=== PATIENT | male | born 1935 | race Caucasian/White ===

== ENCOUNTER 2017-09-15 12:51 | Day surgery (SDC) | payer MEDICARE ==
[2017-09-09 15:32] VITALS: BMI 34.9
[~2017-09-15 12:51] MED LIST: SODIUM CHLORIDE 0.9% 1,000 ML IV SCH; ceFAZolin 1,000 MG in SODIUM CHLORIDE 0.9% IRRIGATIO 250 ML IRRIGATION ONE; ceFAZolin IN SWFI 2 GM/20 ML SYRINGE IVP ONE
[2017-09-15] MEDS: SODIUM CHLORIDE 0.9% 1,000 ML IV SCH ×2 (13:22→19:45)
[2017-09-15 13:30] LABS: Glucose,Whole Blood 183 mg/dL (75-99)
[2017-09-15 13:32] LABS: Basophils % (A) 1 %; Eosinophils # (A) 0.2 k/uL (0-0.7); Eosinophils % (A) 3 %; HCT 49.5 % (39.0-53.0); HGB 15.2 gm/dL (13.0-17.5); Lymphocytes # (A) 1.6 k/uL (1.0-4.8); Lymphocytes % (A) 23 %; MCH 30.5 pg (25.0-35.0); MCHC 30.8 g/dL (31.0-37.0); MCV 99.2 fL (80.0-100.0); Mean Platelet Volume 8.9; Monocytes # (A) 0.5 k/uL (0-1.0); Monocytes % (A) 6 %; Neutrophils # (A) 4.6 k/uL (1.3-7.7); Neutrophils % (A) 65 %; Platelet Count 143 k/uL (150-450); RBC 4.99 m/uL (4.30-5.90); RDW 13.6 % (11.5-15.5)
[2017-09-15 13:39] LABS: Anion Gap 11 mmol/L; Blood Urea Nitrogen 24 mg/dL (9-20); Calcium 9.6 mg/dL (8.4-10.2); Carbon Dioxide 29 mmol/L (22-30); Chloride 100 mmol/L (98-107); Glucose 200 mg/dL (74-99); Potassium 4.6 mmol/L (3.5-5.1); Sodium 140 mmol/L (137-145)
[2017-09-15] MEDS ORDERED: ceFAZolin 1,000 MG in DEXTROSE/WATER 1 50ML.BAG IVPB STA (14:00)
[2017-09-15] MEDS ORDERED: PHENYLEPHRINE-0.9% NACL SYG 1 MG/10 ML SYRINGE ONE (14:02)
[2017-09-15] MEDS ORDERED: PROPOFOL 10 MG/ML 20 ML VIAL IV ONE (14:02)
[2017-09-15] MEDS ORDERED: MIDAZOLAM 2 MG/2 ML VIAL ONE (14:02)
[2017-09-15] MEDS ORDERED: fentaNYL (PF) 50 MCG/ML 2 ML AMP ONE (14:02)
[2017-09-15] MEDS ORDERED: LIDOCAINE 2% INJ 20 MG/ML SQ ONE (14:38)
[2017-09-15 15:14] LABS: O2 Sat Blood Gas 98.6 %
[2017-09-15 15:18] LABS: O2 Sat Blood Gas 75.7 %
[2017-09-15 15:21] LABS: O2 Sat Blood Gas 99.2 %
[2017-09-15 15:23] LABS: O2 Sat Blood Gas 78.3 %
[2017-09-15 15:25] LABS: O2 Sat Blood Gas 85.9 %
[2017-09-15 15:27] LABS: O2 Sat Blood Gas 74.2 %
--- NOTE | 2017-09-15 15:32 | P.PCN ---
Preoperative Diagnosis: Transvenous temporary pacing procedure Indication for the procedure: Severe underlying bradycardia, complete heart block Patient was brought to the EP lab in a fasting state. Written informed consent was obtained prior to the procedure. The right groin was prepped and draped as a protocol. A 6-Vietnamese sheath was placed in the right femoral vein. Via this, a temporary pacing catheter was placed in the right ventricle. Thresholds were interrogated. Temporary pacing was performed through the rest of the procedure. At the end of the entire procedure, the TVP was removed. The sheath was removed and hemostasis was assured. Patient tolerated the procedure well without any acute complications. Procedure performed Transvenous temporary pacing Disposition: observation
[2017-09-15] MEDS ORDERED: LIDOCAINE 1% INJ 10MG/ML (20 ML MDV) SQ ONE (15:52)
[2017-09-15] MEDS ORDERED: LACTATED RINGERS 1,000 ML IV ONE (15:54)
[2017-09-15] MEDS ORDERED: INSULIN ASPART 10 UNIT SQ PRN (16:26)
[2017-09-15] MEDS ORDERED: ACETAMINOPHEN TAB 325 MG TAB PO PRN ×2 (16:27→16:28)
--- NOTE | 2017-09-15 16:32 | P.PCN ---
Preoperative Diagnosis: Right heart catheterization performed Indication for the procedure elevated PA pressures with normal LV function on 2-D echo and Doppler Result Moderate pulmonary hypertension out of proportion to the elevation in pulmonary capillary wedge pressure Mildly increased pulmonary recovery wedge pressure No significant oxygen step up SVC saturation may be an aberrancy/accurate Details 8-Congolese venous sheath in the right femoral vein Crete-Keron catheter placed in the right heart Pulmonary capillary wedge pressure, mean equals 20, Which position, oxygen saturation equals 99.2% PA pressure 58/25/35 mmHg Pulmonary artery oxygen saturation equals 75.7% RV pressure 47/7/15 mmHg Right ventricle oxygen saturation equals 77% RA pressure 11/10/9 mmHg Right atrium oxygen saturation equals 78.3% SVC 14/12/11 mmHg SVCoxygen saturation equals 75.9% IVC 10/9/9 mmHg IVC oxygen saturation equals 74.2% Oxygen saturation of FA 98.6% Disposition: observation
--- NOTE | 2017-09-15 17:08 | CE ---
CARDIAC ELECTROPHYSIOLOGY REPORT Mr. Forman is a 81-year-old male patient who underwent dual chamber pacemaker generator change for device at [facility]. He has complete heart block. PROCEDURE: The patient brought to the EP lab in a fasting state. Written informed consent was obtained prior to the procedure. The left shoulder was prepped and draped as per protocol. 1% lidocaine was used for local anesthesia. A 4 cm incision was made parallel to the deltopectoral groove and carried down to the level of the generator. The generator was explanted. The leads were freed from the surrounding tissue. The leads were interrogated and the chronic generator was explanted. The new generator was implanted. Partial capsulectomy was performed. Hemostasis was assured. Wound was closed in 3 layers and dressed per protocol. The right atrial lead was a [employer], model #1688TC, 46 cm in length [place] serial [place] [id number]. P waves 2.4 mV, pacing impedance 460 ohms, pacing threshold 1.5 V at 0.5 milliseconds. The right ventricular lead was a [employer] model #1688TC, 58 cm in length and serial number [id number]. The patient is pacemaker dependent, pacing impedance 700 ohms, pacing threshold 0.75 V at 0.5 milliseconds. The explanted generator was a [employer] model #5826, serial #[id number]. The new generator implanted was a [employer] model number [id number], serial #[id number]. Patient tolerated the procedure well without any acute complications. PLAN: IV antibiotics and resume all home medications. Follow up in the device clinic in 5 days. MMODL / IJN: [id number] /
[2017-09-15 17:27] LABS: Glucose,Whole Blood 140 mg/dL (75-99)
[2017-09-15] MEDS: INSULIN NPH/REG INSULIN 70/30 300 UNIT/3 ML VIAL SQ SCH (17:54)
[2017-09-15] MEDS: LACTATED RINGERS 1,000 ML IV SCH (19:45)
[2017-09-15 20:37] LABS: Glucose,Whole Blood 229 mg/dL (75-99)
[2017-09-15] MEDS: ASPIRIN 81 MG PO SCH (20:56)
[2017-09-15] MEDS: ceFAZolin IN SWFI 2 GM/20 ML SYRINGE IVP SCH (20:56)
[2017-09-15] MEDS: LOSARTAN-HCTZ 50-12.5 MG 1 EACH TAB PO SCH (20:56)
[2017-09-15] MEDS: METOPROLOL SUCCINATE (ER) 50 MG TAB.ER.24H PO SCH (20:56)
[2017-09-15] MEDS ORDERED: ATORVASTATIN 80 MG TAB PO SCH (21:00)
[2017-09-15] MEDS: INSULIN ASPART 100 UNIT/ML 1 ML 10 ML VIAL SQ ONE (23:59)
[2017-09-16] MEDS ORDERED: INSULIN ASPART 100 UNIT/ML 1 ML 10 ML VIAL SQ ONE (00:08)
[2017-09-16] MEDS: INSULIN ASPART 100 UNIT/ML 1 ML 10 ML VIAL SQ ONE (00:18)
[2017-09-16 00:37] VITALS: RESP 16
[2017-09-16] MEDS: ceFAZolin IN SWFI 2 GM/20 ML SYRINGE IVP SCH ×3 (03:10→14:48)
[2017-09-16] MEDS: SODIUM CHLORIDE 0.9% 1,000 ML IV SCH (06:42)
[2017-09-16] MEDS: LACTATED RINGERS 1,000 ML IV SCH (06:43)
[2017-09-16 06:46] LABS: Glucose,Whole Blood 113 mg/dL (75-99)
--- NOTE | 2017-09-16 07:43 | P.DS ---
Providers Attending physician: Daryn Castro Primary care physician: Jacobo Orr [facility] Course: Patient is doing well. He is sitting up at the edge of the bed. No hematoma over the pacemaker site and groins of healed well and no hematoma or swelling no pain. No lower extremity edema. Heart sounds are normal normal S1 normal S2 no murmurs or gallops. Breath sounds are clear no rhonchi no crackles. Blood pressure 144/60 mmHg this morning pulse rate in the 60s afebrile 90F normal respirations Impression Complete heart block, pacemaker generator dual-chamber at [place] status post pacemaker generator change yesterday Moderate pulmonary hypertension PA pressures in the mid 50s, Out of Proportion to the elevation in wedge pressures PA systolic pressures in the low 50s millimeters of mercury, wedge pressure 18- 20 mmHg Morbid obesity Central obesity obstructive sleep apnea Adult-onset diabetes Coronary artery disease status post cardiac stenting in the past Preserved LV systolic function left ventricular hypertrophy ejection fraction 55 % Plan IV antibiotics and discharged home Today after completion of antibiotics Add Lasix 20 mg by mouth daily to current regimen Sleep apnea assessment Discuss with Dr. Orr this month Watch blood pressure control Procedures performed Right heart catheterization Transvenous temporary pacing Dual-chamber pacemaker generator change Patient Condition at Discharge: Stable Plan - Discharge Summary Discharge Rx Participant: Yes New Discharge Prescriptions: No Action Metoprolol Succinate [Toprol Xl] 50 mg PO BID Losartan/Hydrochlorothiazide [Losartan-Hctz 100-25 mg Tab] 0.5 tab PO BID sitaGLIPtin [Januvia] 50 mg PO DAILY Escitalopram [Lexapro] 10 mg PO DAILY Atorvastatin [Lipitor] 80 mg PO HS Tamsulosin HCl [Flomax] 0.4 mg PO DAILY Insulin Aspart [Novolog] 10 unit SQ AC-TID PRN PRN Reason: Blood Sugar - High Insulin NPH Hum/Reg Insulin Hm [Novolin 70-30 100 Unit/ml Vial] 75 unit SQ BID Aspirin [Adult Low Dose Aspirin EC] 81 mg PO BID Discharge Medication List Aspirin [Adult Low Dose Aspirin EC] 81 mg PO BID 09/09/17 [History] Atorvastatin [Lipitor] 80 mg PO HS 09/09/17 [History] Escitalopram [Lexapro] 10 mg PO DAILY 09/09/17 [History] Insulin Aspart [Novolog] 10 unit SQ AC-TID PRN 09/09/17 [History] Insulin NPH Hum/Reg Insulin Hm [Novolin 70-30 100 Unit/ml Vial] 75 unit SQ BID 09/09/17 [History] Losartan/Hydrochlorothiazide [Losartan-Hctz 100-25 mg Tab] 0.5 tab PO BID [History] Metoprolol Succinate [Toprol Xl] 50 mg PO BID 09/09/17 [History] Tamsulosin HCl [Flomax] 0.4 mg PO DAILY 09/09/17 [History] sitaGLIPtin [Januvia] 50 mg PO DAILY 09/09/17 [History]
[2017-09-16 07:47] VITALS: PULSE 59
[2017-09-16] MEDS: INSULIN ASPART 100 UNIT/ML 1 ML 10 ML VIAL SQ SCH ×2 (07:50→12:23)
[2017-09-16] MEDS: INSULIN NPH/REG INSULIN 70/30 300 UNIT/3 ML VIAL SQ SCH (07:50)
[2017-09-16] MEDS: LOSARTAN-HCTZ 50-12.5 MG 1 EACH TAB PO SCH (08:43)
[2017-09-16] MEDS: METOPROLOL SUCCINATE (ER) 50 MG TAB.ER.24H PO SCH (08:43)
[2017-09-16] MEDS: ASPIRIN 81 MG PO SCH (08:43)
[2017-09-16] MEDS ORDERED: ESCITALOPRAM 10 MG TAB PO SCH (09:00)
[2017-09-16] MEDS ORDERED: TAMSULOSIN 0.4 MG CAP.ER.24H PO SCH (09:00)
[2017-09-16] MEDS ORDERED: LINAGLIPTIN 5 MG TABLET PO SCH (09:00)
[2017-09-16 11:43] VITALS: BP 141/64; TEMP 97.5
[2017-09-16 12:16] LABS: Glucose,Whole Blood 200 mg/dL (75-99)
== END 2017-09-16 15:33 | disposition home or self-care (01) ==
LOC: CATHEP 12:51 → 3OBS 16:22 → CATHEP 09-16 15:33
PROVIDERS: ATTEND Internal Medicine Clinical Cardiac Electrophysiology
DX: Z45.010 Encounter for checking and testing of cardiac pacemaker pulse generator [battery] (principal); R00.1 Bradycardia, unspecified; I44.2 Atrioventricular block, complete; I25.10 Atherosclerotic heart disease of native coronary artery without angina pectoris; Z95.5 Presence of coronary angioplasty implant and graft; I27.20 Pulmonary hypertension, unspecified; E66.01 Morbid (severe) obesity due to excess calories; Z68.35 Body mass index [BMI] 35.0-35.9, adult; G47.33 Obstructive sleep apnea (adult) (pediatric); E11.9 Type 2 diabetes mellitus without complications; E78.5 Hyperlipidemia, unspecified; I25.2 Old myocardial infarction; I11.9 Hypertensive heart disease without heart failure; I65.29 Occlusion and stenosis of unspecified carotid artery; I73.9 Peripheral vascular disease, unspecified; Z79.84 Long term (current) use of oral hypoglycemic drugs; Z79.82 Long term (current) use of aspirin; Z79.4 Long term (current) use of insulin; Z79.899 Other long term (current) drug therapy; Z88.8 Allergy status to other drugs, medicaments and biological substances; Z87.891 Personal history of nicotine dependence
CPT/HCPCS: 93451; 33228; 80048; 85018; 82810; 85025; C1894; C1769 ×2; C1785; C1730; J2001 ×2; J2250; J0690 ×4; J3010; J2370; J2704

== ENCOUNTER → 2017-12-22 | Outpatient (CLI) | payer MEDICARE ==
--- NOTE | 2017-12-22 12:53 | CONS ---
CONSULTATION DATE OF SERVICE: 12/22/2017 This 82-year-old gentleman has been evaluated in the sleep center for possible obstructive sleep apnea-hypopnea syndrome. HISTORY OF PRESENT ILLNESS/SLEEP WAKE EVALUATION: Patient usual sleep schedule from 11:30 p.m. until 8 a.m. 7 days a week. No problem with falling asleep. No TV in bedroom. According to the patient's , he is snores and he wakes up from sleep 2 times with nocturia. No history of hypnagogic hallucinations, sleep paralysis or cataplexy. During the day, patient usually does not take naps because he is usually busy. [place] Sleepiness Scale is 6. PAST MEDICAL HISTORY: Positive for cardiac arrhythmia, hypertension, hyperlipidemia, diabetes. PAST SURGICAL HISTORY: Status post permanent pacemaker insertion, appendectomy. MEDICATIONS: Atorvastatin, aspirin, metoprolol, Benicar, Januvia, NovoLog, Lexapro. SOCIAL HISTORY: Positive for smoking in the past for more than 20 pack years, quit in 1982. Alcohol consumption none since 1983. REVIEW OF SYSTEMS: Multiple awakenings from sleep. Increasing weight about 15 pounds for the last 5 years. No fevers. No double vision. No recent chest pain. No shortness of breath. No abdominal pain. No bleeding episodes. No blood in urine. No seizure episodes. FAMILY HISTORY: Heart problems, snoring, cancer, diabetes. His sister had breast cancer. PHYSICAL EXAM: During physical exam, gentleman without distress. VITAL SIGNS: BP 137/58, HR 64, RR 18, height 5 feet 8-1/2 inches, weight 241.2, BMI 36.1, temperature 98.3, oxygen saturation on room air 92%. HEENT: PERRLA, EOMI. Oropharynx very short distance between soft palate and posterior pharyngeal wall. NECK: Wide neck 20-1/2 inches in circumference. LUNGS: Clear to percussion and to auscultation. Good air exchange. No wheezing or rhonchi. HEART: S1, S2 regular. No murmurs, gallops, or rubs. ABDOMEN: Obese, EXTREMITIES: No clubbing or cyanosis. HULL MOLDER: Awake, alert, and oriented X3. Cranial nerves 2 to 7 intact. There is no fasciculation or atrophy. noted. No focal deficits observed. IMPRESSION: 1. Snoring, awakenings from sleep with nocturia, short distance between soft palate and posterior pharyngeal wall, wide neck 20-1/2 inches in circumference, obstructive sleep apnea-hypopnea syndrome. 2. Obesity, body mass index 36.1. 3. History of cardiac arrhythmia, status post permanent pacemaker insertion. 4. Hypertension. 5. Diabetes mellitus. 6. Hyperlipidemia. 7. Status post appendectomy. 8. History of some kind of thoughts about several years ago. any recent problems on treatment with SSRIs. PLAN: 1. Polysomnography for evaluation of patient's breathing during sleep. 2. CPAP/BiPAP titration if sleep study confirms obstructive sleep apnea-hypopnea syndrome. 3. Preferable position during sleep on the side. 4. No driving if patient feels any sleepiness. 5. I will see patient for follow up visit to explain results of testing and following plan. Thank you very much for referring this patient for consultation. Sincerely, Phoenix Aparicio MD, PhD, FAASM Diplomat of [employer] [facility] [place] MMODL / IJN: [id number] /
== END | disposition home or self-care (01) ==
LOC: SLEEP 10:56
PROVIDERS: ATTEND Internal Medicine
DX: G47.33 Obstructive sleep apnea (adult) (pediatric) (principal); E66.9 Obesity, unspecified; I10 Essential (primary) hypertension; E11.9 Type 2 diabetes mellitus without complications; E78.5 Hyperlipidemia, unspecified; Z90.49 Acquired absence of other specified parts of digestive tract; Z68.36 Body mass index [BMI] 36.0-36.9, adult; Z86.79 Personal history of other diseases of the circulatory system; Z95.0 Presence of cardiac pacemaker; Z99.89 Dependence on other enabling machines and devices; Z79.899 Other long term (current) drug therapy; Z79.82 Long term (current) use of aspirin
CPT/HCPCS: 99211

== ENCOUNTER → 2018-03-30 | Outpatient (CLI) | payer MEDICARE ==
--- NOTE | 2018-03-30 14:27 | PN ---
PROGRESS NOTE DATE OF SERVICE: 03/30/2018 Followup visit in Sleep Center. An 82-year-old gentleman has been followed in the Sleep Center for treatment of obstructive sleep apnea-hypopnea syndrome. Recently patient had diagnostic sleep study and CPAP titration and I discussed results of the sleep studies with patient in detail. Diagnostic sleep study showed obstructive sleep apnea-hypopnea syndrome. The apnea-hypopnea index 14.1, which was fixed with CPAP with a pressure 10 cm of water. Subsequently, patient received his CPAP unit and today is his first visit after he was started on treatment with CPAP. He is able to sleep with CPAP without significant problems with a full-face mask. He sleeps well with that, feel better during the day. I checked his CPAP unit, CPAP pressure 10 cm of water. Usage is every night and / nights more than 4 hours. Average usage 4.7 hours. Leak 23 L/minute which is acceptable. Apnea-hypopnea index is only 1.8 for the last month, which is normal. [place] Sleepiness Scale today is only 3. MEDICATIONS: Atorvastatin, aspirin, metoprolol, Benicar, Januvia, NovoLog, Lexapro. PHYSICAL EXAM: Patient in no distress. BP 108/30 on the left hand, on right hand 114/45, HR 69, RR 16, weight 240.8, temperature 98.8. OROPHARYNX: Extremely low position of soft palate. ABDOMEN: Obese. Neck Supple, no JVD. Thyroid is not palpable. LUNGS Clear to percussion and to auscultation. Good air exchange. No wheezing or rhonchi. HEART S1, S2 regular. No murmurs, gallops, or rubs. EXTREMITIES No clubbing or cyanosis. SOCIAL SCIENCE MANAGER Awake, alert, and oriented X3. Cranial nerves 2 to 7 intact. There is no fasciculation or atrophy. noted. No focal deficits observed. IMPRESSION: 1. Obstructive sleep apnea-hypopnea syndrome. Patient demonstrated great compliance with treatment, benefitting from treatment. 2. Obesity. 3. History of cardiac arrhythmias, status post permanent pacemaker insertion. 4. Hypertension. 5. Diabetes mellitus. 6. Hyperlipidemia. 7. Status post appendectomy. 8. History of depression. PLAN: 1. Patient will continue to use CPAP equipment every night. 2. Losing weight. 3. Sleep hygiene with regular time in bed for at least 8 hours. 4. No driving if feeling any sleepiness. 5. We will maintain prescription for all necessary CPAP supplies. 6. Followup visit in 10 months or earlier if patient has any problems. Thank you very much for allowing me to participate in the management of your patient. Sincerely, Phoenix Aparicio MD, PhD, FAASM Diplomat of [place] [employer] [employer] [facility] [place] MMODL / IJN: [id number] /
== END | disposition home or self-care (01) ==
LOC: SLEEP 13:11
PROVIDERS: ATTEND Internal Medicine
DX: G47.33 Obstructive sleep apnea (adult) (pediatric) (principal); E66.9 Obesity, unspecified; I10 Essential (primary) hypertension; E11.9 Type 2 diabetes mellitus without complications; E78.5 Hyperlipidemia, unspecified; F32.9 Major depressive disorder, single episode, unspecified; Z95.0 Presence of cardiac pacemaker; Z90.89 Acquired absence of other organs; Z86.79 Personal history of other diseases of the circulatory system; Z79.82 Long term (current) use of aspirin; Z79.899 Other long term (current) drug therapy; Z79.4 Long term (current) use of insulin

== ENCOUNTER → 2021-01-07 | Outpatient (CLI) | payer MEDICARE ==
[2021-01-08 00:30] LABS: African American GFR (CKD) 53.5 (60.0-200.0); Albumin 4.3 g/dL (3.80-4.90); Albumin/Globulin Ratio 1.48 (1.60-3.17); Anion Gap 11.4 mmol/L (4.00-12.00); BUN/Creat Ratio 16.43 Ratio (12.00-20.00); Calcium 9.3 mg/dL (8.7-10.3); Carbon Dioxide 24.6 mmol/L (21.6-31.8); Chol/HDL Ratio 3.53; Globulin 2.9 g/dL (1.6-3.3); LDL Cholesterol,Calculated 62.8 mg/dL (0.0-131.0); Non-African American GFR(CKD) 46.1 (60.0-200.0); Potassium 4.9 mmol/L (3.5-5.5); Total Bilirubin 0.8 mg/dL (0.2-1.2); Total Protein 7.2 g/dL (6.2-8.2); VLDL Calculation 46.2 mg/dL (5.00-40.00)
== END | disposition home or self-care (01) ==
LOC: LABWHC1 13:05
PROVIDERS: ATTEND Internal Medicine Clinical Cardiac Electrophysiology
DX: E78.5 Hyperlipidemia, unspecified (principal); I10 Essential (primary) hypertension
CPT/HCPCS: 36415; 80053; 80061

== ENCOUNTER → 2021-01-20 | Outpatient (CLI) | payer MEDICARE ==
--- NOTE | 2021-01-20 09:36 | CT ---
EXAMINATION TYPE: CT angio abdomen pelvis DATE OF EXAM: 01/20/2021 COMPARISON: 03/13/2012 HISTORY: bilateral lower ext weakness, gluteal tendonitis CT DLP: 2010.4 mGycm CONTRAST: CTA thoracic and abdominal aorta with 3-D reconstruction is performed without Oral Contrast and witho ut and with IV Contrast, patient injected with 80 mL of Isovue 370. Contrast CTA of the abdominal aorta was performed from the lung apex through the base of the pelvis. 3-D reconstruction imaging obtained at a separate workstation. CONTRAST CT ABDOMEN AND PELVIS ABDOMINAL AORTA: No evidence for abdominal aortic aneurysm. No dissection. Moderately severe atherom atous change noted throughout the abdominal aorta with patent lumen of 4.7 mm distally. There is athe romatous change of the common iliac arteries bilaterally estimated diameter reduction of at least 50% bilaterally. There is occlusion of the left internal iliac artery. Severe atheromatous change noted at the origin of the right internal iliac artery with stenosis of greater than 70%. The external priscilla c arteries are free of significant atheromatous change or stenosis. Superficial femoral arteries demo nstrate moderate plaque formation proximally with estimated luminal narrowing of greater than 70% on the right and 50% left. Profunda femoris arteries are patent bilaterally with atheromatous change not ed at the origin without significant stenosis. LIVER/GB- No significant abnormality is seen. PANCREAS- No significant abnormality is seen. SPLEEN- No significant abnormality is seen. ADRENALS- No significant abnormality is seen. KIDNEYS/BLADDER- No significant abnormality is seen. BOWEL- No Significant abnormality GENITAL ORGANS: No gross abnormality seen. LYMPH NODES- No greater than 1cm abdominal or pelvic lymph nodes are appreciated. OSSEOUS STRUCTURES- No significant abnormality is seen. OTHER- No significant abnormality is seen. IMPRESSION- 1. Extensive atheromatous plaque as noted without evidence for dissection.
== END | disposition home or self-care (01) ==
LOC: RADCTMAIN 06:50
PROVIDERS: ATTEND Internal Medicine Clinical Cardiac Electrophysiology
DX: I70.0 Atherosclerosis of aorta (principal); I70.203 Unspecified atherosclerosis of native arteries of extremities, bilateral legs
CPT/HCPCS: 74174; Q9967

== ENCOUNTER → 2022-10-08 | Outpatient (CLI) | payer MEDICARE ==
--- NOTE | 2022-10-11 06:21 | PE ---
EXAMINATION TYPE: PET CT fusion skull to thigh DATE OF EXAM: 10/08/2022 COMPARISON: Recent CT October 05, 2022. HISTORY: Solitary pulmonary nodule, abnormal CT. TECHNIQUE: Following the intravenous administration of 10.28 mCi of F-18 FDG, whole body images are performed from the skull base to the midthigh. Images are reviewed on the computer in the coronal, a xial, and sagittal planes. Reconstructed rotating images are created on independent workstation and reviewed on the computer. A localization and attenuation correction CT is performed in conjunction with the PET scan. Blood glucose level was 171. SCAN: Initial Scan FINDINGS: SKULL BASE AND NECK: No areas of abnormal hypermetabolic uptake. CHEST, MEDIASTINUM, AND HILAR REGION: There is a 9-10 mm posterior left basilar pulmonary nodule axia l image 125 that shows no abnormal hypermetabolic uptake. No areas of abnormal hypermetabolic uptake in the thorax. ABDOMEN AND PELVIS: No areas of abnormal hypermetabolic uptake. Normal excretion. No adrenal masses. OSSEOUS STRUCTURES: No areas of abnormal hypermetabolic uptake. OTHER CT: Persisting cardiomegaly with dual lead pacemaker. Coronary artery calcification is redemons trated. Small to be bilateral gynecomastia is redemonstrated. Mild/moderate calcified plaque bilatera l carotid bulb level. Prominent pulmonary arteries raise concern for underlying pulmonary artery hype rtension. Gallbladder has distended margins. There is enlarged prostate gland redemonstrated. Severe calcified plaque of the aorta extends into the iliac branch vessels. Appendix is surgically absent. IMPRESSION: No areas of abnormal hypermetabolic uptake to suggest malignancy. Consider CT and/or PET/ CT imaging monitoring.
== END | disposition home or self-care (01) ==
LOC: RADPETMAIN 07:36
PROVIDERS: ATTEND Internal Medicine
DX: R91.1 Solitary pulmonary nodule (principal)
CPT/HCPCS: 78815; A9552

== ENCOUNTER → 2023-02-22 | Outpatient (CLI) | payer MEDICARE ==
[2023-02-22 08:22] LABS: African American GFR (CKD) 83 (>60 ml/min/1.73 sqM); Blood Urea Nitrogen 16 mg/dL (9-20); Non-African American GFR(CKD) 72 (>60 ml/min/1.73 sqM)
--- NOTE | 2023-02-22 09:10 | CT ---
EXAMINATION TYPE: CT chest w con CT DLP: 621.60 mGycm, Automated exposure control for dose reduction was used. DATE OF EXAM: 02/22/2023 8:48 AM COMPARISON: CT chest 10/05/2022, PET/CT 10/08/2022 CLINICAL INDICATION:Male, 87 years old with history of R91.1 PULMONARY NODULE; PHH, Pulmonary nodule TECHNIQUE: Multiple axial images were obtained through the chest following the administration of 100 cc of Isovue 300. . Coronal and sagittal reformats reviewed. FINDINGS: LUNGS/ PLEURA: Left upper lobe anterior medial cyst. Linear atelectasis within the lingula. No eviden ce of focal consolidation, pneumothorax or pleural effusion. Left lower lobe pleural-based 1.1 cm pul monary nodule is redemonstrated and stable from prior examination (series 4, image 53). No new or enl arging pulmonary nodules. AIRWAY: Patent and unremarkable. HEART: The heart is mildly enlarged for size. There is moderate coronary artery atherosclerosis. MEDIASTINUM: No evidence of adenopathy. VASCULATURE: No aortic aneurysm. Cardiac conduction leads with tips terminating in the right ventric le and right atrium. Atherosclerosis of the arterial vasculature is present. MUSCULOSKELETAL: No acute osseous abnormalities SOFT TISSUES/LYMPH NODES: Unremarkable. LOWER NECK: No significant findings. UPPER ABDOMEN: Subtle nodular contour to the liver. IMPRESSION: 1. Stable left lower lobe 1.1 cm pulmonary nodule. No new or enlarging pulmonary nodules. 2. Subtle nodular contour to the. Correlate with liver function tests for possible cirrhosis.
== END | disposition home or self-care (01) ==
LOC: RADCTMAIN 07:40
PROVIDERS: ATTEND Internal Medicine
DX: R91.8 Other nonspecific abnormal finding of lung field (principal)
CPT/HCPCS: 82565; 84520; 71260; 36415; Q9967

== ENCOUNTER → 2023-10-17 | Outpatient (CLI) | payer MEDICARE ==
[2023-10-17 08:19] LABS: African American GFR (CKD) 73 (>60 ml/min/1.73 sqM); Blood Urea Nitrogen 22 mg/dL (9-20); Non-African American GFR(CKD) 63 (>60 ml/min/1.73 sqM)
--- NOTE | 2023-10-22 22:08 | CT ---
EXAMINATION TYPE: CT chest w con CT DLP: 891 mGycm, Automated exposure control for dose reduction was used. DATE OF EXAM: 10/17/2023 9:55 AM COMPARISON: CT chest 02/22/2023 and older studies including PET CT 10/08/[address] chest 10/05/2022. CLINICAL INDICATION:Male, 88 years old with history of R91.1 Lung nodule; PHH, Lung Nodule TECHNIQUE: Multiple axial images were obtained through the chest. Sagittal and coronal reformats were created for review. Contrast used:100 ml mL of Isovue 300 with IV Contrast (None if empty) Oral contrast used: (None if empty) FINDINGS: LUNGS/ PLEURA: Solid nodule with slightly spiculated margin in the juxtapleural left lower lobe poste riorly is stable at 11 mm. No new or enlarging nodules. No consolidation, pleural effusion, or pneumo thorax. Background mild emphysematous changes. Mild scarring or atelectasis in the lingula. AIRWAY: Central airways are patent. LOWER NECK: No significant findings. MEDIASTINUM: No mediastinal or hilar lymphadenopathy, by CT size criteria.. HEART: Mild to moderate cardiomegaly. Mild calcifications of the mitral and aortic valves. Moderate t o severe coronary artery calcification and/or stents. Trace pericardial effusion. Left anterior chest wall pacemaker generator with the lead tips terminating in the right atrium and r ight ventricle. VASCULATURE: Moderate atherosclerotic calcifications of the aorta and branches. Mild narrowing of th e branch vessels from the arch. Ascending aorta is 3.2 CM, descending is 2.6 CM. Pulmonary trunk measures 2.6 CM. Pulmonary trunk is normal in size. Grossly preserved enhancement of the pulmonary arteries, in the limits of non-CTA exam. SOFT TISSUES/LYMPH NODES: Mild bilateral gynecomastia type changes. No axillary adenopathy or chest w all mass. UPPER ABDOMEN: Minimally scalloped appearance of the visualized hepatic margins again seen, could be seen with early cirrhosis. Mild fatty infiltration of the pancreas, without acute findings. Mild thic kening of the adrenals with some small low-attenuation nodularity, more on the left than the right, l ikely adenomatoid changes. Moderate calcification of the upper abdominal aorta and branches with mild narrowing of the proximal celiac, superior mesenteric, and bilateral renal arteries. MUSCULOSKELETAL: No acute osseous abnormalities . Mild degenerative changes of the thoracic spine. IMPRESSION: 1. Continued stable 11 mm left lower lobe pulmonary nodule. 2. No new/enlarging nodules or thoracic adenopathy. 3. Other stable chronic and likely incidental findings as above.
== END | disposition home or self-care (01) ==
LOC: RADCTMAIN 07:38
PROVIDERS: ATTEND Internal Medicine
DX: R91.1 Solitary pulmonary nodule (principal)
CPT/HCPCS: 82565; 84520; 71260; 36415; Q9967

== ENCOUNTER 2024-06-07 12:04 | Inpatient (IN) | payer MEDICARE ==
--- NOTE | 2024-06-07 12:24 | ED ---
General Adult HPI - General Chief complaint: Abdominal Pain Stated complaint: SLOANE,Abd pain Time Seen by Provider: 06/07/24 12:14 Source: patient, family, RN notes reviewed Mode of arrival: wheelchair Limitations: no limitations - History of Present Illness Initial comments: Patient is an 88-year-old male present to the emergency department with concerns for abdominal distention and dyspnea. Onset of symptoms was around 2 days ago. No history of similar symptoms previously. Patient does have some leg swelling however feels this is chronic and unchanged. No calf pain. No fever. Patient has had some rhinorrhea. Patient denies cough however family states he has been coughing. No chest pain. Abdomen feels distended more than painful. No con stipation. No nausea or vomiting. - Related Data Home Medications Medication Instructions Recorded Confirmed Atorvastatin [Lipitor] 80 mg PO HS 09/09/17 06/07/24 Escitalopram [Lexapro] 10 mg PO DAILY 09/09/17 06/07/24 Insulin Aspart [NovoLOG] See Protocol SQ AC-TID PRN 09/09/17 06/07/24 Metoprolol Succinate [Toprol Xl] 50 mg PO BID 09/09/17 06/07/24 Tamsulosin HCl [Flomax] 0.4 mg PO DAILY 09/09/17 06/07/24 Clopidogrel [Plavix] 75 mg PO DAILY 06/07/24 06/07/24 Insuln Asp Prt/Insulin Aspart 60 unit SQ HS 06/07/24 06/07/24 [NovoLOG MIX 70-30 VIAL] Insuln Asp Prt/Insulin Aspart 100 unit SQ QAM 06/07/24 06/07/24 [NovoLOG MIX 70-30 VIAL] Losartan Potassium [Cozaar] 100 mg PO DAILY 06/07/24 06/07/24 Previous Rx's Medication Instructions Recorded Furosemide [Lasix] 20 mg PO DAILY #90 tab 09/16/17 Allergies Allergy/AdvReac Type Severity Reaction Status Date / Time No Known Allergies Allergy Verified 06/07/24 15:15 Review of Systems ROS Statement: Those systems with pertinent positive or pertinent negative responses have been documented in the HPI. ROS Other: All systems not noted in ROS Statement are negative. Constitutional: Denies: fever Eyes: Denies: eye pain ENT: Denies: ear pain Respiratory: Reports: as per HPI, dyspnea Cardiovascular: Denies: chest pain Endocrine: Denies: fatigue Gastrointestinal: Reports: as per HPI Genitourinary: Denies: dysuria Musculoskeletal: Denies: back pain Past Medical History Past Medical History: Diabetes Mellitus, Prostate Disorder Additional Past Medical History / Comment(s): see Dr Castro H&P, hx gout, History of Any Multi-Drug Resistant Organisms: None Reported Past Surgical History: Appendectomy, Heart Catheterization, Heart Catheterization With Stent, Pacemaker Additional Past Surgical History / Comment(s): cyst removed from lower spine, henry cataracts, 2 stents Past Anesthesia/Blood Transfusion Reactions: No Reported Reaction Date of Last Stent Placement:: 2004 Type of Cardiac Device: Permanent Pacemaker Device Placement Date:: Past Psychological History: No Psychological Hx Reported Smoking Status: Former smoker Past Alcohol Use History: None Reported Past Drug Use History: None Reported - Past Family History Sister(s) Family Medical History: Cancer General Exam Limitations: no limitations General appearance: alert, in no apparent distress Head exam: Present: normocephalic Eye exam: Present: normal appearance Neck exam: Present: normal inspection Respiratory exam: Present: decreased breath sounds Cardiovascular Exam: Present: tachycardia GI/Abdominal exam: Present: distended. Absent: tenderness, guarding, rebound, rigid, pulsatile mass Extremities exam: Present: pedal edema. Absent: calf tenderness Neurological exam: Present: alert Psychiatric exam: Present: normal affect, normal mood Skin exam: Present: normal color Course Vital Signs 06/07/24 06/07/24 06/07/24 12:07 13:04 15:21 Temperature 98.7 F Pulse Rate 114 H 110 H 110 H Respiratory 20 18 18 Rate Blood Pressure 156/75 157/79 167/79 O2 Sat by Pulse 90 L 93 L 93 L Oximetry EKG Findings - EKG Results: EKG: interpreted by ERMD (Ventricular paced rhythm with a rate of 108. Right axis. Wide QRS complex. Nonspecific ST-T) Medical Decision Making - Medical Decision Making MDM was pt. sent in by a medical professional or institution (, PA, MENTAL HYGIENIST, urgent care, hospital, or care home...) When possible be specific @ -No Did you speak to anyone other than the patient for history (EMS, parent, family, police, friend...)? What history was obtained from this source @ -No Did you review nursing and triage notes (agree or disagree)? Why? @ -I reviewed and agree with nursing and triage notes Were old charts reviewed (outside hosp., previous admission, EMS record, old EKG, old radiological studies, urgent care reports/EKG's, care home records)? Report findings @ -No old charts were reviewed Differential Diagnosis (chest pain, altered mental status, abdominal pain women, abdominal pain men, vaginal bleeding, weakness, fever, dyspnea, syncope, headache, dizziness, GI bleed, back pain, seizure, CVA, palpatations, mental health, musculoskeletal)? @ -Differential Abdominal Pain Men: Appendicitis, cholecystitis, diverticulosis, ischemic bowel, pancreatitis, hepatitis, UTI, gastroenteritis, AAA, incarcerated hernia, bowel obstruction, constipation, inflammatory bowel, hepatitis, peptic ulcer disease, splenic infarction, perforated viscus, testicular torsion, this is not meant to be an all-inclusive list EKG interpreted by me (3pts min.). @ -As above X-rays interpreted by me (1pt min.). @ -None done CT interpreted by me (1pt min.). @ -CT chest negative for pulmonary embolism or pneumonia. CT abdomen pelvis does have gallstones and some cirrhosis and mild ascites. Lymph nodes U/S interpreted by me (1pt. min.). @ -None done What testing was considered but not performed or refused? (CT, X-rays, U/S, labs)? Why? @ -None What meds were considered but not given or refused? Why? @ -None Did you discuss the management of the patient with other professionals (professionals i.e. , PA, MENTAL HYGIENIST, lab, RT, psych nurse, high school social studies teacher, steffen house supervisor, teacher, nuclear medicine officer, bilingual case manager)? Give summary @ -Case discussed with Dr. Orr who will admit his patient with surgical consult with Dr. Galarza Was smoking cessation discussed for >3mins.? @ -No Was critical care preformed (if so, how long)? @ -32 minutes critical care time Were there social determinants of health that impacted care today? How? (Homelessness, low income, unemployed, alcoholism, drug addiction, transportation, low edu. Level, literacy, decrease access to med. care, usp, rehab)? @ -No Was there de-escalation of care discussed even if they declined (Discuss DNR or withdrawal of care, Hospice)? DNR status @ -No What co-morbidities impacted this encounter? (DM, HTN, Smoking, COPD, CAD, Cancer, CVA, ARF, Chemo, Hep., AIDS, mental health diagnosis, sleep apnea, morbid obesity)? @ -None Was patient admitted / discharged? Hospital course, mention meds given and route, prescriptions, significant lab abnormalities, going to OR and other pertinent info. @ -Patient presents with abdominal discomfort and distention with associated dyspnea. Patient does have leukocytosis and gallstones. Unclear if there could be further etiology related to disease process. Patient will be admitted with IV antibiotics and surgical consult. [place] orders written. There is some concern for sepsis diagnosed at 1535. Blood culture and lactic acid and IV antibiotics have all been ordered. Undiagnosed new problem with uncertain prognosis? @ -Uncertain complete etiology of disease process with uncertain prognosis Drug Therapy requiring intensive monitoring for toxicity (Heparin, Nitro, Insulin, Cardizem)? @ -No Were any procedures done? @ -No Diagnosis/symptom? @ -Abdominal pain, sepsis, cholelithiasis Acute, or Chronic, or Acute on Chronic? @ -Acute, acute, acute Uncomplicated (without systemic symptoms) or Complicated (systemic symptoms)? @ -Located with thrombocytopenia of unclear etiology Side effects of treatment? @ -No Exacerbation, Progression, or Severe Exacerbation? @ -No Poses a threat to life or bodily function? How? (Chest pain, [place], PA, pneumonia, PE, COPD, DKA, ARF, appy, cholecystitis, CVA, Diverticulitis, Homicidal, Suicidal, threat to staff... and all critical care pts) @ -Threat to hematological as well as gastrointestinal - Lab Data Result diagrams: 06/07/24 13:30 06/07/24 13:30 Lab Results 06/07/24 06/07/24 06/07/24 Range/Units 12:36 12:36 13:30 WBC 33.1 H (3.8-10.6) k/uL RBC 4.76 (4.30-5.90) m/uL Hgb 12.2 L (13.0-17.5) gm/dL Hct 39.5 (39.0-53.0) % MCV 82.9 (80.0-100.0) fL MCH 25.6 (25.0-35.0) pg MCHC 30.9 L (31.0-37.0) g/dL RDW 20.1 H (11.5-15.5) % Plt Count 39 L (150-450) k/uL MPV 8.5 Neutrophils % (Manual) 64 % Band Neuts % (Manual) 8 % Lymphocytes % (Manual) 7 % Monocytes % (Manual) 5 % Eosinophils % (Manual) 3 % Metamyelocytes % 10 % Myelocytes % 4 % Neutrophils # (Manual) 23.80 H (1.3-7.7) k/uL Lymphocytes # (Manual) 2.32 (1.0-4.8) k/uL Monocytes # (Manual) 1.66 H (0-1.0) k/uL Eosinophils # (Manual) 0.99 H (0-0.7) k/uL Metamyelocytes # (Man) 3.31 H (0) k/uL Myelocytes # (Manual) 1.32 H (0) k/uL Nucleated RBCs 1 H (0-0) /100 WBC Manual Slide Review Performed Large Platelets Present Hypochromasia Marked Poikilocytosis Slight Anisocytosis Moderate Microcytosis Slight Crenated Cell Present PT 14.5 H (10.0-12.5) sec INR 1.4 H (<1.2) APTT 24.0 (22.0-30.0) sec D-Dimer 3.97 H (<0.60) mg/L FEU Sodium (137-145) mmol/L Potassium (3.5-5.1) mmol/L Chloride (98-107) mmol/L Carbon Dioxide (22-30) mmol/L Anion Gap mmol/L BUN (9-20) mg/dL Creatinine (0.66-1.25) mg/dL Est GFR (CKD-EPI)AfAm (>60 ml/min/1.73 sqM) Est GFR (CKD-EPI)NonAf (>60 ml/min/1.73 sqM) Glucose (74-99) mg/dL Calcium (8.4-10.2) mg/dL Magnesium (1.6-2.3) mg/dL Total Bilirubin (0.2-1.3) mg/dL AST (17-59) U/L ALT (4-49) U/L Alkaline Phosphatase (38-126) U/L NT-Pro-B Natriuret Pep pg/mL Total Protein (6.3-8.2) g/dL Albumin (3.5-5.0) g/dL Amylase (30-110) U/L Lipase (23-300) U/L Urine Color Urine Appearance (Clear) Urine pH (5.0-8.0) Ur Specific [place] (1.001-1.035) Urine Protein (Negative) Urine Glucose (UA) (Negative) Urine Ketones (Negative) Urine Blood (Negative) Urine Nitrite (Negative) Urine Bilirubin (Negative) Urine Urobilinogen (<2.0) mg/dL Ur Leukocyte Esterase (Negative) Urine RBC (0-5) /hpf Urine WBC (0-5) /hpf Ur Squamous Epith Cells (0-4) /hpf Hyaline Casts (0-2) /lpf Urine Mucus (None) /hpf Influenza Type A (PCR) Not Detected (Not Detectd) Influenza Type B (PCR) Not Detected (Not Detectd) RSV (PCR) Not Detected (Not Detectd) SARS-CoV-2 (PCR) Not Detected (Not Detectd) 06/07/24 06/07/24 Range/Units 13:30 14:40 WBC (3.8-10.6) k/uL RBC (4.30-5.90) m/uL Hgb (13.0-17.5) gm/dL Hct (39.0-53.0) % MCV (80.0-100.0) fL MCH (25.0-35.0) pg MCHC (31.0-37.0) g/dL RDW (11.5-15.5) % Plt Count (150-450) k/uL MPV Neutrophils % (Manual) % Band Neuts % (Manual) % Lymphocytes % (Manual) % Monocytes % (Manual) % Eosinophils % (Manual) % Metamyelocytes % % Myelocytes % % Neutrophils # (Manual) (1.3-7.7) k/uL Lymphocytes # (Manual) (1.0-4.8) k/uL Monocytes # (Manual) (0-1.0) k/uL Eosinophils # (Manual) (0-0.7) k/uL Metamyelocytes # (Man) (0) k/uL Myelocytes # (Manual) (0) k/uL Nucleated RBCs (0-0) /100 WBC Manual Slide Review Large Platelets Hypochromasia Poikilocytosis Anisocytosis Microcytosis Crenated Cell PT (10.0-12.5) sec INR (<1.2) APTT (22.0-30.0) sec D-Dimer (<0.60) mg/L FEU Sodium 138 (137-145) mmol/L Potassium 4.7 (3.5-5.1) mmol/L Chloride 110 H (98-107) mmol/L Carbon Dioxide 15 L (22-30) mmol/L Anion Gap 13 mmol/L BUN 21 H (9-20) mg/dL Creatinine 1.05 (0.66-1.25) mg/dL Est GFR (CKD-EPI)AfAm 74 (>60 ml/min/1.73 sqM) Est GFR (CKD-EPI)NonAf 64 (>60 ml/min/1.73 sqM) Glucose 217 H (74-99) mg/dL Calcium 8.9 (8.4-10.2) mg/dL Magnesium 1.7 (1.6-2.3) mg/dL Total Bilirubin 1.8 H (0.2-1.3) mg/dL AST 43 (17-59) U/L ALT 23 (4-49) U/L Alkaline Phosphatase 92 (38-126) U/L NT-Pro-B Natriuret Pep 5390 pg/mL Total Protein 8.2 (6.3-8.2) g/dL Albumin 4.3 (3.5-5.0) g/dL Amylase 65 (30-110) U/L Lipase 141 (23-300) U/L Urine Color Light Yellow Urine Appearance Clear (Clear) Urine pH 5.5 (5.0-8.0) Ur Specific [place] 1.019 (1.001-1.035) Urine Protein 1+ H (Negative) Urine Glucose (UA) Trace H (Negative) Urine Ketones 1+ H (Negative) Urine Blood Small H (Negative) Urine Nitrite Negative (Negative) Urine Bilirubin Negative (Negative) Urine Urobilinogen <2.0 (<2.0) mg/dL Ur Leukocyte Esterase Negative (Negative) Urine RBC 1 (0-5) /hpf Urine WBC 1 (0-5) /hpf Ur Squamous Epith Cells <1 (0-4) /hpf Hyaline Casts 3 H (0-2) /lpf Urine Mucus Rare H (None) /hpf Influenza Type A (PCR) (Not Detectd) Influenza Type B (PCR) (Not Detectd) RSV (PCR) (Not Detectd) SARS-CoV-2 (PCR) (Not Detectd) Disposition Clinical Impression: Abdominal pain Disposition: ADMITTED IP TO THIS HOSP Is patient prescribed a controlled substance at d/c from ED?: No Referrals: Jacobo Orr DO [Primary Care Provider] - 1-2 days Time of Disposition: 15:40
[2024-06-07] MEDS: PANTOPRAZOLE 40 MG/10 ML VIAL IVP STA (12:57)
[2024-06-07 13:18] LABS: INR 1.4 (<1.2)
[2024-06-07 13:19] LABS: Prothrombin Time 14.5 sec (10.0-12.5)
[2024-06-07 13:45] LABS: Anisocytosis Moderate; HCT 39.5 % (39.0-53.0); HGB 12.2 gm/dL (13.0-17.5); Hypochromasia Marked; MCH 25.6 pg (25.0-35.0); MCHC 30.9 g/dL (31.0-37.0); MCV 82.9 fL (80.0-100.0); Mean Platelet Volume 8.5; Microcytosis Slight; Poikilocytosis Slight; RBC 4.76 m/uL (4.30-5.90); RDW 20.1 % (11.5-15.5)
[2024-06-07 13:56] LABS: ALT 23 U/L (4-49); African American GFR (CKD) 74 (>60 ml/min/1.73 sqM); Albumin 4.3 g/dL (3.5-5.0); Amylase 65 U/L (30-110); Anion Gap 13 mmol/L; Blood Urea Nitrogen 21 mg/dL (9-20); Calcium 8.9 mg/dL (8.4-10.2); Carbon Dioxide 15 mmol/L (22-30); Chloride 110 mmol/L (98-107); Glucose 217 mg/dL (74-99); Lipase 141 U/L (23-300); Non-African American GFR(CKD) 64 (>60 ml/min/1.73 sqM); Sodium 138 mmol/L (137-145); Total Bilirubin 1.8 mg/dL (0.2-1.3); Total Protein 8.2 g/dL (6.3-8.2)
[2024-06-07 14:05] LABS: NT-Pro-B-Type Natriuretic Pept 5390 pg/mL
[2024-06-07 14:10] LABS: Magnesium 1.7 mg/dL (1.6-2.3); Potassium 4.7 mmol/L (3.5-5.1)
[2024-06-07 14:11] LABS: AST 43 U/L (17-59); Alkaline Phosphatase 92 U/L (38-126)
[2024-06-07 14:52] LABS: Band Neutrophils % 8 %; Metamyelocytes % 10 %; Myelocytes % 4 %; Neutrophils % (M) 64 %; Nucleated Red Blood Cells 1 /100 WBC (0-0); Total Cells Counted 200
[2024-06-07 14:53] LABS: Eosinophils # (M) 0.99 k/uL (0-0.7); Lymphocytes # (M) 2.32 k/uL (1.0-4.8); Metamyelocytes # (M) 3.31 k/uL (0); Monocytes # (M) 1.66 k/uL (0-1.0); Myelocytes # (M) 1.32 k/uL (0); WBC 33.1 k/uL (3.8-10.6)
[2024-06-07 14:54] LABS: Crenated RBC Present
[2024-06-07 14:55] LABS: Large Platelets Present; Platelet Count 39 k/uL (150-450)
--- NOTE | 2024-06-07 15:01 | CT ---
EXAMINATION TYPE: CT abdomen pelvis w con CT DLP: 2140.3 mGycm, Automated exposure control for dose reduction was used. DATE OF EXAM: 06/07/2024 2:50 PM COMPARISON: PET CT 10/08/2022, CT chest 10/17/2023, CTA abdomen and pelvis 08/27/2022, 01/20/2021 CLINICAL INDICATION:Male, 88 years old with history of abdominal pain; abdominal distention TECHNIQUE: Standard CT of the abdomen and pelvis following the administration of 100 cc of Isovue 3 00 IV contrast material. Coronal and sagittal reformats were performed. FINDINGS: LOWER CHEST: Please see dedicated CT chest for findings ABDOMEN LIVER: Nodular contour to the liver with widening of the fissures in posterior notch sign. Most consi stent with cirrhosis. No focal lesion identified. GALLBLADDER AND BILE DUCTS: Layering increased densities within the lumen consistent with gallstones are present. No biliary ductal dilatation. PANCREAS: Unremarkable. SPLEEN: Unremarkable. ADRENAL GLANDS: Unremarkable. KIDNEYS AND URETERS: No evidence of hydronephrosis or renal calculus. The kidneys enhance symmetrical ly. Contrast is demonstrated within both collecting systems on the delayed phase. PELVIS BLADDER: Incompletely distended but grossly unremarkable. REPRODUCTIVE: Prostate is enlarged in size measuring 6.1 cm in transverse dimension. ABDOMEN & PELVIS STOMACH AND BOWEL: Stomach and duodenum are unremarkable. No focal bowel wall thickening or surroundi ng inflammatory changes. The appendix is not definitively visualized may be surgically absent. Redund ant sigmoid colon. Few scattered colonic diverticula without evidence for acute diverticulitis. No ev idence of bowel obstruction. PERITONEUM: No evidence of pneumoperitoneum. Small amount of ascites throughout the abdomen and pelvi s. VASCULATURE: Severe atherosclerotic calcifications are present throughout the abdominal aorta and its branches. 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 No evidence of aortic aneur ysm. MUSCULOSKELETAL: No acute osseous abnormalities. No aggressive osseous lesion. Multilevel Schmorl's n odes. LYMPH NODES: Enlarged gastrohepatic ligament lymph node measuring up to 2.7 cm (series 701, image 22) . Few mildly prominent periaortic lymph nodes. SOFT TISSUE/ABDOMINAL WALL: Mild diffuse anasarca. IMPRESSION: 1. Findings of hepatic cirrhosis with small volume ascites throughout the abdomen pelvis. 2. Nonspecific enlarged gastrohepatic ligament lymph node with additional mildly prominent gastrohep atic lymph nodes and periaortic lymph nodes. May be reactive to #1. 3. Cholelithiasis. [facility], , 06/07/2024 2:59 PM
--- NOTE | 2024-06-07 15:08 | CT ---
EXAMINATION TYPE: CT angio chest CT DLP: 806.7 mGycm, Automated exposure control for dose reduction was used. DATE OF EXAM: 06/07/2024 2:50 PM COMPARISON: CT chest 10/17/2023, 02/22/2023, 10/05/2022, PET CT 10/08/2022 CLINICAL INDICATION:Male, 88 years old with history of tiff; SOB TECHNIQUE/CONTRAST: CTA scan of the thorax is performed with IV Contrast, patient injected with 80 mL of Isovue 370, pulm onary embolism protocol. MIP images are created and reviewed. FINDINGS: Pulmonary Artery: There is no evidence for a filling defect within the pulmonary vasculature to sugge st acute pulmonary embolism. The pulmonary artery is of normal size. Lungs/Pleura: Trace bilateral pleural effusions. Moderate centrilobular emphysematous changes. Linear scarring and/or atelectasis within the lingula and right middle lobe. Redemonstration of left lower lobe 1.1 cm pulmonary solid nodule (series 606, image 130). No new definitive pulmonary nodules. Airway: Large airways are patent. Heart: The heart is mildly enlarged for size. No pericardial effusion. Left chest wall to lead cardia c pacemaking device with leads terminating in the right atrium and right ventricle. Moderate coronary arterial calcifications. Vasculature: No evidence of aortic aneurysm. Mild atherosclerotic calcification of the aorta and its branches. Mediastinum: No evidence of adenopathy. Musculoskeletal: No acute osseous abnormalities. Remote right-sided upper rib fractures. Minimal mult ilevel degenerative disc disease. No aggressive osseous lesion. Soft Tissues: Bilateral gynecomastia. Mild diffuse anasarca. Lower neck: No significant findings. Upper Abdomen: Please refer to dedicated CT abdomen and pelvis of the same day for findings. IMPRESSION: 1. No evidence of pulmonary embolism. 2. Trace bilateral pleural effusions. 3. Stable left lower lobe 1.1 cm pulmonary nodule. 4. Moderate COPD changes with few scattered regions of linear scarring within the right middle lobe a nd lingula. 5. Cardiac megaly. [facility], , 06/07/2024 3:06 PM
[2024-06-07 15:15] LABS: Appearance,Urine Clear (Clear); Bilirubin,Urine Negative (Negative); Blood,Urine Small (Negative); Color,Urine Light Yellow; Glucose,Urine (UA) Trace (Negative); Hyaline Casts,Urine 3 /lpf (0-2); Ketones,Urine 1+ (Negative); Leukocyte Esterase,Urine Negative (Negative); Mucus,Urine Rare /hpf; Nitrite,Urine Negative (Negative); PH, Urine 5.5 (5.0-8.0); Protein,Urine 1+ (Negative); RBC,Urine 1 /hpf (0-5); Specific Gravity,Urine 1.019 (1.001-1.035); Squamous Epithelial Cell,Urine <1 /hpf (0-4); Urobilinogen,Urine <2.0 mg/dL (<2.0); WBC,Urine 1 /hpf (0-5)
[2024-06-07] MEDS ORDERED: HYDROmorphone 0.5 MG/0.5 ML SYRINGE IVP PRN (15:40)
[2024-06-07] MEDS ORDERED: ONDANSETRON 4 MG/2 ML VIAL IVP PRN (15:40)
[2024-06-07] MEDS ORDERED: NALOXONE 0.4 MG/ML 1 ML VIAL IV PRN (15:40)
--- NOTE | 2024-06-07 16:17 | US ---
EXAMINATION TYPE: US gallbladder DATE OF EXAM: 06/07/2024 COMPARISON: NONE CLINICAL INDICATION: Male, 88 years old with history of pain; pain, GB stones umesh on CT TECHNIQUE: Grayscale and color Doppler imaging of the right upper quadrant was performed. FINDINGS: EXAM MEASUREMENTS: Liver Length: 21.5 cm Gallbladder Wall: 0.4 cm CBD: 0.8 cm Right Kidney: 11.0 x 5.2 x 4.7 cm MICRO PALEONTOLOGIST NOTES: bloated abd had bowel gas that limits views Pancreas: wnl Liver: enlarged, difficult to penetrate, mild adjacent ascites noted within RUQ Gallbladder: wall slightly thickened, unable to appreciate the stones seen on CT, limited views, tra nsverse measurement between 8-9cm, possible hydropic Evidence for sonographic Lira's sign: no CBD: wnl Right Kidney: wnl IMPRESSION: 1. Small amount of free fluid adjacent to the liver. 2. Hepatomegaly [facility], , 06/07/2024 4:14 PM
[2024-06-07] MEDS: PIPERACILLIN-TAZOBACTAM 3.375 GM in SODIUM CHLORIDE 0.9% 100 ML IVPB STA (17:39)
[2024-06-07] MEDS: SODIUM CHLORIDE 0.9% 1,000 ML IV STA (17:48)
--- NOTE | 2024-06-07 18:53 | ED ---
Medical Decision Making - Lab Data Result diagrams: 06/07/24 13:30 06/07/24 13:30 Lab Results 06/07/24 06/07/24 06/07/24 Range/Units 12:36 12:36 13:30 WBC 33.1 H (3.8-10.6) k/uL RBC 4.76 (4.30-5.90) m/uL Hgb 12.2 L (13.0-17.5) gm/dL Hct 39.5 (39.0-53.0) % MCV 82.9 (80.0-100.0) fL MCH 25.6 (25.0-35.0) pg MCHC 30.9 L (31.0-37.0) g/dL RDW 20.1 H (11.5-15.5) % Plt Count 39 L (150-450) k/uL MPV 8.5 Neutrophils % (Manual) 64 % Band Neuts % (Manual) 8 % Lymphocytes % (Manual) 7 % Monocytes % (Manual) 5 % Eosinophils % (Manual) 3 % Metamyelocytes % 10 % Myelocytes % 4 % Neutrophils # (Manual) 23.80 H (1.3-7.7) k/uL Lymphocytes # (Manual) 2.32 (1.0-4.8) k/uL Monocytes # (Manual) 1.66 H (0-1.0) k/uL Eosinophils # (Manual) 0.99 H (0-0.7) k/uL Metamyelocytes # (Man) 3.31 H (0) k/uL Myelocytes # (Manual) 1.32 H (0) k/uL Nucleated RBCs 1 H (0-0) /100 WBC Manual Slide Review Performed Large Platelets Present Hypochromasia Marked Poikilocytosis Slight Anisocytosis Moderate Microcytosis Slight Crenated Cell Present PT 14.5 H (10.0-12.5) sec INR 1.4 H (<1.2) APTT 24.0 (22.0-30.0) sec D-Dimer 3.97 H (<0.60) mg/L FEU Sodium (137-145) mmol/L Potassium (3.5-5.1) mmol/L Chloride (98-107) mmol/L Carbon Dioxide (22-30) mmol/L Anion Gap mmol/L BUN (9-20) mg/dL Creatinine (0.66-1.25) mg/dL Est GFR (CKD-EPI)AfAm (>60 ml/min/1.73 sqM) Est GFR (CKD-EPI)NonAf (>60 ml/min/1.73 sqM) Glucose (74-99) mg/dL Calcium (8.4-10.2) mg/dL Magnesium (1.6-2.3) mg/dL Total Bilirubin (0.2-1.3) mg/dL AST (17-59) U/L ALT (4-49) U/L Alkaline Phosphatase (38-126) U/L NT-Pro-B Natriuret Pep pg/mL Total Protein (6.3-8.2) g/dL Albumin (3.5-5.0) g/dL Amylase (30-110) U/L Lipase (23-300) U/L Urine Color Urine Appearance (Clear) Urine pH (5.0-8.0) Ur Specific [place] (1.001-1.035) Urine Protein (Negative) Urine Glucose (UA) (Negative) Urine Ketones (Negative) Urine Blood (Negative) Urine Nitrite (Negative) Urine Bilirubin (Negative) Urine Urobilinogen (<2.0) mg/dL Ur Leukocyte Esterase (Negative) Urine RBC (0-5) /hpf Urine WBC (0-5) /hpf Ur Squamous Epith Cells (0-4) /hpf Hyaline Casts (0-2) /lpf Urine Mucus (None) /hpf Influenza Type A (PCR) Not Detected (Not Detectd) Influenza Type B (PCR) Not Detected (Not Detectd) RSV (PCR) Not Detected (Not Detectd) SARS-CoV-2 (PCR) Not Detected (Not Detectd) 06/07/24 06/07/24 Range/Units 13:30 14:40 WBC (3.8-10.6) k/uL RBC (4.30-5.90) m/uL Hgb (13.0-17.5) gm/dL Hct (39.0-53.0) % MCV (80.0-100.0) fL MCH (25.0-35.0) pg MCHC (31.0-37.0) g/dL RDW (11.5-15.5) % Plt Count (150-450) k/uL MPV Neutrophils % (Manual) % Band Neuts % (Manual) % Lymphocytes % (Manual) % Monocytes % (Manual) % Eosinophils % (Manual) % Metamyelocytes % % Myelocytes % % Neutrophils # (Manual) (1.3-7.7) k/uL Lymphocytes # (Manual) (1.0-4.8) k/uL Monocytes # (Manual) (0-1.0) k/uL Eosinophils # (Manual) (0-0.7) k/uL Metamyelocytes # (Man) (0) k/uL Myelocytes # (Manual) (0) k/uL Nucleated RBCs (0-0) /100 WBC Manual Slide Review Large Platelets Hypochromasia Poikilocytosis Anisocytosis Microcytosis Crenated Cell PT (10.0-12.5) sec INR (<1.2) APTT (22.0-30.0) sec D-Dimer (<0.60) mg/L FEU Sodium 138 (137-145) mmol/L Potassium 4.7 (3.5-5.1) mmol/L Chloride 110 H (98-107) mmol/L Carbon Dioxide 15 L (22-30) mmol/L Anion Gap 13 mmol/L BUN 21 H (9-20) mg/dL Creatinine 1.05 (0.66-1.25) mg/dL Est GFR (CKD-EPI)AfAm 74 (>60 ml/min/1.73 sqM) Est GFR (CKD-EPI)NonAf 64 (>60 ml/min/1.73 sqM) Glucose 217 H (74-99) mg/dL Calcium 8.9 (8.4-10.2) mg/dL Magnesium 1.7 (1.6-2.3) mg/dL Total Bilirubin 1.8 H (0.2-1.3) mg/dL AST 43 (17-59) U/L ALT 23 (4-49) U/L Alkaline Phosphatase 92 (38-126) U/L NT-Pro-B Natriuret Pep 5390 pg/mL Total Protein 8.2 (6.3-8.2) g/dL Albumin 4.3 (3.5-5.0) g/dL Amylase 65 (30-110) U/L Lipase 141 (23-300) U/L Urine Color Light Yellow Urine Appearance Clear (Clear) Urine pH 5.5 (5.0-8.0) Ur Specific [place] 1.019 (1.001-1.035) Urine Protein 1+ H (Negative) Urine Glucose (UA) Trace H (Negative) Urine Ketones 1+ H (Negative) Urine Blood Small H (Negative) Urine Nitrite Negative (Negative) Urine Bilirubin Negative (Negative) Urine Urobilinogen <2.0 (<2.0) mg/dL Ur Leukocyte Esterase Negative (Negative) Urine RBC 1 (0-5) /hpf Urine WBC 1 (0-5) /hpf Ur Squamous Epith Cells <1 (0-4) /hpf Hyaline Casts 3 H (0-2) /lpf Urine Mucus Rare H (None) /hpf Influenza Type A (PCR) (Not Detectd) Influenza Type B (PCR) (Not Detectd) RSV (PCR) (Not Detectd) SARS-CoV-2 (PCR) (Not Detectd) Disposition Clinical Impression: Abdominal pain Disposition: ADMITTED IP TO THIS HOSP Is patient prescribed a controlled substance at d/c from ED?: No Procedures - Sepsis Sepsis Focused Exam #1 Time Sepsis Criteria Met: 15:35 Sepsis Focused Exam Date: 06/07/24 Sepsis Focused Exam Time: 18:53 Sepsis Focused Exam Complete: Yes Vital Signs & RN Notes Reviewed: Yes Capillary Refill: < 2 Seconds: Fingers, Toes Peripheral Pulses: Normal: Radial (R), Radial (L) Skin Color: Normal for Patient Respiratory Exam: normal lung sounds Cardiovascular Exam: tachycardia
[2024-06-07 20:58] LABS: Glucose,Whole Blood 254 mg/dL (70-110)
[2024-06-07] MEDS ORDERED: DEXTROSE 50% SYRINGE 50 ML IVP PRN (21:55)
[2024-06-07] MEDS ORDERED: INSULN ASP PRT/INSULIN ASPART 100 UNIT/ML 10 ML VIAL SQ SCH (22:00)
[2024-06-07] MEDS: METOPROLOL SUCCINATE (ER) 50 MG TAB.ER.24H PO SCH (22:31)
[2024-06-07] MEDS: INSULIN ASPART (NovoLOG) 100 UNIT/ML VIAL SQ SCH (22:31)
[2024-06-07] MEDS: ATORVASTATIN 80 MG TAB PO SCH (22:31)
[2024-06-08] MEDS ORDERED: PIPERACILLIN-TAZOBACTAM 3.375 GM in SODIUM CHLORIDE 0.9% 100 ML IVPB SCH
[2024-06-08 05:15] LABS: INR 1.7 (<1.2); Prothrombin Time 17.6 sec (10.0-12.5)
[2024-06-08 06:17] LABS: Glucose,Whole Blood 239 mg/dL (70-110)
[2024-06-08 06:33] LABS: Anisocytosis Moderate; HCT 38.8 % (39.0-53.0); HGB 11.6 gm/dL (13.0-17.5); Hypochromasia Marked; MCH 25.1 pg (25.0-35.0); MCHC 29.8 g/dL (31.0-37.0); MCV 84.2 fL (80.0-100.0); Mean Platelet Volume 8.7; Microcytosis Slight; Poikilocytosis Slight; RBC 4.61 m/uL (4.30-5.90); RDW 20.3 % (11.5-15.5)
[2024-06-08 06:40] LABS: Platelet Count 38 k/uL (150-450)
[2024-06-08] MEDS ORDERED: IPRATROPIUM-ALBUTEROL 3 ML NEB INHALATION PRN (08:00)
[2024-06-08] MEDS: ESCITALOPRAM 10 MG TAB PO SCH (08:55)
[2024-06-08] MEDS: CLOPIDOGREL 75 MG TAB PO SCH (08:55)
[2024-06-08] MEDS: TAMSULOSIN 0.4 MG CAP.ER.24H PO SCH (08:55)
[2024-06-08] MEDS: PANTOPRAZOLE 40 MG/10 ML VIAL IV SCH (08:55)
[2024-06-08] MEDS: FUROSEMIDE 20 MG TAB PO SCH (08:56)
[2024-06-08] MEDS: LOSARTAN 50 MG TAB PO SCH (08:56)
[2024-06-08] MEDS ORDERED: INSULN ASP PRT/INSULIN ASPART 100 UNIT/ML 10 ML VIAL SQ SCH (09:00)
[2024-06-08] MEDS: IPRATROPIUM-ALBUTEROL 3 ML NEB INHALATION SCH (09:32)
[2024-06-08] MEDS: SYMBICORT 80-4.5 MCG INHALER INHALATION SCH (09:33)
[2024-06-08 09:50] LABS: Band Neutrophils % 4 %; Basophils # (M) 0.48 k/uL (0-0.2); Blast Cells # (M) 0.48 k/uL (0); Eosinophils # (M) 1.92 k/uL (0-0.7); Lymphocytes # (M) 3.84 k/uL (1.0-4.8); Metamyelocytes # (M) 1.92 k/uL (0); Metamyelocytes % 4 %; Monocytes # (M) 5.28 k/uL (0-1.0); Myelocytes # (M) 1.92 k/uL (0); Myelocytes % 4 %; Neutrophils % (M) 66 %; Nucleated Red Blood Cells 0 /100 WBC (0-0); Total Cells Counted 200
[2024-06-08 09:52] LABS: Large Platelets Present
--- NOTE | 2024-06-08 10:53 | P.HPIM ---
History of Present Illness H&P Date: 06/08/24 Chief Complaint: Distended abdomen, increased flatus, dyspnea This is an 88-year-old gentleman with past medical history significant for prior heavy alcohol use-and x 35 years, prior nicotine dependence 4 packs/day x 25 years, quit in 1981, complete heart block with PPM implantation, diabetes mellitus, diabetic gastroparesis ,prostate disorder,obesity, obstructive sleep apnea and multiple other medical issues presented to the ER with complaints of significant flatus, bloating-increased abdominal distention accompanied by dyspnea began 2 to 3 days ago. Denies nausea, vomiting or diarrhea. Denies constipation. Reports minimal to no abdominal,pain chronic leg edema with minimal edema currently. Denies chest pain, palpitations. Afebrile, WBC on admission 33, increased to 48, lactic acid lactic acid 7.1 , currently down to 4 with IV fluid hydration, hemoglobin 11.6, platelets 38, MCV 84.2, blast cells 1%, INR 1.7, elevated D-dimer, 3.97. Chest CTA reported no PE, trace bilateral pleural effusions, stable left lower lobe pulmonary nodule, moderate COPD changes with scattered regions of linear scarring within the right middle lobe and lingula, cardiomegaly.Electrolytes within normal limits, bicarb 15, BUN 21, creatinine 1.05-appears close to baseline. Blood sugars in the 200s, A1c 7.6, total bili 1.8, proBNP 5390. UA negative nitrates, negative leukocytes, 1+ protein trace glucose 1+ ketones, small blood, positive hyaline casts. Viral studies negative. CT of abdomen pelvis reported findings of hepatic cirrhosis with small volume ascites throughout the abdomen pelvis, nonspecific enlarged gastrohepatic ligament lymph node with additional mildly prominent gastrohepatic nodes and periaortic lymph nodes, cholelithiasis with no biliary ductal dilatation, prostate enlarged measuring 6.1 cm.Gallbladder ultrasound reported small amount of free fluid adjacent to the liver, common bile duct within normal limits, pancreas within normal limits, liver enlarged, difficult to penetrate, mild adjacent ascites noted within right upper quadrant I know. Gallbladder wall slightly thickened unable to appreciate stone seen on CT-Limited views, po ssibly hydropic. Review of Systems ROS Statement: Those systems with pertinent positive or pertinent negative responses have been documented in the HPI. ROS Other: All systems not noted in ROS Statement are negative. Past Medical History Past Medical History: Diabetes Mellitus, Prostate Disorder Additional Past Medical History / Comment(s): see Dr Castro H&P, hx gout, History of Any Multi-Drug Resistant Organisms: None Reported Past Surgical History: Appendectomy, Heart Catheterization, Heart Catheterization With Stent, Pacemaker Additional Past Surgical History / Comment(s): cyst removed from lower spine, henry cataracts, 2 stents Past Anesthesia/Blood Transfusion Reactions: No Reported Reaction Date of Last Stent Placement:: 2004 Type of Cardiac Device: Permanent Pacemaker Device Placement Date:: Past Psychological History: No Psychological Hx Reported Smoking Status: Former smoker Past Alcohol Use History: None Reported Additional Past Alcohol Use History / Comment(s): quit smoking 1981, smoked for 4 PPD for 25 yrs Past Drug Use History: None Reported - Past Family History Sister(s) Family Medical History: Cancer Medications and Allergies Home Medications Medication Instructions Recorded Confirmed Type Atorvastatin [Lipitor] 80 mg PO HS 09/09/17 06/07/24 History Escitalopram [Lexapro] 10 mg PO DAILY 09/09/17 06/07/24 History Insulin Aspart [NovoLOG] See Protocol SQ AC-TID PRN 09/09/17 06/07/24 History Metoprolol Succinate [Toprol Xl] 50 mg PO BID 09/09/17 06/07/24 History Tamsulosin HCl [Flomax] 0.4 mg PO DAILY 09/09/17 06/07/24 History Furosemide [Lasix] 20 mg PO DAILY #90 tab 09/16/17 06/07/24 Rx Clopidogrel [Plavix] 75 mg PO DAILY 06/07/24 06/07/24 History Insuln Asp Prt/Insulin Aspart 60 unit SQ HS 06/07/24 06/07/24 History [NovoLOG MIX 70-30 VIAL] Insuln Asp Prt/Insulin Aspart 100 unit SQ QAM 06/07/24 06/07/24 History [NovoLOG MIX 70-30 VIAL] Losartan Potassium [Cozaar] 100 mg PO DAILY 06/07/24 06/07/24 History Allergies Allergy/AdvReac Type Severity Reaction Status Date / Time No Known Allergies Allergy Verified 06/07/24 15:15 Physical Exam Vitals: Vital Signs Temp Pulse Pulse Resp BP BP Pulse Ox 06/08/24 09:49 88 06/08/24 09:33 90 06/08/24 08:45 97.5 F L 89 14 133/67 92 L 06/08/24 01:47 95 16 136/63 90 L 06/07/24 21:00 98.3 F 117 H 18 159/86 93 L 06/07/24 20:34 110 H 18 169/86 93 L 06/07/24 19:00 110 H 18 122/80 98 06/07/24 17:42 111 H 18 122/81 97 06/07/24 15:21 110 H 18 167/79 93 L 06/07/24 13:04 110 H 18 157/79 93 L 06/07/24 12:07 98.7 F 114 H 20 156/75 90 L Intake and Output 06/07/24 06/08/24 06/08/24 22:59 06:59 14:59 Other: Voiding Method Toilet # Voids 1 # Bowel Movements 1 Weight 109.316 kg 109.4 kg PHYSICAL EXAM: VITAL SIGNS: [Reviewed] GENERAL: Well-nourished, alert and oriented x 3, sitting up at side of bed, no acute distress, extremely hard of hearing-does not have his hearing aids HEENT: Normocephalic, atraumatic conjunctivae normal. eyes normal. NECK: Supple, unable to assess for JVD. No thyroid enlargement. No LNs CARDIOVASCULAR: S1, S2 regular.No murmur RESPIRATION: Unlabored, equal air entry, essentially clear to auscultation with bilateral bases diminished. ABDOMEN: Soft, obese, distended, minimal diffuse tenderness. No guarding. no masses palpable. Positive ascites, No hepatosplenomegaly.Bowel sounds heard. LEGS: Positive bilateral lower extremity edema, no calf tenderness. NERVOUS SYSTEM: Cranial N 2-12 grossly normal. No focal deficits. Strength and sensation grossly intact. Skin: Warm and dry, no rash. Results CBC & Chem 7: 06/08/24 05:18 06/07/24 13:30 Labs: Abnormal Lab Results - Last 24 Hours (Table) 06/07/24 06/07/24 06/07/24 Range/Units 12:36 13:30 13:30 WBC 33.1 H (3.8-10.6) k/uL Hgb 12.2 L (13.0-17.5) gm/dL Hct (39.0-53.0) % MCHC 30.9 L (31.0-37.0) g/dL RDW 20.1 H (11.5-15.5) % Plt Count 39 L (150-450) k/uL Blast Cells % % Neutrophils # (Manual) 23.80 H (1.3-7.7) k/uL Monocytes # (Manual) 1.66 H (0-1.0) k/uL Eosinophils # (Manual) 0.99 H (0-0.7) k/uL Basophils # (Manual) (0-0.2) k/uL Metamyelocytes # (Man) 3.31 H (0) k/uL Myelocytes # (Manual) 1.32 H (0) k/uL Blast Cells # (Man) (0) k/uL Nucleated RBCs 1 H (0-0) /100 WBC PT 14.5 H (10.0-12.5) sec INR 1.4 H (<1.2) D-Dimer 3.97 H (<0.60) mg/L FEU Chloride 110 H (98-107) mmol/L Carbon Dioxide 15 L (22-30) mmol/L BUN 21 H (9-20) mg/dL Glucose 217 H (74-99) mg/dL POC Glucose (mg/dL) (70-110) mg/dL Hemoglobin A1c (<=6.0) % Plasma Lactic Acid Diomedes (0.7-2.0) mmol/L Total Bilirubin 1.8 H (0.2-1.3) mg/dL Urine Protein (Negative) Urine Glucose (UA) (Negative) Urine Ketones (Negative) Urine Blood (Negative) Hyaline Casts (0-2) /lpf Urine Mucus (None) /hpf 06/07/24 06/07/24 06/07/24 Range/Units 14:40 17:12 20:56 WBC (3.8-10.6) k/uL Hgb (13.0-17.5) gm/dL Hct (39.0-53.0) % MCHC (31.0-37.0) g/dL RDW (11.5-15.5) % Plt Count (150-450) k/uL Blast Cells % % Neutrophils # (Manual) (1.3-7.7) k/uL Monocytes # (Manual) (0-1.0) k/uL Eosinophils # (Manual) (0-0.7) k/uL Basophils # (Manual) (0-0.2) k/uL Metamyelocytes # (Man) (0) k/uL Myelocytes # (Manual) (0) k/uL Blast Cells # (Man) (0) k/uL Nucleated RBCs (0-0) /100 WBC PT (10.0-12.5) sec INR (<1.2) D-Dimer (<0.60) mg/L FEU Chloride (98-107) mmol/L Carbon Dioxide (22-30) mmol/L BUN (9-20) mg/dL Glucose (74-99) mg/dL POC Glucose (mg/dL) 254 H (70-110) mg/dL Hemoglobin A1c (<=6.0) % Plasma Lactic Acid Diomedes 7.1 H* (0.7-2.0) mmol/L Total Bilirubin (0.2-1.3) mg/dL Urine Protein 1+ H (Negative) Urine Glucose (UA) Trace H (Negative) Urine Ketones 1+ H (Negative) Urine Blood Small H (Negative) Hyaline Casts 3 H (0-2) /lpf Urine Mucus Rare H (None) /hpf 06/07/24 06/08/24 06/08/24 Range/Units 21:33 01:11 04:59 WBC (3.8-10.6) k/uL Hgb (13.0-17.5) gm/dL Hct (39.0-53.0) % MCHC (31.0-37.0) g/dL RDW (11.5-15.5) % Plt Count (150-450) k/uL Blast Cells % % Neutrophils # (Manual) (1.3-7.7) k/uL Monocytes # (Manual) (0-1.0) k/uL Eosinophils # (Manual) (0-0.7) k/uL Basophils # (Manual) (0-0.2) k/uL Metamyelocytes # (Man) (0) k/uL Myelocytes # (Manual) (0) k/uL Blast Cells # (Man) (0) k/uL Nucleated RBCs (0-0) /100 WBC PT 17.6 H (10.0-12.5) sec INR 1.7 H (<1.2) D-Dimer (<0.60) mg/L FEU Chloride (98-107) mmol/L Carbon Dioxide (22-30) mmol/L BUN (9-20) mg/dL Glucose (74-99) mg/dL POC Glucose (mg/dL) (70-110) mg/dL Hemoglobin A1c (<=6.0) % Plasma Lactic Acid Diomedes 6.3 H* 6.0 H* (0.7-2.0) mmol/L Total Bilirubin (0.2-1.3) mg/dL Urine Protein (Negative) Urine Glucose (UA) (Negative) Urine Ketones (Negative) Urine Blood (Negative) Hyaline Casts (0-2) /lpf Urine Mucus (None) /hpf 06/08/24 06/08/24 06/08/24 Range/Units 04:59 05:18 05:18 WBC 48.0 H (3.8-10.6) k/uL Hgb 11.6 L (13.0-17.5) gm/dL Hct 38.8 L (39.0-53.0) % MCHC 29.8 L (31.0-37.0) g/dL RDW 20.3 H (11.5-15.5) % Plt Count 38 L (150-450) k/uL Blast Cells % 1 H* % Neutrophils # (Manual) 33.60 H (1.3-7.7) k/uL Monocytes # (Manual) 5.28 H (0-1.0) k/uL Eosinophils # (Manual) 1.92 H (0-0.7) k/uL Basophils # (Manual) 0.48 H (0-0.2) k/uL Metamyelocytes # (Man) 1.92 H (0) k/uL Myelocytes # (Manual) 1.92 H (0) k/uL Blast Cells # (Man) 0.48 H (0) k/uL Nucleated RBCs (0-0) /100 WBC PT (10.0-12.5) sec INR (<1.2) D-Dimer (<0.60) mg/L FEU Chloride (98-107) mmol/L Carbon Dioxide (22-30) mmol/L BUN (9-20) mg/dL Glucose (74-99) mg/dL POC Glucose (mg/dL) (70-110) mg/dL Hemoglobin A1c 7.6 H (<=6.0) % Plasma Lactic Acid Diomedes 4.8 H* (0.7-2.0) mmol/L Total Bilirubin (0.2-1.3) mg/dL Urine Protein (Negative) Urine Glucose (UA) (Negative) Urine Ketones (Negative) Urine Blood (Negative) Hyaline Casts (0-2) /lpf Urine Mucus (None) /hpf 06/08/24 06/08/24 Range/Units 05:55 07:25 WBC (3.8-10.6) k/uL Hgb (13.0-17.5) gm/dL Hct (39.0-53.0) % MCHC (31.0-37.0) g/dL RDW (11.5-15.5) % Plt Count (150-450) k/uL Blast Cells % % Neutrophils # (Manual) (1.3-7.7) k/uL Monocytes # (Manual) (0-1.0) k/uL Eosinophils # (Manual) (0-0.7) k/uL Basophils # (Manual) (0-0.2) k/uL Metamyelocytes # (Man) (0) k/uL Myelocytes # (Manual) (0) k/uL Blast Cells # (Man) (0) k/uL Nucleated RBCs (0-0) /100 WBC PT (10.0-12.5) sec INR (<1.2) D-Dimer (<0.60) mg/L FEU Chloride (98-107) mmol/L Carbon Dioxide (22-30) mmol/L BUN (9-20) mg/dL Glucose (74-99) mg/dL POC Glucose (mg/dL) 239 H (70-110) mg/dL Hemoglobin A1c (<=6.0) % Plasma Lactic Acid Diomedes 4.2 H* (0.7-2.0) mmol/L Total Bilirubin (0.2-1.3) mg/dL Urine Protein (Negative) Urine Glucose (UA) (Negative) Urine Ketones (Negative) Urine Blood (Negative) Hyaline Casts (0-2) /lpf Urine Mucus (None) /hpf Thrombosis Risk Factor Assmnt - Choose All That Apply Any of the Below Risk Factors Present?: Yes Each Factor Represents 1 point: Obesity (BMI >25), Swollen legs (current) Other Risk Factors: No Other congenital or acquired thrombophilia - If yes, enter type in comment: No Thrombosis Risk Factor Assessment Total Risk Factor Score: 2 Thrombosis Risk Factor Assessment Level: Low Risk Assessment and Plan Assessment: Sepsis, etiology unclear. Minimal to no abdominal pain, positive flatus, WBC 48, lactic acid 7.1 on admission, elevated blast cells 1%, T. bili 1.8 ,abdomen/pelvis CT reporting hepatic cirrhosis, small volume ascites throughout the abdomen pelvis, nonspecific enlarged gastrohepatic ligament lymph node with additional mildly prominent gastrohepatic lymph nodes and. Aortic lymph nodes possibly reactive , cholelithiasis, no biliary ductal dilatation, enlarged prostate.. Possible SBP, possible malignancy. Leukocytosis secondary to the above Lactic acidosis secondary to #1 Anemia appears to be chronic, last hemoglobin was 11.4 on 01/2024. Thrombocytopenia Hypercoagulopathy Hyperbilirubinemia Diabetic gastroparesis Left lower lobe pulmonary nodule, 11 mm, stable reported per CT completed on 10/17/2023, follows/monitored with pulmonary outpatient COPD Obstructive sleep apnea Diabetes mellitus, hyperglycemia, hemoglobin A1c 7.6 Chronic kidney disease stage II, GFR 64 CAD History of PPM secondary to complete heart block Moderate pulmonary hypertension Hypertension Hyperlipidemia Prior heavy alcohol use , none X 35 years Prior nicotine dependence, 4 packs/day x 25 years, quit 1981 [place], wears hearing aids Morbid obesity, BMI 37 Plan: Continue on current medication regimen ,monitoring and symptomatic treatment. Continue on ceftriaxone/SBP protocol. General surgery on consult. Oncology consulted. Aggressive pulmonary toileting with nebulized bronchodilators and LABA ordered. Prognosis guarded given multiple complex medical issues. The impression and plan of care has been dictated as directed. : I performed a history and examination of this patient, discussed the same with the dictator. I agree with the dictator's note ,documented as a scribe. Any additional findings or plans will be noted. Prior
[2024-06-08 11:33] LABS: Glucose,Whole Blood 245 mg/dL (70-110)
[2024-06-08 13:04] LABS: AST 95 U/L (17-59); African American GFR (CKD) 47 (>60 ml/min/1.73 sqM); Albumin 2.9 g/dL (3.5-5.0); Alkaline Phosphatase 60 U/L (38-126); Amylase 38 U/L (30-110); Anion Gap 12 mmol/L; Blood Urea Nitrogen 32 mg/dL (9-20); Calcium 7.4 mg/dL (8.4-10.2); Carbon Dioxide 17 mmol/L (22-30); Chloride 111 mmol/L (98-107); Glucose 199 mg/dL (74-99); Lipase 96 U/L (23-300); Magnesium 1.6 mg/dL (1.6-2.3); Non-African American GFR(CKD) 40 (>60 ml/min/1.73 sqM); Potassium 3.8 mmol/L (3.5-5.1); Sodium 140 mmol/L (137-145); Total Bilirubin 0.8 mg/dL (0.2-1.3)
[2024-06-08 13:10] LABS: ALT 30 U/L (4-49)
--- NOTE | 2024-06-08 15:37 | P.GSCN ---
History of Present Illness Consult date: 06/08/24 History of present illness: CHIEF COMPLAINT: Shortness of breath HISTORY OF PRESENT ILLNESS: This is a 88-year-old male who presents the hospital with complaints of shortness of breath. He has been having shortness of breath for the last 2 days. Patient is very hard of hearing. He denies any abdominal pain. Denies any nausea or vomiting. He does have a past history of alcohol use but quit drinking since 1984. CAT scan reported liver cirrhosis and ascites. Patient denies any prior history of liver cirrhosis. Patient did have elevated white count on admission. CAT scan of abdomen had reported findings of hepatic cirrhosis with small volume ascites throughout the abdomen pelvis. Nonspecific enlarged gastrohepatic ligament lymph node with additional mildly prominent gastrohepatic lymph nodes and periaortic lymph nodes. Cholelithiasis. Patient also has lower extremity edema which apparently is chronic. Patient is currently on antibiotics. Surgical service consulted for abdominal pain and sepsis. Patient mildly tachycardic on admission. Afebrile. PAST MEDICAL HISTORY: Diabetes mellitus, prostate disorder PAST SURGICAL HISTORY: Appendectomy, heart catheterization with stents, pacemaker MEDICATIONS: See below ALLERGIES: See below SOCIAL HISTORY: No illicit drug use. REVIEW OF SYSTEMS: CONSTITUTIONAL: Denies fever or chills. HEENT: Denies blurred vision, vision changes, or eye pain. Denies hemoptysis CARDIOVASCULAR: Denies chest pain or pressure. RESPIRATORY: No shortness of breath. GASTROINTESTINAL: See HPI for pertinent findings HEMATOLOGIC: Denies bleeding disorders. GENITOURINARY: Denies any blood in urine or increased urinary frequency. SKIN: Denies pruitis. Denies rash. PHYSICAL EXAM: VITAL SIGNS: Reviewed GENERAL: Well-developed in no acute distress. HEENT: No sclera icterus. Extraocular movements grossly intact. Moist buccal mucosa. Head is atraumatic, normocephalic. No nasal drainage. ABDOMEN: Soft. Obese. Mildly distended. Nontender. Patient has no tenderness in the right upper quadrant NEUROLOGIC: Awake and alert. Hard of hearing Extremities: Lower extremity edema LABORATORY DATA: WBC 33 up to 48 Hgb 11.6 platelets 38 blast cells 1 INR 1.7 D-dimer 3.97 Sodium 140 potassium 3.8 creatinine 1.54 Hemoglobin A1c 7.6 Lactic acid 6.3-4.0 Total bilirubin 1.8 down to 0.8 AST 43 up to 95 ALT 30 alk phos 60 BNP 5390 lipase 96 IMAGING: CT scan abdomen pelvis reports findings of hepatic cirrhosis with small volume ascites throughout the abdomen pelvis. Nonspecific enlarged gastrohepatic ligament lymph node with additionally mild prominent gastrohepatic lymph nodes and periaortic lymph nodes may be reactive to #1. Cholelithiasis. Gallbladder ultrasound reports small amount of free fluid adjacent to the liver. Hepatomegaly Chest CTA no evidence of PE. Trace bilateral pleural effusions. Moderate COPD. Stable left lower lobe pulmonary nodule. Cardiomegaly ASSESSMENT: 1. Abdominal distention with liver cirrhosis and small amount of ascites and significant leukocytosis. Initial concerns for possible spontaneous bacterial peritonitis. But patient has no pain. Antibiotics were initiated and a paracentesis ordered. IR reporting that there is not enough fluid to proceed with paracentesis 2. Asymptomatic gallstones 3. Shortness of breath PLAN: -No surgical intervention planned -Continue empiric antibiotics for possible SBP -Agree with hematology evaluation -Okay to advance diet to consistent carbohydrate Physician Bus Driver/Monitor note has been reviewed by physician. Signing provider agrees with the documented findings, assessment, and plan of care. Past Medical History Past Medical History: Diabetes Mellitus, Prostate Disorder Additional Past Medical History / Comment(s): see Dr Castro H&P, hx gout, History of Any Multi-Drug Resistant Organisms: None Reported Past Surgical History: Appendectomy, Heart Catheterization, Heart Catheterization With Stent, Pacemaker Additional Past Surgical History / Comment(s): cyst removed from lower spine, henry cataracts, 2 stents Past Anesthesia/Blood Transfusion Reactions: No Reported Reaction Date of Last Stent Placement:: 2004 Type of Cardiac Device: Permanent Pacemaker Device Placement Date:: Past Psychological History: No Psychological Hx Reported Smoking Status: Former smoker Past Alcohol Use History: None Reported Additional Past Alcohol Use History / Comment(s): quit smoking 1981, smoked for 4 PPD for 25 yrs Past Drug Use History: None Reported - Past Family History Sister(s) Family Medical History: Cancer Medications and Allergies Home Medications Medication Instructions Recorded Confirmed Type Atorvastatin [Lipitor] 80 mg PO HS 09/09/17 06/07/24 History Escitalopram [Lexapro] 10 mg PO DAILY 09/09/17 06/07/24 History Insulin Aspart [NovoLOG] See Protocol SQ AC-TID PRN 09/09/17 06/07/24 History Metoprolol Succinate [Toprol Xl] 50 mg PO BID 09/09/17 06/07/24 History Tamsulosin HCl [Flomax] 0.4 mg PO DAILY 09/09/17 06/07/24 History Furosemide [Lasix] 20 mg PO DAILY #90 tab 09/16/17 06/07/24 Rx Clopidogrel [Plavix] 75 mg PO DAILY 06/07/24 06/07/24 History Insuln Asp Prt/Insulin Aspart 60 unit SQ HS 06/07/24 06/07/24 History [NovoLOG MIX 70-30 VIAL] Insuln Asp Prt/Insulin Aspart 100 unit SQ QAM 06/07/24 06/07/24 History [NovoLOG MIX 70-30 VIAL] Losartan Potassium [Cozaar] 100 mg PO DAILY 06/07/24 06/07/24 History Allergies Allergy/AdvReac Type Severity Reaction Status Date / Time No Known Allergies Allergy Verified 06/07/24 15:15 Surgical - Exam Vital Signs Temp Pulse Resp BP Pulse Ox 98.7 F 114 H 20 156/75 90 L 06/07/24 12:07 06/07/24 12:07 06/07/24 12:07 06/07/24 12:07 06/07/24 12:07 Results - Labs 06/08/24 05:18 06/08/24 12:30 Abnormal Lab Results - Last 24 Hours (Table) 06/07/24 06/07/24 06/07/24 Range/Units 12:36 13:30 13:30 WBC 33.1 H (3.8-10.6) k/uL Hgb 12.2 L (13.0-17.5) gm/dL Hct (39.0-53.0) % MCHC 30.9 L (31.0-37.0) g/dL RDW 20.1 H (11.5-15.5) % Plt Count 39 L (150-450) k/uL Blast Cells % % Neutrophils # (Manual) 23.80 H (1.3-7.7) k/uL Monocytes # (Manual) 1.66 H (0-1.0) k/uL Eosinophils # (Manual) 0.99 H (0-0.7) k/uL Basophils # (Manual) (0-0.2) k/uL Metamyelocytes # (Man) 3.31 H (0) k/uL Myelocytes # (Manual) 1.32 H (0) k/uL Blast Cells # (Man) (0) k/uL Nucleated RBCs 1 H (0-0) /100 WBC PT 14.5 H (10.0-12.5) sec INR 1.4 H (<1.2) D-Dimer 3.97 H (<0.60) mg/L FEU Chloride 110 H (98-107) mmol/L Carbon Dioxide 15 L (22-30) mmol/L BUN 21 H (9-20) mg/dL Glucose 217 H (74-99) mg/dL POC Glucose (mg/dL) (70-110) mg/dL Hemoglobin A1c (<=6.0) % Plasma Lactic Acid Diomedes (0.7-2.0) mmol/L Total Bilirubin 1.8 H (0.2-1.3) mg/dL Urine Protein (Negative) Urine Glucose (UA) (Negative) Urine Ketones (Negative) Urine Blood (Negative) Hyaline Casts (0-2) /lpf Urine Mucus (None) /hpf 06/07/24 06/07/24 06/07/24 Range/Units 14:40 17:12 20:56 WBC (3.8-10.6) k/uL Hgb (13.0-17.5) gm/dL Hct (39.0-53.0) % MCHC (31.0-37.0) g/dL RDW (11.5-15.5) % Plt Count (150-450) k/uL Blast Cells % % Neutrophils # (Manual) (1.3-7.7) k/uL Monocytes # (Manual) (0-1.0) k/uL Eosinophils # (Manual) (0-0.7) k/uL Basophils # (Manual) (0-0.2) k/uL Metamyelocytes # (Man) (0) k/uL Myelocytes # (Manual) (0) k/uL Blast Cells # (Man) (0) k/uL Nucleated RBCs (0-0) /100 WBC PT (10.0-12.5) sec INR (<1.2) D-Dimer (<0.60) mg/L FEU Chloride (98-107) mmol/L Carbon Dioxide (22-30) mmol/L BUN (9-20) mg/dL Glucose (74-99) mg/dL POC Glucose (mg/dL) 254 H (70-110) mg/dL Hemoglobin A1c (<=6.0) % Plasma Lactic Acid Diomedes 7.1 H* (0.7-2.0) mmol/L Total Bilirubin (0.2-1.3) mg/dL Urine Protein 1+ H (Negative) Urine Glucose (UA) Trace H (Negative) Urine Ketones 1+ H (Negative) Urine Blood Small H (Negative) Hyaline Casts 3 H (0-2) /lpf Urine Mucus Rare H (None) /hpf 06/07/24 06/08/24 06/08/24 Range/Units 21:33 01:11 04:59 WBC (3.8-10.6) k/uL Hgb (13.0-17.5) gm/dL Hct (39.0-53.0) % MCHC (31.0-37.0) g/dL RDW (11.5-15.5) % Plt Count (150-450) k/uL Blast Cells % % Neutrophils # (Manual) (1.3-7.7) k/uL Monocytes # (Manual) (0-1.0) k/uL Eosinophils # (Manual) (0-0.7) k/uL Basophils # (Manual) (0-0.2) k/uL Metamyelocytes # (Man) (0) k/uL Myelocytes # (Manual) (0) k/uL Blast Cells # (Man) (0) k/uL Nucleated RBCs (0-0) /100 WBC PT 17.6 H (10.0-12.5) sec INR 1.7 H (<1.2) D-Dimer (<0.60) mg/L FEU Chloride (98-107) mmol/L Carbon Dioxide (22-30) mmol/L BUN (9-20) mg/dL Glucose (74-99) mg/dL POC Glucose (mg/dL) (70-110) mg/dL Hemoglobin A1c (<=6.0) % Plasma Lactic Acid Diomedes 6.3 H* 6.0 H* (0.7-2.0) mmol/L Total Bilirubin (0.2-1.3) mg/dL Urine Protein (Negative) Urine Glucose (UA) (Negative) Urine Ketones (Negative) Urine Blood (Negative) Hyaline Casts (0-2) /lpf Urine Mucus (None) /hpf 06/08/24 06/08/24 06/08/24 Range/Units 04:59 05:18 05:18 WBC 48.0 H (3.8-10.6) k/uL Hgb 11.6 L (13.0-17.5) gm/dL Hct 38.8 L (39.0-53.0) % MCHC 29.8 L (31.0-37.0) g/dL RDW 20.3 H (11.5-15.5) % Plt Count 38 L (150-450) k/uL Blast Cells % 1 H* % Neutrophils # (Manual) 33.60 H (1.3-7.7) k/uL Monocytes # (Manual) 5.28 H (0-1.0) k/uL Eosinophils # (Manual) 1.92 H (0-0.7) k/uL Basophils # (Manual) 0.48 H (0-0.2) k/uL Metamyelocytes # (Man) 1.92 H (0) k/uL Myelocytes # (Manual) 1.92 H (0) k/uL Blast Cells # (Man) 0.48 H (0) k/uL Nucleated RBCs (0-0) /100 WBC PT (10.0-12.5) sec INR (<1.2) D-Dimer (<0.60) mg/L FEU Chloride (98-107) mmol/L Carbon Dioxide (22-30) mmol/L BUN (9-20) mg/dL Glucose (74-99) mg/dL POC Glucose (mg/dL) (70-110) mg/dL Hemoglobin A1c 7.6 H (<=6.0) % Plasma Lactic Acid Diomedes 4.8 H* (0.7-2.0) mmol/L Total Bilirubin (0.2-1.3) mg/dL Urine Protein (Negative) Urine Glucose (UA) (Negative) Urine Ketones (Negative) Urine Blood (Negative) Hyaline Casts (0-2) /lpf Urine Mucus (None) /hpf 06/08/24 06/08/24 06/08/24 Range/Units 05:55 07:25 11:31 WBC (3.8-10.6) k/uL Hgb (13.0-17.5) gm/dL Hct (39.0-53.0) % MCHC (31.0-37.0) g/dL RDW (11.5-15.5) % Plt Count (150-450) k/uL Blast Cells % % Neutrophils # (Manual) (1.3-7.7) k/uL Monocytes # (Manual) (0-1.0) k/uL Eosinophils # (Manual) (0-0.7) k/uL Basophils # (Manual) (0-0.2) k/uL Metamyelocytes # (Man) (0) k/uL Myelocytes # (Manual) (0) k/uL Blast Cells # (Man) (0) k/uL Nucleated RBCs (0-0) /100 WBC PT (10.0-12.5) sec INR (<1.2) D-Dimer (<0.60) mg/L FEU Chloride (98-107) mmol/L Carbon Dioxide (22-30) mmol/L BUN (9-20) mg/dL Glucose (74-99) mg/dL POC Glucose (mg/dL) 239 H 245 H (70-110) mg/dL Hemoglobin A1c (<=6.0) % Plasma Lactic Acid Diomedes 4.2 H* (0.7-2.0) mmol/L Total Bilirubin (0.2-1.3) mg/dL Urine Protein (Negative) Urine Glucose (UA) (Negative) Urine Ketones (Negative) Urine Blood (Negative) Hyaline Casts (0-2) /lpf Urine Mucus (None) /hpf Diabetes panel 06/07/24 06/08/24 Range/Units 13:30 05:18 Sodium 138 (137-145) mmol/L Potassium 4.7 (3.5-5.1) mmol/L Chloride 110 H (98-107) mmol/L Carbon Dioxide 15 L (22-30) mmol/L BUN 21 H (9-20) mg/dL Creatinine 1.05 (0.66-1.25) mg/dL Glucose 217 H (74-99) mg/dL Hemoglobin A1c 7.6 H (<=6.0) % Calcium 8.9 (8.4-10.2) mg/dL AST 43 (17-59) U/L ALT 23 (4-49) U/L Alkaline Phosphatase 92 (38-126) U/L Total Protein 8.2 (6.3-8.2) g/dL Albumin 4.3 (3.5-5.0) g/dL Calcium panel 06/07/24 Range/Units 13:30 Calcium 8.9 (8.4-10.2) mg/dL Albumin 4.3 (3.5-5.0) g/dL Pituitary panel 06/07/24 Range/Units 13:30 Sodium 138 (137-145) mmol/L Potassium 4.7 (3.5-5.1) mmol/L Chloride 110 H (98-107) mmol/L Carbon Dioxide 15 L (22-30) mmol/L BUN 21 H (9-20) mg/dL Creatinine 1.05 (0.66-1.25) mg/dL Glucose 217 H (74-99) mg/dL Calcium 8.9 (8.4-10.2) mg/dL Adrenal panel 06/07/24 Range/Units 13:30 Sodium 138 (137-145) mmol/L Potassium 4.7 (3.5-5.1) mmol/L Chloride 110 H (98-107) mmol/L Carbon Dioxide 15 L (22-30) mmol/L BUN 21 H (9-20) mg/dL Creatinine 1.05 (0.66-1.25) mg/dL Glucose 217 H (74-99) mg/dL Calcium 8.9 (8.4-10.2) mg/dL Total Bilirubin 1.8 H (0.2-1.3) mg/dL AST 43 (17-59) U/L ALT 23 (4-49) U/L Alkaline Phosphatase 92 (38-126) U/L Total Protein 8.2 (6.3-8.2) g/dL Albumin 4.3 (3.5-5.0) g/dL
[2024-06-08 16:29] LABS: Glucose,Whole Blood 233 mg/dL (70-110)
[2024-06-08] MEDS: INSULIN DETEMIR (LEVEMIR) 100 UNIT/ML SYR SQ SCH (16:40)
[2024-06-08] MEDS: SODIUM CHLORIDE 0.9% 500 ML 500 ML IV ONE (17:35)
--- NOTE | 2024-06-08 17:55 | P.CONS ---
History of Present Illness - Reason for Consult Consult date: 06/08/24 Leukocytosis, left shift, thrombocytopenia - History of Present Illness The patient is an 88-year-old white male, with multiple medical problems. He was admitted this time with abdominal pain, nausea, and decreased appetite over the past few days. On admission his white blood cell count was found to be significantly elevated, in the 30,000+ range, with left shift consisting of monocytosis, eosinophilia and basophilia as well as myelocytes and metamyelocytes. Hemoglobin was mildly lower than normal. His baseline. Count is typically in the 70,000, and during this admission was down into the 30,000 range. Consult was therefore placed for further evaluation and recommendations. The patient is quite hard of hearing. Therefore a significant amount of history was obtained from his family ember was present at the bedside. There is no prior history of malignancy or blood related problems. The patient does have a prior history of heavy alcohol use although he quit in 1984. He has not had any obvious bleeding. He denied any fever or chills. The patient's imaging studies done during this admission included CT angiogram of the chest and CT abdomen and pelvis. This was negative for PE. He was noted to have small bilateral pleural effusions, evidence of hepatic cirrhosis, and ascites. There were also some mildly prominent upper abdominal lymph nodes felt to be possibly secondary to the cirrhosis and portal hypertension. He was found to have cholelithiasis, with ultrasound showing some thickening of the gallbladder wall The patient was started on antibiotic for possible infection, including SBP as a concern. He has been feeling better since his admission. Review of Systems Constitutional: Reports fatigue, Reports poor appetite, Reports weakness Eyes: denies blurred vision, denies pain Ears: bilateral: decreased hearing, deny: ear discharge, earache, tinnitus Ears, nose, mouth and throat: Denies headache, Denies sore throat Cardiovascular: Reports decreased exercise tolerance Respiratory: Denies cough Gastrointestinal: Reports abdominal pain, Reports nausea Genitourinary: Reports as per HPI Musculoskeletal: Reports muscle weakness Integumentary: Denies pruritus, Denies rash Neurological: Reports weakness Psychiatric: Denies anxiety, Denies depression Endocrine: Reports fatigue, Reports weight change Hematologic/Lymphatic: Reports as per HPI Past Medical History Past Medical History: Diabetes Mellitus, Prostate Disorder Additional Past Medical History / Comment(s): see Dr Gloria Rg&P, hx gout, History of Any Multi-Drug Resistant Organisms: None Reported Past Surgical History: Appendectomy, Heart Catheterization, Heart Catheterization With Stent, Pacemaker Additional Past Surgical History / Comment(s): cyst removed from lower spine, henry cataracts, 2 stents Past Anesthesia/Blood Transfusion Reactions: No Reported Reaction Date of Last Stent Placement:: 2004 Type of Cardiac Device: Permanent Pacemaker Device Placement Date:: Past Psychological History: No Psychological Hx Reported Smoking Status: Former smoker Past Alcohol Use History: None Reported Additional Past Alcohol Use History / Comment(s): quit smoking 1981, smoked for 4 PPD for 25 yrs Past Drug Use History: None Reported - Past Family History Sister(s) Family Medical History: Cancer Medications and Allergies Home Medications Medication Instructions Recorded Confirmed Type Atorvastatin [Lipitor] 80 mg PO HS 09/09/17 06/07/24 History Escitalopram [Lexapro] 10 mg PO DAILY 09/09/17 06/07/24 History Insulin Aspart [NovoLOG] See Protocol SQ AC-TID PRN 09/09/17 06/07/24 History Metoprolol Succinate [Toprol Xl] 50 mg PO BID 09/09/17 06/07/24 History Tamsulosin HCl [Flomax] 0.4 mg PO DAILY 09/09/17 06/07/24 History Furosemide [Lasix] 20 mg PO DAILY #90 tab 09/16/17 06/07/24 Rx Clopidogrel [Plavix] 75 mg PO DAILY 06/07/24 06/07/24 History Insuln Asp Prt/Insulin Aspart 60 unit SQ HS 06/07/24 06/07/24 History [NovoLOG MIX 70-30 VIAL] Insuln Asp Prt/Insulin Aspart 100 unit SQ QAM 06/07/24 06/07/24 History [NovoLOG MIX 70-30 VIAL] Losartan Potassium [Cozaar] 100 mg PO DAILY 06/07/24 06/07/24 History Allergies Allergy/AdvReac Type Severity Reaction Status Date / Time No Known Allergies Allergy Verified 06/07/24 15:15 Physical Exam Vitals: Vital Signs Temp Pulse Pulse Resp BP BP BP 06/08/24 16:37 88 06/08/24 16:28 82 06/08/24 16:18 98.6 F 79 20 108/53 06/08/24 13:02 84 06/08/24 12:49 86 06/08/24 11:42 98.2 F 79 14 98/60 06/08/24 09:49 88 06/08/24 09:33 90 06/08/24 08:45 97.5 F L 89 14 133/67 06/08/24 01:47 95 16 136/63 06/07/24 21:00 98.3 F 117 H 18 159/86 06/07/24 20:34 110 H 18 169/86 06/07/24 19:00 110 H 18 122/80 Pulse Ox 06/08/24 16:37 06/08/24 16:28 06/08/24 16:18 91 L 06/08/24 13:02 06/08/24 12:49 06/08/24 11:42 91 L 06/08/24 09:49 06/08/24 09:33 06/08/24 08:45 92 L 06/08/24 01:47 90 L 06/07/24 21:00 93 L 06/07/24 20:34 93 L 06/07/24 19:00 98 Intake and Output 06/08/24 06/08/24 06/08/24 06:59 14:59 22:59 Other: Voiding Method Toilet # Voids 1 # Bowel Movements 1 Weight 109.4 kg - Constitutional General appearance: morbidly obese, no acute distress - EENT Eyes: EOMI, PERRLA ENT: hearing grossly normal, normal oropharynx - Neck Neck: no lymphadenopathy Thyroid: bilateral: normal size - Respiratory Respiratory: bilateral: diminished - Cardiovascular Rhythm: regular Heart sounds: normal: S1, S2 - Gastrointestinal Free fluid positive General gastrointestinal: distended, soft - Integumentary Anasarca with evidence of skin thickening especially prominent over abdominal wall, and lower back as well as legs - Neurologic Neurologic: CNII-XII intact - Musculoskeletal Musculoskeletal: generalized weakness, strength equal bilaterally Results CBC & Chem 7: 06/08/24 05:18 06/08/24 12:30 Labs: Abnormal Lab Results - Last 24 Hours (Table) 06/07/24 06/07/24 06/07/24 Range/Units 17:12 20:56 21:33 WBC (3.8-10.6) k/uL Hgb (13.0-17.5) gm/dL Hct (39.0-53.0) % MCHC (31.0-37.0) g/dL RDW (11.5-15.5) % Plt Count (150-450) k/uL Blast Cells % % Neutrophils # (Manual) (1.3-7.7) k/uL Monocytes # (Manual) (0-1.0) k/uL Eosinophils # (Manual) (0-0.7) k/uL Basophils # (Manual) (0-0.2) k/uL Metamyelocytes # (Man) (0) k/uL Myelocytes # (Manual) (0) k/uL Blast Cells # (Man) (0) k/uL PT (10.0-12.5) sec INR (<1.2) Chloride (98-107) mmol/L Carbon Dioxide (22-30) mmol/L BUN (9-20) mg/dL Creatinine (0.66-1.25) mg/dL Glucose (74-99) mg/dL POC Glucose (mg/dL) 254 H (70-110) mg/dL Hemoglobin A1c (<=6.0) % Plasma Lactic Acid Diomedes 7.1 H* 6.3 H* (0.7-2.0) mmol/L Calcium (8.4-10.2) mg/dL AST (17-59) U/L Total Protein (6.3-8.2) g/dL Albumin (3.5-5.0) g/dL 06/08/24 06/08/24 06/08/24 Range/Units 01:11 04:59 04:59 WBC (3.8-10.6) k/uL Hgb (13.0-17.5) gm/dL Hct (39.0-53.0) % MCHC (31.0-37.0) g/dL RDW (11.5-15.5) % Plt Count (150-450) k/uL Blast Cells % % Neutrophils # (Manual) (1.3-7.7) k/uL Monocytes # (Manual) (0-1.0) k/uL Eosinophils # (Manual) (0-0.7) k/uL Basophils # (Manual) (0-0.2) k/uL Metamyelocytes # (Man) (0) k/uL Myelocytes # (Manual) (0) k/uL Blast Cells # (Man) (0) k/uL PT 17.6 H (10.0-12.5) sec INR 1.7 H (<1.2) Chloride (98-107) mmol/L Carbon Dioxide (22-30) mmol/L BUN (9-20) mg/dL Creatinine (0.66-1.25) mg/dL Glucose (74-99) mg/dL POC Glucose (mg/dL) (70-110) mg/dL Hemoglobin A1c (<=6.0) % Plasma Lactic Acid Diomedes 6.0 H* 4.8 H* (0.7-2.0) mmol/L Calcium (8.4-10.2) mg/dL AST (17-59) U/L Total Protein (6.3-8.2) g/dL Albumin (3.5-5.0) g/dL 06/08/24 06/08/24 06/08/24 Range/Units 05:18 05:18 05:55 WBC 48.0 H (3.8-10.6) k/uL Hgb 11.6 L (13.0-17.5) gm/dL Hct 38.8 L (39.0-53.0) % MCHC 29.8 L (31.0-37.0) g/dL RDW 20.3 H (11.5-15.5) % Plt Count 38 L (150-450) k/uL Blast Cells % 1 H* % Neutrophils # (Manual) 33.60 H (1.3-7.7) k/uL Monocytes # (Manual) 5.28 H (0-1.0) k/uL Eosinophils # (Manual) 1.92 H (0-0.7) k/uL Basophils # (Manual) 0.48 H (0-0.2) k/uL Metamyelocytes # (Man) 1.92 H (0) k/uL Myelocytes # (Manual) 1.92 H (0) k/uL Blast Cells # (Man) 0.48 H (0) k/uL PT (10.0-12.5) sec INR (<1.2) Chloride (98-107) mmol/L Carbon Dioxide (22-30) mmol/L BUN (9-20) mg/dL Creatinine (0.66-1.25) mg/dL Glucose (74-99) mg/dL POC Glucose (mg/dL) 239 H (70-110) mg/dL Hemoglobin A1c 7.6 H (<=6.0) % Plasma Lactic Acid Diomedes (0.7-2.0) mmol/L Calcium (8.4-10.2) mg/dL AST (17-59) U/L Total Protein (6.3-8.2) g/dL Albumin (3.5-5.0) g/dL 06/08/24 06/08/24 06/08/24 Range/Units 07:25 10:53 11:31 WBC (3.8-10.6) k/uL Hgb (13.0-17.5) gm/dL Hct (39.0-53.0) % MCHC (31.0-37.0) g/dL RDW (11.5-15.5) % Plt Count (150-450) k/uL Blast Cells % % Neutrophils # (Manual) (1.3-7.7) k/uL Monocytes # (Manual) (0-1.0) k/uL Eosinophils # (Manual) (0-0.7) k/uL Basophils # (Manual) (0-0.2) k/uL Metamyelocytes # (Man) (0) k/uL Myelocytes # (Manual) (0) k/uL Blast Cells # (Man) (0) k/uL PT (10.0-12.5) sec INR (<1.2) Chloride (98-107) mmol/L Carbon Dioxide (22-30) mmol/L BUN (9-20) mg/dL Creatinine (0.66-1.25) mg/dL Glucose (74-99) mg/dL POC Glucose (mg/dL) 245 H (70-110) mg/dL Hemoglobin A1c (<=6.0) % Plasma Lactic Acid Diomedes 4.2 H* 4.0 H* (0.7-2.0) mmol/L Calcium (8.4-10.2) mg/dL AST (17-59) U/L Total Protein (6.3-8.2) g/dL Albumin (3.5-5.0) g/dL 06/08/24 06/08/24 06/08/24 Range/Units 12:30 15:22 16:28 WBC (3.8-10.6) k/uL Hgb (13.0-17.5) gm/dL Hct (39.0-53.0) % MCHC (31.0-37.0) g/dL RDW (11.5-15.5) % Plt Count (150-450) k/uL Blast Cells % % Neutrophils # (Manual) (1.3-7.7) k/uL Monocytes # (Manual) (0-1.0) k/uL Eosinophils # (Manual) (0-0.7) k/uL Basophils # (Manual) (0-0.2) k/uL Metamyelocytes # (Man) (0) k/uL Myelocytes # (Manual) (0) k/uL Blast Cells # (Man) (0) k/uL PT (10.0-12.5) sec INR (<1.2) Chloride 111 H (98-107) mmol/L Carbon Dioxide 17 L (22-30) mmol/L BUN 32 H (9-20) mg/dL Creatinine 1.54 H (0.66-1.25) mg/dL Glucose 199 H (74-99) mg/dL POC Glucose (mg/dL) 233 H (70-110) mg/dL Hemoglobin A1c (<=6.0) % Plasma Lactic Acid Diomedes 4.6 H* (0.7-2.0) mmol/L Calcium 7.4 L (8.4-10.2) mg/dL AST 95 H (17-59) U/L Total Protein 6.0 L (6.3-8.2) g/dL Albumin 2.9 L (3.5-5.0) g/dL Comments: PET scan 10/14 negative for evidence of malignancy CT scan - abdomen: report reviewed CT scan - chest: report reviewed CT scan - pelvis: report reviewed US - abdomen: report reviewed Assessment and Plan (1) Leukocytosis Narrative/Plan: The patient is noted to have a significant leukocytosis with left shift. This is a new finding, compared to previous CBCs done, most recently in 02/14. At that time total WBC was normal, with a minimal monocytosis and no other abnormality seen. -Possible etiologies were discussed in detail with the patient and his family. They were advised that in this situation an underlying myeloproliferative condition is a concern. Another possibility could be a transient reactive phenomena due to acute illness affecting a bone marrow that has some chronic dysfunction related to age and/or prior alcohol related damage. -Additional workup will be ordered with testing for other reactive conditions, as well as BCR-ABL -Defer to the admitting service for treatment of current acute illness -If above-mentioned workup is negative, and counts decline back to his baseline with treatment of the acute illness, he can be followed with observation Current Visit: Yes Status: Acute Code(s): D72.829 - ELEVATED WHITE BLOOD CELL COUNT, UNSPECIFIED SNOMED Code(s): 648360582 (2) Thrombocytopenia Narrative/Plan: This has been more chronic and persistent, with some worsening during this admission. 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 The present decline from his baseline is probably transient due to acute illness. -Check labs to rule out other causes -Transfuse to keep platelet count greater than 10,000, or greater than 40,000 if there is any active bleeding. -It is felt to be likely that his platelet counts will likely improve spontaneously as his acute condition resolves Current Visit: Yes Status: Acute Code(s): D69.6 - THROMBOCYTOPENIA, UNSPECIFIED SNOMED Code(s): 248318678 Plan: Consult GI for his liver cirrhosis and evidence of portal hypertension. The evita rojas does not have a known diagnosis of the same.
[2024-06-08] MEDS: PIPERACILLIN-TAZOBACTAM 3.375 GM in SODIUM CHLORIDE 0.9% 100 ML IVPB SCH (18:17)
[2024-06-08 19:57] LABS: Glucose,Whole Blood 281 mg/dL (70-110)
[2024-06-08] MEDS: SODIUM CHLORIDE 0.9% 1,000 ML IV SCH (20:06)
[2024-06-09 03:45] LABS: ALT 28 U/L (4-49); AST 91 U/L (17-59); African American GFR (CKD) 28 (>60 ml/min/1.73 sqM); Albumin 3.4 g/dL (3.5-5.0); Alkaline Phosphatase 68 U/L (38-126); Anion Gap 10 mmol/L; Blood Urea Nitrogen 49 mg/dL (9-20); Calcium 8.3 mg/dL (8.4-10.2); Carbon Dioxide 17 mmol/L (22-30); Chloride 108 mmol/L (98-107); Creatine Kinase 614 U/L (55-170); Glucose 198 mg/dL (74-99); Non-African American GFR(CKD) 24 (>60 ml/min/1.73 sqM); Potassium 4.2 mmol/L (3.5-5.1); Sodium 135 mmol/L (137-145); Total Bilirubin 0.9 mg/dL (0.2-1.3); Total Protein 6.9 g/dL (6.3-8.2)
[2024-06-09 03:52] LABS: NT-Pro-B-Type Natriuretic Pept 21100 pg/mL
--- NOTE | 2024-06-09 03:54 | P.PN ---
Progress Note - Text Progress Note Date: 06/09/24 No acute events overnight. Patient not reporting any abdominal pain. Denies fevers and chills. PHYSICAL EXAM: VITAL SIGNS: Reviewed GENERAL: Well-developed in no acute distress. HEENT: No sclera icterus. Extraocular movements grossly intact. Moist buccal mucosa. Head is atraumatic, normocephalic. No nasal drainage. ABDOMEN: Soft. Obese. Mildly distended. Nontender. Patient has no tenderness in the right upper quadrant NEUROLOGIC: Awake and alert. Hard of hearing Extremities: Lower extremity edema ASSESSMENT: 1. Abdominal distention with liver cirrhosis and small amount of ascites and significant leukocytosis. Initial concerns for possible spontaneous bacterial peritonitis. But patient has no pain. Antibiotics were initiated and a paracentesis ordered. IR reporting that there is not enough fluid to proceed with paracentesis 2. Asymptomatic gallstones 3. Shortness of breath PLAN: -No surgical intervention planned -Continue empiric antibiotics for possible SBP -Agree with hematology evaluation -Carbohydrate Diet Santos Lewis [facility] [phone]
[2024-06-09 05:54] LABS: Glucose,Whole Blood 184 mg/dL (70-110)
[2024-06-09 09:41] LABS: Protein, Total 6.6 g/dL (6.2-8.2)
[2024-06-09 09:48] LABS: Procalcitonin 2.34 ng/mL (0.02-0.50)
[2024-06-09 09:58] LABS: % Iron Saturation 15.38 (15.00-50.00); Iron 50 UG/DL (65-175); Rheumatoid Factor, Qnt <15 IU/mL (0-15); Total Iron Binding Capacity 325 UG/DL (228-460)
--- NOTE | 2024-06-09 10:30 | P.PN ---
Subjective Chief Complaint: Distended abdomen, increased flatus, dyspnea This is an 88-year-old gentleman with past medical history significant for prior heavy alcohol use-and x 35 years, prior nicotine dependence 4 packs/day x 25 yea rs, quit in 1981, complete heart block with PPM implantation, diabetes mellitus, diabetic gastroparesis ,prostate disorder,obesity, obstructive sleep apnea and multiple other medical issues presented to the ER with complaints of significant flatus, bloating-increased abdominal distention accompanied by dyspnea began 2 to 3 days ago. Denies nausea, vomiting or diarrhea. Denies constipation. Repo rts minimal to no abdominal,pain chronic leg edema with minimal edema currently. Denies chest pain, palpitations. Afebrile, WBC on admission 33, increased to 48, lactic acid lactic acid 7.1 , currently down to 4 with IV fluid hydration, hemoglobin 11.6, platelets 38, MCV 84.2, blast cells 1%, INR 1.7, elevated D- dimer, 3.97. Chest CTA reported no PE, trace bilateral pleural effusions, stable left lower lobe pulmonary nodule, moderate COPD changes with scattered regions of linear scarring within the right middle lobe and lingula, cardiomegaly.Electrolytes within normal limits, bicarb 15, BUN 21, creatinine 1.05-appears close to baseline. Blood sugars in the 200s, A1c 7.6, total bili 1.8, proBNP 5390. UA negative nitrates, negative leukocytes, 1+ protein trace glucose 1+ ketones, small blood, positive hyaline casts. Viral studies negative. CT of abdomen pelvis reported findings of hepatic cirrhosis with small volume ascites throughout the abdomen pelvis, nonspecific enlarged gastr ohepatic ligament lymph node with additional mildly prominent gastrohepatic nodes and periaortic lymph nodes, cholelithiasis with no biliary ductal dilatation, prostate enlarged measuring 6.1 cm.Gallbladder ultrasound reported small amount of free fluid adjacent to the liver, common bile duct within normal limits, pancreas within normal limits, liver enlarged, difficult to penetrate, mild adjacent ascites noted within right upper quadrant I know. Gallbladder wall slightly thickened unable to appreciate stone seen on CT-Limited views, possibly hydropic. 06/09 This is a pleasant 88 years old male who presents urgently because of dyspnea of 2 days duration and some abdominal bloating with no overt abdominal pain or tenderness The patient was found to have significant leukocytosis of 33-48,000 with new cirrhosis and asymptomatic goal bladder disease and gallstones. He has evidence of chronic kidney injury, his lactic acid was high and he was receiving IV fluid of 100 mL/h. However his creatinine went up 1.0 up to 1.5 and 2.3 today therefore we are going to hold normal saline and put him on IV Lasix SBP was suspected and patient was started on Zosyn, however there was not much ascites to be tapped. We checked Protonix Calcitonin and it was significantly elevated 2.3. Patient is awake alert, no dyspnea. No abdominal pain or tenderness. No significant urinary complaint. He has significant bilateral pitting leg edema 3+ and looks fluid overloaded He is afebrile and blood pressure on the Low normal which looks baseline as patient is asymptomatic Also labs reviewed. D-dimer was elevated at 3.9 however CTA was negative for PE but showing cirrhosis with small ascites and gastrohepatic and periaortic lymphadenopathy. With cholelithiasis Gallbladder ultrasound showing slight wall thickening with possible hydropic gallbladder. Surgery team are following closely. Review of systems CONSTITUTIONAL: No fever, no malaise, no fatigue. HEENT: No recent visual problems or hearing problems. Denied any sore throat. CARDIOVASCULAR: No orthopnea, PND, no palpitations, no syncope. GENITOURINARY: Denies any burning micturition, frequency, or urgency. MUSCULOSKELETAL/RHEUMATOLOGICAL: Denies any joint pain, swelling, or any muscle pain. ENDOCRINE: Denies any polyuria or polydipsia. Active Medications Generic Name Dose Route Start Last Admin Trade Name Freq PRN Reason Stop Dose Admin Albuterol/Ipratropium 3 ml 06/08/24 08:00 06/09/24 08:07 Ipratropium-Albuterol 3 Ml Neb INHALATION 3 ml RT-QID MAGO Administration Albuterol/Ipratropium 3 ml 06/08/24 08:00 Ipratropium-Albuterol 3 Ml Neb INHALATION RT-Q2H PRN Shortness Of Breath Or Wheezing Atorvastatin Calcium 80 mg 06/07/24 22:30 06/08/24 20:04 Atorvastatin 80 Mg Tab PO 80 mg HS MAGO Administration Budesonide/Formoterol Fumarate 2 puff 06/08/24 08:00 06/09/24 08:07 Symbicort 80-4.5 Mcg Inhaler INHALATION 2 puff RT-BID MAGO Administration Dextrose/Water 25 ml 06/07/24 21:55 Dextrose 50% Syringe 50 Ml IVP PER PROTOCOL PRN Hypoglycemia Protocol Dextrose/Water 50 ml 06/07/24 21:55 Dextrose 50% Syringe 50 Ml IVP PER PROTOCOL PRN Hypoglycemia Protocol Escitalopram Oxalate 10 mg 06/08/24 09:00 06/09/24 09:11 Escitalopram 10 Mg Tab PO 10 mg DAILY MAGO Administration Furosemide 40 mg 06/09/24 10:30 Furosemide 10 Mg/Ml 4 Ml Vial IV Q12HR MAGO Hydromorphone HCl 0.5 mg 06/07/24 15:40 Hydromorphone 0.5 Mg/0.5 Ml Syringe IVP Q3HR PRN Moderate Pain (Scale 4 to 6) Hydromorphone HCl 1 mg 06/07/24 15:40 Hydromorphone 1 Mg/Ml 1 Ml Syringe IVP Q3HR PRN Severe Pain (Scale 7 to 10) Piperacillin Sod/Tazobactam 100 mls @ 25 mls/hr 06/08/24 17:15 06/09/24 09:11 Sod 3.375 gm/ Sodium Chloride IVPB 25 mls/hr Q8HR MAGO Administration Protocol Insulin Aspart 0 unit 06/07/24 21:56 06/09/24 06:03 Insulin Aspart (Novolog) 100 Unit/Ml Vial SQ 2 unit ACHS MAGO Administration Protocol Insulin Detemir 20 unit 06/08/24 12:13 06/09/24 06:03 Insulin Detemir (Levemir) 100 Unit/Ml Syr SQ 20 unit DAILY@0700 MAGO Administration Losartan Potassium 100 mg 06/08/24 09:00 06/09/24 09:11 Losartan 50 Mg Tab PO 100 mg DAILY MAGO Administration Metoprolol Succinate 50 mg 06/07/24 22:30 06/09/24 09:11 Metoprolol Succinate (Er) 50 Mg Tab.Er.24h PO 50 mg BID MAGO Administration Naloxone HCl 0.2 mg 06/07/24 15:40 Naloxone 0.4 Mg/Ml 1 Ml Vial IV Q2M PRN Opioid Reversal Ondansetron HCl 4 mg 06/07/24 15:40 Ondansetron 4 Mg/2 Ml Vial IVP Q8HR PRN Nausea And Vomiting Pantoprazole Sodium 40 mg 06/08/24 09:00 06/09/24 09:11 Pantoprazole 40 Mg/10 Ml Vial IV 40 mg DAILY MAGO Administration Tamsulosin HCl 0.4 mg 06/08/24 09:00 06/09/24 09:11 Tamsulosin 0.4 Mg Cap.Er.24h PO 0.4 mg DAILY MAGO Administration Objective - Vital Signs Vital signs: Vital Signs Temp 98.0 F 06/08/24 20:05 Pulse 80 06/09/24 08:14 Resp 16 06/09/24 08:14 BP 99/51 06/09/24 02:00 Pulse Ox 91 L 06/09/24 02:00 FiO2 Intake & Output 06/08/24 06/09/24 06/09/24 18:59 06:59 18:59 Intake Total 180 540 118 Balance 180 540 118 Weight 117.4 kg Intake: Oral 180 540 118 Other: Voiding Method Toilet Toilet # Voids 2 1 1 # Bowel Movements 1 1 - Exam GENERAL: The patient is alert and oriented x3, not in any acute distress. Well developed, well nourished. HEENT: Pupils are round and equally reacting to light. EOMI. No scleral icterus. No conjunctival pallor. Normocephalic, atraumatic. No pharyngeal erythema. No thyromegaly. CARDIOVASCULAR: S1 and S2 present. No murmurs, rubs, or gallops. PULMONARY: Chest is clear to auscultation, no wheezing , no crackles. ABDOMEN: Soft, nontender, nondistended, normoactive bowel sounds. No palpable organomegaly. MUSCULOSKELETAL: No joint swelling or deformity. -EXTREMITIES: No cyanosis, clubbing, or pedal e 3+ bilateral pitting leg edema NEUROLOGICAL: Gross neurological examination did not reveal any focal deficits. SKIN: No rashes. no petechiae. - Labs CBC & Chem 7: 06/08/24 05:18 06/09/24 02:32 Labs: Abnormal Lab Results - Last 24 Hours (Table) 06/08/24 06/08/24 06/08/24 Range/Units 10:53 11:31 12:30 Sodium (137-145) mmol/L Chloride 111 H (98-107) mmol/L Carbon Dioxide 17 L (22-30) mmol/L BUN 32 H (9-20) mg/dL Creatinine 1.54 H (0.66-1.25) mg/dL Glucose 199 H (74-99) mg/dL POC Glucose (mg/dL) 245 H (70-110) mg/dL Plasma Lactic Acid Diomedes 4.0 H* (0.7-2.0) mmol/L Calcium 7.4 L (8.4-10.2) mg/dL Iron (65-175) UG/DL Ferritin (22.0-322.0) ng/mL AST 95 H (17-59) U/L Creatine Kinase (55-170) U/L Total Protein 6.0 L (6.3-8.2) g/dL Albumin 2.9 L (3.5-5.0) g/dL Procalcitonin (0.02-0.50) ng/mL 06/08/24 06/08/24 06/08/24 Range/Units 12:55 15:22 16:28 Sodium (137-145) mmol/L Chloride (98-107) mmol/L Carbon Dioxide (22-30) mmol/L BUN (9-20) mg/dL Creatinine (0.66-1.25) mg/dL Glucose (74-99) mg/dL POC Glucose (mg/dL) 233 H (70-110) mg/dL Plasma Lactic Acid Diomedes 4.6 H* (0.7-2.0) mmol/L Calcium (8.4-10.2) mg/dL Iron 50 L (65-175) UG/DL Ferritin 709.0 H (22.0-322.0) ng/mL AST (17-59) U/L Creatine Kinase (55-170) U/L Total Protein (6.3-8.2) g/dL Albumin (3.5-5.0) g/dL Procalcitonin (0.02-0.50) ng/mL 06/08/24 06/08/24 06/08/24 Range/Units 19:32 19:56 22:45 Sodium (137-145) mmol/L Chloride (98-107) mmol/L Carbon Dioxide (22-30) mmol/L BUN (9-20) mg/dL Creatinine (0.66-1.25) mg/dL Glucose (74-99) mg/dL POC Glucose (mg/dL) 281 H (70-110) mg/dL Plasma Lactic Acid Diomedes 5.7 H* 5.5 H* (0.7-2.0) mmol/L Calcium (8.4-10.2) mg/dL Iron (65-175) UG/DL Ferritin (22.0-322.0) ng/mL AST (17-59) U/L Creatine Kinase (55-170) U/L Total Protein (6.3-8.2) g/dL Albumin (3.5-5.0) g/dL Procalcitonin (0.02-0.50) ng/mL 06/09/24 06/09/24 06/09/24 Range/Units 02:32 02:32 02:32 Sodium 135 L (137-145) mmol/L Chloride 108 H (98-107) mmol/L Carbon Dioxide 17 L (22-30) mmol/L BUN 49 H (9-20) mg/dL Creatinine 2.38 H (0.66-1.25) mg/dL Glucose 198 H (74-99) mg/dL POC Glucose (mg/dL) (70-110) mg/dL Plasma Lactic Acid Diomedes 4.0 H* (0.7-2.0) mmol/L Calcium 8.3 L (8.4-10.2) mg/dL Iron (65-175) UG/DL Ferritin (22.0-322.0) ng/mL AST 91 H (17-59) U/L Creatine Kinase 614 H (55-170) U/L Total Protein (6.3-8.2) g/dL Albumin 3.4 L (3.5-5.0) g/dL Procalcitonin 2.34 H (0.02-0.50) ng/mL 06/09/24 06/09/24 Range/Units 05:53 07:49 Sodium (137-145) mmol/L Chloride (98-107) mmol/L Carbon Dioxide (22-30) mmol/L BUN (9-20) mg/dL Creatinine (0.66-1.25) mg/dL Glucose (74-99) mg/dL POC Glucose (mg/dL) 184 H (70-110) mg/dL Plasma Lactic Acid Diomedes 2.9 H* (0.7-2.0) mmol/L Calcium (8.4-10.2) mg/dL Iron (65-175) UG/DL Ferritin (22.0-322.0) ng/mL AST (17-59) U/L Creatine Kinase (55-170) U/L Total Protein (6.3-8.2) g/dL Albumin (3.5-5.0) g/dL Procalcitonin (0.02-0.50) ng/mL Microbiology - Last 24 Hours (Table) 06/07/24 17:02 Blood Culture - Preliminary Blood 06/07/24 17:12 Blood Culture - Preliminary Blood Assessment and Plan Assessment: Sepsis with suspected spontaneous bacterial peritonitis versus intra-abdominal infection Significant leukocytosis could could be secondary to sepsis. Rule out blood disease disorder and hematology is following closely Chronic thrombocytopenia Cirrhosis of the liver Asymptomatic cholelithiasis High lactic acid Acute kidney injury on chronic kidney disease stage III Abdominal lymphadenopathy in the gastrohepatic area and periaortic lymph nodes Obesity with BMI of 39.4 Plan: Continue with IV Zosyn, consult infectious disease team Hold IV normal saline and start IV Lasix. Also check a bladder scan, urine analysis and consult control integration engineer Surgery team following closely for his gallbladder disease No GI service coverage in this facility during this weekend Monitor white cell count Hematology/oncology team consult Follow-up culture results Labs and medication were reviewed.. Continue same treatment. Continue with symptomatic treatment. Resume home medication. Monitor labs and vitals. DVT and GI prophylaxis. Further recommendations as per clinical course of the patie nt DVT prophylaxis: Subcutaneous heparin GI Prophylaxis: Pepcid PT/OT: Pending Prognosis is guarded
[2024-06-09 11:49] LABS: Glucose,Whole Blood 233 mg/dL (70-110)
[2024-06-09] MEDS: FUROSEMIDE 10 MG/ML 4 ML VIAL IV SCH (12:53)
--- NOTE | 2024-06-09 12:57 | P.NPCON ---
History of Present Illness - Reason for Consult Consult date: 06/09/24 - Chief Complaint Abdominal Distention - History of Present Illness This is an 88-year-old presented to the ER with complaints of significant flatus, bloating-increased abdominal distention accompanied by dyspnea began 2 to 3 days ago. Denies nausea, vomiting. Denies constipation. He still having diarrhea frequently but urinating well. 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 No other complaints today. GENERAL: NAD, AAO x3 CARDIOVASCULAR: S1 and S2 present. No murmurs, rubs, or gallops. PULMONARY: Chest is clear to auscultation, no wheezing , no crackles. ABDOMEN: Soft, nontender, non-distended MUSCULOSKELETAL: No joint swelling or deformity. EXTREMITIES: No cyanosis, clubbing, or pedal e 3+ bilateral pitting leg edema NEUROLOGICAL: Gross neurological examination did not reveal any focal deficits. SKIN: No rashes Review of Systems Constitutional: Reports as per HPI Past Medical History Past Medical History: Diabetes Mellitus, Prostate Disorder Additional Past Medical History / Comment(s): see Dr Castro H&P, hx gout, History of Any Multi-Drug Resistant Organisms: None Reported Past Surgical History: Appendectomy, Heart Catheterization, Heart Catheterization With Stent, Pacemaker Additional Past Surgical History / Comment(s): cyst removed from lower spine, henry cataracts, 2 stents Past Anesthesia/Blood Transfusion Reactions: No Reported Reaction Date of Last Stent Placement:: 2004 Type of Cardiac Device: Permanent Pacemaker Device Placement Date:: Past Psychological History: No Psychological Hx Reported Smoking Status: Former smoker Past Alcohol Use History: None Reported Additional Past Alcohol Use History / Comment(s): quit smoking 1981, smoked for 4 PPD for 25 yrs Past Drug Use History: None Reported - Past Family History Sister(s) Family Medical History: Cancer Medications and Allergies Home Medications Medication Instructions Recorded Confirmed Type Atorvastatin [Lipitor] 80 mg PO HS 09/09/17 06/07/24 History Escitalopram [Lexapro] 10 mg PO DAILY 09/09/17 06/07/24 History Insulin Aspart [NovoLOG] See Protocol SQ AC-TID PRN 09/09/17 06/07/24 History Metoprolol Succinate [Toprol Xl] 50 mg PO BID 09/09/17 06/07/24 History Tamsulosin HCl [Flomax] 0.4 mg PO DAILY 09/09/17 06/07/24 History Furosemide [Lasix] 20 mg PO DAILY #90 tab 09/16/17 06/07/24 Rx Clopidogrel [Plavix] 75 mg PO DAILY 06/07/24 06/07/24 History Insuln Asp Prt/Insulin Aspart 60 unit SQ HS 06/07/24 06/07/24 History [NovoLOG MIX 70-30 VIAL] Insuln Asp Prt/Insulin Aspart 100 unit SQ QAM 06/07/24 06/07/24 History [NovoLOG MIX 70-30 VIAL] Losartan Potassium [Cozaar] 100 mg PO DAILY 06/07/24 06/07/24 History Allergies Allergy/AdvReac Type Severity Reaction Status Date / Time No Known Allergies Allergy Verified 06/07/24 15:15 Physical Exam Vitals: Vital Signs Temp Pulse Pulse Resp BP BP Pulse Ox 06/09/24 08:14 80 16 06/09/24 08:07 81 16 06/09/24 02:00 86 18 99/51 91 L 06/08/24 21:55 92 06/08/24 21:45 90 06/08/24 20:05 98.0 F 84 26 H 97/46 94 L 06/08/24 16:37 88 06/08/24 16:28 82 06/08/24 16:18 98.6 F 79 20 108/53 91 L 06/08/24 13:02 84 06/08/24 12:49 86 06/08/24 11:42 98.2 F 79 14 98/60 91 L Intake and Output 06/08/24 06/09/24 06/09/24 22:59 06:59 14:59 Intake Total 180 540 118 Balance 180 540 118 Intake: Oral 180 540 118 Other: Voiding Method Toilet # Voids 1 1 1 # Bowel Movements 1 1 1 Weight 117.4 kg Results - Lab Results Most recent lab results Calcium 8.3 mg/dL (8.4-10.2) L 06/09/24 02:32 Magnesium 1.6 mg/dL (1.6-2.3) 06/08/24 12:30 06/08/24 05:18 06/09/24 02:32 Assessment and Plan Assessment: 1. Non-oliguric ADDI likely ATN. Presented creatinine 1.0, worsening to 2.4 today. UA showed few hyaline casts. CT no hydronpehosis but distended bladder. Also received multiple contrast studies while on Losartan. 2. Lactic acidosis improved with IVF. 3. Abdominal distention with lymphadenopathy 4. Fluid Overload 5. Possible Sepsis 6. Cirrhosis Plan: Check bladder scan rule out urinary retention Agree holding IVF, started on IV Lasix for fluid overload Discontinue Losartan Monitor Strict I/O's, daily labs
[2024-06-09 16:51] LABS: Glucose,Whole Blood 234 mg/dL (70-110)
[2024-06-09 20:38] LABS: Glucose,Whole Blood 265 mg/dL (70-110)
[2024-06-09] MEDS: FAMOTIDINE 20 MG/2 ML VIAL IV SCH (20:41)
[2024-06-09] MEDS: HEPARIN SODIUM,PORCINE 5,000 UNIT/ML 1 ML VIAL SQ SCH (20:41)
[2024-06-09] MEDS: MELATONIN 5 MG TABLET PO PRN (21:14)
--- NOTE | 2024-06-09 21:49 | P.CONS ---
History of Present Illness - Reason for Consult Consult date: 06/09/24 Suspecting SBP Requesting physician: Russell E Sheet - Chief Complaint Abdominal discomfort and bloating x few days - History of Present Illness Patient is a 88-year-old male with a past medical history significant for diabetes mellitus gout and prostate disorder cirrhosis of the liver from alcoholism presenting to the hospital for evaluation of bloating increased abdominal distention and shortness of breath and this patient symptom has been getting worse for 2 to 3 days before presentation to the hospital patient denies high-grade fever or any chills complaining of decreased appetite but no vomiting no chest pain or cough did have some abdominal distention and bloating and mild discomfort and did have diarrhea over the last 2 days with multiple loose stools denies any blood or mucus in the stool and no urinary symptoms patient on presentation to the hospital was afebrile and no fever have been recorded subsequently patient was not tachycardic hypotensive or hypoxic patient did have elevated lactic acid with a white count of 33.1 subsequent white count of 48,000 however there is evidence of blast of myelocytes and metamyelocytes on the peripheral smear patient did have elevated BUN and creatinine liver enzymes are normal urine has been negative influenza RSV COVID testing was negative blood culture has been obtained which are currently pending patient did have abdominal pelvis CT which did shows hepatic cirrhosis with small volume ascites throughout the abdominal pelvis and nonspecific enlarged gastrohepatic ligament lymph nodes which could be reactive and cholelithiasis patient also have a CT angiogram of the chest no evidence of PE trace bilateral effusion moderate COPD changes with scattered regions of linear scarring patient is currently on Zosyn started yesterday infectious disease was consulted concerning for suspected SBP Review of Systems Positive point and negatives has been mentioned in the HPI, complete review of systems was performed and all other systems are negative All systems: negative Constitutional: Denies chills, Denies fever Eyes: denies blurred vision, denies pain Ears, nose, mouth and throat: Denies headache, Denies sore throat Cardiovascular: Denies chest pain, Denies shortness of breath Respiratory: Denies cough Gastrointestinal: Denies abdominal pain, Denies diarrhea, Denies nausea, Denies vomiting Musculoskeletal: Denies myalgias Integumentary: Denies pruritus, Denies rash Neurological: Denies numbness, Denies weakness Psychiatric: Denies anxiety, Denies depression Endocrine: Denies fatigue, Denies weight change Past Medical History Past Medical History: Diabetes Mellitus, Prostate Disorder Additional Past Medical History / Comment(s): see Dr Castro H&P, hx gout, History of Any Multi-Drug Resistant Organisms: None Reported Past Surgical History: Appendectomy, Heart Catheterization, Heart Catheterization With Stent, Pacemaker Additional Past Surgical History / Comment(s): cyst removed from lower spine, henry cataracts, 2 stents Past Anesthesia/Blood Transfusion Reactions: No Reported Reaction Date of Last Stent Placement:: 2004 Type of Cardiac Device: Permanent Pacemaker Device Placement Date:: Past Psychological History: No Psychological Hx Reported Smoking Status: Former smoker Past Alcohol Use History: None Reported Additional Past Alcohol Use History / Comment(s): quit smoking 1981, smoked for 4 PPD for 25 yrs Past Drug Use History: None Reported - Past Family History Sister(s) Family Medical History: Cancer Medications and Allergies Home Medications Medication Instructions Recorded Confirmed Type Atorvastatin [Lipitor] 80 mg PO HS 09/09/17 06/07/24 History Escitalopram [Lexapro] 10 mg PO DAILY 09/09/17 06/07/24 History Insulin Aspart [NovoLOG] See Protocol SQ AC-TID PRN 09/09/17 06/07/24 History Metoprolol Succinate [Toprol Xl] 50 mg PO BID 09/09/17 06/07/24 History Tamsulosin HCl [Flomax] 0.4 mg PO DAILY 09/09/17 06/07/24 History Furosemide [Lasix] 20 mg PO DAILY #90 tab 09/16/17 06/07/24 Rx Clopidogrel [Plavix] 75 mg PO DAILY 06/07/24 06/07/24 History Insuln Asp Prt/Insulin Aspart 60 unit SQ HS 06/07/24 06/07/24 History [NovoLOG MIX 70-30 VIAL] Insuln Asp Prt/Insulin Aspart 100 unit SQ QAM 06/07/24 06/07/24 History [NovoLOG MIX 70-30 VIAL] Losartan Potassium [Cozaar] 100 mg PO DAILY 06/07/24 06/07/24 History Allergies Allergy/AdvReac Type Severity Reaction Status Date / Time No Known Allergies Allergy Verified 06/07/24 15:15 Physical Exam Vitals: Vital Signs Temp Pulse Pulse Resp BP Pulse Ox 06/09/24 08:14 80 16 06/09/24 08:07 81 16 06/09/24 02:00 86 18 99/51 91 L 06/08/24 21:55 92 06/08/24 21:45 90 06/08/24 20:05 98.0 F 84 26 H 97/46 94 L 06/08/24 16:37 88 06/08/24 16:28 82 06/08/24 16:18 98.6 F 79 20 108/53 91 L 06/08/24 13:02 84 06/08/24 12:49 86 Intake and Output 06/08/24 06/09/24 06/09/24 22:59 06:59 14:59 Intake Total 180 540 118 Balance 180 540 118 Intake: Oral 180 540 118 Other: Voiding Method Toilet # Voids 1 1 1 # Bowel Movements 1 1 1 Weight 117.4 kg GENERAL DESCRIPTION: Elderly male lying in bed, no distress. No tachypnea or acc essory muscle of respiration use. HEENT: Shows Pallor , no scleral icterus. Oral mucous membrane is dry. NECK: Trachea central, no thyromegaly. LUNGS: Unlabored breathing. Decreased breath sound the base HEART: S1, S2, regular rate and rhythm. No loud murmur ABDOMEN: Soft, distention but no significant tenderness EXTREMITIES: 1+ edema of feet. SKIN: No rash, no masses palpable. NEUROLOGICAL: The patient is awake, alert, oriented x3, mood and affect normal. Results CBC & Chem 7: 06/08/24 05:18 06/09/24 02:32 Labs: Abnormal Lab Results - Last 24 Hours (Table) 06/08/24 06/08/24 06/08/24 Range/Units 12:30 12:55 15:22 Sodium (137-145) mmol/L Chloride 111 H (98-107) mmol/L Carbon Dioxide 17 L (22-30) mmol/L BUN 32 H (9-20) mg/dL Creatinine 1.54 H (0.66-1.25) mg/dL Glucose 199 H (74-99) mg/dL POC Glucose (mg/dL) (70-110) mg/dL Plasma Lactic Acid Diomedes 4.6 H* (0.7-2.0) mmol/L Calcium 7.4 L (8.4-10.2) mg/dL Iron 50 L (65-175) UG/DL Ferritin 709.0 H (22.0-322.0) ng/mL AST 95 H (17-59) U/L Creatine Kinase (55-170) U/L Total Protein 6.0 L (6.3-8.2) g/dL Albumin 2.9 L (3.5-5.0) g/dL Procalcitonin (0.02-0.50) ng/mL 06/08/24 06/08/24 06/08/24 Range/Units 16:28 19:32 19:56 Sodium (137-145) mmol/L Chloride (98-107) mmol/L Carbon Dioxide (22-30) mmol/L BUN (9-20) mg/dL Creatinine (0.66-1.25) mg/dL Glucose (74-99) mg/dL POC Glucose (mg/dL) 233 H 281 H (70-110) mg/dL Plasma Lactic Acid Diomedes 5.7 H* (0.7-2.0) mmol/L Calcium (8.4-10.2) mg/dL Iron (65-175) UG/DL Ferritin (22.0-322.0) ng/mL AST (17-59) U/L Creatine Kinase (55-170) U/L Total Protein (6.3-8.2) g/dL Albumin (3.5-5.0) g/dL Procalcitonin (0.02-0.50) ng/mL 06/08/24 06/09/24 06/09/24 Range/Units 22:45 02:32 02:32 Sodium 135 L (137-145) mmol/L Chloride 108 H (98-107) mmol/L Carbon Dioxide 17 L (22-30) mmol/L BUN 49 H (9-20) mg/dL Creatinine 2.38 H (0.66-1.25) mg/dL Glucose 198 H (74-99) mg/dL POC Glucose (mg/dL) (70-110) mg/dL Plasma Lactic Acid Diomedes 5.5 H* (0.7-2.0) mmol/L Calcium 8.3 L (8.4-10.2) mg/dL Iron (65-175) UG/DL Ferritin (22.0-322.0) ng/mL AST 91 H (17-59) U/L Creatine Kinase 614 H (55-170) U/L Total Protein (6.3-8.2) g/dL Albumin 3.4 L (3.5-5.0) g/dL Procalcitonin 2.34 H (0.02-0.50) ng/mL 06/09/24 06/09/24 06/09/24 Range/Units 02:32 05:53 07:49 Sodium (137-145) mmol/L Chloride (98-107) mmol/L Carbon Dioxide (22-30) mmol/L BUN (9-20) mg/dL Creatinine (0.66-1.25) mg/dL Glucose (74-99) mg/dL POC Glucose (mg/dL) 184 H (70-110) mg/dL Plasma Lactic Acid Diomedes 4.0 H* 2.9 H* (0.7-2.0) mmol/L Calcium (8.4-10.2) mg/dL Iron (65-175) UG/DL Ferritin (22.0-322.0) ng/mL AST (17-59) U/L Creatine Kinase (55-170) U/L Total Protein (6.3-8.2) g/dL Albumin (3.5-5.0) g/dL Procalcitonin (0.02-0.50) ng/mL 06/09/24 Range/Units 11:48 Sodium (137-145) mmol/L Chloride (98-107) mmol/L Carbon Dioxide (22-30) mmol/L BUN (9-20) mg/dL Creatinine (0.66-1.25) mg/dL Glucose (74-99) mg/dL POC Glucose (mg/dL) 233 H (70-110) mg/dL Plasma Lactic Acid Diomedse (0.7-2.0) mmol/L Calcium (8.4-10.2) mg/dL Iron (65-175) UG/DL Ferritin (22.0-322.0) ng/mL AST (17-59) U/L Creatine Kinase (55-170) U/L Total Protein (6.3-8.2) g/dL Albumin (3.5-5.0) g/dL Procalcitonin (0.02-0.50) ng/mL Microbiology - Last 24 Hours (Table) 06/07/24 17:02 Blood Culture - Preliminary Blood 06/07/24 17:12 Blood Culture - Preliminary Blood Assessment and Plan (1) Abdominal pain Current Visit: Yes Status: Acute Code(s): R10.9 - UNSPECIFIED ABDOMINAL PAIN SNOMED Code(s): 57655503 (2) Leukocytosis Current Visit: Yes Status: Acute Code(s): D72.829 - ELEVATED WHITE BLOOD CELL COUNT, UNSPECIFIED SNOMED Code(s): 086542328 (3) Diarrhea Current Visit: Yes Status: Acute Code(s): R19.7 - DIARRHEA, UNSPECIFIED SNOMED Code(s): 66974232 Plan: 1patient presented to hospital with abdominal bloating distention some discomfort nausea and also complaining of diarrhea patient did have a CT of abdominal pelvis which did shows features of cirrhosis and small volume ascites with a question of possible SBP less likely but not excluded patient currently do not have any abdominal tenderness no fever patient did have significant evaded white count but with more imaging from underlying myeloproliferative disorder likely and hematology oncology is currently following the patient. 2we will check his inflammatory marker. 3patient benefit from IR paracentesis and the fluid can be sent for cell count differential and culture. 4patient also complaining of diarrhea we will check a stool studies. 5continue with empiric Zosyn while waiting for the workup to be completed. Family at the bedside multiple question concern answered. M we will follow on clinical condition and cultures to further adjust medication if needed Thank you for this consultation we will follow the patient along with you Dictation was produced using [employer] dictation software. please excuse any gramma tical, word or spelling errors. Time with Patient: Greater than 30
[2024-06-10 03:06] LABS: Anisocytosis Moderate; HCT 35.9 % (39.0-53.0); Hypochromasia Marked; MCH 25.4 pg (25.0-35.0); MCHC 30.7 g/dL (31.0-37.0); MCV 82.9 fL (80.0-100.0); Mean Platelet Volume 8.9; Microcytosis Slight; RBC 4.33 m/uL (4.30-5.90); RDW 20.1 % (11.5-15.5); WBC 39.7 k/uL (3.8-10.6)
[2024-06-10 03:15] LABS: INR 1.5 (<1.2); Prothrombin Time 15.3 sec (10.0-12.5)
[2024-06-10 03:18] LABS: African American GFR (CKD) 19 (>60 ml/min/1.73 sqM); Anion Gap 9 mmol/L; Blood Urea Nitrogen 66 mg/dL (9-20); C Reactive Protein 5.2 mg/dL (<1.0); Carbon Dioxide 15 mmol/L (22-30); Chloride 107 mmol/L (98-107); Glucose 138 mg/dL (74-99); Non-African American GFR(CKD) 16 (>60 ml/min/1.73 sqM); Platelet Count 30 k/uL (150-450); Potassium 4.1 mmol/L (3.5-5.1); Sodium 131 mmol/L (137-145)
[2024-06-10 03:46] LABS: Anisocytosis (M) Present; Band Neutrophils % 16 %; Crenated RBC Present; Eosinophils # (M) 3.97 k/uL (0-0.7); Lymphocytes # (M) 3.18 k/uL (1.0-4.8); Metamyelocytes % 1 %; Monocytes # (M) 2.38 k/uL (0-1.0); Myelocytes # (M) 1.59 k/uL (0); Myelocytes % 4 %; Neutrophils % (M) 55 %; Nucleated Red Blood Cells 0 /100 WBC (0-0); Poikilocytosis (M) Present; Total Cells Counted 100
[2024-06-10 03:47] LABS: RBC Fragments Present
[2024-06-10 06:03] LABS: Glucose,Whole Blood 217 mg/dL (70-110)
--- NOTE | 2024-06-10 08:26 | P.PN ---
Progress Note - Text Progress Note Date: 06/10/24 No acute events overnight. Patient not reporting any abdominal pain. Denies fevers and chills. PHYSICAL EXAM: VITAL SIGNS: Reviewed GENERAL: Well-developed in no acute distress. HEENT: No sclera icterus. Extraocular movements grossly intact. Moist buccal mucosa. Head is atraumatic, normocephalic. No nasal drainage. ABDOMEN: Soft. Obese. Mildly distended. Nontender. Patient has no tenderness in the right upper quadrant NEUROLOGIC: Awake and alert. Hard of hearing Extremities: Lower extremity edema ASSESSMENT: 1. Abdominal distention with liver cirrhosis and small amount of ascites and significant leukocytosis. Initial concerns for possible spontaneous bacterial peritonitis. But patient has no pain. Antibiotics were initiated and a paracentesis ordered. IR reporting that there is not enough fluid to proceed with paracentesis 2. Asymptomatic gallstones 3. Shortness of breath PLAN: -No surgical intervention planned -Continue empiric antibiotics for possible SBP -Agree with hematology evaluation -Carbohydrate Diet [facility] [phone]
--- NOTE | 2024-06-10 09:52 | P.PN ---
Subjective Chief Complaint: Distended abdomen, increased flatus, dyspnea This is an 88-year-old gentleman with past medical history significant for prior heavy alcohol use-and x 35 years, prior nicotine dependence 4 packs/day x 25 yea rs, quit in 1981, complete heart block with PPM implantation, diabetes mellitus, diabetic gastroparesis ,prostate disorder,obesity, obstructive sleep apnea and multiple other medical issues presented to the ER with complaints of significant flatus, bloating-increased abdominal distention accompanied by dyspnea began 2 to 3 days ago. Denies nausea, vomiting or diarrhea. Denies constipation. Repo rts minimal to no abdominal,pain chronic leg edema with minimal edema currently. Denies chest pain, palpitations. Afebrile, WBC on admission 33, increased to 48, lactic acid lactic acid 7.1 , currently down to 4 with IV fluid hydration, hemoglobin 11.6, platelets 38, MCV 84.2, blast cells 1%, INR 1.7, elevated D- dimer, 3.97. Chest CTA reported no PE, trace bilateral pleural effusions, stable left lower lobe pulmonary nodule, moderate COPD changes with scattered regions of linear scarring within the right middle lobe and lingula, cardiomegaly.Electrolytes within normal limits, bicarb 15, BUN 21, creatinine 1.05-appears close to baseline. Blood sugars in the 200s, A1c 7.6, total bili 1.8, proBNP 5390. UA negative nitrates, negative leukocytes, 1+ protein trace glucose 1+ ketones, small blood, positive hyaline casts. Viral studies negative. CT of abdomen pelvis reported findings of hepatic cirrhosis with small volume ascites throughout the abdomen pelvis, nonspecific enlarged gastr ohepatic ligament lymph node with additional mildly prominent gastrohepatic nodes and periaortic lymph nodes, cholelithiasis with no biliary ductal dilatation, prostate enlarged measuring 6.1 cm.Gallbladder ultrasound reported small amount of free fluid adjacent to the liver, common bile duct within normal limits, pancreas within normal limits, liver enlarged, difficult to penetrate, mild adjacent ascites noted within right upper quadrant I know. Gallbladder wall slightly thickened unable to appreciate stone seen on CT-Limited views, possibly hydropic. 06/09 This is a pleasant 88 years old male who presents urgently because of dyspnea of 2 days duration and some abdominal bloating with no overt abdominal pain or tenderness The patient was found to have significant leukocytosis of 33-48,000 with new cirrhosis and asymptomatic goal bladder disease and gallstones. He has evidence of chronic kidney injury, his lactic acid was high and he was receiving IV fluid of 100 mL/h. However his creatinine went up 1.0 up to 1.5 and 2.3 today therefore we are going to hold normal saline and put him on IV Lasix SBP was suspected and patient was started on Zosyn, however there was not much ascites to be tapped. We checked Protonix Calcitonin and it was significantly elevated 2.3. Patient is awake alert, no dyspnea. No abdominal pain or tenderness. No significant urinary complaint. He has significant bilateral pitting leg edema 3+ and looks fluid overloaded He is afebrile and blood pressure on the Low normal which looks baseline as patient is asymptomatic Also labs reviewed. D-dimer was elevated at 3.9 however CTA was negative for PE but showing cirrhosis with small ascites and gastrohepatic and periaortic lymphadenopathy. With cholelithiasis Gallbladder ultrasound showing slight wall thickening with possible hydropic gallbladder. Surgery team are following closely. 06/10 Patient with no new complaints, sitting up in bed getting breathing treatment He still has evidence of fluid overload with severe leg swelling. He is continued on fluid restriction and he is agreeable He is currently on IV Lasix Creatinine went up to 0.3 up to 3.2 today. He still have significant leukocytosis about 39,000, low platelet count of 130. Blood pressure is borderline which looks baseline Remains also on Zosyn Review of systems CONSTITUTIONAL: No fever, no malaise, no fatigue. HEENT: No recent visual problems or hearing problems. Denied any sore throat. CARDIOVASCULAR: No orthopnea, PND, no palpitations, no syncope. GENITOURINARY: Denies any burning micturition, frequency, or urgency. MUSCULOSKELETAL/RHEUMATOLOGICAL: Denies any joint pain, swelling, or any muscle pain. ENDOCRINE: Denies any polyuria or polydipsia. Active Medications Generic Name Dose Route Start Last Admin Trade Name Freq PRN Reason Stop Dose Admin Albuterol/Ipratropium 3 ml 06/08/24 08:00 06/10/24 09:42 Ipratropium-Albuterol 3 Ml Neb INHALATION 3 ml RT-QID MAGO Administration Albuterol/Ipratropium 3 ml 06/08/24 08:00 Ipratropium-Albuterol 3 Ml Neb INHALATION RT-Q2H PRN Shortness Of Breath Or Wheezing Atorvastatin Calcium 80 mg 06/07/24 22:30 06/09/24 20:40 Atorvastatin 80 Mg Tab PO 80 mg HS MAGO Administration Budesonide/Formoterol Fumarate 2 puff 06/08/24 08:00 06/10/24 09:42 Symbicort 80-4.5 Mcg Inhaler INHALATION 2 puff RT-BID MAGO Administration Dextrose/Water 25 ml 06/07/24 21:55 Dextrose 50% Syringe 50 Ml IVP PER PROTOCOL PRN Hypoglycemia Protocol Dextrose/Water 50 ml 06/07/24 21:55 Dextrose 50% Syringe 50 Ml IVP PER PROTOCOL PRN Hypoglycemia Protocol Escitalopram Oxalate 10 mg 06/08/24 09:00 06/10/24 09:12 Escitalopram 10 Mg Tab PO 10 mg DAILY MAGO Administration Famotidine 10 mg 06/09/24 21:00 06/10/24 09:17 Famotidine 20 Mg/2 Ml Vial IV Not Given Q12HR MAGO Furosemide 40 mg 06/09/24 10:30 06/10/24 09:12 Furosemide 10 Mg/Ml 4 Ml Vial IV 40 mg Q12HR MAGO Administration Heparin Sodium (Porcine) 5,000 unit 06/09/24 21:00 06/10/24 09:12 Heparin Sodium,Porcine 5,000 Unit/Ml 1 Ml Vial SQ 5,000 unit Q12HR MAGO Administration Hydromorphone HCl 0.5 mg 06/07/24 15:40 Hydromorphone 0.5 Mg/0.5 Ml Syringe IVP Q3HR PRN Moderate Pain (Scale 4 to 6) Hydromorphone HCl 1 mg 06/07/24 15:40 Hydromorphone 1 Mg/Ml 1 Ml Syringe IVP Q3HR PRN Severe Pain (Scale 7 to 10) Piperacillin Sod/Tazobactam 100 mls @ 25 mls/hr 06/08/24 17:15 06/10/24 09:10 Sod 3.375 gm/ Sodium Chloride IVPB 25 mls/hr Q8HR MAGO Administration Protocol Insulin Aspart 0 unit 06/07/24 21:56 06/10/24 06:28 Insulin Aspart (Novolog) 100 Unit/Ml Vial SQ 4 unit ACHS MAGO Administration Protocol Insulin Detemir 20 unit 06/08/24 12:13 06/10/24 06:28 Insulin Detemir (Levemir) 100 Unit/Ml Syr SQ 20 unit DAILY@0700 MAGO Administration Melatonin 5 mg 06/09/24 20:51 06/09/24 21:14 Melatonin 5 Mg Tablet PO 5 mg HS PRN Administration Insomnia Metoprolol Succinate 50 mg 06/07/24 22:30 06/10/24 09:12 Metoprolol Succinate (Er) 50 Mg Tab.Er.24h PO 50 mg BID MAGO Administration Naloxone HCl 0.2 mg 06/07/24 15:40 Naloxone 0.4 Mg/Ml 1 Ml Vial IV Q2M PRN Opioid Reversal Ondansetron HCl 4 mg 06/07/24 15:40 Ondansetron 4 Mg/2 Ml Vial IVP Q8HR PRN Nausea And Vomiting Pantoprazole Sodium 40 mg 06/08/24 09:00 06/10/24 09:11 Pantoprazole 40 Mg/10 Ml Vial IV 40 mg DAILY MAGO Administration Tamsulosin HCl 0.4 mg 06/08/24 09:00 06/10/24 09:12 Tamsulosin 0.4 Mg Cap.Er.24h PO 0.4 mg DAILY MAGO Administration Objective - Vital Signs Vital signs: Vital Signs Temp 98.1 F 06/09/24 20:00 Pulse 82 06/10/24 09:42 Resp 22 06/10/24 02:00 BP 95/48 06/10/24 02:00 Pulse Ox 96 06/10/24 02:00 FiO2 Intake & Output 06/09/24 06/10/24 06/10/24 18:59 06:59 18:59 Intake Total 354 540 Output Total 800 Balance -446 540 Weight 120.8 kg Intake: Oral 354 540 Output: Urine 400 Post Void Residual 400 Other: Voiding Method Toilet Toilet # Voids 1 # Bowel Movements 2 - Exam GENERAL: The patient is alert and oriented x3, not in any acute distress. Well developed, well nourished. HEENT: Pupils are round and equally reacting to light. EOMI. No scleral icterus. No conjunctival pallor. Normocephalic, atraumatic. No pharyngeal erythema. No thyromegaly. CARDIOVASCULAR: S1 and S2 present. No murmurs, rubs, or gallops. PULMONARY: Chest is clear to auscultation, no wheezing , no crackles. ABDOMEN: Soft, nontender, nondistended, normoactive bowel sounds. No palpable organomegaly. MUSCULOSKELETAL: No joint swelling or deformity. -EXTREMITIES: No cyanosis, clubbing, or pedal e 3+ bilateral pitting leg edema NEUROLOGICAL: Gross neurological examination did not reveal any focal deficits. SKIN: No rashes. no petechiae. - Labs CBC & Chem 7: 06/10/24 02:45 06/10/24 02:45 Labs: Abnormal Lab Results - Last 24 Hours (Table) 06/08/24 06/08/24 06/09/24 Range/Units 12:55 15:22 02:32 WBC (3.8-10.6) k/uL Hgb (13.0-17.5) gm/dL Hct (39.0-53.0) % MCHC (31.0-37.0) g/dL RDW (11.5-15.5) % Plt Count (150-450) k/uL Neutrophils # (Manual) (1.3-7.7) k/uL Monocytes # (Manual) (0-1.0) k/uL Eosinophils # (Manual) (0-0.7) k/uL Metamyelocytes # (Man) (0) k/uL Myelocytes # (Manual) (0) k/uL ESR 27 H (0-20) mm/Hr PT (10.0-12.5) sec INR (<1.2) Sodium (137-145) mmol/L Carbon Dioxide (22-30) mmol/L BUN (9-20) mg/dL Creatinine (0.66-1.25) mg/dL Glucose (74-99) mg/dL POC Glucose (mg/dL) (70-110) mg/dL Plasma Lactic Acid Diomedes 4.6 H* (0.7-2.0) mmol/L Calcium (8.4-10.2) mg/dL Iron 50 L (65-175) UG/DL Ferritin 709.0 H (22.0-322.0) ng/mL C-Reactive Protein (<1.0) mg/dL 06/09/24 06/09/24 06/09/24 Range/Units 11:48 14:11 16:49 WBC (3.8-10.6) k/uL Hgb (13.0-17.5) gm/dL Hct (39.0-53.0) % MCHC (31.0-37.0) g/dL RDW (11.5-15.5) % Plt Count (150-450) k/uL Neutrophils # (Manual) (1.3-7.7) k/uL Monocytes # (Manual) (0-1.0) k/uL Eosinophils # (Manual) (0-0.7) k/uL Metamyelocytes # (Man) (0) k/uL Myelocytes # (Manual) (0) k/uL ESR (0-20) mm/Hr PT (10.0-12.5) sec INR (<1.2) Sodium (137-145) mmol/L Carbon Dioxide (22-30) mmol/L BUN (9-20) mg/dL Creatinine (0.66-1.25) mg/dL Glucose (74-99) mg/dL POC Glucose (mg/dL) 233 H 234 H (70-110) mg/dL Plasma Lactic Acid Diomedes 4.0 H* (0.7-2.0) mmol/L Calcium (8.4-10.2) mg/dL Iron (65-175) UG/DL Ferritin (22.0-322.0) ng/mL C-Reactive Protein (<1.0) mg/dL 06/09/24 06/09/24 06/09/24 Range/Units 16:57 20:17 20:36 WBC (3.8-10.6) k/uL Hgb (13.0-17.5) gm/dL Hct (39.0-53.0) % MCHC (31.0-37.0) g/dL RDW (11.5-15.5) % Plt Count (150-450) k/uL Neutrophils # (Manual) (1.3-7.7) k/uL Monocytes # (Manual) (0-1.0) k/uL Eosinophils # (Manual) (0-0.7) k/uL Metamyelocytes # (Man) (0) k/uL Myelocytes # (Manual) (0) k/uL ESR (0-20) mm/Hr PT (10.0-12.5) sec INR (<1.2) Sodium (137-145) mmol/L Carbon Dioxide (22-30) mmol/L BUN (9-20) mg/dL Creatinine (0.66-1.25) mg/dL Glucose (74-99) mg/dL POC Glucose (mg/dL) 265 H (70-110) mg/dL Plasma Lactic Acid Diomedes 3.4 H* 3.3 H* (0.7-2.0) mmol/L Calcium (8.4-10.2) mg/dL Iron (65-175) UG/DL Ferritin (22.0-322.0) ng/mL C-Reactive Protein (<1.0) mg/dL 06/09/24 06/10/24 06/10/24 Range/Units 23:45 02:45 02:45 WBC 39.7 H (3.8-10.6) k/uL Hgb 11.0 L (13.0-17.5) gm/dL Hct 35.9 L (39.0-53.0) % MCHC 30.7 L (31.0-37.0) g/dL RDW 20.1 H (11.5-15.5) % Plt Count 30 L (150-450) k/uL Neutrophils # (Manual) 28.10 H (1.3-7.7) k/uL Monocytes # (Manual) 2.38 H (0-1.0) k/uL Eosinophils # (Manual) 3.97 H (0-0.7) k/uL Metamyelocytes # (Man) 0.40 H (0) k/uL Myelocytes # (Manual) 1.59 H (0) k/uL ESR (0-20) mm/Hr PT 15.3 H (10.0-12.5) sec INR 1.5 H (<1.2) Sodium (137-145) mmol/L Carbon Dioxide (22-30) mmol/L BUN (9-20) mg/dL Creatinine (0.66-1.25) mg/dL Glucose (74-99) mg/dL POC Glucose (mg/dL) (70-110) mg/dL Plasma Lactic Acid Diomedes 3.2 H* (0.7-2.0) mmol/L Calcium (8.4-10.2) mg/dL Iron (65-175) UG/DL Ferritin (22.0-322.0) ng/mL C-Reactive Protein (<1.0) mg/dL 06/10/24 06/10/24 06/10/24 Range/Units 02:45 02:45 05:42 WBC (3.8-10.6) k/uL Hgb (13.0-17.5) gm/dL Hct (39.0-53.0) % MCHC (31.0-37.0) g/dL RDW (11.5-15.5) % Plt Count (150-450) k/uL Neutrophils # (Manual) (1.3-7.7) k/uL Monocytes # (Manual) (0-1.0) k/uL Eosinophils # (Manual) (0-0.7) k/uL Metamyelocytes # (Man) (0) k/uL Myelocytes # (Manual) (0) k/uL ESR (0-20) mm/Hr PT (10.0-12.5) sec INR (<1.2) Sodium 131 L (137-145) mmol/L Carbon Dioxide 15 L (22-30) mmol/L BUN 66 H (9-20) mg/dL Creatinine 3.24 H (0.66-1.25) mg/dL Glucose 138 H (74-99) mg/dL POC Glucose (mg/dL) (70-110) mg/dL Plasma Lactic Acid Diomedes 2.4 H* 2.6 H* (0.7-2.0) mmol/L Calcium 8.0 L (8.4-10.2) mg/dL Iron (65-175) UG/DL Ferritin (22.0-322.0) ng/mL C-Reactive Protein 5.2 H (<1.0) mg/dL 06/10/24 06/10/24 Range/Units 06:01 08:20 WBC (3.8-10.6) k/uL Hgb (13.0-17.5) gm/dL Hct (39.0-53.0) % MCHC (31.0-37.0) g/dL RDW (11.5-15.5) % Plt Count (150-450) k/uL Neutrophils # (Manual) (1.3-7.7) k/uL Monocytes # (Manual) (0-1.0) k/uL Eosinophils # (Manual) (0-0.7) k/uL Metamyelocytes # (Man) (0) k/uL Myelocytes # (Manual) (0) k/uL ESR (0-20) mm/Hr PT (10.0-12.5) sec INR (<1.2) Sodium (137-145) mmol/L Carbon Dioxide (22-30) mmol/L BUN (9-20) mg/dL Creatinine (0.66-1.25) mg/dL Glucose (74-99) mg/dL POC Glucose (mg/dL) 217 H (70-110) mg/dL Plasma Lactic Acid Diomedes 2.8 H* (0.7-2.0) mmol/L Calcium (8.4-10.2) mg/dL Iron (65-175) UG/DL Ferritin (22.0-322.0) ng/mL C-Reactive Protein (<1.0) mg/dL Microbiology - Last 24 Hours (Table) 06/07/24 17:02 Blood Culture - Preliminary Blood 06/07/24 17:12 Blood Culture - Preliminary Blood Assessment and Plan Assessment: Sepsis with suspected spontaneous bacterial peritonitis versus intra-abdominal infection Significant leukocytosis could could be secondary to sepsis. Rule out blood disease disorder and hematology is following closely Chronic thrombocytopenia Cirrhosis of the liver Asymptomatic cholelithiasis High lactic acid Acute kidney injury on chronic kidney disease stage III Abdominal lymphadenopathy in the gastrohepatic area and periaortic lymph nodes Obesity with BMI of 39.4 Plan: Continue with IV Zosyn, consult infectious disease team Hold IV normal saline and start IV Lasix. Also check a bladder scan, urine analysis and consult tile helper Surgery team following closely for his gallbladder disease No GI service coverage in this facility during this weekend Monitor white cell count Hematology/oncology team consult Follow-up culture results Labs and medication were reviewed.. Continue same treatment. Continue with sym ptomatic treatment. Resume home medication. Monitor labs and vitals. DVT and GI prophylaxis. Further recommendations as per clinical course of the patient DVT prophylaxis: Subcutaneous heparin GI Prophylaxis: Pepcid PT/OT: Pending Prognosis is guarded
[2024-06-10 11:34] LABS: Glucose,Whole Blood 262 mg/dL (70-110)
--- NOTE | 2024-06-10 11:45 | P.PN ---
Subjective Progress Note Date: 06/10/24 Patient seen in follow-up for ADDI. No new complaints today. Still with significant edema. GENERAL: NAD, AAO x3 CARDIOVASCULAR: S1 and S2 present. No murmurs, rubs, or gallops. PULMONARY: Chest is clear to auscultation, no wheezing , no crackles. ABDOMEN: Soft, nontender, non-distended MUSCULOSKELETAL: No joint swelling or deformity. EXTREMITIES: 3+ bilateral pitting leg edema NEUROLOGICAL: Gross neurological examination did not reveal any focal deficits. SKIN: No rashes Objective - Vital Signs Vital signs: Vital Signs Temp 98.1 F 06/09/24 20:00 Pulse 80 06/10/24 09:56 Resp 22 06/10/24 02:00 BP 95/48 06/10/24 02:00 Pulse Ox 96 06/10/24 02:00 FiO2 Intake & Output 06/09/24 06/10/24 06/10/24 18:59 06:59 18:59 Intake Total 354 540 358 Output Total 800 Balance -446 540 358 Weight 120.8 kg Intake: Oral 354 540 358 Output: Urine 400 Post Void Residual 400 Other: Voiding Method Toilet Toilet # Voids 1 # Bowel Movements 2 - Labs CBC & Chem 7: 06/10/24 02:45 06/10/24 02:45 Labs: Abnormal Lab Results - Last 24 Hours (Table) 06/08/24 06/09/24 06/09/24 Range/Units 15:22 02:32 11:48 WBC (3.8-10.6) k/uL Hgb (13.0-17.5) gm/dL Hct (39.0-53.0) % MCHC (31.0-37.0) g/dL RDW (11.5-15.5) % Plt Count (150-450) k/uL Neutrophils # (Manual) (1.3-7.7) k/uL Monocytes # (Manual) (0-1.0) k/uL Eosinophils # (Manual) (0-0.7) k/uL Metamyelocytes # (Man) (0) k/uL Myelocytes # (Manual) (0) k/uL ESR 27 H (0-20) mm/Hr PT (10.0-12.5) sec INR (<1.2) Sodium (137-145) mmol/L Carbon Dioxide (22-30) mmol/L BUN (9-20) mg/dL Creatinine (0.66-1.25) mg/dL Glucose (74-99) mg/dL POC Glucose (mg/dL) 233 H (70-110) mg/dL Plasma Lactic Acid Diomedes 4.6 H* (0.7-2.0) mmol/L Calcium (8.4-10.2) mg/dL C-Reactive Protein (<1.0) mg/dL 06/09/24 06/09/24 06/09/24 Range/Units 14:11 16:49 16:57 WBC (3.8-10.6) k/uL Hgb (13.0-17.5) gm/dL Hct (39.0-53.0) % MCHC (31.0-37.0) g/dL RDW (11.5-15.5) % Plt Count (150-450) k/uL Neutrophils # (Manual) (1.3-7.7) k/uL Monocytes # (Manual) (0-1.0) k/uL Eosinophils # (Manual) (0-0.7) k/uL Metamyelocytes # (Man) (0) k/uL Myelocytes # (Manual) (0) k/uL ESR (0-20) mm/Hr PT (10.0-12.5) sec INR (<1.2) Sodium (137-145) mmol/L Carbon Dioxide (22-30) mmol/L BUN (9-20) mg/dL Creatinine (0.66-1.25) mg/dL Glucose (74-99) mg/dL POC Glucose (mg/dL) 234 H (70-110) mg/dL Plasma Lactic Acid Diomedes 4.0 H* 3.4 H* (0.7-2.0) mmol/L Calcium (8.4-10.2) mg/dL C-Reactive Protein (<1.0) mg/dL 06/09/24 06/09/24 06/09/24 Range/Units 20:17 20:36 23:45 WBC (3.8-10.6) k/uL Hgb (13.0-17.5) gm/dL Hct (39.0-53.0) % MCHC (31.0-37.0) g/dL RDW (11.5-15.5) % Plt Count (150-450) k/uL Neutrophils # (Manual) (1.3-7.7) k/uL Monocytes # (Manual) (0-1.0) k/uL Eosinophils # (Manual) (0-0.7) k/uL Metamyelocytes # (Man) (0) k/uL Myelocytes # (Manual) (0) k/uL ESR (0-20) mm/Hr PT (10.0-12.5) sec INR (<1.2) Sodium (137-145) mmol/L Carbon Dioxide (22-30) mmol/L BUN (9-20) mg/dL Creatinine (0.66-1.25) mg/dL Glucose (74-99) mg/dL POC Glucose (mg/dL) 265 H (70-110) mg/dL Plasma Lactic Acid Diomedes 3.3 H* 3.2 H* (0.7-2.0) mmol/L Calcium (8.4-10.2) mg/dL C-Reactive Protein (<1.0) mg/dL 06/10/24 06/10/24 06/10/24 Range/Units 02:45 02:45 02:45 WBC 39.7 H (3.8-10.6) k/uL Hgb 11.0 L (13.0-17.5) gm/dL Hct 35.9 L (39.0-53.0) % MCHC 30.7 L (31.0-37.0) g/dL RDW 20.1 H (11.5-15.5) % Plt Count 30 L (150-450) k/uL Neutrophils # (Manual) 28.10 H (1.3-7.7) k/uL Monocytes # (Manual) 2.38 H (0-1.0) k/uL Eosinophils # (Manual) 3.97 H (0-0.7) k/uL Metamyelocytes # (Man) 0.40 H (0) k/uL Myelocytes # (Manual) 1.59 H (0) k/uL ESR (0-20) mm/Hr PT 15.3 H (10.0-12.5) sec INR 1.5 H (<1.2) Sodium 131 L (137-145) mmol/L Carbon Dioxide 15 L (22-30) mmol/L BUN 66 H (9-20) mg/dL Creatinine 3.24 H (0.66-1.25) mg/dL Glucose 138 H (74-99) mg/dL POC Glucose (mg/dL) (70-110) mg/dL Plasma Lactic Acid Diomedes (0.7-2.0) mmol/L Calcium 8.0 L (8.4-10.2) mg/dL C-Reactive Protein 5.2 H (<1.0) mg/dL 06/10/24 06/10/24 06/10/24 Range/Units 02:45 05:42 06:01 WBC (3.8-10.6) k/uL Hgb (13.0-17.5) gm/dL Hct (39.0-53.0) % MCHC (31.0-37.0) g/dL RDW (11.5-15.5) % Plt Count (150-450) k/uL Neutrophils # (Manual) (1.3-7.7) k/uL Monocytes # (Manual) (0-1.0) k/uL Eosinophils # (Manual) (0-0.7) k/uL Metamyelocytes # (Man) (0) k/uL Myelocytes # (Manual) (0) k/uL ESR (0-20) mm/Hr PT (10.0-12.5) sec INR (<1.2) Sodium (137-145) mmol/L Carbon Dioxide (22-30) mmol/L BUN (9-20) mg/dL Creatinine (0.66-1.25) mg/dL Glucose (74-99) mg/dL POC Glucose (mg/dL) 217 H (70-110) mg/dL Plasma Lactic Acid Diomedes 2.4 H* 2.6 H* (0.7-2.0) mmol/L Calcium (8.4-10.2) mg/dL C-Reactive Protein (<1.0) mg/dL 06/10/24 Range/Units 08:20 WBC (3.8-10.6) k/uL Hgb (13.0-17.5) gm/dL Hct (39.0-53.0) % MCHC (31.0-37.0) g/dL RDW (11.5-15.5) % Plt Count (150-450) k/uL Neutrophils # (Manual) (1.3-7.7) k/uL Monocytes # (Manual) (0-1.0) k/uL Eosinophils # (Manual) (0-0.7) k/uL Metamyelocytes # (Man) (0) k/uL Myelocytes # (Manual) (0) k/uL ESR (0-20) mm/Hr PT (10.0-12.5) sec INR (<1.2) Sodium (137-145) mmol/L Carbon Dioxide (22-30) mmol/L BUN (9-20) mg/dL Creatinine (0.66-1.25) mg/dL Glucose (74-99) mg/dL POC Glucose (mg/dL) (70-110) mg/dL Plasma Lactic Acid Diomedes 2.8 H* (0.7-2.0) mmol/L Calcium (8.4-10.2) mg/dL C-Reactive Protein (<1.0) mg/dL Microbiology - Last 24 Hours (Table) 06/07/24 17:02 Blood Culture - Preliminary Blood 06/07/24 17:12 Blood Culture - Preliminary Blood Assessment and Plan Assessment: 1. Non-oliguric ADDI likely ATN. Presented creatinine 1.0, worsening to 3.2 today. UA showed few hyaline casts. CT no hydronpehosis but distended bladder. Also received multiple contrast studies while on Losartan. 2. Lactic acidosis improved with IVF. 3. Abdominal distention with lymphadenopathy 4. Fluid Overload 5. Possible Sepsis 6. Cirrhosis Plan: PVR 400 yesterday, stright cath and repeat PVR have been negative Will hold off on further diuresis as renal function worsening quickly Continue to hold Losartan Strict I/O's not being completed
--- NOTE | 2024-06-10 16:08 | P.PN ---
Subjective Progress Note Date: 06/10/24 Principal diagnosis: Reason for follow-up is possible SBP and leukocytosis Patient is a 88-year-old male with a past medical history significant for diabetes mellitus gout and prostate disorder cirrhosis of the liver from alcoholism presenting to the hospital for evaluation of bloating increased abdominal distention and shortness of breath, patient did have CT abdominal pelvis with evidence of hepatic cirrhosis ascites did have elevated white count with concern for possible SBP prompting this consultation. On today's evaluation that is 06/10/2024,the patient denies any fever or any chills, patient is breathing comfortably on room air, the patient denies chest pain shortness of breath and no significant cough, patient did have abdominal distention but denies abdominal pain, no nausea vomiting and no further diarrhea. Patient white count is down to 39.7 creatinine 3.24 Objective - Vital Signs Vital signs: Vital Signs Temp 97.6 F 06/10/24 09:05 Pulse 80 06/10/24 13:33 Resp 16 06/10/24 11:30 BP 138/67 06/10/24 11:30 Pulse Ox 95 06/10/24 11:30 FiO2 Intake & Output 06/09/24 06/10/24 06/10/24 18:59 06:59 18:59 Intake Total 354 540 358 Output Total 800 Balance -446 540 358 Weight 120.8 kg Intake: Oral 354 540 358 Output: Urine 400 Post Void Residual 400 Other: Voiding Method Toilet Toilet Toilet # Voids 1 # Bowel Movements 2 - Exam GENERAL DESCRIPTION: An elderly male up in the chair in no distress RESPIRATORY SYSTEM: Unlabored breathing , decreased breath sounds at bases HEART: S1 S2 regular rate and rhythm , ABDOMEN: Soft did have distention but no tenderness EXTREMITIES: No edema feet - Labs CBC & Chem 7: 06/10/24 02:45 06/10/24 02:45 Labs: Abnormal Lab Results - Last 24 Hours (Table) 06/09/24 06/09/24 06/09/24 Range/Units 02:32 14:11 16:49 WBC (3.8-10.6) k/uL Hgb (13.0-17.5) gm/dL Hct (39.0-53.0) % MCHC (31.0-37.0) g/dL RDW (11.5-15.5) % Plt Count (150-450) k/uL Neutrophils # (Manual) (1.3-7.7) k/uL Monocytes # (Manual) (0-1.0) k/uL Eosinophils # (Manual) (0-0.7) k/uL Metamyelocytes # (Man) (0) k/uL Myelocytes # (Manual) (0) k/uL ESR 27 H (0-20) mm/Hr PT (10.0-12.5) sec INR (<1.2) Sodium (137-145) mmol/L Carbon Dioxide (22-30) mmol/L BUN (9-20) mg/dL Creatinine (0.66-1.25) mg/dL Glucose (74-99) mg/dL POC Glucose (mg/dL) 234 H (70-110) mg/dL Plasma Lactic Acid Diomedes 4.0 H* (0.7-2.0) mmol/L Calcium (8.4-10.2) mg/dL C-Reactive Protein (<1.0) mg/dL 06/09/24 06/09/24 06/09/24 Range/Units 16:57 20:17 20:36 WBC (3.8-10.6) k/uL Hgb (13.0-17.5) gm/dL Hct (39.0-53.0) % MCHC (31.0-37.0) g/dL RDW (11.5-15.5) % Plt Count (150-450) k/uL Neutrophils # (Manual) (1.3-7.7) k/uL Monocytes # (Manual) (0-1.0) k/uL Eosinophils # (Manual) (0-0.7) k/uL Metamyelocytes # (Man) (0) k/uL Myelocytes # (Manual) (0) k/uL ESR (0-20) mm/Hr PT (10.0-12.5) sec INR (<1.2) Sodium (137-145) mmol/L Carbon Dioxide (22-30) mmol/L BUN (9-20) mg/dL Creatinine (0.66-1.25) mg/dL Glucose (74-99) mg/dL POC Glucose (mg/dL) 265 H (70-110) mg/dL Plasma Lactic Acid Diomedes 3.4 H* 3.3 H* (0.7-2.0) mmol/L Calcium (8.4-10.2) mg/dL C-Reactive Protein (<1.0) mg/dL 06/09/24 06/10/24 06/10/24 Range/Units 23:45 02:45 02:45 WBC 39.7 H (3.8-10.6) k/uL Hgb 11.0 L (13.0-17.5) gm/dL Hct 35.9 L (39.0-53.0) % MCHC 30.7 L (31.0-37.0) g/dL RDW 20.1 H (11.5-15.5) % Plt Count 30 L (150-450) k/uL Neutrophils # (Manual) 28.10 H (1.3-7.7) k/uL Monocytes # (Manual) 2.38 H (0-1.0) k/uL Eosinophils # (Manual) 3.97 H (0-0.7) k/uL Metamyelocytes # (Man) 0.40 H (0) k/uL Myelocytes # (Manual) 1.59 H (0) k/uL ESR (0-20) mm/Hr PT 15.3 H (10.0-12.5) sec INR 1.5 H (<1.2) Sodium (137-145) mmol/L Carbon Dioxide (22-30) mmol/L BUN (9-20) mg/dL Creatinine (0.66-1.25) mg/dL Glucose (74-99) mg/dL POC Glucose (mg/dL) (70-110) mg/dL Plasma Lactic Acid Diomedes 3.2 H* (0.7-2.0) mmol/L Calcium (8.4-10.2) mg/dL C-Reactive Protein (<1.0) mg/dL 06/10/24 06/10/24 06/10/24 Range/Units 02:45 02:45 05:42 WBC (3.8-10.6) k/uL Hgb (13.0-17.5) gm/dL Hct (39.0-53.0) % MCHC (31.0-37.0) g/dL RDW (11.5-15.5) % Plt Count (150-450) k/uL Neutrophils # (Manual) (1.3-7.7) k/uL Monocytes # (Manual) (0-1.0) k/uL Eosinophils # (Manual) (0-0.7) k/uL Metamyelocytes # (Man) (0) k/uL Myelocytes # (Manual) (0) k/uL ESR (0-20) mm/Hr PT (10.0-12.5) sec INR (<1.2) Sodium 131 L (137-145) mmol/L Carbon Dioxide 15 L (22-30) mmol/L BUN 66 H (9-20) mg/dL Creatinine 3.24 H (0.66-1.25) mg/dL Glucose 138 H (74-99) mg/dL POC Glucose (mg/dL) (70-110) mg/dL Plasma Lactic Acid Diomedes 2.4 H* 2.6 H* (0.7-2.0) mmol/L Calcium 8.0 L (8.4-10.2) mg/dL C-Reactive Protein 5.2 H (<1.0) mg/dL 06/10/24 06/10/24 06/10/24 Range/Units 06:01 08:20 11:18 WBC (3.8-10.6) k/uL Hgb (13.0-17.5) gm/dL Hct (39.0-53.0) % MCHC (31.0-37.0) g/dL RDW (11.5-15.5) % Plt Count (150-450) k/uL Neutrophils # (Manual) (1.3-7.7) k/uL Monocytes # (Manual) (0-1.0) k/uL Eosinophils # (Manual) (0-0.7) k/uL Metamyelocytes # (Man) (0) k/uL Myelocytes # (Manual) (0) k/uL ESR (0-20) mm/Hr PT (10.0-12.5) sec INR (<1.2) Sodium (137-145) mmol/L Carbon Dioxide (22-30) mmol/L BUN (9-20) mg/dL Creatinine (0.66-1.25) mg/dL Glucose (74-99) mg/dL POC Glucose (mg/dL) 217 H (70-110) mg/dL Plasma Lactic Acid Diomedes 2.8 H* 2.7 H* (0.7-2.0) mmol/L Calcium (8.4-10.2) mg/dL C-Reactive Protein (<1.0) mg/dL 06/10/24 Range/Units 11:32 WBC (3.8-10.6) k/uL Hgb (13.0-17.5) gm/dL Hct (39.0-53.0) % MCHC (31.0-37.0) g/dL RDW (11.5-15.5) % Plt Count (150-450) k/uL Neutrophils # (Manual) (1.3-7.7) k/uL Monocytes # (Manual) (0-1.0) k/uL Eosinophils # (Manual) (0-0.7) k/uL Metamyelocytes # (Man) (0) k/uL Myelocytes # (Manual) (0) k/uL ESR (0-20) mm/Hr PT (10.0-12.5) sec INR (<1.2) Sodium (137-145) mmol/L Carbon Dioxide (22-30) mmol/L BUN (9-20) mg/dL Creatinine (0.66-1.25) mg/dL Glucose (74-99) mg/dL POC Glucose (mg/dL) 262 H (70-110) mg/dL Plasma Lactic Acid Diomedes (0.7-2.0) mmol/L Calcium (8.4-10.2) mg/dL C-Reactive Protein (<1.0) mg/dL Microbiology - Last 24 Hours (Table) 06/07/24 17:02 Blood Culture - Preliminary Blood 06/07/24 17:12 Blood Culture - Preliminary Blood Assessment and Plan (1) Abdominal pain Current Visit: Yes Status: Acute Code(s): R10.9 - UNSPECIFIED ABDOMINAL PAIN SNOMED Code(s): 56334755 (2) Leukocytosis Current Visit: Yes Status: Acute Code(s): D72.829 - ELEVATED WHITE BLOOD CELL COUNT, UNSPECIFIED SNOMED Code(s): 160956391 (3) Diarrhea Current Visit: Yes Status: Acute Code(s): R19.7 - DIARRHEA, UNSPECIFIED SNOMED Code(s): 95224117 Plan: 1patient presented to hospital with abdominal bloating distention some discomfort nausea and also complaining of diarrhea patient did have a CT of abdominal pelvis which did shows features of cirrhosis and small volume ascites with a question of possible SBP less likely but not excluded patient currently do not have any abdominal tenderness no fever patient did have significant evaded white count but with more imaging from underlying myeloproliferative disorder likely and hematology oncology is currently following the patient. 2patient benefit from IR paracentesis and the fluid can be sent for cell count differential and culture. 3patient also complaining of diarrhea, stool for C. difficile negative stool culture pending 4 patient tocontinue with empiric Zosyn while waiting for the workup to be completed. at the bedside multiple question concern answered. Dictation was produced using [employer] dictation software. please excuse any grammatical, word or spelling errors.
[2024-06-10 16:40] LABS: Glucose,Whole Blood 224 mg/dL (70-110)
[2024-06-10] MEDS: PIPERACILLIN-TAZOBACTAM 3.375 GM in SODIUM CHLORIDE 0.9% 100 ML IVPB SCH (19:52)
[2024-06-10 20:02] LABS: Glucose,Whole Blood 199 mg/dL (70-110)
[2024-06-11 06:17] LABS: Glucose,Whole Blood 135 mg/dL (70-110)
[2024-06-11 09:01] LABS: Appearance,Urine Cloudy (Clear); Bacteria,Urine Rare /hpf; Bilirubin,Urine Negative (Negative); Blood,Urine Moderate (Negative); Color,Urine Yellow; Glucose,Urine (UA) Trace (Negative); Ketones,Urine Trace (Negative); Leukocyte Esterase,Urine Small (Negative); Nitrite,Urine Negative (Negative); Protein,Urine Trace (Negative); RBC,Urine 19 /hpf (0-5); Specific Gravity,Urine 1.023 (1.001-1.035); Squamous Epithelial Cell,Urine <1 /hpf (0-4); Urobilinogen,Urine <2.0 mg/dL (<2.0); WBC,Urine 11 /hpf (0-5)
[2024-06-11] MEDS: FUROSEMIDE 10 MG/ML 10 ML VIAL IV STA (09:31)
--- NOTE | 2024-06-11 09:38 | P.PN ---
Subjective Patient is seen in follow-up for acute kidney injury. Creatinine 3.24 yesterday. Labs from this morning are pending. Urine output has been low but not accurately documented. Diuretics were stopped yesterday due to worsening renal function. Vital signs are stable. General: No acute distress. HEENT: Head exam is unremarkable. LUNGS: Scattered rhonchi. HEART: Rate and Rhythm are regular. ABDOMEN: Obese, nontender. EXTREMITITES: 2+ edema. Objective - Vital Signs Vital signs: Vital Signs Temp 97.3 F L 06/11/24 07:47 Pulse 78 06/11/24 08:35 Resp 20 06/11/24 07:47 BP 123/66 06/11/24 07:47 Pulse Ox 96 06/11/24 08:27 FiO2 Intake & Output 06/10/24 06/11/24 06/11/24 18:59 06:59 18:59 Intake Total 716 Balance 716 Weight 120.1 kg Intake: Oral 716 Other: Voiding Method Toilet Toilet Toilet Urinal # Voids 1 1 1 # Bowel Movements 1 1 1 - Labs CBC & Chem 7: 06/10/24 02:45 06/10/24 02:45 Labs: Abnormal Lab Results - Last 24 Hours (Table) 06/10/24 06/10/24 06/10/24 Range/Units 11:18 11:32 14:16 POC Glucose (mg/dL) 262 H (70-110) mg/dL Plasma Lactic Acid Diomedes 2.7 H* 2.5 H* (0.7-2.0) mmol/L Urine Protein (Negative) Urine Glucose (UA) (Negative) Urine Ketones (Negative) Urine Blood (Negative) Ur Leukocyte Esterase (Negative) Urine RBC (0-5) /hpf Urine WBC (0-5) /hpf Urine Bacteria (None) /hpf 06/10/24 06/10/24 06/11/24 Range/Units 16:38 20:01 06:15 POC Glucose (mg/dL) 224 H 199 H 135 H (70-110) mg/dL Plasma Lactic Acid Diomedes (0.7-2.0) mmol/L Urine Protein (Negative) Urine Glucose (UA) (Negative) Urine Ketones (Negative) Urine Blood (Negative) Ur Leukocyte Esterase (Negative) Urine RBC (0-5) /hpf Urine WBC (0-5) /hpf Urine Bacteria (None) /hpf 06/11/24 Range/Units 08:43 POC Glucose (mg/dL) (70-110) mg/dL Plasma Lactic Acid Diomedes (0.7-2.0) mmol/L Urine Protein Trace H (Negative) Urine Glucose (UA) Trace H (Negative) Urine Ketones Trace H (Negative) Urine Blood Moderate H (Negative) Ur Leukocyte Esterase Small H (Negative) Urine RBC 19 H (0-5) /hpf Urine WBC 11 H (0-5) /hpf Urine Bacteria Rare H (None) /hpf Microbiology - Last 24 Hours (Table) 06/07/24 17:02 Blood Culture - Preliminary Blood 06/07/24 17:12 Blood Culture - Preliminary Blood Assessment and Plan Plan: Assessment: 1. Acute kidney injury secondary to ATN secondary to cardiorenal syndrome as well as contrast associated acute kidney injury. Baseline creatinine is near 1 and up to 3.24 yesterday. UA with trace protein and initial UA showed no RBCs. CT scan showed no evidence of hydronephrosis. 2. Volume overload. 3. History of liver cirrhosis. 4. Concern for SBP being followed by ID and surgery. On antibiotics. 5. Hypervolemic hyponatremia. 6. Metabolic acidosis secondary to acute kidney injury and lactic acidosis. 7. Diabetes mellitus. Plan: Insert Dewey catheter. Strict I's and O's. Discussed with RN. 80 mg IV Lasix once after Dewey catheter placed. Add oral bicarb. Follow-up morning labs. Continue to monitor renal function and urine output closely. Discussed potential need for renal replacement therapy in the next 24 to 48 hours if no improvement in renal function and urine output.
[2024-06-11 09:45] LABS: African American GFR (CKD) 12 (>60 ml/min/1.73 sqM); Anion Gap 15 mmol/L; Blood Urea Nitrogen 78 mg/dL (9-20); Carbon Dioxide 14 mmol/L (22-30); Chloride 102 mmol/L (98-107); Glucose 165 mg/dL (74-99); Magnesium 2.1 mg/dL (1.6-2.3); Non-African American GFR(CKD) 10 (>60 ml/min/1.73 sqM); Potassium 4.5 mmol/L (3.5-5.1); Sodium 131 mmol/L (137-145)
[2024-06-11] MEDS: SODIUM BICARBONATE TAB 650 MG TAB PO SCH (10:41)
[2024-06-11] MEDS: SODIUM BICARB 8.4% 50 ML SYR (1 MEQ/ML) IV STA (10:45)
[2024-06-11 11:52] LABS: Glucose,Whole Blood 161 mg/dL (70-110)
--- NOTE | 2024-06-11 12:02 | P.PN ---
Subjective Progress Note Date: 06/11/24 Principal diagnosis: Reason for follow-up is possible SBP and leukocytosis Patient is a 88-year-old male with a past medical history significant for diabetes mellitus gout and prostate disorder cirrhosis of the liver from alcoholism presenting to the hospital for evaluation of bloating increased abdominal distention and shortness of breath, patient did have CT abdominal pelvis with evidence of hepatic cirrhosis ascites did have elevated white count with concern for possible SBP prompting this consultation. On today's evaluation that is 06/11/2024,the patient remains to be afebrile, patient is on room air not requiring supplemental oxygen and denies any shortnes s of breath no chest pain or cough.Patient denies having any nausea or vomiting, no abdominal pain. Patient did have a creatinine of 4.75 UA mildly positive stool culture pending blood culture so far negative Objective - Vital Signs Vital signs: Vital Signs Temp 97.3 F L 06/11/24 07:47 Pulse 78 06/11/24 08:35 Resp 20 06/11/24 07:47 BP 123/66 06/11/24 07:47 Pulse Ox 96 06/11/24 08:27 FiO2 Intake & Output 06/10/24 06/11/24 06/11/24 18:59 06:59 18:59 Intake Total 716 Balance 716 Weight 120.1 kg Intake: Oral 716 Other: Voiding Method Toilet Toilet Toilet Urinal # Voids 1 1 1 # Bowel Movements 1 1 1 - Labs CBC & Chem 7: 06/10/24 02:45 06/11/24 09:12 Labs: Abnormal Lab Results - Last 24 Hours (Table) 06/10/24 06/10/24 06/10/24 Range/Units 14:16 16:38 20:01 Sodium (137-145) mmol/L Carbon Dioxide (22-30) mmol/L BUN (9-20) mg/dL Creatinine (0.66-1.25) mg/dL Glucose (74-99) mg/dL POC Glucose (mg/dL) 224 H 199 H (70-110) mg/dL Plasma Lactic Acid Diomedes 2.5 H* (0.7-2.0) mmol/L Calcium (8.4-10.2) mg/dL Urine Protein (Negative) Urine Glucose (UA) (Negative) Urine Ketones (Negative) Urine Blood (Negative) Ur Leukocyte Esterase (Negative) Urine RBC (0-5) /hpf Urine WBC (0-5) /hpf Urine Bacteria (None) /hpf 06/11/24 06/11/24 06/11/24 Range/Units 06:15 08:43 09:12 Sodium 131 L (137-145) mmol/L Carbon Dioxide 14 L (22-30) mmol/L BUN 78 H (9-20) mg/dL Creatinine 4.75 H (0.66-1.25) mg/dL Glucose 165 H (74-99) mg/dL POC Glucose (mg/dL) 135 H (70-110) mg/dL Plasma Lactic Acid Diomedes (0.7-2.0) mmol/L Calcium 8.0 L (8.4-10.2) mg/dL Urine Protein Trace H (Negative) Urine Glucose (UA) Trace H (Negative) Urine Ketones Trace H (Negative) Urine Blood Moderate H (Negative) Ur Leukocyte Esterase Small H (Negative) Urine RBC 19 H (0-5) /hpf Urine WBC 11 H (0-5) /hpf Urine Bacteria Rare H (None) /hpf 06/11/24 Range/Units 11:50 Sodium (137-145) mmol/L Carbon Dioxide (22-30) mmol/L BUN (9-20) mg/dL Creatinine (0.66-1.25) mg/dL Glucose (74-99) mg/dL POC Glucose (mg/dL) 161 H (70-110) mg/dL Plasma Lactic Acid Diomedes (0.7-2.0) mmol/L Calcium (8.4-10.2) mg/dL Urine Protein (Negative) Urine Glucose (UA) (Negative) Urine Ketones (Negative) Urine Blood (Negative) Ur Leukocyte Esterase (Negative) Urine RBC (0-5) /hpf Urine WBC (0-5) /hpf Urine Bacteria (None) /hpf Microbiology - Last 24 Hours (Table) 06/09/24 23:36 Stool Culture - Preliminary Stool 06/07/24 17:02 Blood Culture - Preliminary Blood 06/07/24 17:12 Blood Culture - Preliminary Blood Assessment and Plan (1) Abdominal pain Current Visit: Yes Status: Acute Code(s): R10.9 - UNSPECIFIED ABDOMINAL PAIN SNOMED Code(s): 54435255 (2) Leukocytosis Current Visit: Yes Status: Acute Code(s): D72.829 - ELEVATED WHITE BLOOD CELL COUNT, UNSPECIFIED SNOMED Code(s): 222075297 (3) Diarrhea Current Visit: Yes Status: Acute Code(s): R19.7 - DIARRHEA, UNSPECIFIED SNOMED Code(s): 11132540 Plan: 1patient presented to hospital with abdominal bloating distention some discomfort nausea and also complaining of diarrhea patient did have a CT of abdominal pelvis which did shows features of cirrhosis and small volume ascites with a question of possible SBP less likely but not excluded patient currently do not have any abdominal tenderness no fever patient did have significant evaded white count but with more imaging from underlying myeloproliferative disorder likely and hematology oncology is currently following the patient. 2apparently IR was unable to do paracentesis as per discussion with the surgical SPINNING MACHINE [employer]ER. 3patient also complaining of diarrhea, stool for C. difficile negative stool culture are currently pending 4 patient is currently on Zosyn and monitor clinical course closely Dictation was produced using [employer] dictation software. please excuse any grammatical, word or spelling errors. Time with Patient: Less than 30
--- NOTE | 2024-06-11 12:03 | P.CONS ---
History of Present Illness - Reason for Consult Consult date: 06/11/24 Cirrhosis of the liver, ascites, new diagnosis Requesting physician: Isak Puentes - Chief Complaint Shortness of breath - History of Present Illness This is a pleasant 88-year-old male who presented to the emergency department with complaints of shortness of breath and abdominal distention on 06/07/2024. He stated symptoms began about 2 days prior to admission. He had a CT of the abdomen pelvis as well as a chest CTA. Abdominal CT reported hepatic cirrhosis with small volume ascites. Nonspecific enlarged gastrohepatic ligament lymph node with additional mildly prominent gastrohepatic lymph node and periaortic lymph nodes. May be reactive to #1. Cholelithiasis. Chest CTA negative for pulmonary embolism. Moderate COPD changes. 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 Patient denies any known history of cirrhosis of the liver or any liver disease. Denies any history of ascites. Past medical history includes coronary artery disease status post stent and pacemaker, diabetes mellitus and prostate diso rder. Does have a history of heavy alcohol use for at least 20 years states that he quit in 1984. He denies any abdominal pain, chest pain, nausea or vomiting. Shortness of breath improved. Has lower extremity edema. He was admitted with elevated significant leukocytosis and lactic acidosis. Oncology consulted for abnormal CBC. Labs WBC 39.7 hemoglobin 11.0 platelet count 30,000 sed rate 27 INR 1.5 sodium 131 potassium 4.5 BUN 78 creatinine 4.7 iron 50 saturation 15 ferritin 709 total bilirubin 0.9 AST 91 ALT 28 alkaline phosphatase 68 CRP 5.2 Review of Systems REVIEW OF SYSTEMS: CARDIOPULMONARY: No chest pain. Shortness of breath. Lower extremity swelling. Gastrointestinal: No abdominal pain. Does have abdominal distention. No nausea or vomiting. No hematemesis, coffee-ground emesis. No rectal bleeding, or melena. GENITOURINARY: No dysuria or hematuria. MUSCULOSKELETAL: Reports normal range of motion., Joint pain. SKIN: No rashes. No jaundice. ENDOCRINE: No chills, fevers. No excessive weight gain or loss. No polydipsia or polyuria. PSYCHIATRIC: Unremarkable. NEUROLOGY: No change in mental status. Denies dizziness, headache. ENT: Vision unremarkable. CONSTITUTIONAL: No recent weight loss. No fever, chills, night sweats. Past Medical History Past Medical History: Diabetes Mellitus, Prostate Disorder Additional Past Medical History / Comment(s): see Dr Castro H&P, hx gout, History of Any Multi-Drug Resistant Organisms: None Reported Past Surgical History: Appendectomy, Heart Catheterization, Heart Catheterizati on With Stent, Pacemaker Additional Past Surgical History / Comment(s): cyst removed from lower spine, henry cataracts, 2 stents Past Anesthesia/Blood Transfusion Reactions: No Reported Reaction Date of Last Stent Placement:: 2004 Type of Cardiac Device: Permanent Pacemaker Device Placement Date:: Past Psychological History: No Psychological Hx Reported Smoking Status: Former smoker Past Alcohol Use History: None Reported Additional Past Alcohol Use History / Comment(s): quit smoking 1981, smoked for 4 PPD for 25 yrs Past Drug Use History: None Reported - Past Family History Sister(s) Family Medical History: Cancer Medications and Allergies Home Medications Medication Instructions Recorded Confirmed Type Atorvastatin [Lipitor] 80 mg PO HS 09/09/17 06/07/24 History Escitalopram [Lexapro] 10 mg PO DAILY 09/09/17 06/07/24 History Insulin Aspart [NovoLOG] See Protocol SQ AC-TID PRN 09/09/17 06/07/24 History Metoprolol Succinate [Toprol Xl] 50 mg PO BID 09/09/17 06/07/24 History Tamsulosin HCl [Flomax] 0.4 mg PO DAILY 09/09/17 06/07/24 History Furosemide [Lasix] 20 mg PO DAILY #90 tab 09/16/17 06/07/24 Rx Clopidogrel [Plavix] 75 mg PO DAILY 06/07/24 06/07/24 History Insuln Asp Prt/Insulin Aspart 60 unit SQ HS 06/07/24 06/07/24 History [NovoLOG MIX 70-30 VIAL] Insuln Asp Prt/Insulin Aspart 100 unit SQ QAM 06/07/24 06/07/24 History [NovoLOG MIX 70-30 VIAL] Losartan Potassium [Cozaar] 100 mg PO DAILY 06/07/24 06/07/24 History Allergies Allergy/AdvReac Type Severity Reaction Status Date / Time No Known Allergies Allergy Verified 06/07/24 15:15 Physical Exam Vitals: Vital Signs Temp Pulse Pulse Resp BP BP BP 06/11/24 08:35 78 06/11/24 08:27 11/18/24 08:24 86 06/11/24 07:47 97.3 F L 71 20 123/66 06/11/24 04:00 97.4 F L 73 18 135/62 06/11/24 02:00 73 18 06/11/24 00:00 97.5 F L 71 18 120/55 06/10/24 20:00 97.4 F L 72 20 118/44 06/10/24 15:40 97.5 F L 64 16 94/50 06/10/24 13:33 80 06/10/24 13:17 82 06/10/24 11:30 75 16 138/67 06/10/24 09:56 80 06/10/24 09:42 82 Pulse Ox 06/11/24 08:35 06/11/24 08:27 96 06/11/24 08:24 06/11/24 07:47 99 06/11/24 04:00 93 L 06/11/24 02:00 06/11/24 00:00 96 06/10/24 20:00 97 06/10/24 15:40 92 L 06/10/24 13:33 06/10/24 13:17 06/10/24 11:30 95 06/10/24 09:56 06/10/24 09:42 Intake and Output 06/10/24 06/11/24 06/11/24 22:59 06:59 14:59 Intake Total 240 Balance 240 Intake: Oral 240 Other: Voiding Method Toilet Toilet Toilet Urinal Urinal # Voids 1 1 # Bowel Movements 1 1 1 Weight 120.1 kg General appearance: The patient is alert, oriented, appears in no acute distress. HET: Head is normocephalic and atraumatic. Conjunctiva pink. Sclera anicteric. Neck: Supple without lymphadenopathy. Trachea midline. Heart: Regular. Lungs: Equal expansion, normal respiratory effort. Abdomen: Soft, nontender, distended. Skin: No rashes. No jaundice. Extremities: Normal skin color and turgor. Lower extremity +2 pitting edema. Neurological: No focal deficits. Alert and oriented x3. Results CBC & Chem 7: 06/10/24 02:45 06/11/24 09:12 Labs: Abnormal Lab Results - Last 24 Hours (Table) 06/10/24 06/10/24 06/10/24 Range/Units 11:18 11:32 14:16 POC Glucose (mg/dL) 262 H (70-110) mg/dL Plasma Lactic Acid Diomedes 2.7 H* 2.5 H* (0.7-2.0) mmol/L Urine Protein (Negative) Urine Glucose (UA) (Negative) Urine Ketones (Negative) Urine Blood (Negative) Ur Leukocyte Esterase (Negative) Urine RBC (0-5) /hpf Urine WBC (0-5) /hpf Urine Bacteria (None) /hpf 06/10/24 06/10/24 06/11/24 Range/Units 16:38 20:01 06:15 POC Glucose (mg/dL) 224 H 199 H 135 H (70-110) mg/dL Plasma Lactic Acid Diomedes (0.7-2.0) mmol/L Urine Protein (Negative) Urine Glucose (UA) (Negative) Urine Ketones (Negative) Urine Blood (Negative) Ur Leukocyte Esterase (Negative) Urine RBC (0-5) /hpf Urine WBC (0-5) /hpf Urine Bacteria (None) /hpf 06/11/24 Range/Units 08:43 POC Glucose (mg/dL) (70-110) mg/dL Plasma Lactic Acid Diomedes (0.7-2.0) mmol/L Urine Protein Trace H (Negative) Urine Glucose (UA) Trace H (Negative) Urine Ketones Trace H (Negative) Urine Blood Moderate H (Negative) Ur Leukocyte Esterase Small H (Negative) Urine RBC 19 H (0-5) /hpf Urine WBC 11 H (0-5) /hpf Urine Bacteria Rare H (None) /hpf Microbiology - Last 24 Hours (Table) 06/07/24 17:02 Blood Culture - Preliminary Blood 06/07/24 17:12 Blood Culture - Preliminary Blood Comments: Abdominal CT reported hepatic cirrhosis with small volume ascites. Nonspecific enlarged gastrohepatic ligament lymph node with additional mildly prominent gastrohepatic lymph node and periaortic lymph nodes. May be reactive to #1. Cholelithiasis. Assessment and Plan (1) COPD (chronic obstructive pulmonary disease) Current Visit: Yes Status: Acute Code(s): J44.9 - CHRONIC OBSTRUCTIVE PULM ONARY DISEASE, UNSPECIFIED SNOMED Code(s): 09452883 (2) Cirrhosis Narrative/Plan: 88-year-old male presented for shortness of breath and abdominal distention without any complaints of abdominal pain. Noted to have hepatic cirrhosis and ascites on CT of abdomen and pelvis which is newly diagnosed. Patient does have history of extensive alcohol use however he no longer drinking states that he quit over 30 years ago. He is a 25 year diabetic, likely etiology secondary to diabetes mellitus and fatty liver disease. Patient also noted to have leukocytosis with white count in the 30s and 40s. However patient without any abdominal pain but need to consider possible spontaneous bacterial peritonitis. Recommend abdominal ultrasound to evaluate for ascites for diagnostic paracentesis. Current Visit: Yes Status: Acute Code(s): K74.60 - UNSPECIFIED CIRRHOSIS OF LIVER SNOMED Code(s): 08752178 (3) Leukocytosis Current Visit: Yes Status: Acute Priority: Medium Code(s): D72.829 - ELEVATED WHITE BLOOD CELL COUNT, UNSPECIFIED SNOMED Code(s): 399454279 (4) Thrombocytopenia Current Visit: Yes Status: Acute Priority: Medium Code(s): D69.6 - THROMB OCYTOPENIA, UNSPECIFIED SNOMED Code(s): 222804440 Plan: 1. Continue symptomatic and supportive care 2. Low-sodium diet 3. Abdominal ultrasound ordered to evaluate for ascites, possible diagnostic paracentesis 4. Hepatitis panel ordered 5. Diuretics per nephrology 6. Continue with further workup and recommendations from hematology 7. Further recommendations forthcoming based on clinical course Thank you for this consultation, we will continue to follow. Dr. Omid Middleton I agree with the dictator's note, documented as a scribe by Paula Collazo.
--- NOTE | 2024-06-11 13:13 | US ---
EXAMINATION TYPE: US abdomen limited DATE OF EXAM: 06/11/2024 COMPARISON: 06/07/2024 CLINICAL INDICATION: Male, 88 years old with history of evaluate for ascites; Technique: Grayscale imaging of the abdomen for ascites. FINDINGS: All four abdomen quadrants scanned for ascites. IMPRESSION: No significant free fluid in the abdomen. [facility] Cesar Pagan, , 06/11/2024 1:11 PM
--- NOTE | 2024-06-11 13:40 | P.PN ---
Subjective Progress Note Date: 06/11/24 SURGICAL PROGRESS NOTE CHIEF COMPLAINT: Shortness of breath HISTORY OF PRESENT ILLNESS: Patient denies any abdominal pain. Denies any nausea or vomiting. He was still reporting abdominal distention. Denies any nausea or vomiting. He is having flatus and bowel movement. He is started on IV Lasix per nephrology. On antibiotics for possible SBP. IR was unable to perform paracentesis. Afebrile. WBC 39.7 yesterday creatinine 4.75 PHYSICAL EXAM: VITAL SIGNS: Reviewed. GENERAL: Well-developed in no acute distress. ABDOMEN: Distended. Nontender NEUROLOGIC: Alert and oriented. Cranial nerves II through XII grossly intact. Extremities edema bilateral lower extremities ASSESSMENT: 1. Abdominal distention with ascites and leukocytosis. Concerns for possible spontaneous bacterial peritonitis 2. Liver cirrhosis 3. Asymptomatic gallstones PLAN: -No surgical intervention planned -Continue antibiotics for possible SBP -Agree with diuretics -Patient being followed by GI service Physician Rehabilitation Attendant note has been reviewed by physician. Signing provider agrees with the documented findings, assessment, and plan of care. Attestation Patient seen and examined at bedside. Abdominal pain improving. Has history of liver cirrhosis and ascites. GI on consult. Currently asymptomatic from cholelithiasis. Significant leukocytosis is noted. Continue antibiotics for possible spontaneous bacterial peritonitis. Rufina Galarza, DO Objective - Vital Signs Vital signs: Vital Signs Temp 97.4 F L 06/11/24 12:15 Pulse 75 06/11/24 12:15 Resp 20 06/11/24 12:15 BP 116/68 06/11/24 12:15 Pulse Ox 96 06/11/24 12:15 FiO2 Intake & Output 06/10/24 06/11/24 06/11/24 18:59 06:59 18:59 Intake Total 716 Balance 716 Weight 120.1 kg Intake: Oral 716 Other: Voiding Method Toilet Toilet Toilet Urinal # Voids 1 1 1 # Bowel Movements 1 1 1 - Labs CBC & Chem 7: 06/10/24 02:45 06/11/24 09:12 Labs: Abnormal Lab Results - Last 24 Hours (Table) 06/08/24 06/10/24 06/10/24 Range/Units 05:18 14:16 16:38 Pathologist Review See comment A Sodium (137-145) mmol/L Carbon Dioxide (22-30) mmol/L BUN (9-20) mg/dL Creatinine (0.66-1.25) mg/dL Glucose (74-99) mg/dL POC Glucose (mg/dL) 224 H (70-110) mg/dL Plasma Lactic Acid Diomedes 2.5 H* (0.7-2.0) mmol/L Calcium (8.4-10.2) mg/dL Urine Protein (Negative) Urine Glucose (UA) (Negative) Urine Ketones (Negative) Urine Blood (Negative) Ur Leukocyte Esterase (Negative) Urine RBC (0-5) /hpf Urine WBC (0-5) /hpf Urine Bacteria (None) /hpf 06/10/24 06/11/24 06/11/24 Range/Units 20:01 06:15 08:43 Pathologist Review Sodium (137-145) mmol/L Carbon Dioxide (22-30) mmol/L BUN (9-20) mg/dL Creatinine (0.66-1.25) mg/dL Glucose (74-99) mg/dL POC Glucose (mg/dL) 199 H 135 H (70-110) mg/dL Plasma Lactic Acid Diomedes (0.7-2.0) mmol/L Calcium (8.4-10.2) mg/dL Urine Protein Trace H (Negative) Urine Glucose (UA) Trace H (Negative) Urine Ketones Trace H (Negative) Urine Blood Moderate H (Negative) Ur Leukocyte Esterase Small H (Negative) Urine RBC 19 H (0-5) /hpf Urine WBC 11 H (0-5) /hpf Urine Bacteria Rare H (None) /hpf 06/11/24 06/11/24 Range/Units 09:12 11:50 Pathologist Review Sodium 131 L (137-145) mmol/L Carbon Dioxide 14 L (22-30) mmol/L BUN 78 H (9-20) mg/dL Creatinine 4.75 H (0.66-1.25) mg/dL Glucose 165 H (74-99) mg/dL POC Glucose (mg/dL) 161 H (70-110) mg/dL Plasma Lactic Acid Diomedes (0.7-2.0) mmol/L Calcium 8.0 L (8.4-10.2) mg/dL Urine Protein (Negative) Urine Glucose (UA) (Negative) Urine Ketones (Negative) Urine Blood (Negative) Ur Leukocyte Esterase (Negative) Urine RBC (0-5) /hpf Urine WBC (0-5) /hpf Urine Bacteria (None) /hpf Microbiology - Last 24 Hours (Table) 06/09/24 23:36 Stool Culture - Preliminary Stool 06/07/24 17:02 Blood Culture - Preliminary Blood 06/07/24 17:12 Blood Culture - Preliminary Blood
--- NOTE | 2024-06-11 15:32 | P.PN ---
Subjective Progress Note Date: 06/11/24 Principal diagnosis: Leukocytosis, thrombocytopenia In f/u today pt denies any acute c/o, denies bleeding, abd pain has resolved, his breathing is back to normal, denies pain, feels pretty good overall. Objective - Vital Signs Vital signs: Vital Signs Temp 97.4 F L 06/11/24 12:15 Pulse 75 06/11/24 12:15 Resp 20 06/11/24 12:15 BP 116/68 06/11/24 12:15 Pulse Ox 96 06/11/24 12:15 FiO2 Intake & Output 06/10/24 06/11/24 06/11/24 18:59 06:59 18:59 Intake Total 716 Balance 716 Weight 120.1 kg Intake: Oral 716 Other: Voiding Method Toilet Toilet Toilet Urinal # Voids 1 1 1 # Bowel Movements 1 1 1 - Constitutional General appearance: Present: cooperative, no acute distress, obese - EENT Eyes: Present: anicteric sclerae, EOMI ENT: Present: hearing grossly normal - Respiratory Details: resp even and unlabored - Cardiovascular Details: skin warm, well perfused - Gastrointestinal General gastrointestinal: Present: soft - Integumentary Integumentary: Present: normal - Neurologic Neurologic: Present: CNII-XII intact - Musculoskeletal Musculoskeletal: Present: strength equal bilaterally - Psychiatric Psychiatric: Present: A&O x's 3, appropriate affect, intact judgment & insight - Labs CBC & Chem 7: 06/10/24 02:45 06/11/24 09:12 Labs: Abnormal Lab Results - Last 24 Hours (Table) 06/08/24 06/10/24 06/10/24 Range/Units 05:18 14:16 16:38 Pathologist Review See comment A Sodium (137-145) mmol/L Carbon Dioxide (22-30) mmol/L BUN (9-20) mg/dL Creatinine (0.66-1.25) mg/dL Glucose (74-99) mg/dL POC Glucose (mg/dL) 224 H (70-110) mg/dL Plasma Lactic Acid Diomedes 2.5 H* (0.7-2.0) mmol/L Calcium (8.4-10.2) mg/dL Urine Protein (Negative) Urine Glucose (UA) (Negative) Urine Ketones (Negative) Urine Blood (Negative) Ur Leukocyte Esterase (Negative) Urine RBC (0-5) /hpf Urine WBC (0-5) /hpf Urine Bacteria (None) /hpf 06/10/24 06/11/24 06/11/24 Range/Units 20:01 06:15 08:43 Pathologist Review Sodium (137-145) mmol/L Carbon Dioxide (22-30) mmol/L BUN (9-20) mg/dL Creatinine (0.66-1.25) mg/dL Glucose (74-99) mg/dL POC Glucose (mg/dL) 199 H 135 H (70-110) mg/dL Plasma Lactic Acid Diomedes (0.7-2.0) mmol/L Calcium (8.4-10.2) mg/dL Urine Protein Trace H (Negative) Urine Glucose (UA) Trace H (Negative) Urine Ketones Trace H (Negative) Urine Blood Moderate H (Negative) Ur Leukocyte Esterase Small H (Negative) Urine RBC 19 H (0-5) /hpf Urine WBC 11 H (0-5) /hpf Urine Bacteria Rare H (None) /hpf 06/11/24 06/11/24 Range/Units 09:12 11:50 Pathologist Review Sodium 131 L (137-145) mmol/L Carbon Dioxide 14 L (22-30) mmol/L BUN 78 H (9-20) mg/dL Creatinine 4.75 H (0.66-1.25) mg/dL Glucose 165 H (74-99) mg/dL POC Glucose (mg/dL) 161 H (70-110) mg/dL Plasma Lactic Acid Diomedes (0.7-2.0) mmol/L Calcium 8.0 L (8.4-10.2) mg/dL Urine Protein (Negative) Urine Glucose (UA) (Negative) Urine Ketones (Negative) Urine Blood (Negative) Ur Leukocyte Esterase (Negative) Urine RBC (0-5) /hpf Urine WBC (0-5) /hpf Urine Bacteria (None) /hpf Microbiology - Last 24 Hours (Table) 06/09/24 23:36 Stool Culture - Preliminary Stool 06/07/24 17:02 Blood Culture - Preliminary Blood 06/07/24 17:12 Blood Culture - Preliminary Blood - Imaging and Cardiology US - abdomen: report reviewed Assessment and Plan (1) Leukocytosis Current Visit: Yes Status: Acute Priority: Medium Code(s): D72.829 - EL EVATED WHITE BLOOD CELL COUNT, UNSPECIFIED SNOMED Code(s): 032413778 (2) Thrombocytopenia Current Visit: Yes Status: Acute Priority: Medium Code(s): D69.6 - THROMBOCYTOPENIA, UNSPECIFIED SNOMED Code(s): 669753794 Plan: Leukocytosis -significant, but stable, leukocytosis with left shift. This is a new finding. -DDx include MPN vs ETOH marrow damage that is reactive to acute illness -Additional workup ordered and pending -If negative and counts returen to baseline with treatment of the acute illness, plans for observation Thrombocytopenia -Persistent and progressive this admission. Most likely the primary diagnosis is chronic liver disease with splenic sequestration and/or chronic marrow damage from prior alcohol use and that the current acute decline from baseline is probably due to acute illness. -Check labs to rule out other causes-pending -Transfuse to keep platelet count greater than 10,000, or greater than 40,000 if there is any active bleeding. -It is felt to be likely that his platelet counts will likely improve spontaneously as his acute condition resolves -GI consulted for liver cirrhosis and evidence of portal hypertension. The patient does not have a known diagnosis of the same
[2024-06-11 16:00] LABS: Hepatitis A Antibody IgM Nonreactive (Nonreactive); Hepatitis B Surface Antigen Nonreactive (Nonreactive); Hepatitis C IgG Antibody Nonreactive (Nonreactive)
[2024-06-11 16:10] LABS: Glucose,Whole Blood 254 mg/dL (70-110)
--- NOTE | 2024-06-11 16:43 | P.PN ---
Subjective Progress Note Date: 06/11/24 H&P Date: 06/08/24 Chief Complaint: Distended abdomen, increased flatus, dyspnea This is an 88-year-old gentleman with past medical history significant for prior heavy alcohol use-and x 35 years, prior nicotine dependence 4 packs/day x 25 years, quit in 1981, complete heart block with PPM implantation, diabetes mellitus, diabetic gastroparesis ,prostate disorder,obesity, obstructive sleep apnea and multiple other medical issues presented to the ER with complaints of significant flatus, bloating-increased abdominal distention accompanied by dyspnea began 2 to 3 days ago. Denies nausea, vomiting or diarrhea. Denies constipation. Reports minimal to no abdominal,pain chronic leg edema with minimal edema currently. Denies chest pain, palpitations. Afebrile, WBC on admission 33, increased to 48, lactic acid lactic acid 7.1 , currently down to 4 with IV fluid hydration, hemoglobin 11.6, platelets 38, MCV 84.2, blast cells 1%, INR 1.7, elevated D-dimer, 3.97. Chest CTA reported no PE, trace bilateral pleural effusions, stable left lower lobe pulmonary nodule, moderate COPD changes with scattered regions of linear scarring within the right middle lobe and lingula, cardiomegaly.Electrolytes within normal limits, bicarb 15, BUN 21, creatinine 1.05-appears close to baseline. Blood sugars in the 200s, A1c 7.6, total bili 1.8, proBNP 5390. UA negative nitrates, negative leukocytes, 1+ protein trace glucose 1+ ketones, small blood, positive hyaline casts. Viral studies negative. CT of abdomen pelvis reported findings of hepatic cirrhosis with small volume ascites throughout the abdomen pelvis, nonspecific enlarged gastrohepatic ligament lymph node with additional mildly prominent gastrohepatic nodes and periaortic lymph nodes, cholelithiasis with no biliary ductal dilatation, prostate enlarged measuring 6.1 cm.Gallbladder ultrasound reported small amount of free fluid adjacent to the liver, common bile duct within normal limits, pancreas within normal limits, liver enlarged, difficult to penetrate, mild adjacent ascites noted within right upper quadrant I know. Gallbladder wall slightly thickened unable to appreciate stone seen on CT-Limited views, possibly hydropic. 06/11/2024 denies abdominal pain. Diuretics discontinued yesterday secondary to worsening renal function. renal function continues to decline, bicarb 14, BUN 78, creatinine 4.75 .Bicarb ordered. denies chest pain, palpitations or shortness of breath. Maintaining O2 sats in the mid 90s on room air. Blood sugars currently controlled on Levemir in addition to NovoLog sliding scale. Objective - Vital Signs Vital signs: Vital Signs Temp 97.3 F L 06/11/24 15:49 Pulse 84 06/11/24 15:58 Resp 20 06/11/24 15:49 BP 120/71 06/11/24 15:49 Pulse Ox 95 06/11/24 15:49 FiO2 Intake & Output 06/10/24 06/11/24 06/11/24 18:59 06:59 18:59 Intake Total 716 360 Balance 716 360 Weight 120.1 kg Intake: Oral 716 360 Other: Voiding Method Toilet Toilet Indwelling Catheter Urinal # Voids 1 1 1 # Bowel Movements 1 1 1 - Exam PHYSICAL EXAM: VITAL SIGNS: [Reviewed] GENERAL: Well-nourished, alert and oriented x 3, sitting up at side of bed, no acute distress HEENT: Normocephalic, atraumatic conjunctivae normal. eyes normal. Sclera anicteric NECK: Supple, unable to assess for JVD. CARDIOVASCULAR: S1, S2 regular.No murmur RESPIRATION: Unlabored, equal air entry, scattered rhonchi with bilateral bases diminished. ABDOMEN: Soft, obese, distended, nontender, no guarding. no masses palpable. +BS LEGS: Positive bilateral lower extremity edema, no calf tenderness. NERVOUS SYSTEM: Cranial N 2-12 grossly normal. No focal deficits. Strength and sensation grossly intact. Skin: Warm and dry, no rash. - Labs CBC & Chem 7: 06/10/24 02:45 06/11/24 09:12 Labs: Abnormal Lab Results - Last 24 Hours (Table) 06/08/24 06/10/24 06/10/24 Range/Units 05:18 16:38 20:01 Pathologist Review See comment A Sodium (137-145) mmol/L Carbon Dioxide (22-30) mmol/L BUN (9-20) mg/dL Creatinine (0.66-1.25) mg/dL Glucose (74-99) mg/dL POC Glucose (mg/dL) 224 H 199 H (70-110) mg/dL Calcium (8.4-10.2) mg/dL Urine Protein (Negative) Urine Glucose (UA) (Negative) Urine Ketones (Negative) Urine Blood (Negative) Ur Leukocyte Esterase (Negative) Urine RBC (0-5) /hpf Urine WBC (0-5) /hpf Urine Bacteria (None) /hpf 06/11/24 06/11/24 06/11/24 Range/Units 06:15 08:43 09:12 Pathologist Review Sodium 131 L (137-145) mmol/L Carbon Dioxide 14 L (22-30) mmol/L BUN 78 H (9-20) mg/dL Creatinine 4.75 H (0.66-1.25) mg/dL Glucose 165 H (74-99) mg/dL POC Glucose (mg/dL) 135 H (70-110) mg/dL Calcium 8.0 L (8.4-10.2) mg/dL Urine Protein Trace H (Negative) Urine Glucose (UA) Trace H (Negative) Urine Ketones Trace H (Negative) Urine Blood Moderate H (Negative) Ur Leukocyte Esterase Small H (Negative) Urine RBC 19 H (0-5) /hpf Urine WBC 11 H (0-5) /hpf Urine Bacteria Rare H (None) /hpf 06/11/24 06/11/24 Range/Units 11:50 16:09 Pathologist Review Sodium (137-145) mmol/L Carbon Dioxide (22-30) mmol/L BUN (9-20) mg/dL Creatinine (0.66-1.25) mg/dL Glucose (74-99) mg/dL POC Glucose (mg/dL) 161 H 254 H (70-110) mg/dL Calcium (8.4-10.2) mg/dL Urine Protein (Negative) Urine Glucose (UA) (Negative) Urine Ketones (Negative) Urine Blood (Negative) Ur Leukocyte Esterase (Negative) Urine RBC (0-5) /hpf Urine WBC (0-5) /hpf Urine Bacteria (None) /hpf Microbiology - Last 24 Hours (Table) 06/09/24 23:36 Stool Culture - Preliminary Stool 06/07/24 17:02 Blood Culture - Preliminary Blood 06/07/24 17:12 Blood Culture - Preliminary Blood Assessment and Plan Assessment: Sepsis, etiology unclear. Minimal to no abdominal pain, positive flatus, WBC 48, lactic acid 7.1 on admission, elevated blast cells 1%, T. bili 1.8 ,abdomen/pelvis CT reporting hepatic cirrhosis, small volume ascites throughout the abdomen pelvis, nonspecific enlarged gastrohepatic ligament lymph node with additional mildly prominent gastrohepatic lymph nodes and. Aortic lymph nodes possibly reactive , cholelithiasis, no biliary ductal dilatation, enlarged prostate.. Possible myeloproliferative disorder as per oncology.less likely SBP as per ID Leukocytosis secondary to the above Lactic acidosis secondary to #1 Acute renal failure, multifactorial, secondary to ATN, cardiorenal syndrome and contrast Metabolic acidosis secondary to the above Hyponatremia, hypervolemic Chronic kidney disease stage II, GFR 64 Anemia appears to be chronic, last hemoglobin was 11.4 on 01/2024. Thrombocytopenia Hypercoagulopathy Hyperbilirubinemia Diabetic gastroparesis Left lower lobe pulmonary nodule, 11 mm, stable reported per CT completed on 10/17/2023, follows/monitored with pulmonary outpatient COPD Obstructive sleep apnea Diabetes mellitus, hyperglycemia, hemoglobin A1c 7.6 CAD History of PPM secondary to complete heart block Moderate pulmonary hypertension Hypertension Hyperlipidemia Prior heavy alcohol use , none X 35 years Prior nicotine dependence, 4 packs/day x 25 years, quit 1981 [place]', wears hearing aids Morbid obesity, BMI 37 Plan: Continue on current medication regimen ,monitoring and symptomatic treatment. Continued worsening of renal function -diuretics as per nephrology. Bicarb. GI on consult, potential diagnostic paracentesis pending ultrasound results. Maintained on Zosyn as per infectious disease. The impression and plan of care has been dictated as directed. : I performed a history and examination of this patient, discussed the same with the dictator. I agree with the dictator's note ,documented as a scribe. Any additional findings or plans will be noted. Prior
[2024-06-11 16:58] LABS: Hepatitis B Core IgM Nonreactive (Nonreactive)
[2024-06-11 20:17] LABS: Glucose,Whole Blood 250 mg/dL (70-110)
[2024-06-11] MEDS: INSULIN DETEMIR (LEVEMIR) 100 UNIT/ML SYR SQ SCH (20:27)
[2024-06-11] MEDS ORDERED: INSULIN DETEMIR (LEVEMIR) 100 UNIT/ML SYR SQ SCH ×2 (21:00)
[2024-06-12] MEDS: FUROSEMIDE 10 MG/ML 2 ML VIAL IV ONE (04:20)
[2024-06-12] MEDS: ALPRAZolam 0.5 MG TAB PO PRN (04:21)
[2024-06-12 04:28] LABS: Anisocytosis Moderate; HCT 35.8 % (39.0-53.0); HGB 10.6 gm/dL (13.0-17.5); Hypochromasia Marked; MCH 25.1 pg (25.0-35.0); MCHC 29.6 g/dL (31.0-37.0); MCV 85.1 fL (80.0-100.0); Mean Platelet Volume 9.4; Microcytosis Slight; Poikilocytosis Slight; RBC 4.21 m/uL (4.30-5.90); RDW 20.4 % (11.5-15.5); WBC 57.3 k/uL (3.8-10.6)
[2024-06-12 04:31] LABS: Platelet Count 43 k/uL (150-450)
[2024-06-12 04:38] LABS: African American GFR (CKD) 10 (>60 ml/min/1.73 sqM); Anion Gap 17 mmol/L; Blood Urea Nitrogen 85 mg/dL (9-20); Carbon Dioxide 12 mmol/L (22-30); Chloride 102 mmol/L (98-107); Glucose 114 mg/dL (74-99); Magnesium 2.2 mg/dL (1.6-2.3); Non-African American GFR(CKD) 9 (>60 ml/min/1.73 sqM); Phosphorus 8.5 mg/dL (2.5-4.5); Potassium 4.6 mmol/L (3.5-5.1); Sodium 131 mmol/L (137-145)
[2024-06-12 05:36] LABS: Glucose,Whole Blood 113 mg/dL (70-110)
[2024-06-12 05:40] LABS: Anisocytosis (M) Present; Band Neutrophils % 13 %; Eosinophils # (M) 1.72 k/uL (0-0.7); Lymphocytes # (M) 2.87 k/uL (1.0-4.8); Metamyelocytes # (M) 5.73 k/uL (0); Metamyelocytes % 10 %; Monocytes # (M) 3.44 k/uL (0-1.0); Myelocytes # (M) 2.29 k/uL (0); Myelocytes % 4 %; Neutrophils % (M) 59 %; Nucleated Red Blood Cells 0 /100 WBC (0-0); Poikilocytosis (M) Present; Total Cells Counted 200
[2024-06-12 05:41] LABS: Crenated RBC Present; RBC Fragments Present
[2024-06-12 06:14] LABS: Glucose,Whole Blood 131 mg/dL (70-110)
--- NOTE | 2024-06-12 07:41 | XR ---
EXAMINATION TYPE: XR chest 1V portable DATE OF EXAM: 06/12/2024 4:49 AM COMPARISON: 04/15/2011 CLINICAL INDICATION: Male, 88 years old with history of labored breathing decreasing O2 stats, Shortness of breath FINDINGS: Noted is pulmonary venous congestion with scattered infiltrates. There is also cardiomegaly and small effusions. IMPRESSION: Findings compatible with congestive failure. Infiltrates of other etiology are not excluded. Clinical correlation and progress studies are recommended. [facility], , 06/12/2024 7:39 AM
[2024-06-12 08:17] LABS: Methylmalonic Acid 0.46 umol/L (<0.40)
--- NOTE | 2024-06-12 10:10 | P.PN ---
Subjective Patient is seen in follow-up for acute kidney injury. Renal function worsening. Transferred to ICU earlier this morning due to worsening mental and respiratory status. Currently on 4 L nasal cannula. Oliguric. Received IV Lasix yesterday and again this morning. present at bedside. Vital signs are stable. General: No acute distress. HEENT: Head exam is unremarkable. On nasal cannula. LUNGS: Scattered rhonchi. HEART: Rate and Rhythm are regular. ABDOMEN: Distention noted. EXTREMITITES: 2+ edema. Objective - Vital Signs Vital signs: Vital Signs Temp 97.5 F L 06/12/24 08:00 Pulse 71 06/12/24 09:22 Resp 36 H 06/12/24 08:40 BP 111/70 06/12/24 08:40 Pulse Ox 96 06/12/24 09:25 FiO2 Intake & Output 06/11/24 06/12/24 06/12/24 18:59 06:59 18:59 Intake Total 478 0 Output Total 300 21 Balance 478 -300 -21 Weight 120.7 kg Intake: Oral 478 0 Output: Urine 300 21 Other: Voiding Method Indwelling Catheter Indwelling Catheter # Voids 1 1 # Bowel Movements 1 1 - Labs CBC & Chem 7: 06/12/24 04:14 06/12/24 04:14 Labs: Abnormal Lab Results - Last 24 Hours (Table) 06/08/24 06/08/24 06/08/24 Range/Units 05:18 12:30 12:55 WBC (3.8-10.6) k/uL RBC (4.30-5.90) m/uL Hgb (13.0-17.5) gm/dL Hct (39.0-53.0) % MCHC (31.0-37.0) g/dL RDW (11.5-15.5) % Plt Count (150-450) k/uL Neutrophils # (Manual) (1.3-7.7) k/uL Monocytes # (Manual) (0-1.0) k/uL Eosinophils # (Manual) (0-0.7) k/uL Metamyelocytes # (Man) (0) k/uL Myelocytes # (Manual) (0) k/uL Pathologist Review See comment A Sodium (137-145) mmol/L Carbon Dioxide (22-30) mmol/L BUN (9-20) mg/dL Creatinine (0.66-1.25) mg/dL Glucose (74-99) mg/dL POC Glucose (mg/dL) (70-110) mg/dL Plasma Lactic Acid Diomedes (0.7-2.0) mmol/L Calcium (8.4-10.2) mg/dL Phosphorus (2.5-4.5) mg/dL Total PSA 10.0 H (<=4.0) ng/mL Methylmalonic Acid 0.46 H (<0.40) umol/L 06/11/24 06/11/24 06/11/24 Range/Units 11:50 16:09 20:15 WBC (3.8-10.6) k/uL RBC (4.30-5.90) m/uL Hgb (13.0-17.5) gm/dL Hct (39.0-53.0) % MCHC (31.0-37.0) g/dL RDW (11.5-15.5) % Plt Count (150-450) k/uL Neutrophils # (Manual) (1.3-7.7) k/uL Monocytes # (Manual) (0-1.0) k/uL Eosinophils # (Manual) (0-0.7) k/uL Metamyelocytes # (Man) (0) k/uL Myelocytes # (Manual) (0) k/uL Pathologist Review Sodium (137-145) mmol/L Carbon Dioxide (22-30) mmol/L BUN (9-20) mg/dL Creatinine (0.66-1.25) mg/dL Glucose (74-99) mg/dL POC Glucose (mg/dL) 161 H 254 H 250 H (70-110) mg/dL Plasma Lactic Acid Diomedes (0.7-2.0) mmol/L Calcium (8.4-10.2) mg/dL Phosphorus (2.5-4.5) mg/dL Total PSA (<=4.0) ng/mL Methylmalonic Acid (<0.40) umol/L 06/12/24 06/12/24 06/12/24 Range/Units 04:14 04:14 04:14 WBC 57.3 H* (3.8-10.6) k/uL RBC 4.21 L (4.30-5.90) m/uL Hgb 10.6 L (13.0-17.5) gm/dL Hct 35.8 L (39.0-53.0) % MCHC 29.6 L (31.0-37.0) g/dL RDW 20.4 H (11.5-15.5) % Plt Count 43 L (150-450) k/uL Neutrophils # (Manual) 41.20 H (1.3-7.7) k/uL Monocytes # (Manual) 3.44 H (0-1.0) k/uL Eosinophils # (Manual) 1.72 H (0-0.7) k/uL Metamyelocytes # (Man) 5.73 H (0) k/uL Myelocytes # (Manual) 2.29 H (0) k/uL Pathologist Review Sodium 131 L (137-145) mmol/L Carbon Dioxide 12 L (22-30) mmol/L BUN 85 H (9-20) mg/dL Creatinine 5.33 H (0.66-1.25) mg/dL Glucose 114 H (74-99) mg/dL POC Glucose (mg/dL) (70-110) mg/dL Plasma Lactic Acid Diomedes 3.0 H* (0.7-2.0) mmol/L Calcium 8.0 L (8.4-10.2) mg/dL Phosphorus 8.5 H (2.5-4.5) mg/dL Total PSA (<=4.0) ng/mL Methylmalonic Acid (<0.40) umol/L 06/12/24 06/12/24 Range/Units 05:35 06:13 WBC (3.8-10.6) k/uL RBC (4.30-5.90) m/uL Hgb (13.0-17.5) gm/dL Hct (39.0-53.0) % MCHC (31.0-37.0) g/dL RDW (11.5-15.5) % Plt Count (150-450) k/uL Neutrophils # (Manual) (1.3-7.7) k/uL Monocytes # (Manual) (0-1.0) k/uL Eosinophils # (Manual) (0-0.7) k/uL Metamyelocytes # (Man) (0) k/uL Myelocytes # (Manual) (0) k/uL Pathologist Review Sodium (137-145) mmol/L Carbon Dioxide (22-30) mmol/L BUN (9-20) mg/dL Creatinine (0.66-1.25) mg/dL Glucose (74-99) mg/dL POC Glucose (mg/dL) 113 H 131 H (70-110) mg/dL Plasma Lactic Acid Diomedes (0.7-2.0) mmol/L Calcium (8.4-10.2) mg/dL Phosphorus (2.5-4.5) mg/dL Total PSA (<=4.0) ng/mL Methylmalonic Acid (<0.40) umol/L Microbiology - Last 24 Hours (Table) 06/09/24 23:36 Stool Culture - Preliminary Stool Assessment and Plan Plan: Assessment: 1. Acute kidney injury secondary to ATN secondary to cardiorenal syndrome as well as contrast associated acute kidney injury. Baseline creatinine is near 1 and up to 5.33. UA with trace protein and initial UA showed no RBCs. CT scan showed no evidence of hydronephrosis. 2. Volume overload. 3. History of liver cirrhosis. 4. Concern for SBP being followed by ID and surgery. On antibiotics. 5. Hypervolemic hyponatremia. Stable. 6. Metabolic acidosis secondary to acute kidney injury and lactic acidosis. Heart 7. Diabetes mellitus. 8. Hyperphosphatemia secondary to acute kidney injury. Expect improvement postdialysis. Plan: No response in urine output despite IV Lasix given June 11, 2024. With worsening renal function, volume overload, acidosis, initiate renal replacement therapy. Consult vascular surgery for dialysis catheter placement. Plan for first treatment of hemodialysis today and second treatment tomorrow. Add IV Lasix. 2 amp sodium bicarb IV push now. Check echocardiogram.
--- NOTE | 2024-06-12 11:12 | P.CNPUL ---
History of Present Illness Consult date: 06/12/24 Requesting physician: Jacobo Orr Reason for consult: other (Critical care management) Chief complaint: Abdominal pain History of present illness: This is an 88-year-old male patient with a known history of diabetes mellitus, coronary artery disease with previous stent placement, permanent pacemaker implantation, gout, hyperlipidemia, hypertension, former smoker. He presented here to the emergency room back on June 07, 2024 with abdominal pain and distention. He had been seen and evaluated by surgical services. There was some concern for possible spontaneous bacterial peritonitis. There is evidence of liver cirrhosis and asymptomatic gallstones. No plans for surgical intervention. A rapid response team was called on the patient earlier this morning as he had decreasing blood pressure and increasing oxygen requirements and increasing scrotal and lower extremity edema. He had also developed hematuria. He is seen today in consultation in the intensive care unit. He is currently sitting up in the bed. He is restless. He is confused. His is at the bedside. He is currently maintaining O2 saturations in the 90s on 4 L/min per nasal cannula. Chest x-ray reveals evidence of pulmonary vascular congestion/congestive heart failure. Blood and stool cultures are pending. White count 57.3. Hemoglobin 10.6. Platelets 43,000. Sodium 131. Potassium 4.6. Bicarb 12. BUN 85. Creatinine 5.33. Glucose 114. Ammonia level less than 9. Hepatitis screen was negative. Previous C. difficile screen was negative. He is being followed closely by nephrology. He received IV diuretics and sodium bicarbonate. The plan is for dialysis catheter placement and initiate on hemodialysis today. Review of Systems ROS unobtainable: due to mental status Past Medical History Past Medical History: Diabetes Mellitus, Prostate Disorder Additional Past Medical History / Comment(s): see Dr Castro H&P, hx gout, History of Any Multi-Drug Resistant Organisms: None Reported Past Surgical History: Appendectomy, Heart Catheterization, Heart Catheterization With Stent, Pacemaker Additional Past Surgical History / Comment(s): cyst removed from lower spine, henry cataracts, 2 stents Past Anesthesia/Blood Transfusion Reactions: No Reported Reaction Date of Last Stent Placement:: 2004 Type of Cardiac Device: Permanent Pacemaker Device Placement Date:: Past Psychological History: No Psychological Hx Reported Smoking Status: Former smoker Past Alcohol Use History: None Reported Additional Past Alcohol Use History / Comment(s): quit smoking 1981, smoked for 4 PPD for 25 yrs Past Drug Use History: None Reported - Past Family History Sister(s) Family Medical History: Cancer Medications and Allergies Home Medications Medication Instructions Recorded Confirmed Type Atorvastatin [Lipitor] 80 mg PO HS 09/09/17 06/07/24 History Escitalopram [Lexapro] 10 mg PO DAILY 09/09/17 06/07/24 History Insulin Aspart [NovoLOG] See Protocol SQ AC-TID PRN 09/09/17 06/07/24 History Metoprolol Succinate [Toprol Xl] 50 mg PO BID 09/09/17 06/07/24 History Tamsulosin HCl [Flomax] 0.4 mg PO DAILY 09/09/17 06/07/24 History Furosemide [Lasix] 20 mg PO DAILY #90 tab 09/16/17 06/07/24 Rx Clopidogrel [Plavix] 75 mg PO DAILY 06/07/24 06/07/24 History Insuln Asp Prt/Insulin Aspart 60 unit SQ HS 06/07/24 06/07/24 History [NovoLOG MIX 70-30 VIAL] Insuln Asp Prt/Insulin Aspart 100 unit SQ QAM 06/07/24 06/07/24 History [NovoLOG MIX 70-30 VIAL] Losartan Potassium [Cozaar] 100 mg PO DAILY 06/07/24 06/07/24 History Allergies Allergy/AdvReac Type Severity Reaction Status Date / Time No Known Allergies Allergy Verified 06/07/24 15:15 Physical Exam Vitals: Vital Signs Temp Pulse Pulse Resp BP BP BP 06/12/24 09:25 06/12/24 09:22 71 06/12/24 09:17 68 06/12/24 08:40 71 36 H 111/70 06/12/24 08:30 74 19 06/12/24 08:20 15 104/85 06/12/24 08:10 70 13 87/49 06/12/24 08:00 97.5 F L 69 30 H 101/47 06/12/24 07:50 70 7 L 105/46 06/12/24 07:40 72 8 L 104/54 06/12/24 07:30 70 26 H 111/37 06/12/24 07:20 70 25 H 98/38 06/12/24 07:10 70 107/39 06/12/24 07:00 82 15 87/50 06/12/24 06:50 67 27 H 96/36 06/12/24 06:40 68 26 H 101/39 06/12/24 06:30 68 27 H 108/45 06/12/24 05:07 06/12/24 05:06 30 H 129/73 06/12/24 05:00 74 30 H 06/12/24 04:29 74 30 H 144/63 06/12/24 04:24 97.5 F L 65 30 H 99/37 06/12/24 04:13 86 103/56 06/12/24 04:04 73 100/52 06/12/24 03:56 73 95/57 06/12/24 00:20 104/67 06/12/24 00:15 97.6 F 77 30 H 92/53 186/103 06/11/24 20:45 79 20 06/11/24 20:39 81 20 06/11/24 20:24 97.6 F 77 20 06/11/24 15:58 84 06/11/24 15:49 97.3 F L 73 20 06/11/24 15:46 82 06/11/24 14:49 20 06/11/24 12:15 97.4 F L 75 20 116/68 BP Pulse Ox 06/12/24 09:25 96 06/12/24 09:22 06/12/24 09:17 06/12/24 08:40 06/12/24 08:30 06/12/24 08:20 06/12/24 08:10 06/12/24 08:00 96 06/12/24 07:50 98 06/12/24 07:40 93 L 06/12/24 07:30 98 06/12/24 07:20 93 L 06/12/24 07:10 92 L 06/12/24 07:00 92 L 06/12/24 06:50 96 06/12/24 06:40 97 06/12/24 06:30 97 06/12/24 05:07 94 L 06/12/24 05:06 86 L 06/12/24 05:00 06/12/24 04:29 92 L 06/12/24 04:24 86 L 06/12/24 04:13 91 L 06/12/24 04:04 93 L 06/12/24 03:56 95 06/12/24 00:20 06/12/24 00:15 95 06/11/24 20:45 06/11/24 20:39 06/11/24 20:24 111/54 94 L 06/11/24 15:58 06/11/24 15:49 120/71 95 06/11/24 15:46 06/11/24 14:49 06/11/24 12:15 96 Intake and Output 06/11/24 06/12/24 06/12/24 22:59 06:59 14:59 Intake Total 118 0 Output Total 300 21 Balance 118 -300 -21 Intake: Oral 118 0 Output: Urine 300 21 Other: Voiding Method Indwelling Catheter Indwelling Catheter # Voids 1 # Bowel Movements 1 1 Weight 120.7 kg GENERAL EXAM: Alert, confused, restless 88-year-old obese male on 4 L nasal cannula. HEAD: Normocephalic. EYES: Normal reaction of pupils, equal size. NOSE: Clear with pink turbinates. THROAT: No erythema or exudates. NECK: No masses, no JVD. CHEST: No chest wall deformity. LUNGS: Equal air entry with bilateral scattered rhonchi, crackles in the bases. CVS: S1 and S2 normal with no audible murmur, regular rhythm. ABDOMEN: No hepatosplenomegaly, normal bowel sounds, no guarding or rigidity. SPINE: No scoliosis or deformity SKIN: No rashes CENTRAL NERVOUS SYSTEM: No focal deficits, tone is normal in all 4 extremities. EXTREMITIES: There is 2+ peripheral edema. Scrotal edema. No clubbing, no cyanosis. Peripheral pulses are intact. Results - Laboratory Findings CBC and BMP: 06/12/24 04:14 06/12/24 04:14 PT/INR, D-dimer PT 15.3 sec (10.0-12.5) H 06/10/24 02:45 INR 1.5 (<1.2) H 06/10/24 02:45 D-Dimer 3.97 mg/L FEU (<0.60) H 06/07/24 12:36 Abnormal lab findings: Abnormal Labs 06/07/24 06/07/24 06/07/24 12:36 13:30 13:30 WBC 33.1 H RBC Hgb 12.2 L Hct MCHC 30.9 L RDW 20.1 H Plt Count 39 L Blast Cells % Neutrophils # (Manual) 23.80 H Monocytes # (Manual) 1.66 H Eosinophils # (Manual) 0.99 H Basophils # (Manual) Metamyelocytes # (Man) 3.31 H Myelocytes # (Manual) 1.32 H Blast Cells # (Man) Nucleated RBCs 1 H Pathologist Review ESR PT 14.5 H INR 1.4 H D-Dimer 3.97 H Sodium Chloride 110 H Carbon Dioxide 15 L BUN 21 H Creatinine Glucose 217 H POC Glucose (mg/dL) Hemoglobin A1c Plasma Lactic Acid Diomedes Calcium Phosphorus Iron Ferritin Total Bilirubin 1.8 H AST Creatine Kinase C-Reactive Protein Total Protein Albumin Total PSA Methylmalonic Acid Procalcitonin Urine Protein Urine Glucose (UA) Urine Ketones Urine Blood Ur Leukocyte Esterase Urine RBC Urine WBC Urine Bacteria Hyaline Casts Urine Mucus 06/07/24 06/07/24 06/07/24 14:40 17:12 20:56 WBC RBC Hgb Hct MCHC RDW Plt Count Blast Cells % Neutrophils # (Manual) Monocytes # (Manual) Eosinophils # (Manual) Basophils # (Manual) Metamyelocytes # (Man) Myelocytes # (Manual) Blast Cells # (Man) Nucleated RBCs Pathologist Review ESR PT INR D-Dimer Sodium Chloride Carbon Dioxide BUN Creatinine Glucose POC Glucose (mg/dL) 254 H Hemoglobin A1c Plasma Lactic Acid Diomedes 7.1 H* Calcium Phosphorus Iron Ferritin Total Bilirubin AST Creatine Kinase C-Reactive Protein Total Protein Albumin Total PSA Methylmalonic Acid Procalcitonin Urine Protein 1+ H Urine Glucose (UA) Trace H Urine Ketones 1+ H Urine Blood Small H Ur Leukocyte Esterase Urine RBC Urine WBC Urine Bacteria Hyaline Casts 3 H Urine Mucus Rare H 06/07/24 06/08/24 06/08/24 21:33 01:11 04:59 WBC RBC Hgb Hct MCHC RDW Plt Count Blast Cells % Neutrophils # (Manual) Monocytes # (Manual) Eosinophils # (Manual) Basophils # (Manual) Metamyelocytes # (Man) Myelocytes # (Manual) Blast Cells # (Man) Nucleated RBCs Pathologist Review ESR PT 17.6 H INR 1.7 H D-Dimer Sodium Chloride Carbon Dioxide BUN Creatinine Glucose POC Glucose (mg/dL) Hemoglobin A1c Plasma Lactic Acid Diomedes 6.3 H* 6.0 H* Calcium Phosphorus Iron Ferritin Total Bilirubin AST Creatine Kinase C-Reactive Protein Total Protein Albumin Total PSA Methylmalonic Acid Procalcitonin Urine Protein Urine Glucose (UA) Urine Ketones Urine Blood Ur Leukocyte Esterase Urine RBC Urine WBC Urine Bacteria Hyaline Casts Urine Mucus 06/08/24 06/08/24 06/08/24 04:59 05:18 05:18 WBC 48.0 H RBC Hgb 11.6 L Hct 38.8 L MCHC 29.8 L RDW 20.3 H Plt Count 38 L Blast Cells % 1 H* Neutrophils # (Manual) 33.60 H Monocytes # (Manual) 5.28 H Eosinophils # (Manual) 1.92 H Basophils # (Manual) 0.48 H Metamyelocytes # (Man) 1.92 H Myelocytes # (Manual) 1.92 H Blast Cells # (Man) 0.48 H Nucleated RBCs Pathologist Review See comment A ESR PT INR D-Dimer Sodium Chloride Carbon Dioxide BUN Creatinine Glucose POC Glucose (mg/dL) Hemoglobin A1c 7.6 H Plasma Lactic Acid Diomedes 4.8 H* Calcium Phosphorus Iron Ferritin Total Bilirubin AST Creatine Kinase C-Reactive Protein Total Protein Albumin Total PSA Methylmalonic Acid Procalcitonin Urine Protein Urine Glucose (UA) Urine Ketones Urine Blood Ur Leukocyte Esterase Urine RBC Urine WBC Urine Bacteria Hyaline Casts Urine Mucus 06/08/24 06/08/24 06/08/24 05:55 07:25 10:53 WBC RBC Hgb Hct MCHC RDW Plt Count Blast Cells % Neutrophils # (Manual) Monocytes # (Manual) Eosinophils # (Manual) Basophils # (Manual) Metamyelocytes # (Man) Myelocytes # (Manual) Blast Cells # (Man) Nucleated RBCs Pathologist Review ESR PT INR D-Dimer Sodium Chloride Carbon Dioxide BUN Creatinine Glucose POC Glucose (mg/dL) 239 H Hemoglobin A1c Plasma Lactic Acid Diomedes 4.2 H* 4.0 H* Calcium Phosphorus Iron Ferritin Total Bilirubin AST Creatine Kinase C-Reactive Protein Total Protein Albumin Total PSA Methylmalonic Acid Procalcitonin Urine Protein Urine Glucose (UA) Urine Ketones Urine Blood Ur Leukocyte Esterase Urine RBC Urine WBC Urine Bacteria Hyaline Casts Urine Mucus 06/08/24 06/08/24 06/08/24 11:31 12:30 12:30 WBC RBC Hgb Hct MCHC RDW Plt Count Blast Cells % Neutrophils # (Manual) Monocytes # (Manual) Eosinophils # (Manual) Basophils # (Manual) Metamyelocytes # (Man) Myelocytes # (Manual) Blast Cells # (Man) Nucleated RBCs Pathologist Review ESR PT INR D-Dimer Sodium Chloride 111 H Carbon Dioxide 17 L BUN 32 H Creatinine 1.54 H Glucose 199 H POC Glucose (mg/dL) 245 H Hemoglobin A1c Plasma Lactic Acid Diomedes Calcium 7.4 L Phosphorus Iron Ferritin Total Bilirubin AST 95 H Creatine Kinase C-Reactive Protein Total Protein 6.0 L Albumin 2.9 L Total PSA 10.0 H Methylmalonic Acid Procalcitonin Urine Protein Urine Glucose (UA) Urine Ketones Urine Blood Ur Leukocyte Esterase Urine RBC Urine WBC Urine Bacteria Hyaline Casts Urine Mucus 06/08/24 06/08/24 06/08/24 12:55 12:55 15:22 WBC RBC Hgb Hct MCHC RDW Plt Count Blast Cells % Neutrophils # (Manual) Monocytes # (Manual) Eosinophils # (Manual) Basophils # (Manual) Metamyelocytes # (Man) Myelocytes # (Manual) Blast Cells # (Man) Nucleated RBCs Pathologist Review ESR PT INR D-Dimer Sodium Chloride Carbon Dioxide BUN Creatinine Glucose POC Glucose (mg/dL) Hemoglobin A1c Plasma Lactic Acid Diomedes 4.6 H* Calcium Phosphorus Iron 50 L Ferritin 709.0 H Total Bilirubin AST Creatine Kinase C-Reactive Protein Total Protein Albumin Total PSA Methylmalonic Acid 0.46 H Procalcitonin Urine Protein Urine Glucose (UA) Urine Ketones Urine Blood Ur Leukocyte Esterase Urine RBC Urine WBC Urine Bacteria Hyaline Casts Urine Mucus 06/08/24 06/08/24 06/08/24 16:28 19:32 19:56 WBC RBC Hgb Hct MCHC RDW Plt Count Blast Cells % Neutrophils # (Manual) Monocytes # (Manual) Eosinophils # (Manual) Basophils # (Manual) Metamyelocytes # (Man) Myelocytes # (Manual) Blast Cells # (Man) Nucleated RBCs Pathologist Review ESR PT INR D-Dimer Sodium Chloride Carbon Dioxide BUN Creatinine Glucose POC Glucose (mg/dL) 233 H 281 H Hemoglobin A1c Plasma Lactic Acid Diomedes 5.7 H* Calcium Phosphorus Iron Ferritin Total Bilirubin AST Creatine Kinase C-Reactive Protein Total Protein Albumin Total PSA Methylmalonic Acid Procalcitonin Urine Protein Urine Glucose (UA) Urine Ketones Urine Blood Ur Leukocyte Esterase Urine RBC Urine WBC Urine Bacteria Hyaline Casts Urine Mucus 06/08/24 06/09/24 06/09/24 22:45 02:32 02:32 WBC RBC Hgb Hct MCHC RDW Plt Count Blast Cells % Neutrophils # (Manual) Monocytes # (Manual) Eosinophils # (Manual) Basophils # (Manual) Metamyelocytes # (Man) Myelocytes # (Manual) Blast Cells # (Man) Nucleated RBCs Pathologist Review ESR 27 H PT INR D-Dimer Sodium Chloride Carbon Dioxide BUN Creatinine Glucose POC Glucose (mg/dL) Hemoglobin A1c Plasma Lactic Acid Diomedes 5.5 H* Calcium Phosphorus Iron Ferritin Total Bilirubin AST Creatine Kinase C-Reactive Protein Total Protein Albumin Total PSA Methylmalonic Acid Procalcitonin 2.34 H Urine Protein Urine Glucose (UA) Urine Ketones Urine Blood Ur Leukocyte Esterase Urine RBC Urine WBC Urine Bacteria Hyaline Casts Urine Mucus 06/09/24 06/09/24 06/09/24 02:32 02:32 05:53 WBC RBC Hgb Hct MCHC RDW Plt Count Blast Cells % Neutrophils # (Manual) Monocytes # (Manual) Eosinophils # (Manual) Basophils # (Manual) Metamyelocytes # (Man) Myelocytes # (Manual) Blast Cells # (Man) Nucleated RBCs Pathologist Review ESR PT INR D-Dimer Sodium 135 L Chloride 108 H Carbon Dioxide 17 L BUN 49 H Creatinine 2.38 H Glucose 198 H POC Glucose (mg/dL) 184 H Hemoglobin A1c Plasma Lactic Acid Diomedes 4.0 H* Calcium 8.3 L Phosphorus Iron Ferritin Total Bilirubin AST 91 H Creatine Kinase 614 H C-Reactive Protein Total Protein Albumin 3.4 L Total PSA Methylmalonic Acid Procalcitonin Urine Protein Urine Glucose (UA) Urine Ketones Urine Blood Ur Leukocyte Esterase Urine RBC Urine WBC Urine Bacteria Hyaline Casts Urine Mucus 06/09/24 06/09/24 06/09/24 07:49 11:48 14:11 WBC RBC Hgb Hct MCHC RDW Plt Count Blast Cells % Neutrophils # (Manual) Monocytes # (Manual) Eosinophils # (Manual) Basophils # (Manual) Metamyelocytes # (Man) Myelocytes # (Manual) Blast Cells # (Man) Nucleated RBCs Pathologist Review ESR PT INR D-Dimer Sodium Chloride Carbon Dioxide BUN Creatinine Glucose POC Glucose (mg/dL) 233 H Hemoglobin A1c Plasma Lactic Acid Diomedes 2.9 H* 4.0 H* Calcium Phosphorus Iron Ferritin Total Bilirubin AST Creatine Kinase C-Reactive Protein Total Protein Albumin Total PSA Methylmalonic Acid Procalcitonin Urine Protein Urine Glucose (UA) Urine Ketones Urine Blood Ur Leukocyte Esterase Urine RBC Urine WBC Urine Bacteria Hyaline Casts Urine Mucus 06/09/24 06/09/24 06/09/24 16:49 16:57 20:17 WBC RBC Hgb Hct MCHC RDW Plt Count Blast Cells % Neutrophils # (Manual) Monocytes # (Manual) Eosinophils # (Manual) Basophils # (Manual) Metamyelocytes # (Man) Myelocytes # (Manual) Blast Cells # (Man) Nucleated RBCs Pathologist Review ESR PT INR D-Dimer Sodium Chloride Carbon Dioxide BUN Creatinine Glucose POC Glucose (mg/dL) 234 H Hemoglobin A1c Plasma Lactic Acid Diomedes 3.4 H* 3.3 H* Calcium Phosphorus Iron Ferritin Total Bilirubin AST Creatine Kinase C-Reactive Protein Total Protein Albumin Total PSA Methylmalonic Acid Procalcitonin Urine Protein Urine Glucose (UA) Urine Ketones Urine Blood Ur Leukocyte Esterase Urine RBC Urine WBC Urine Bacteria Hyaline Casts Urine Mucus 06/09/24 06/09/24 06/10/24 20:36 23:45 02:45 WBC 39.7 H RBC Hgb 11.0 L Hct 35.9 L MCHC 30.7 L RDW 20.1 H Plt Count 30 L Blast Cells % Neutrophils # (Manual) 28.10 H Monocytes # (Manual) 2.38 H Eosinophils # (Manual) 3.97 H Basophils # (Manual) Metamyelocytes # (Man) 0.40 H Myelocytes # (Manual) 1.59 H Blast Cells # (Man) Nucleated RBCs Pathologist Review ESR PT INR D-Dimer Sodium Chloride Carbon Dioxide BUN Creatinine Glucose POC Glucose (mg/dL) 265 H Hemoglobin A1c Plasma Lactic Acid Diomedes 3.2 H* Calcium Phosphorus Iron Ferritin Total Bilirubin AST Creatine Kinase C-Reactive Protein Total Protein Albumin Total PSA Methylmalonic Acid Procalcitonin Urine Protein Urine Glucose (UA) Urine Ketones Urine Blood Ur Leukocyte Esterase Urine RBC Urine WBC Urine Bacteria Hyaline Casts Urine Mucus 06/10/24 06/10/24 06/10/24 02:45 02:45 02:45 WBC RBC Hgb Hct MCHC RDW Plt Count Blast Cells % Neutrophils # (Manual) Monocytes # (Manual) Eosinophils # (Manual) Basophils # (Manual) Metamyelocytes # (Man) Myelocytes # (Manual) Blast Cells # (Man) Nucleated RBCs Pathologist Review ESR PT 15.3 H INR 1.5 H D-Dimer Sodium 131 L Chloride Carbon Dioxide 15 L BUN 66 H Creatinine 3.24 H Glucose 138 H POC Glucose (mg/dL) Hemoglobin A1c Plasma Lactic Acid Diomedes 2.4 H* Calcium 8.0 L Phosphorus Iron Ferritin Total Bilirubin AST Creatine Kinase C-Reactive Protein 5.2 H Total Protein Albumin Total PSA Methylmalonic Acid Procalcitonin Urine Protein Urine Glucose (UA) Urine Ketones Urine Blood Ur Leukocyte Esterase Urine RBC Urine WBC Urine Bacteria Hyaline Casts Urine Mucus 06/10/24 06/10/24 06/10/24 05:42 06:01 08:20 WBC RBC Hgb Hct MCHC RDW Plt Count Blast Cells % Neutrophils # (Manual) Monocytes # (Manual) Eosinophils # (Manual) Basophils # (Manual) Metamyelocytes # (Man) Myelocytes # (Manual) Blast Cells # (Man) Nucleated RBCs Pathologist Review ESR PT INR D-Dimer Sodium Chloride Carbon Dioxide BUN Creatinine Glucose POC Glucose (mg/dL) 217 H Hemoglobin A1c Plasma Lactic Acid Diomedes 2.6 H* 2.8 H* Calcium Phosphorus Iron Ferritin Total Bilirubin AST Creatine Kinase C-Reactive Protein Total Protein Albumin Total PSA Methylmalonic Acid Procalcitonin Urine Protein Urine Glucose (UA) Urine Ketones Urine Blood Ur Leukocyte Esterase Urine RBC Urine WBC Urine Bacteria Hyaline Casts Urine Mucus 06/10/24 06/10/24 06/10/24 11:18 11:32 14:16 WBC RBC Hgb Hct MCHC RDW Plt Count Blast Cells % Neutrophils # (Manual) Monocytes # (Manual) Eosinophils # (Manual) Basophils # (Manual) Metamyelocytes # (Man) Myelocytes # (Manual) Blast Cells # (Man) Nucleated RBCs Pathologist Review ESR PT INR D-Dimer Sodium Chloride Carbon Dioxide BUN Creatinine Glucose POC Glucose (mg/dL) 262 H Hemoglobin A1c Plasma Lactic Acid Diomedes 2.7 H* 2.5 H* Calcium Phosphorus Iron Ferritin Total Bilirubin AST Creatine Kinase C-Reactive Protein Total Protein Albumin Total PSA Methylmalonic Acid Procalcitonin Urine Protein Urine Glucose (UA) Urine Ketones Urine Blood Ur Leukocyte Esterase Urine RBC Urine WBC Urine Bacteria Hyaline Casts Urine Mucus 06/10/24 06/10/24 06/11/24 16:38 20:01 06:15 WBC RBC Hgb Hct MCHC RDW Plt Count Blast Cells % Neutrophils # (Manual) Monocytes # (Manual) Eosinophils # (Manual) Basophils # (Manual) Metamyelocytes # (Man) Myelocytes # (Manual) Blast Cells # (Man) Nucleated RBCs Pathologist Review ESR PT INR D-Dimer Sodium Chloride Carbon Dioxide BUN Creatinine Glucose POC Glucose (mg/dL) 224 H 199 H 135 H Hemoglobin A1c Plasma Lactic Acid Diomedes Calcium Phosphorus Iron Ferritin Total Bilirubin AST Creatine Kinase C-Reactive Protein Total Protein Albumin Total PSA Methylmalonic Acid Procalcitonin Urine Protein Urine Glucose (UA) Urine Ketones Urine Blood Ur Leukocyte Esterase Urine RBC Urine WBC Urine Bacteria Hyaline Casts Urine Mucus 06/11/24 06/11/24 06/11/24 08:43 09:12 11:50 WBC RBC Hgb Hct MCHC RDW Plt Count Blast Cells % Neutrophils # (Manual) Monocytes # (Manual) Eosinophils # (Manual) Basophils # (Manual) Metamyelocytes # (Man) Myelocytes # (Manual) Blast Cells # (Man) Nucleated RBCs Pathologist Review ESR PT INR D-Dimer Sodium 131 L Chloride Carbon Dioxide 14 L BUN 78 H Creatinine 4.75 H Glucose 165 H POC Glucose (mg/dL) 161 H Hemoglobin A1c Plasma Lactic Acid Diomedes Calcium 8.0 L Phosphorus Iron Ferritin Total Bilirubin AST Creatine Kinase C-Reactive Protein Total Protein Albumin Total PSA Methylmalonic Acid Procalcitonin Urine Protein Trace H Urine Glucose (UA) Trace H Urine Ketones Trace H Urine Blood Moderate H Ur Leukocyte Esterase Small H Urine RBC 19 H Urine WBC 11 H Urine Bacteria Rare H Hyaline Casts Urine Mucus 06/11/24 06/11/24 06/12/24 16:09 20:15 04:14 WBC 57.3 H* RBC 4.21 L Hgb 10.6 L Hct 35.8 L MCHC 29.6 L RDW 20.4 H Plt Count 43 L Blast Cells % Neutrophils # (Manual) 41.20 H Monocytes # (Manual) 3.44 H Eosinophils # (Manual) 1.72 H Basophils # (Manual) Metamyelocytes # (Man) 5.73 H Myelocytes # (Manual) 2.29 H Blast Cells # (Man) Nucleated RBCs Pathologist Review ESR PT INR D-Dimer Sodium Chloride Carbon Dioxide BUN Creatinine Glucose POC Glucose (mg/dL) 254 H 250 H Hemoglobin A1c Plasma Lactic Acid Diomedes Calcium Phosphorus Iron Ferritin Total Bilirubin AST Creatine Kinase C-Reactive Protein Total Protein Albumin Total PSA Methylmalonic Acid Procalcitonin Urine Protein Urine Glucose (UA) Urine Ketones Urine Blood Ur Leukocyte Esterase Urine RBC Urine WBC Urine Bacteria Hyaline Casts Urine Mucus 06/12/24 06/12/24 06/12/24 04:14 04:14 05:35 WBC RBC Hgb Hct MCHC RDW Plt Count Blast Cells % Neutrophils # (Manual) Monocytes # (Manual) Eosinophils # (Manual) Basophils # (Manual) Metamyelocytes # (Man) Myelocytes # (Manual) Blast Cells # (Man) Nucleated RBCs Pathologist Review ESR PT INR D-Dimer Sodium 131 L Chloride Carbon Dioxide 12 L BUN 85 H Creatinine 5.33 H Glucose 114 H POC Glucose (mg/dL) 113 H Hemoglobin A1c Plasma Lactic Acid Diomedes 3.0 H* Calcium 8.0 L Phosphorus 8.5 H Iron Ferritin Total Bilirubin AST Creatine Kinase C-Reactive Protein Total Protein Albumin Total PSA Methylmalonic Acid Procalcitonin Urine Protein Urine Glucose (UA) Urine Ketones Urine Blood Ur Leukocyte Esterase Urine RBC Urine WBC Urine Bacteria Hyaline Casts Urine Mucus 06/12/24 06:13 WBC RBC Hgb Hct MCHC RDW Plt Count Blast Cells % Neutrophils # (Manual) Monocytes # (Manual) Eosinophils # (Manual) Basophils # (Manual) Metamyelocytes # (Man) Myelocytes # (Manual) Blast Cells # (Man) Nucleated RBCs Pathologist Review ESR PT INR D-Dimer Sodium Chloride Carbon Dioxide BUN Creatinine Glucose POC Glucose (mg/dL) 131 H Hemoglobin A1c Plasma Lactic Acid Diomedes Calcium Phosphorus Iron Ferritin Total Bilirubin AST Creatine Kinase C-Reactive Protein Total Protein Albumin Total PSA Methylmalonic Acid Procalcitonin Urine Protein Urine Glucose (UA) Urine Ketones Urine Blood Ur Leukocyte Esterase Urine RBC Urine WBC Urine Bacteria Hyaline Casts Urine Mucus - Diagnostic Findings Chest x-ray: image reviewed Assessment and Plan Assessment: Abdominal pain and distention. CT of the abdomen pelvis showed evidence of hepatic cirrhosis, minimal ascites, possible SBP being followed by surgical services and ID service Leukocytosis secondary to above Altered mental status secondary to sepsis Acute hypoxic respiratory failure secondary to fluid volume overload Acute kidney injury secondary to acute tubular necrosis from suspected ca rdiorenal syndrome History of liver cirrhosis Metabolic acidosis secondary to ADDI Diabetes mellitus Hematuria Plan: The patient was seen and evaluated Imaging, labs and medications reviewed Titrate the FiO2 as tolerated Continue Zosyn Heparin for DVT prophylaxis IV diuretics per nephrology Plan is for hemodialysis today Prognosis is guarded Discussed with the patient's regarding CODE STATUS She is leaning towards DNR but wants to talk to her son We will continue to follow and make further recommendations based on his clinical status I have personally seen and examined the patient, performed the documentation and the assessment and plan as written. Number of minutes spent on the visit: 20 Dictation was produced using [employer] dictation software. Please excuse any grammatical, word or spelling errors.
--- NOTE | 2024-06-12 11:43 | P.GSCN ---
History of Present Illness Consult date: 06/12/24 Reason for Consult: Gross hematuria History of present illness: This is an 88-year-old male, admitted to the hospital with abdominal pain possi ble peritonitis. Urologist consulted for gross hematuria. Patient had a Dewey catheter placed for accurate I's and O's measurement. Limited history could be obtained due to patient's mental status, per patient no previous history of gross hematuria, urinary retention or any voiding symptoms at baseline. No previous prostate or bladder surgeries. He did undergo a CT abdomen pelvis on presentation that showed no abnormality within the kidney or the bladder. Patient is thrombocytopenic and his platelet count has been ranging in the 30,000-40,000 range. Also he is having elevation in INR at 1.5. Review of Systems ROS unobtainable: due to mental status Past Medical History Past Medical History: Diabetes Mellitus, Prostate Disorder Additional Past Medical History / Comment(s): see Dr Castro H&P, hx gout, History of Any Multi-Drug Resistant Organisms: None Reported Past Surgical History: Appendectomy, Heart Catheterization, Heart Catheterization With Stent, Pacemaker Additional Past Surgical History / Comment(s): cyst removed from lower spine, henry cataracts, 2 stents Past Anesthesia/Blood Transfusion Reactions: No Reported Reaction Date of Last Stent Placement:: 2004 Type of Cardiac Device: Permanent Pacemaker Device Placement Date:: Past Psychological History: No Psychological Hx Reported Smoking Status: Former smoker Past Alcohol Use History: None Reported Additional Past Alcohol Use History / Comment(s): quit smoking 1981, smoked for 4 PPD for 25 yrs Past Drug Use History: None Reported - Past Family History Sister(s) Family Medical History: Cancer Medications and Allergies Home Medications Medication Instructions Recorded Confirmed Type Atorvastatin [Lipitor] 80 mg PO HS 09/09/17 06/07/24 History Escitalopram [Lexapro] 10 mg PO DAILY 09/09/17 06/07/24 History Insulin Aspart [NovoLOG] See Protocol SQ AC-TID PRN 09/09/17 06/07/24 History Metoprolol Succinate [Toprol Xl] 50 mg PO BID 09/09/17 06/07/24 History Tamsulosin HCl [Flomax] 0.4 mg PO DAILY 09/09/17 06/07/24 History Furosemide [Lasix] 20 mg PO DAILY #90 tab 09/16/17 06/07/24 Rx Clopidogrel [Plavix] 75 mg PO DAILY 06/07/24 06/07/24 History Insuln Asp Prt/Insulin Aspart 60 unit SQ HS 06/07/24 06/07/24 History [NovoLOG MIX 70-30 VIAL] Insuln Asp Prt/Insulin Aspart 100 unit SQ QAM 06/07/24 06/07/24 History [NovoLOG MIX 70-30 VIAL] Losartan Potassium [Cozaar] 100 mg PO DAILY 06/07/24 06/07/24 History Allergies Allergy/AdvReac Type Severity Reaction Status Date / Time No Known Allergies Allergy Verified 06/07/24 15:15 Surgical - Exam Vital Signs Temp Pulse Resp BP Pulse Ox 98.7 F 114 H 20 156/75 90 L 06/07/24 12:07 06/07/24 12:07 06/07/24 12:07 06/07/24 12:07 06/07/24 12:07 - General moderate distress - Respiratory Labored breathing, normal chest expansion - Abdomen Abdomen: soft, tender (diffused), distended Results - Labs 06/12/24 04:14 06/12/24 04:14 Abnormal Lab Results - Last 24 Hours (Table) 06/08/24 06/08/24 06/08/24 Range/Units 05:18 12:30 12:55 WBC (3.8-10.6) k/uL RBC (4.30-5.90) m/uL Hgb (13.0-17.5) gm/dL Hct (39.0-53.0) % MCHC (31.0-37.0) g/dL RDW (11.5-15.5) % Plt Count (150-450) k/uL Neutrophils # (Manual) (1.3-7.7) k/uL Monocytes # (Manual) (0-1.0) k/uL Eosinophils # (Manual) (0-0.7) k/uL Metamyelocytes # (Man) (0) k/uL Myelocytes # (Manual) (0) k/uL Pathologist Review See comment A Sodium (137-145) mmol/L Carbon Dioxide (22-30) mmol/L BUN (9-20) mg/dL Creatinine (0.66-1.25) mg/dL Glucose (74-99) mg/dL POC Glucose (mg/dL) (70-110) mg/dL Plasma Lactic Acid Diomedes (0.7-2.0) mmol/L Calcium (8.4-10.2) mg/dL Phosphorus (2.5-4.5) mg/dL Total PSA 10.0 H (<=4.0) ng/mL Methylmalonic Acid 0.46 H (<0.40) umol/L 06/11/24 06/11/24 06/11/24 Range/Units 11:50 16:09 20:15 WBC (3.8-10.6) k/uL RBC (4.30-5.90) m/uL Hgb (13.0-17.5) gm/dL Hct (39.0-53.0) % MCHC (31.0-37.0) g/dL RDW (11.5-15.5) % Plt Count (150-450) k/uL Neutrophils # (Manual) (1.3-7.7) k/uL Monocytes # (Manual) (0-1.0) k/uL Eosinophils # (Manual) (0-0.7) k/uL Metamyelocytes # (Man) (0) k/uL Myelocytes # (Manual) (0) k/uL Pathologist Review Sodium (137-145) mmol/L Carbon Dioxide (22-30) mmol/L BUN (9-20) mg/dL Creatinine (0.66-1.25) mg/dL Glucose (74-99) mg/dL POC Glucose (mg/dL) 161 H 254 H 250 H (70-110) mg/dL Plasma Lactic Acid Diomedes (0.7-2.0) mmol/L Calcium (8.4-10.2) mg/dL Phosphorus (2.5-4.5) mg/dL Total PSA (<=4.0) ng/mL Methylmalonic Acid (<0.40) umol/L 06/12/24 06/12/24 06/12/24 Range/Units 04:14 04:14 04:14 WBC 57.3 H* (3.8-10.6) k/uL RBC 4.21 L (4.30-5.90) m/uL Hgb 10.6 L (13.0-17.5) gm/dL Hct 35.8 L (39.0-53.0) % MCHC 29.6 L (31.0-37.0) g/dL RDW 20.4 H (11.5-15.5) % Plt Count 43 L (150-450) k/uL Neutrophils # (Manual) 41.20 H (1.3-7.7) k/uL Monocytes # (Manual) 3.44 H (0-1.0) k/uL Eosinophils # (Manual) 1.72 H (0-0.7) k/uL Metamyelocytes # (Man) 5.73 H (0) k/uL Myelocytes # (Manual) 2.29 H (0) k/uL Pathologist Review Sodium 131 L (137-145) mmol/L Carbon Dioxide 12 L (22-30) mmol/L BUN 85 H (9-20) mg/dL Creatinine 5.33 H (0.66-1.25) mg/dL Glucose 114 H (74-99) mg/dL POC Glucose (mg/dL) (70-110) mg/dL Plasma Lactic Acid Diomedes 3.0 H* (0.7-2.0) mmol/L Calcium 8.0 L (8.4-10.2) mg/dL Phosphorus 8.5 H (2.5-4.5) mg/dL Total PSA (<=4.0) ng/mL Methylmalonic Acid (<0.40) umol/L 06/12/24 06/12/24 Range/Units 05:35 06:13 WBC (3.8-10.6) k/uL RBC (4.30-5.90) m/uL Hgb (13.0-17.5) gm/dL Hct (39.0-53.0) % MCHC (31.0-37.0) g/dL RDW (11.5-15.5) % Plt Count (150-450) k/uL Neutrophils # (Manual) (1.3-7.7) k/uL Monocytes # (Manual) (0-1.0) k/uL Eosinophils # (Manual) (0-0.7) k/uL Metamyelocytes # (Man) (0) k/uL Myelocytes # (Manual) (0) k/uL Pathologist Review Sodium (137-145) mmol/L Carbon Dioxide (22-30) mmol/L BUN (9-20) mg/dL Creatinine (0.66-1.25) mg/dL Glucose (74-99) mg/dL POC Glucose (mg/dL) 113 H 131 H (70-110) mg/dL Plasma Lactic Acid Diomedes (0.7-2.0) mmol/L Calcium (8.4-10.2) mg/dL Phosphorus (2.5-4.5) mg/dL Total PSA (<=4.0) ng/mL Methylmalonic Acid (<0.40) umol/L Microbiology - Last 24 Hours (Table) 06/09/24 23:36 Stool Culture - Preliminary Stool Diabetes panel 06/12/24 Range/Units 04:14 Sodium 131 L (137-145) mmol/L Potassium 4.6 (3.5-5.1) mmol/L Chloride 102 (98-107) mmol/L Carbon Dioxide 12 L (22-30) mmol/L BUN 85 H (9-20) mg/dL Creatinine 5.33 H (0.66-1.25) mg/dL Glucose 114 H (74-99) mg/dL Calcium 8.0 L (8.4-10.2) mg/dL Calcium panel 06/12/24 Range/Units 04:14 Calcium 8.0 L (8.4-10.2) mg/dL Phosphorus 8.5 H (2.5-4.5) mg/dL Pituitary panel 06/12/24 Range/Units 04:14 Sodium 131 L (137-145) mmol/L Potassium 4.6 (3.5-5.1) mmol/L Chloride 102 (98-107) mmol/L Carbon Dioxide 12 L (22-30) mmol/L BUN 85 H (9-20) mg/dL Creatinine 5.33 H (0.66-1.25) mg/dL Glucose 114 H (74-99) mg/dL Calcium 8.0 L (8.4-10.2) mg/dL Adrenal panel 06/12/24 Range/Units 04:14 Sodium 131 L (137-145) mmol/L Potassium 4.6 (3.5-5.1) mmol/L Chloride 102 (98-107) mmol/L Carbon Dioxide 12 L (22-30) mmol/L BUN 85 H (9-20) mg/dL Creatinine 5.33 H (0.66-1.25) mg/dL Glucose 114 H (74-99) mg/dL Calcium 8.0 L (8.4-10.2) mg/dL Assessment and Plan Assessment: 88-year-old male with thrombocytopenia, and INR elevation. Is having gross hematuria, it is improving as the currently the urine is blood-tinged. No clot was appreciated in the catheter tubing. His urine risk which is most likely secondary to his thrombocytopenia, and balloon irritation from the catheter. At this point a catheter can be irrigated as needed. He did have CT abdomen and pelvis on presentation that showed no upper tract pathology. -Irrigate catheter as needed -Follow-up as an outpatient, will have a repeat urinalysis as an outpatient if hematuria persist then will need a cystoscopy
[2024-06-12 11:54] LABS: Free Lambda Lt Chain Qnt, Seru 7.27 mg/dL (0.57-2.63)
--- NOTE | 2024-06-12 11:57 | P.PN ---
Subjective Progress Note Date: 06/12/24 Principal diagnosis: Liver cirrhosis This is a pleasant 88-year-old male who presented to the emergency department with complaints of shortness of breath and abdominal distention on 06/07/2024. He stated symptoms began about 2 days prior to admission. He had a CT of the abdomen pelvis as well as a chest CTA. Abdominal CT reported hepatic cirrhosis with small volume ascites. Nonspecific enlarged gastrohepatic ligament lymph node with additional mildly prominent gastrohepatic lymph node and periaortic lymph nodes. May be reactive to #1. Cholelithiasis. Chest CTA negative for pulmonary embolism. Moderate COPD changes. 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 Patient denies any known history of cirrhosis of the liver or any liver disease. Denies any history of ascites. Past medical history includes coronary artery disease status post stent and pacemaker, diabetes mellitus and prostate disorder. Does have a history of heavy alcohol use for at least 20 years states that he quit in 1984. He denies any abdominal pain, chest pain, nausea or vomiting. Shortness of breath improved. Has lower extremity edema. He was admitted with elevated significant leukocytosis and lactic acidosis. Oncology consulted for abnormal CBC. Labs WBC 39.7 hemoglobin 11.0 platelet count 30,000 sed rate 27 INR 1.5 sodium 131 potassium 4.5 BUN 78 creatinine 4.7 iron 50 saturation 15 ferritin 709 total bilirubin 0.9 AST 91 ALT 28 alkaline phosphatase 68 CRP 5.2 06/12/2024 Patient seen and examined today as a follow-up. He was transferred to the ICU for increased confusion and oxygen demands. Patient is having hematuria with clots nursing is stating that he is pulling at his Dewey catheter causing that. He is only oriented x 1. He is currently sitting in his room with no clothes on. His is at the bedside. He is denying any abdominal pain. Kidney functioning is worsening. Yesterday he had abdominal ultrasound to evaluate again for ascites. Ultrasound shows no fluid at all. WBC 57.3 hemoglobin 10.6 platelet count 43,000 sodium 131 potassium 4.6 BUN 85 creatinine 5.33 ammonia less than 9. Hepatitis panel nonreactive. Objective - Vital Signs Vital signs: Vital Signs Temp 97.5 F L 06/12/24 04:24 Pulse 82 06/12/24 07:00 Resp 15 06/12/24 07:00 BP 87/50 06/12/24 07:00 Pulse Ox 92 L 06/12/24 07:00 FiO2 Intake & Output 06/11/24 06/12/24 06/12/24 18:59 06:59 18:59 Intake Total 478 Output Total 300 10 Balance 478 -300 -10 Weight 120.7 kg Intake: Oral 478 Output: Urine 300 10 Other: Voiding Method Indwelling Catheter Indwelling Catheter # Voids 1 1 # Bowel Movements 1 1 - Exam General appearance: The patient is alert, oriented to self only, appears in no acute distress. HET: Head is normocephalic and atraumatic. Conjunctiva pink. Sclera anicteric. Neck: Supple without lymphadenopathy. Abdomen: Soft, nontender, distended, tympanic. No guarding or rigidity. Extremities: Normal skin color and turgor. Lower extremity pitting edema. Skin: No rashes, no jaundice Neurological: No focal deficits. Alert and oriented to self only. - Labs CBC & Chem 7: 06/12/24 04:14 06/12/24 04:14 Labs: Abnormal Lab Results - Last 24 Hours (Table) 06/08/24 06/08/24 06/08/24 Range/Units 05:18 12:30 12:55 WBC (3.8-10.6) k/uL RBC (4.30-5.90) m/uL Hgb (13.0-17.5) gm/dL Hct (39.0-53.0) % MCHC (31.0-37.0) g/dL RDW (11.5-15.5) % Plt Count (150-450) k/uL Neutrophils # (Manual) (1.3-7.7) k/uL Monocytes # (Manual) (0-1.0) k/uL Eosinophils # (Manual) (0-0.7) k/uL Metamyelocytes # (Man) (0) k/uL Myelocytes # (Manual) (0) k/uL Pathologist Review See comment A Sodium (137-145) mmol/L Carbon Dioxide (22-30) mmol/L BUN (9-20) mg/dL Creatinine (0.66-1.25) mg/dL Glucose (74-99) mg/dL POC Glucose (mg/dL) (70-110) mg/dL Plasma Lactic Acid Diomedes (0.7-2.0) mmol/L Calcium (8.4-10.2) mg/dL Phosphorus (2.5-4.5) mg/dL Total PSA 10.0 H (<=4.0) ng/mL Methylmalonic Acid 0.46 H (<0.40) umol/L Urine Protein (Negative) Urine Glucose (UA) (Negative) Urine Ketones (Negative) Urine Blood (Negative) Ur Leukocyte Esterase (Negative) Urine RBC (0-5) /hpf Urine WBC (0-5) /hpf Urine Bacteria (None) /hpf 06/11/24 06/11/24 06/11/24 Range/Units 08:43 09:12 11:50 WBC (3.8-10.6) k/uL RBC (4.30-5.90) m/uL Hgb (13.0-17.5) gm/dL Hct (39.0-53.0) % MCHC (31.0-37.0) g/dL RDW (11.5-15.5) % Plt Count (150-450) k/uL Neutrophils # (Manual) (1.3-7.7) k/uL Monocytes # (Manual) (0-1.0) k/uL Eosinophils # (Manual) (0-0.7) k/uL Metamyelocytes # (Man) (0) k/uL Myelocytes # (Manual) (0) k/uL Pathologist Review Sodium 131 L (137-145) mmol/L Carbon Dioxide 14 L (22-30) mmol/L BUN 78 H (9-20) mg/dL Creatinine 4.75 H (0.66-1.25) mg/dL Glucose 165 H (74-99) mg/dL POC Glucose (mg/dL) 161 H (70-110) mg/dL Plasma Lactic Acid Diomedes (0.7-2.0) mmol/L Calcium 8.0 L (8.4-10.2) mg/dL Phosphorus (2.5-4.5) mg/dL Total PSA (<=4.0) ng/mL Methylmalonic Acid (<0.40) umol/L Urine Protein Trace H (Negative) Urine Glucose (UA) Trace H (Negative) Urine Ketones Trace H (Negative) Urine Blood Moderate H (Negative) Ur Leukocyte Esterase Small H (Negative) Urine RBC 19 H (0-5) /hpf Urine WBC 11 H (0-5) /hpf Urine Bacteria Rare H (None) /hpf 06/11/24 06/11/24 06/12/24 Range/Units 16:09 20:15 04:14 WBC 57.3 H* (3.8-10.6) k/uL RBC 4.21 L (4.30-5.90) m/uL Hgb 10.6 L (13.0-17.5) gm/dL Hct 35.8 L (39.0-53.0) % MCHC 29.6 L (31.0-37.0) g/dL RDW 20.4 H (11.5-15.5) % Plt Count 43 L (150-450) k/uL Neutrophils # (Manual) 41.20 H (1.3-7.7) k/uL Monocytes # (Manual) 3.44 H (0-1.0) k/uL Eosinophils # (Manual) 1.72 H (0-0.7) k/uL Metamyelocytes # (Man) 5.73 H (0) k/uL Myelocytes # (Manual) 2.29 H (0) k/uL Pathologist Review Sodium (137-145) mmol/L Carbon Dioxide (22-30) mmol/L BUN (9-20) mg/dL Creatinine (0.66-1.25) mg/dL Glucose (74-99) mg/dL POC Glucose (mg/dL) 254 H 250 H (70-110) mg/dL Plasma Lactic Acid Diomedes (0.7-2.0) mmol/L Calcium (8.4-10.2) mg/dL Phosphorus (2.5-4.5) mg/dL Total PSA (<=4.0) ng/mL Methylmalonic Acid (<0.40) umol/L Urine Protein (Negative) Urine Glucose (UA) (Negative) Urine Ketones (Negative) Urine Blood (Negative) Ur Leukocyte Esterase (Negative) Urine RBC (0-5) /hpf Urine WBC (0-5) /hpf Urine Bacteria (None) /hpf 06/12/24 06/12/24 06/12/24 Range/Units 04:14 04:14 05:35 WBC (3.8-10.6) k/uL RBC (4.30-5.90) m/uL Hgb (13.0-17.5) gm/dL Hct (39.0-53.0) % MCHC (31.0-37.0) g/dL RDW (11.5-15.5) % Plt Count (150-450) k/uL Neutrophils # (Manual) (1.3-7.7) k/uL Monocytes # (Manual) (0-1.0) k/uL Eosinophils # (Manual) (0-0.7) k/uL Metamyelocytes # (Man) (0) k/uL Myelocytes # (Manual) (0) k/uL Pathologist Review Sodium 131 L (137-145) mmol/L Carbon Dioxide 12 L (22-30) mmol/L BUN 85 H (9-20) mg/dL Creatinine 5.33 H (0.66-1.25) mg/dL Glucose 114 H (74-99) mg/dL POC Glucose (mg/dL) 113 H (70-110) mg/dL Plasma Lactic Acid Diomedes 3.0 H* (0.7-2.0) mmol/L Calcium 8.0 L (8.4-10.2) mg/dL Phosphorus 8.5 H (2.5-4.5) mg/dL Total PSA (<=4.0) ng/mL Methylmalonic Acid (<0.40) umol/L Urine Protein (Negative) Urine Glucose (UA) (Negative) Urine Ketones (Negative) Urine Blood (Negative) Ur Leukocyte Esterase (Negative) Urine RBC (0-5) /hpf Urine WBC (0-5) /hpf Urine Bacteria (None) /hpf 06/12/24 Range/Units 06:13 WBC (3.8-10.6) k/uL RBC (4.30-5.90) m/uL Hgb (13.0-17.5) gm/dL Hct (39.0-53.0) % MCHC (31.0-37.0) g/dL RDW (11.5-15.5) % Plt Count (150-450) k/uL Neutrophils # (Manual) (1.3-7.7) k/uL Monocytes # (Manual) (0-1.0) k/uL Eosinophils # (Manual) (0-0.7) k/uL Metamyelocytes # (Man) (0) k/uL Myelocytes # (Manual) (0) k/uL Pathologist Review Sodium (137-145) mmol/L Carbon Dioxide (22-30) mmol/L BUN (9-20) mg/dL Creatinine (0.66-1.25) mg/dL Glucose (74-99) mg/dL POC Glucose (mg/dL) 131 H (70-110) mg/dL Plasma Lactic Acid Diomedes (0.7-2.0) mmol/L Calcium (8.4-10.2) mg/dL Phosphorus (2.5-4.5) mg/dL Total PSA (<=4.0) ng/mL Methylmalonic Acid (<0.40) umol/L Urine Protein (Negative) Urine Glucose (UA) (Negative) Urine Ketones (Negative) Urine Blood (Negative) Ur Leukocyte Esterase (Negative) Urine RBC (0-5) /hpf Urine WBC (0-5) /hpf Urine Bacteria (None) /hpf Microbiology - Last 24 Hours (Table) 06/09/24 23:36 Stool Culture - Preliminary Stool 06/07/24 17:02 Blood Culture - Preliminary Blood 06/07/24 17:12 Blood Culture - Preliminary Blood Assessment and Plan (1) Cirrhosis Narrative/Plan: 88-year-old male presented for shortness of breath and abdominal distention without any complaints of abdominal pain. Noted to have hepatic cirrhosis and ascites on CT of abdomen and pelvis which is newly diagnosed. Patient does have history of extensive alcohol use however he no longer drinking states that he quit over 30 years ago. He is a 25 year diabetic, likely etiology secondary to diabetes mellitus and fatty liver disease. Patient also noted to have leukocytosis with white count in the 30s and 40s. However patient without any a bdominal pain but need to consider possible spontaneous bacterial peritonitis. Recommend abdominal ultrasound to evaluate for ascites for diagnostic paracentesis. Current Visit: Yes Status: Acute Code(s): K74.60 - UNSPECIFIED CIRRHOSIS OF LIVER SNOMED Code(s): 14235323 (2) COPD (chronic obstructive pulmonary disease) Current Visit: Yes Status: Acute Code(s): J44.9 - CHRONIC OBSTRUCTIVE PULMONARY DISEASE, UNSPECIFIED SNOMED Code(s): 11019620 (3) Leukocytosis Current Visit: Yes Status: Acute Priority: Medium Code(s): D72.829 - ELEVATED WHITE BLOOD CELL COUNT, UNSPECIFIED SNOMED Code(s): 918485937 (4) Thrombocytopenia Current Visit: Yes Status: Acute Priority: Medium Code(s): D69.6 - THRO MBOCYTOPENIA, UNSPECIFIED SNOMED Code(s): 396882460 (5) Altered mental status Current Visit: Yes Status: Acute Code(s): R41.82 - ALTERED MENTAL STATUS, UNSPECIFIED SNOMED Code(s): 765820706 (6) Acute kidney injury Current Visit: Yes Status: Acute Code(s): N17.9 - ACUTE KIDNEY FAILURE, UNSPECIFIED SNOMED Code(s): 91489630 Plan: 1. Continue symptomatic and supportive care 2. Low-sodium diet 3. Ammonia level ordered. Liver serologies ordered. 4. Daily CBC 5. Hepatitis panel ordered 6. Diuretics per nephrology 7. Continue with further workup and recommendations from hematology Thank you for this consultation, we will continue to follow. Dr. Omid Middleton I agree with the dictator's note, documented as a scribe by Paula Collazo.
[2024-06-12] MEDS: HYDROmorphone 1 MG/ML 1 ML SYRINGE IVP PRN (12:02)
[2024-06-12 12:14] LABS: Glucose,Whole Blood 102 mg/dL (70-110)
[2024-06-12 12:16] LABS: Glucose,Whole Blood 138 mg/dL (70-110)
[2024-06-12] MEDS: LIDOCAINE 1% INJ 10MG/ML (20 ML MDV) SQ ONE (12:46)
[2024-06-12] MEDS: HEPARIN SODIUM 1,000 UN/ML (10ML VL) MISCELLANE ONE (12:48)
[2024-06-12] MEDS: FUROSEMIDE 10 MG/ML 10 ML VIAL IV SCH (12:55)
--- NOTE | 2024-06-12 12:59 | P.GSCN ---
History of Present Illness History of present illness: 88-year-old gentleman patient was seen in intensive care unit for placement of urgent dialysis catheter. Family history of chronic renal failure, acute kidney injury, diabetes mellitus, platelets is placement of dialysis catheter Chest patient has a bilateral crackles noted to the lung. Second sound present Abdomen protuberant midline incision is healed no peritoneal sign noted Femorals are 1+ bilateral Plan is placement of a dialysis catheter risk and complication discussed Past Medical History Past Medical History: Diabetes Mellitus, Prostate Disorder Additional Past Medical History / Comment(s): see Dr Castro H&P, hx gout, History of Any Multi-Drug Resistant Organisms: None Reported Past Surgical History: Appendectomy, Heart Catheterization, Heart Cathete rization With Stent, Pacemaker Additional Past Surgical History / Comment(s): cyst removed from lower spine, henry cataracts, 2 stents Past Anesthesia/Blood Transfusion Reactions: No Reported Reaction Date of Last Stent Placement:: 2004 Type of Cardiac Device: Permanent Pacemaker Device Placement Date:: Past Psychological History: No Psychological Hx Reported Smoking Status: Former smoker Past Alcohol Use History: None Reported Additional Past Alcohol Use History / Comment(s): quit smoking 1981, smoked for 4 PPD for 25 yrs Past Drug Use History: None Reported - Past Family History Sister(s) Family Medical History: Cancer Medications and Allergies Home Medications Medication Instructions Recorded Confirmed Type Atorvastatin [Lipitor] 80 mg PO HS 09/09/17 06/07/24 History Escitalopram [Lexapro] 10 mg PO DAILY 09/09/17 06/07/24 History Insulin Aspart [NovoLOG] See Protocol SQ AC-TID PRN 09/09/17 06/07/24 History Metoprolol Succinate [Toprol Xl] 50 mg PO BID 09/09/17 06/07/24 History Tamsulosin HCl [Flomax] 0.4 mg PO DAILY 09/09/17 06/07/24 History Furosemide [Lasix] 20 mg PO DAILY #90 tab 09/16/17 06/07/24 Rx Clopidogrel [Plavix] 75 mg PO DAILY 06/07/24 06/07/24 History Insuln Asp Prt/Insulin Aspart 60 unit SQ HS 06/07/24 06/07/24 History [NovoLOG MIX 70-30 VIAL] Insuln Asp Prt/Insulin Aspart 100 unit SQ QAM 06/07/24 06/07/24 History [NovoLOG MIX 70-30 VIAL] Losartan Potassium [Cozaar] 100 mg PO DAILY 06/07/24 06/07/24 History Allergies Allergy/AdvReac Type Severity Reaction Status Date / Time No Known Allergies Allergy Verified 06/07/24 15:15 Surgical - Exam Vital Signs Temp Pulse Resp BP Pulse Ox 98.7 F 114 H 20 156/75 90 L 06/07/24 12:07 06/07/24 12:07 06/07/24 12:07 06/07/24 12:07 06/07/24 12:07 Results - Labs 06/12/24 04:14 06/12/24 04:14 Abnormal Lab Results - Last 24 Hours (Table) 06/08/24 06/08/24 06/08/24 Range/Units 05:18 12:30 12:55 WBC (3.8-10.6) k/uL RBC (4.30-5.90) m/uL Hgb (13.0-17.5) gm/dL Hct (39.0-53.0) % MCHC (31.0-37.0) g/dL RDW (11.5-15.5) % Plt Count (150-450) k/uL Neutrophils # (Manual) (1.3-7.7) k/uL Monocytes # (Manual) (0-1.0) k/uL Eosinophils # (Manual) (0-0.7) k/uL Metamyelocytes # (Man) (0) k/uL Myelocytes # (Manual) (0) k/uL Pathologist Review See comment A Sodium (137-145) mmol/L Carbon Dioxide (22-30) mmol/L BUN (9-20) mg/dL Creatinine (0.66-1.25) mg/dL Glucose (74-99) mg/dL POC Glucose (mg/dL) (70-110) mg/dL Plasma Lactic Acid Diomedes (0.7-2.0) mmol/L Calcium (8.4-10.2) mg/dL Phosphorus (2.5-4.5) mg/dL Total PSA 10.0 H (<=4.0) ng/mL Methylmalonic Acid 0.46 H (<0.40) umol/L Free [place] LC, Quant (0.33-1.94) mg/dL Free [place] LC, Quant (0.57-2.63) mg/dL 06/09/24 06/11/24 06/11/24 Range/Units 02:32 16:09 20:15 WBC (3.8-10.6) k/uL RBC (4.30-5.90) m/uL Hgb (13.0-17.5) gm/dL Hct (39.0-53.0) % MCHC (31.0-37.0) g/dL RDW (11.5-15.5) % Plt Count (150-450) k/uL Neutrophils # (Manual) (1.3-7.7) k/uL Monocytes # (Manual) (0-1.0) k/uL Eosinophils # (Manual) (0-0.7) k/uL Metamyelocytes # (Man) (0) k/uL Myelocytes # (Manual) (0) k/uL Pathologist Review Sodium (137-145) mmol/L Carbon Dioxide (22-30) mmol/L BUN (9-20) mg/dL Creatinine (0.66-1.25) mg/dL Glucose (74-99) mg/dL POC Glucose (mg/dL) 254 H 250 H (70-110) mg/dL Plasma Lactic Acid Diomedes (0.7-2.0) mmol/L Calcium (8.4-10.2) mg/dL Phosphorus (2.5-4.5) mg/dL Total PSA (<=4.0) ng/mL Methylmalonic Acid (<0.40) umol/L Free [place] LC, Quant 10.30 H (0.33-1.94) mg/dL Free [place] LC, Quant 7.27 H (0.57-2.63) mg/dL 06/12/24 06/12/24 06/12/24 Range/Units 04:14 04:14 04:14 WBC 57.3 H* (3.8-10.6) k/uL RBC 4.21 L (4.30-5.90) m/uL Hgb 10.6 L (13.0-17.5) gm/dL Hct 35.8 L (39.0-53.0) % MCHC 29.6 L (31.0-37.0) g/dL RDW 20.4 H (11.5-15.5) % Plt Count 43 L (150-450) k/uL Neutrophils # (Manual) 41.20 H (1.3-7.7) k/uL Monocytes # (Manual) 3.44 H (0-1.0) k/uL Eosinophils # (Manual) 1.72 H (0-0.7) k/uL Metamyelocytes # (Man) 5.73 H (0) k/uL Myelocytes # (Manual) 2.29 H (0) k/uL Pathologist Review Sodium 131 L (137-145) mmol/L Carbon Dioxide 12 L (22-30) mmol/L BUN 85 H (9-20) mg/dL Creatinine 5.33 H (0.66-1.25) mg/dL Glucose 114 H (74-99) mg/dL POC Glucose (mg/dL) (70-110) mg/dL Plasma Lactic Acid Diomedes 3.0 H* (0.7-2.0) mmol/L Calcium 8.0 L (8.4-10.2) mg/dL Phosphorus 8.5 H (2.5-4.5) mg/dL Total PSA (<=4.0) ng/mL Methylmalonic Acid (<0.40) umol/L Free [place] LC, Quant (0.33-1.94) mg/dL Free [place] LC, Quant (0.57-2.63) mg/dL 06/12/24 06/12/24 06/12/24 Range/Units 05:35 06:13 12:15 WBC (3.8-10.6) k/uL RBC (4.30-5.90) m/uL Hgb (13.0-17.5) gm/dL Hct (39.0-53.0) % MCHC (31.0-37.0) g/dL RDW (11.5-15.5) % Plt Count (150-450) k/uL Neutrophils # (Manual) (1.3-7.7) k/uL Monocytes # (Manual) (0-1.0) k/uL Eosinophils # (Manual) (0-0.7) k/uL Metamyelocytes # (Man) (0) k/uL Myelocytes # (Manual) (0) k/uL Pathologist Review Sodium (137-145) mmol/L Carbon Dioxide (22-30) mmol/L BUN (9-20) mg/dL Creatinine (0.66-1.25) mg/dL Glucose (74-99) mg/dL POC Glucose (mg/dL) 113 H 131 H 138 H (70-110) mg/dL Plasma Lactic Acid Diomedes (0.7-2.0) mmol/L Calcium (8.4-10.2) mg/dL Phosphorus (2.5-4.5) mg/dL Total PSA (<=4.0) ng/mL Methylmalonic Acid (<0.40) umol/L Free [place] LC, Quant (0.33-1.94) mg/dL Free [place] LC, Quant (0.57-2.63) mg/dL Microbiology - Last 24 Hours (Table) 06/09/24 23:36 Stool Culture - Preliminary Stool Diabetes panel 06/12/24 Range/Units 04:14 Sodium 131 L (137-145) mmol/L Potassium 4.6 (3.5-5.1) mmol/L Chloride 102 (98-107) mmol/L Carbon Dioxide 12 L (22-30) mmol/L BUN 85 H (9-20) mg/dL Creatinine 5.33 H (0.66-1.25) mg/dL Glucose 114 H (74-99) mg/dL Calcium 8.0 L (8.4-10.2) mg/dL Calcium panel 06/12/24 Range/Units 04:14 Calcium 8.0 L (8.4-10.2) mg/dL Phosphorus 8.5 H (2.5-4.5) mg/dL Pituitary panel 06/12/24 Range/Units 04:14 Sodium 131 L (137-145) mmol/L Potassium 4.6 (3.5-5.1) mmol/L Chloride 102 (98-107) mmol/L Carbon Dioxide 12 L (22-30) mmol/L BUN 85 H (9-20) mg/dL Creatinine 5.33 H (0.66-1.25) mg/dL Glucose 114 H (74-99) mg/dL Calcium 8.0 L (8.4-10.2) mg/dL Adrenal panel 06/12/24 Range/Units 04:14 Sodium 131 L (137-145) mmol/L Potassium 4.6 (3.5-5.1) mmol/L Chloride 102 (98-107) mmol/L Carbon Dioxide 12 L (22-30) mmol/L BUN 85 H (9-20) mg/dL Creatinine 5.33 H (0.66-1.25) mg/dL Glucose 114 H (74-99) mg/dL Calcium 8.0 L (8.4-10.2) mg/dL
--- NOTE | 2024-06-12 13:00 | P.PCN ---
Description of Procedure: Preop diagnosis acute chronic renal failure Postop the same Procedure ultrasound-guided 20 cm dialysis catheter right femoral approach right groin was prepped and draped in Prestel manner 1% lidocaine infiltrated right groin drape applied 1% lidocaine infiltrated in the right groin area. Ultrasound-guided micropuncture introduced right femoral vein micropuncture guide was passed after that we passed the regular guidewire without any resistance dilators were advanced over the guidewire then replaced 20 cm dialysis catheter flushed with heparin saline hep-locked secured with 3-0 nylon dressing applied patient tarted the procedure well
--- NOTE | 2024-06-12 13:36 | P.PN ---
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 On today's evaluation that is 06/12/2024, the patient continues to be afebrile, the patient did have worsening of his respiratory status requiring more suppl emental oxygen following the patient has been transferred to the ICU, patient blood pressure is currently borderline but has not been started on any pressor support also noticed to have worsening of his abdominal distention no vomiting or diarrhea has been reported. Patient white count is up to 57.3 creatinine is 5.33 blood and stool culture have been pending Objective - Vital Signs Vital signs: Vital Signs Temp 97.3 F L 06/12/24 12:00 Pulse 67 06/12/24 13:00 Resp 20 06/12/24 13:00 BP 103/52 06/12/24 13:00 Pulse Ox 94 L 06/12/24 13:00 FiO2 Intake & Output 06/11/24 06/12/24 06/12/24 18:59 06:59 18:59 Intake Total 478 0 Output Total 300 44 Balance 478 -300 -44 Weight 120.7 kg 120.7 kg Intake: Oral 478 0 Output: Urine 300 44 Other: Voiding Method Indwelling Catheter Indwelling Catheter # Voids 1 1 # Bowel Movements 1 1 - Exam GENERAL DESCRIPTION: An elderly male up in the chair in no distress RESPIRATORY SYSTEM: Unlabored breathing , decreased breath sounds at bases HEART: S1 S2 regular rate and rhythm , ABDOMEN: Soft did have distention but no tenderness EXTREMITIES: No edema feet - Labs CBC & Chem 7: 06/12/24 04:14 06/12/24 04:14 Labs: Abnormal Lab Results - Last 24 Hours (Table) 06/08/24 06/08/24 06/09/24 Range/Units 12:30 12:55 02:32 WBC (3.8-10.6) k/uL RBC (4.30-5.90) m/uL Hgb (13.0-17.5) gm/dL Hct (39.0-53.0) % MCHC (31.0-37.0) g/dL RDW (11.5-15.5) % Plt Count (150-450) k/uL Neutrophils # (Manual) (1.3-7.7) k/uL Monocytes # (Manual) (0-1.0) k/uL Eosinophils # (Manual) (0-0.7) k/uL Metamyelocytes # (Man) (0) k/uL Myelocytes # (Manual) (0) k/uL Sodium (137-145) mmol/L Carbon Dioxide (22-30) mmol/L BUN (9-20) mg/dL Creatinine (0.66-1.25) mg/dL Glucose (74-99) mg/dL POC Glucose (mg/dL) (70-110) mg/dL Plasma Lactic Acid Diomedes (0.7-2.0) mmol/L Calcium (8.4-10.2) mg/dL Phosphorus (2.5-4.5) mg/dL Total PSA 10.0 H (<=4.0) ng/mL Methylmalonic Acid 0.46 H (<0.40) umol/L Free [place] LC, Quant 10.30 H (0.33-1.94) mg/dL Free [place] LC, Quant 7.27 H (0.57-2.63) mg/dL 06/11/24 06/11/24 06/12/24 Range/Units 16:09 20:15 04:14 WBC 57.3 H* (3.8-10.6) k/uL RBC 4.21 L (4.30-5.90) m/uL Hgb 10.6 L (13.0-17.5) gm/dL Hct 35.8 L (39.0-53.0) % MCHC 29.6 L (31.0-37.0) g/dL RDW 20.4 H (11.5-15.5) % Plt Count 43 L (150-450) k/uL Neutrophils # (Manual) 41.20 H (1.3-7.7) k/uL Monocytes # (Manual) 3.44 H (0-1.0) k/uL Eosinophils # (Manual) 1.72 H (0-0.7) k/uL Metamyelocytes # (Man) 5.73 H (0) k/uL Myelocytes # (Manual) 2.29 H (0) k/uL Sodium (137-145) mmol/L Carbon Dioxide (22-30) mmol/L BUN (9-20) mg/dL Creatinine (0.66-1.25) mg/dL Glucose (74-99) mg/dL POC Glucose (mg/dL) 254 H 250 H (70-110) mg/dL Plasma Lactic Acid Diomedes (0.7-2.0) mmol/L Calcium (8.4-10.2) mg/dL Phosphorus (2.5-4.5) mg/dL Total PSA (<=4.0) ng/mL Methylmalonic Acid (<0.40) umol/L Free [place] LC, Quant (0.33-1.94) mg/dL Free [place] LC, Quant (0.57-2.63) mg/dL 06/12/24 06/12/24 06/12/24 Range/Units 04:14 04:14 05:35 WBC (3.8-10.6) k/uL RBC (4.30-5.90) m/uL Hgb (13.0-17.5) gm/dL Hct (39.0-53.0) % MCHC (31.0-37.0) g/dL RDW (11.5-15.5) % Plt Count (150-450) k/uL Neutrophils # (Manual) (1.3-7.7) k/uL Monocytes # (Manual) (0-1.0) k/uL Eosinophils # (Manual) (0-0.7) k/uL Metamyelocytes # (Man) (0) k/uL Myelocytes # (Manual) (0) k/uL Sodium 131 L (137-145) mmol/L Carbon Dioxide 12 L (22-30) mmol/L BUN 85 H (9-20) mg/dL Creatinine 5.33 H (0.66-1.25) mg/dL Glucose 114 H (74-99) mg/dL POC Glucose (mg/dL) 113 H (70-110) mg/dL Plasma Lactic Acid Diomedes 3.0 H* (0.7-2.0) mmol/L Calcium 8.0 L (8.4-10.2) mg/dL Phosphorus 8.5 H (2.5-4.5) mg/dL Total PSA (<=4.0) ng/mL Methylmalonic Acid (<0.40) umol/L Free [place] LC, Quant (0.33-1.94) mg/dL Free [place] LC, Quant (0.57-2.63) mg/dL 06/12/24 06/12/24 Range/Units 06:13 12:15 WBC (3.8-10.6) k/uL RBC (4.30-5.90) m/uL Hgb (13.0-17.5) gm/dL Hct (39.0-53.0) % MCHC (31.0-37.0) g/dL RDW (11.5-15.5) % Plt Count (150-450) k/uL Neutrophils # (Manual) (1.3-7.7) k/uL Monocytes # (Manual) (0-1.0) k/uL Eosinophils # (Manual) (0-0.7) k/uL Metamyelocytes # (Man) (0) k/uL Myelocytes # (Manual) (0) k/uL Sodium (137-145) mmol/L Carbon Dioxide (22-30) mmol/L BUN (9-20) mg/dL Creatinine (0.66-1.25) mg/dL Glucose (74-99) mg/dL POC Glucose (mg/dL) 131 H 138 H (70-110) mg/dL Plasma Lactic Acid Diomedes (0.7-2.0) mmol/L Calcium (8.4-10.2) mg/dL Phosphorus (2.5-4.5) mg/dL Total PSA (<=4.0) ng/mL Methylmalonic Acid (<0.40) umol/L Free [place] LC, Quant (0.33-1.94) mg/dL Free [place] LC, Quant (0.57-2.63) mg/dL Microbiology - Last 24 Hours (Table) 06/09/24 23:36 Stool Culture - Preliminary Stool Assessment and Plan (1) Abdominal pain Current Visit: Yes Status: Acute Code(s): R10.9 - UNSPECIFIED ABDOMINAL PAIN SNOMED Code(s): 06969197 (2) Leukocytosis Current Visit: Yes Status: Acute Priority: Medium Code(s): D72.829 - ELEVATED WHITE BLOOD CELL COUNT, UNSPECIFIED SNOMED Code(s): 844378257 (3) Diarrhea Current Visit: Yes Status: Acute Code(s): R19.7 - DIARRHEA, UNSPECIFIED SNOMED Code(s): 63731928 Plan: 1patient presented to hospital with abdominal bloating distention some discomfort nausea and also complaining of diarrhea patient did have a CT of abdominal pelvis which did shows features of cirrhosis and small volume ascites with a question of possible SBP less likely but not excluded patient currently do not have any abdominal tenderness no fever patient did have significant evaded white count but with more imaging from underlying myeloproliferative disorder likely and hematology oncology is currently following the patient. 2apparently IR was unable to do paracentesis as per discussion with the surgical PROPERTY DISPOSAL MANAGER. 3patient also complaining of diarrhea, stool for C. difficile negative stool culture are currently pending 4 patient did have worsening of his respiratory status possible fluid related is also noticed to have worsening of his kidney function and hematuria has been transferred to the ICU for now will cover with Zosyn while waiting for the workup to be completed. at the bedside questions answered Dictation was produced using [employer] dictation software. please excuse any grammatical, word or spelling errors. Time with Patient: Less than 30
--- NOTE | 2024-06-12 15:53 | P.PN ---
Subjective Progress Note Date: 06/12/24 SURGICAL PROGRESS NOTE CHIEF COMPLAINT: Shortness of breath HISTORY OF PRESENT ILLNESS: Patient required a transfer to the ICU because of decreased oxygen saturation and increasing confusion. Patient's creatinine is up to 5.3 and he is getting hemodialysis today. Abdominal ultrasound completed yesterday with no significant free fluid in the abdomen. Afebrile. WBC is up to 57.3 Hgb 10.6 PHYSICAL EXAM: VITAL SIGNS: Reviewed. GENERAL: no acute distress. ABDOMEN: Distended. Nontender NEUROLOGIC: confused Extremities edema bilateral lower extremities ASSESSMENT: 1. Abdominal distention with ascites and leukocytosis. Concerns for possible spontaneous bacterial peritonitis 2. Liver cirrhosis 3. Asymptomatic gallstones PLAN: -No surgical intervention planned -Continue antibiotics for possible SBP -Agree with hematology evaluation for leukocytosis -Surgical service will sign off. Please call with any questions or concerns Physician Emergency Planner note has been reviewed by physician. Signing provider agrees with the documented findings, assessment, and plan of care. Objective - Vital Signs Vital signs: Vital Signs Temp 97.3 F L 06/12/24 12:00 Pulse 80 06/12/24 15:33 Resp 13 06/12/24 15:00 BP 110/58 06/12/24 15:00 Pulse Ox 95 06/12/24 15:00 FiO2 Intake & Output 06/11/24 06/12/24 06/12/24 18:59 06:59 18:59 Intake Total 478 50 Output Total 300 53 Balance 478 -300 -3 Weight 120.7 kg 120.7 kg Intake: IV 50 Piperacillin-Tazobactam 3 50 .375 gm In Sodium Chloride 0.9% 100 ml @ 25 mls/hr IVPB Q12H [facility] Rx# :[id number] Oral 478 0 Output: Urine 300 53 Other: Voiding Method Indwelling Catheter Indwelling Catheter Indwelling Catheter # Voids 1 1 # Bowel Movements 1 1 - Labs CBC & Chem 7: 06/12/24 04:14 06/12/24 04:14 Labs: Abnormal Lab Results - Last 24 Hours (Table) 06/08/24 06/08/24 06/09/24 Range/Units 12:30 12:55 02:32 WBC (3.8-10.6) k/uL RBC (4.30-5.90) m/uL Hgb (13.0-17.5) gm/dL Hct (39.0-53.0) % MCHC (31.0-37.0) g/dL RDW (11.5-15.5) % Plt Count (150-450) k/uL Neutrophils # (Manual) (1.3-7.7) k/uL Monocytes # (Manual) (0-1.0) k/uL Eosinophils # (Manual) (0-0.7) k/uL Metamyelocytes # (Man) (0) k/uL Myelocytes # (Manual) (0) k/uL Sodium (137-145) mmol/L Carbon Dioxide (22-30) mmol/L BUN (9-20) mg/dL Creatinine (0.66-1.25) mg/dL Glucose (74-99) mg/dL POC Glucose (mg/dL) (70-110) mg/dL Plasma Lactic Acid Diomedes (0.7-2.0) mmol/L Calcium (8.4-10.2) mg/dL Phosphorus (2.5-4.5) mg/dL Total PSA 10.0 H (<=4.0) ng/mL Methylmalonic Acid 0.46 H (<0.40) umol/L Free [place] LC, Quant 10.30 H (0.33-1.94) mg/dL Free [place] LC, Quant 7.27 H (0.57-2.63) mg/dL 06/11/24 06/11/24 06/12/24 Range/Units 16:09 20:15 04:14 WBC 57.3 H* (3.8-10.6) k/uL RBC 4.21 L (4.30-5.90) m/uL Hgb 10.6 L (13.0-17.5) gm/dL Hct 35.8 L (39.0-53.0) % MCHC 29.6 L (31.0-37.0) g/dL RDW 20.4 H (11.5-15.5) % Plt Count 43 L (150-450) k/uL Neutrophils # (Manual) 41.20 H (1.3-7.7) k/uL Monocytes # (Manual) 3.44 H (0-1.0) k/uL Eosinophils # (Manual) 1.72 H (0-0.7) k/uL Metamyelocytes # (Man) 5.73 H (0) k/uL Myelocytes # (Manual) 2.29 H (0) k/uL Sodium (137-145) mmol/L Carbon Dioxide (22-30) mmol/L BUN (9-20) mg/dL Creatinine (0.66-1.25) mg/dL Glucose (74-99) mg/dL POC Glucose (mg/dL) 254 H 250 H (70-110) mg/dL Plasma Lactic Acid Diomedes (0.7-2.0) mmol/L Calcium (8.4-10.2) mg/dL Phosphorus (2.5-4.5) mg/dL Total PSA (<=4.0) ng/mL Methylmalonic Acid (<0.40) umol/L Free [place] LC, Quant (0.33-1.94) mg/dL Free [place] LC, Quant (0.57-2.63) mg/dL 06/12/24 06/12/24 06/12/24 Range/Units 04:14 04:14 05:35 WBC (3.8-10.6) k/uL RBC (4.30-5.90) m/uL Hgb (13.0-17.5) gm/dL Hct (39.0-53.0) % MCHC (31.0-37.0) g/dL RDW (11.5-15.5) % Plt Count (150-450) k/uL Neutrophils # (Manual) (1.3-7.7) k/uL Monocytes # (Manual) (0-1.0) k/uL Eosinophils # (Manual) (0-0.7) k/uL Metamyelocytes # (Man) (0) k/uL Myelocytes # (Manual) (0) k/uL Sodium 131 L (137-145) mmol/L Carbon Dioxide 12 L (22-30) mmol/L BUN 85 H (9-20) mg/dL Creatinine 5.33 H (0.66-1.25) mg/dL Glucose 114 H (74-99) mg/dL POC Glucose (mg/dL) 113 H (70-110) mg/dL Plasma Lactic Acid Diomedes 3.0 H* (0.7-2.0) mmol/L Calcium 8.0 L (8.4-10.2) mg/dL Phosphorus 8.5 H (2.5-4.5) mg/dL Total PSA (<=4.0) ng/mL Methylmalonic Acid (<0.40) umol/L Free [place] LC, Quant (0.33-1.94) mg/dL Free [place] LC, Quant (0.57-2.63) mg/dL 06/12/24 06/12/24 Range/Units 06:13 12:15 WBC (3.8-10.6) k/uL RBC (4.30-5.90) m/uL Hgb (13.0-17.5) gm/dL Hct (39.0-53.0) % MCHC (31.0-37.0) g/dL RDW (11.5-15.5) % Plt Count (150-450) k/uL Neutrophils # (Manual) (1.3-7.7) k/uL Monocytes # (Manual) (0-1.0) k/uL Eosinophils # (Manual) (0-0.7) k/uL Metamyelocytes # (Man) (0) k/uL Myelocytes # (Manual) (0) k/uL Sodium (137-145) mmol/L Carbon Dioxide (22-30) mmol/L BUN (9-20) mg/dL Creatinine (0.66-1.25) mg/dL Glucose (74-99) mg/dL POC Glucose (mg/dL) 131 H 138 H (70-110) mg/dL Plasma Lactic Acid Diomedes (0.7-2.0) mmol/L Calcium (8.4-10.2) mg/dL Phosphorus (2.5-4.5) mg/dL Total PSA (<=4.0) ng/mL Methylmalonic Acid (<0.40) umol/L Free [place] LC, Quant (0.33-1.94) mg/dL Free Lambda LC, Quant (0.57-2.63) mg/dL Microbiology - Last 24 Hours (Table) 06/09/24 23:36 Stool Culture - Preliminary Stool Assessment and Plan Assessment: 1. Abdominal distention with ascites and leukocytosis. Concerns for possible spontaneous bacterial peritonitis 2. Liver cirrhosis 3. Asymptomatic gallstones PLAN: -No surgical intervention planned -Continue antibiotics for possible SBP -Agree with hematology evaluation for leukocytosis -Surgical service will sign off. Please call with any questions or concerns Time with Patient: Less than 30
--- NOTE | 2024-06-12 16:11 | P.PN ---
Subjective Progress Note Date: 06/12/24 H&P Date: 06/08/24 Chief Complaint: Distended abdomen, increased flatus, dyspnea This is an 88-year-old gentleman with past medical history significant for prior heavy alcohol use-and x 35 years, prior nicotine dependence 4 packs/day x 25 years, quit in 1981, complete heart block with PPM implantation, diabetes mellitus, diabetic gastroparesis ,prostate disorder,obesity, obstructive sleep apnea and multiple other medical issues presented to the ER with complaints of significant flatus, bloating-increased abdominal distention accompanied by dyspnea began 2 to 3 days ago. Denies nausea, vomiting or diarrhea. Denies constipation. Reports minimal to no abdominal,pain chronic leg edema with minimal edema currently. Denies chest pain, palpitations. Afebrile, WBC on admission 33, increased to 48, lactic acid lactic acid 7.1 , currently down to 4 with IV fluid hydration, hemoglobin 11.6, platelets 38, MCV 84.2, blast cells 1%, INR 1.7, elevated D-dimer, 3.97. Chest CTA reported no PE, trace bilateral pleural effusions, stable left lower lobe pulmonary nodule, moderate COPD changes with scattered regions of linear scarring within the right middle lobe and lingula, cardiomegaly.Electrolytes within normal limits, bicarb 15, BUN 21, creatinine 1.05-appears close to baseline. Blood sugars in the 200s, A1c 7.6, total bili 1.8, proBNP 5390. UA negative nitrates, negative leukocytes, 1+ protein trace glucose 1+ ketones, small blood, positive hyaline casts. Viral studies negative. CT of abdomen pelvis reported findings of hepatic cirrhosis with small volume ascites throughout the abdomen pelvis, nonspecific enlarged gastrohepatic ligament lymph node with additional mildly prominent gastrohepatic nodes and periaortic lymph nodes, cholelithiasis with no biliary ductal dilatation, prostate enlarged measuring 6.1 cm.Gallbladder ultrasound reported small amount of free fluid adjacent to the liver, common bile duct within normal limits, pancreas within normal limits, liver enlarged, difficult to penetrate, mild adjacent ascites noted within right upper quadrant I know. Gallbladder wall slightly thickened unable to appreciate stone seen on CT-Limited views, possibly hydropic. 06/11/2024 denies abdominal pain. Diuretics discontinued yesterday secondary to worsening renal function. renal function continues to decline, bicarb 14, BUN 78, creatinine 4.75 .Bicarb ordered. denies chest pain, palpitations or shortness of breath. Maintaining O2 sats in the mid 90s on room air. Blood sugars currently controlled on Levemir in addition to NovoLog sliding scale. 06/12/2024 during the night patient developed respiratory distress , tachypnea , shallow breathing, worsening hypoxia , soft blood pressures, increased lower extremity, confusion, transferred to ICU. Lactic acid 3, resolved with IV fluid hydration to 2, ammonia level normal, less than 9. white count increased to 57.3 , afebrile. Hemoglobin decreased to 10.6, platelets 43. chest x-ray reported CHF, pulmonary vascular congestion, infiltrates of other etiology not excluded.received IV push Lasix .worsening of renal function with bicarb of 12, BUN 85, creatinine 5.33. Temporary dialysis catheter placed, hemodialysis initiated. Objective - Vital Signs Vital signs: Vital Signs Temp 97.3 F L 06/12/24 12:00 Pulse 80 06/12/24 15:33 Resp 13 06/12/24 15:00 BP 110/58 06/12/24 15:00 Pulse Ox 95 06/12/24 15:00 FiO2 Intake & Output 06/11/24 06/12/24 06/12/24 18:59 06:59 18:59 Intake Total 478 50 Output Total 300 53 Balance 478 -300 -3 Weight 120.7 kg 120.7 kg Intake: IV 50 Piperacillin-Tazobactam 3 50 .375 gm In Sodium Chloride 0.9% 100 ml @ 25 mls/hr IVPB Q12H [facility] Rx# :[id number] Oral 478 0 Output: Urine 300 53 Other: Voiding Method Indwelling Catheter Indwelling Catheter Indwelling Catheter # Voids 1 1 # Bowel Movements 1 1 - Exam PHYSICAL EXAM: VITAL SIGNS: [Reviewed] GENERAL: Well-nourished, fatigued, restless, sitting up in bed, confused HEENT: Normocephalic, atraumatic conjunctivae normal. eyes normal. Sclera anicteric NECK: Supple, unable to assess for JVD. CARDIOVASCULAR: S1, S2 regular.No murmur RESPIRATION: Unlabored, equal air entry, scattered rhonchi with bibasilar crackl es ABDOMEN: Soft, obese, distended, nontender, no guarding. no masses palpable. +BS. Positive scrotal edema. LEGS: Positive bilateral lower extremity edema, no calf tenderness. NERVOUS SYSTEM: Limited eval, confused, Skin: Warm and dry, no rash. - Labs CBC & Chem 7: 06/12/24 04:14 06/12/24 04:14 Labs: Abnormal Lab Results - Last 24 Hours (Table) 06/08/24 06/08/24 06/09/24 Range/Units 12:30 12:55 02:32 WBC (3.8-10.6) k/uL RBC (4.30-5.90) m/uL Hgb (13.0-17.5) gm/dL Hct (39.0-53.0) % MCHC (31.0-37.0) g/dL RDW (11.5-15.5) % Plt Count (150-450) k/uL Neutrophils # (Manual) (1.3-7.7) k/uL Monocytes # (Manual) (0-1.0) k/uL Eosinophils # (Manual) (0-0.7) k/uL Metamyelocytes # (Man) (0) k/uL Myelocytes # (Manual) (0) k/uL Sodium (137-145) mmol/L Carbon Dioxide (22-30) mmol/L BUN (9-20) mg/dL Creatinine (0.66-1.25) mg/dL Glucose (74-99) mg/dL POC Glucose (mg/dL) (70-110) mg/dL Plasma Lactic Acid Diomedes (0.7-2.0) mmol/L Calcium (8.4-10.2) mg/dL Phosphorus (2.5-4.5) mg/dL Total PSA 10.0 H (<=4.0) ng/mL Methylmalonic Acid 0.46 H (<0.40) umol/L Free [place] LC, Quant 10.30 H (0.33-1.94) mg/dL Free Lambda LC, Quant 7.27 H (0.57-2.63) mg/dL 06/11/24 06/11/24 06/12/24 Range/Units 16:09 20:15 04:14 WBC 57.3 H* (3.8-10.6) k/uL RBC 4.21 L (4.30-5.90) m/uL Hgb 10.6 L (13.0-17.5) gm/dL Hct 35.8 L (39.0-53.0) % MCHC 29.6 L (31.0-37.0) g/dL RDW 20.4 H (11.5-15.5) % Plt Count 43 L (150-450) k/uL Neutrophils # (Manual) 41.20 H (1.3-7.7) k/uL Monocytes # (Manual) 3.44 H (0-1.0) k/uL Eosinophils # (Manual) 1.72 H (0-0.7) k/uL Metamyelocytes # (Man) 5.73 H (0) k/uL Myelocytes # (Manual) 2.29 H (0) k/uL Sodium (137-145) mmol/L Carbon Dioxide (22-30) mmol/L BUN (9-20) mg/dL Creatinine (0.66-1.25) mg/dL Glucose (74-99) mg/dL POC Glucose (mg/dL) 254 H 250 H (70-110) mg/dL Plasma Lactic Acid Diomedes (0.7-2.0) mmol/L Calcium (8.4-10.2) mg/dL Phosphorus (2.5-4.5) mg/dL Total PSA (<=4.0) ng/mL Methylmalonic Acid (<0.40) umol/L Free [place] LC, Quant (0.33-1.94) mg/dL Free Lambda LC, Quant (0.57-2.63) mg/dL 06/12/24 06/12/24 06/12/24 Range/Units 04:14 04:14 05:35 WBC (3.8-10.6) k/uL RBC (4.30-5.90) m/uL Hgb (13.0-17.5) gm/dL Hct (39.0-53.0) % MCHC (31.0-37.0) g/dL RDW (11.5-15.5) % Plt Count (150-450) k/uL Neutrophils # (Manual) (1.3-7.7) k/uL Monocytes # (Manual) (0-1.0) k/uL Eosinophils # (Manual) (0-0.7) k/uL Metamyelocytes # (Man) (0) k/uL Myelocytes # (Manual) (0) k/uL Sodium 131 L (137-145) mmol/L Carbon Dioxide 12 L (22-30) mmol/L BUN 85 H (9-20) mg/dL Creatinine 5.33 H (0.66-1.25) mg/dL Glucose 114 H (74-99) mg/dL POC Glucose (mg/dL) 113 H (70-110) mg/dL Plasma Lactic Acid Diomedes 3.0 H* (0.7-2.0) mmol/L Calcium 8.0 L (8.4-10.2) mg/dL Phosphorus 8.5 H (2.5-4.5) mg/dL Total PSA (<=4.0) ng/mL Methylmalonic Acid (<0.40) umol/L Free [place] LC, Quant (0.33-1.94) mg/dL Free [place]ambda LC, Quant (0.57-2.63) mg/dL 06/12/24 06/12/24 Range/Units 06:13 12:15 WBC (3.8-10.6) k/uL RBC (4.30-5.90) m/uL Hgb (13.0-17.5) gm/dL Hct (39.0-53.0) % MCHC (31.0-37.0) g/dL RDW (11.5-15.5) % Plt Count (150-450) k/uL Neutrophils # (Manual) (1.3-7.7) k/uL Monocytes # (Manual) (0-1.0) k/uL Eosinophils # (Manual) (0-0.7) k/uL Metamyelocytes # (Man) (0) k/uL Myelocytes # (Manual) (0) k/uL Sodium (137-145) mmol/L Carbon Dioxide (22-30) mmol/L BUN (9-20) mg/dL Creatinine (0.66-1.25) mg/dL Glucose (74-99) mg/dL POC Glucose (mg/dL) 131 H 138 H (70-110) mg/dL Plasma Lactic Acid Diomedes (0.7-2.0) mmol/L Calcium (8.4-10.2) mg/dL Phosphorus (2.5-4.5) mg/dL Total PSA (<=4.0) ng/mL Methylmalonic Acid (<0.40) umol/L Free [place] LC, Quant (0.33-1.94) mg/dL Free Lambda LC, Quant (0.57-2.63) mg/dL Microbiology - Last 24 Hours (Table) 06/09/24 23:36 Stool Culture - Preliminary Stool Assessment and Plan Assessment: Sepsis, etiology unclear. Minimal to no abdominal pain, positive flatus, WBC 48, lactic acid 7.1 on admission, elevated blast cells 1%, T. bili 1.8 ,abdomen/pelvis CT reporting hepatic cirrhosis, small volume ascites throughout the abdomen pelvis, nonspecific enlarged gastrohepatic ligament lymph node with additional mildly prominent gastrohepatic lymph nodes and. Aortic lymph nodes possibly reactive , cholelithiasis, no biliary ductal dilatation, enlarged prostate.. Possible myeloproliferative disorder as per oncology.less likely SBP as per ID. Leukocytosis secondary to the above Lactic acidosis secondary to #1 Acute renal failure, multifactorial, secondary to ATN, cardiorenal syndrome and contrast. Hemodialysis initiated 06/12/2024 Metabolic acidosis secondary to the above Acute hypoxic respiratory failure Confusion, acute metabolic encephalopathy, factorial, secondary to all the above Hyponatremia, hypervolemic Anemia appears to be chronic, last hemoglobin was 11.4 on 01/2024. Thrombocytopenia Hypercoagulopathy Hyperbilirubinemia Diabetic gastroparesis Left lower lobe pulmonary nodule, 11 mm, stable reported per CT completed on 10/17/2023, follows/monitored with pulmonary outpatient COPD Obstructive sleep apnea Diabetes mellitus, hyperglycemia, hemoglobin A1c 7.6 CAD History of PPM secondary to complete heart block Moderate pulmonary hypertension Hypertension Hyperlipidemia Prior heavy alcohol use , none X 35 years Prior nicotine dependence, 4 packs/day x 25 years, quit 1981 [facility], wears hearing aids Morbid obesity, BMI 37 Plan: Continue on current medication regimen ,monitoring and symptomatic treatment. Hemodialysis, diuretics sodium bicarb IV as per nephrology. Echo ordered. antibiotics as per ID. CODE STATUS changed to no code after discussion with crop duster helper. Prognosis guarded given multiple complex medical issues. The impression and plan of care has been dictated as directed. : I performed a history and examination of this patient, discussed the same with the dictator. I agree with the dictator's note ,documented as a scribe. Any additional findings or plans will be noted. Prior
[2024-06-12 16:45] LABS: Glucose,Whole Blood 96 mg/dL (70-110)
[2024-06-12] MEDS: SODIUM BICARB 8.4% 50 ML SYR (1 MEQ/ML) IV STA (17:04)
[2024-06-12 17:18] LABS: Glucose,Whole Blood 99 mg/dL (70-110)
[2024-06-12 18:35] LABS: Hepatitis B Surface AB- Quant 3.5 mIU/mL
[2024-06-12 19:50] LABS: Glucose,Whole Blood 129 mg/dL (70-110)
[2024-06-12 23:33] LABS: Glucose,Whole Blood 145 mg/dL (70-110)
[2024-06-13 02:54] LABS: Glucose,Whole Blood 138 mg/dL (70-110)
[2024-06-13 06:11] LABS: Anisocytosis Moderate; HCT 32.2 % (39.0-53.0); HGB 9.6 gm/dL (13.0-17.5); Hypochromasia Marked; MCH 25.1 pg (25.0-35.0); MCHC 29.9 g/dL (31.0-37.0); Mean Platelet Volume 10.2; Microcytosis Slight; Poikilocytosis Slight; RBC 3.83 m/uL (4.30-5.90); RDW 20.8 % (11.5-15.5)
[2024-06-13 06:12] LABS: WBC 60.3 k/uL (3.8-10.6)
[2024-06-13 06:13] LABS: Platelet Count 47 k/uL (150-450)
[2024-06-13 06:25] LABS: Glucose,Whole Blood 136 mg/dL (70-110)
[2024-06-13 06:29] LABS: African American GFR (CKD) 9 (>60 ml/min/1.73 sqM); Anion Gap 15 mmol/L; Blood Urea Nitrogen 80 mg/dL (9-20); Calcium 7.5 mg/dL (8.4-10.2); Carbon Dioxide 15 mmol/L (22-30); Chloride 102 mmol/L (98-107); Glucose 110 mg/dL (74-99); Non-African American GFR(CKD) 8 (>60 ml/min/1.73 sqM); Potassium 4.8 mmol/L (3.5-5.1); Sodium 132 mmol/L (137-145)
[2024-06-13 07:52] LABS: Glucose,Whole Blood 122 mg/dL (70-110)
--- NOTE | 2024-06-13 08:16 | XR ---
EXAMINATION TYPE: XR chest 1V portable DATE OF EXAM: 06/13/2024 5:15 AM COMPARISON: Chest radiograph from one day prior. CLINICAL INDICATION: Male, 88 years old with history of increase O2 needs; [facility] TECHNIQUE: XR chest 1V portable Frontal view of the chest. FINDINGS: Lungs/Pleura: There is no evidence of pleural effusion, focal consolidation, or pneumothorax. Pulmonary vascularity: Pulmonary vascular congestion. Heart/mediastinum: Cardiomediastinal silhouette is enlarged. Two lead cardiac conduction device overl shankar the left hemithorax with lead tips projecting over the right ventricle and right atrium. Musculoskeletal: No acute osseous pathology. IMPRESSION: Cardiomegaly and mild pulmonary vascular congestion. Correlate with BNP for congestive heart failure. [facility], , 06/13/2024 8:14 AM
[2024-06-13] MEDS: NOREPINEPHRINE 4 MG in SODIUM CHLORIDE 0.9% 250 ML IV SCH (08:27)
[2024-06-13 09:00] LABS: Alpha Fetoprotein, Tumor Mkr 3.3 ng/mL (0.00-7.90)
[2024-06-13 09:12] LABS: Ceruloplasmin 28.7 mg/dL (20.0-60.0)
--- NOTE | 2024-06-13 10:03 | P.PN ---
Subjective Patient is seen in follow-up for acute kidney injury. Started on hemodialysis June 12, 2024 via right femoral catheter. Tolerated 2 L ultrafiltration yesterday. Currently undergoing dialysis and doing well. Hemodynamically stable. Oliguric. No response to urine output despite IV Lasix. Vital signs are stable. General: No acute distress. HEENT: Head exam is unremarkable. On nasal cannula. LUNGS: Scattered rhonchi. HEART: Rate and Rhythm are regular. ABDOMEN: Distention noted. EXTREMITITES: 2+ edema. Objective - Vital Signs Vital signs: Vital Signs Temp 97.8 F 06/13/24 08:00 Pulse 82 06/13/24 08:30 Resp 14 06/13/24 08:30 BP 121/74 06/13/24 08:30 Pulse Ox 93 L 06/13/24 08:00 FiO2 Intake & Output 06/12/24 06/13/24 06/13/24 18:59 06:59 18:59 Intake Total 475 100 0 Output Total 4457 10 0 Balance -3982 90 0 Weight 120.7 kg 128.5 kg Intake: IV 75 100 Piperacillin-Tazobactam 3 75 100 .375 gm In Sodium Chloride 0.9% 100 ml @ 25 mls/hr IVPB Q12H [facility] Rx# :[id number] Oral 0 0 0 Hemodialysis 400 Output: Urine 57 10 0 Hemodialysis 2400 Hemodialysis Net Amount 2000 Other: Voiding Method Indwelling Catheter Indwelling Catheter - Labs CBC & Chem 7: 06/13/24 05:34 06/13/24 05:34 Labs: Abnormal Lab Results - Last 24 Hours (Table) 06/09/24 06/12/24 06/12/24 Range/Units 02:32 12:15 19:49 WBC (3.8-10.6) k/uL RBC (4.30-5.90) m/uL Hgb (13.0-17.5) gm/dL Hct (39.0-53.0) % MCHC (31.0-37.0) g/dL RDW (11.5-15.5) % Plt Count (150-450) k/uL Sodium (137-145) mmol/L Carbon Dioxide (22-30) mmol/L BUN (9-20) mg/dL Creatinine (0.66-1.25) mg/dL Glucose (74-99) mg/dL POC Glucose (mg/dL) 138 H 129 H (70-110) mg/dL Calcium (8.4-10.2) mg/dL Free [place] LC, Quant 10.30 H (0.33-1.94) mg/dL Free Lambda LC, Quant 7.27 H (0.57-2.63) mg/dL 06/12/24 06/13/24 06/13/24 Range/Units 23:31 02:53 05:34 WBC 60.3 H* (3.8-10.6) k/uL RBC 3.83 L (4.30-5.90) m/uL Hgb 9.6 L (13.0-17.5) gm/dL Hct 32.2 L (39.0-53.0) % MCHC 29.9 L (31.0-37.0) g/dL RDW 20.8 H (11.5-15.5) % Plt Count 47 L (150-450) k/uL Sodium (137-145) mmol/L Carbon Dioxide (22-30) mmol/L BUN (9-20) mg/dL Creatinine (0.66-1.25) mg/dL Glucose (74-99) mg/dL POC Glucose (mg/dL) 145 H 138 H (70-110) mg/dL Calcium (8.4-10.2) mg/dL Free [place] LC, Quant (0.33-1.94) mg/dL Free Lambda LC, Quant (0.57-2.63) mg/dL 06/13/24 06/13/24 06/13/24 Range/Units 05:34 06:24 07:51 WBC (3.8-10.6) k/uL RBC (4.30-5.90) m/uL Hgb (13.0-17.5) gm/dL Hct (39.0-53.0) % MCHC (31.0-37.0) g/dL RDW (11.5-15.5) % Plt Count (150-450) k/uL Sodium 132 L (137-145) mmol/L Carbon Dioxide 15 L (22-30) mmol/L BUN 80 H (9-20) mg/dL Creatinine 5.80 H (0.66-1.25) mg/dL Glucose 110 H (74-99) mg/dL POC Glucose (mg/dL) 136 H 122 H (70-110) mg/dL Calcium 7.5 L (8.4-10.2) mg/dL Free [place] LC, Quant (0.33-1.94) mg/dL Free Lambda LC, Quant (0.57-2.63) mg/dL Microbiology - Last 24 Hours (Table) 06/09/24 23:36 Stool Culture - Final Stool 06/07/24 17:02 Blood Culture - Final Blood 06/07/24 17:12 Blood Culture - Final Blood Assessment and Plan Plan: Assessment: 1. Acute kidney injury secondary to ATN secondary to cardiorenal syndrome as well as contrast associated acute kidney injury. Baseline creatinine is near 1 and up to 5.8 today. UA with trace protein and initial UA showed no RBCs. CT scan showed no evidence of hydronephrosis. 2. Volume overload. 3. History of liver cirrhosis. 4. Concern for SBP being followed by ID and surgery. On antibiotics. 5. Hypervolemic hyponatremia. Stable. 6. Metabolic acidosis secondary to acute kidney injury and lactic acidosis. Better. Expect further improvement postdialysis. 7. Diabetes mellitus. 8. Hyperphosphatemia secondary to acute kidney injury. Expect improvement postdialysis. Plan: Currently seen while undergoing hemodialysis. Another treatment tomorrow. No response in urine output despite IV Lasix. DC IV Lasix. Follow-up echocardiogram. Monitor for renal recovery.
[2024-06-13 10:52] VITALS: BMI 43.0
[2024-06-13 11:44] LABS: Glucose,Whole Blood 112 mg/dL (70-110)
--- NOTE | 2024-06-13 11:54 | P.PN ---
Subjective Progress Note Date: 06/13/24 This is an 88-year-old male patient with a known history of diabetes mellitus, coronary artery disease with previous stent placement, permanent pacemaker implantation, gout, hyperlipidemia, hypertension, former smoker. He presented here to the emergency room back on June 07, 2024 with abdominal pain and distention. He had been seen and evaluated by surgical services. There was some concern for possible spontaneous bacterial peritonitis. There is evidence of liver cirrhosis and asymptomatic gallstones. No plans for surgical intervention. A rapid response team was called on the patient earlier this morning as he had decreasing blood pressure and increasing oxygen requirements and increasing scrotal and lower extremity edema. He had also developed hematuria. He is seen today in consultation in the intensive care unit. He is currently sitting up in the bed. He is restless. He is confused. His is at the bedside. He is currently maintaining O2 saturations in the 90s on 4 L/mi n per nasal cannula. Chest x-ray reveals evidence of pulmonary vascular congestion/congestive heart failure. Blood and stool cultures are pending. White count 57.3. Hemoglobin 10.6. Platelets 43,000. Sodium 131. Potassium 4.6. Bicarb 12. BUN 85. Creatinine 5.33. Glucose 114. Ammonia level less than 9. Hepatitis screen was negative. Previous C. difficile screen was negative. He is being followed closely by nephrology. He received IV diuretics and sodium bicarbonate. The plan is for dialysis catheter placement and initiate on hemodialysis today. The patient is seen today June 13, 2024 in follow-up in the intensive care unit. He is currently sitting up in bed. Awake, confused, maintaining O2 saturations in the 90s on 5 L/min per nasal cannula. He does seem less agitated today compared to yesterday. He is receiving Dilaudid as needed. Xanax was discontinued. He did undergo hemodialysis catheter placement and hemodialysis yesterday with 2 L of fluid removed. He is currently receiving hemodialysis today with a goal of 3 L to be removed. He remains on Zosyn. Procalcitonin was 2.34. Blood cultures are showing no growth. Chest x-ray reveals cardiomegaly with mild pulmonary vascular congestion. 1 is 60.3. Hemoglobin 9.6. Platelets 47,000. Sodium 132. Potassium 4.8. Bicarb 15. BUN 80. Creatinine 5.80. Glucose 110. Objective - Vital Signs Vital signs: Vital Signs Temp 97.8 F 06/13/24 08:00 Pulse 88 06/13/24 10:30 Resp 25 H 06/13/24 10:30 BP 96/50 06/13/24 10:30 Pulse Ox 97 06/13/24 10:30 FiO2 Intake & Output 06/12/24 06/13/24 06/13/24 18:59 06:59 18:59 Intake Total 475 100 50 Output Total 4457 10 0 Balance -3982 90 50 Weight 120.7 kg 128.5 kg 128.5 kg Intake: IV 75 100 50 Piperacillin-Tazobactam 3 75 100 50 .375 gm In Sodium Chloride 0.9% 100 ml @ 25 mls/hr IVPB Q12H [facility] Rx# :[id number] Oral 0 0 0 Hemodialysis 400 Output: Urine 57 10 0 Hemodialysis 2400 Hemodialysis Net Amount 2000 Other: Voiding Method Indwelling Catheter Indwelling Catheter - Exam GENERAL EXAM: Alert, confused, 88-year-old obese male on 5 L nasal cannula. HEAD: Normocephalic. EYES: Normal reaction of pupils, equal size. NOSE: Clear with pink turbinates. THROAT: No erythema or exudates. NECK: No masses, no JVD. CHEST: No chest wall deformity. LUNGS: Equal air entry with bilateral scattered rhonchi, crackles in the bases. CVS: S1 and S2 normal with no audible murmur, regular rhythm. ABDOMEN: No hepatosplenomegaly, normal bowel sounds, no guarding or rigidity. SPINE: No scoliosis or deformity SKIN: No rashes CENTRAL NERVOUS SYSTEM: No focal deficits, tone is normal in all 4 extremities. EXTREMITIES: There is 2+ peripheral edema. Scrotal edema. No clubbing, no cyanosis. Peripheral pulses are intact. - Labs CBC & Chem 7: 06/13/24 05:34 06/13/24 05:34 Labs: Abnormal Lab Results - Last 24 Hours (Table) 06/09/24 06/12/24 06/12/24 Range/Units 02:32 12:15 19:49 WBC (3.8-10.6) k/uL RBC (4.30-5.90) m/uL Hgb (13.0-17.5) gm/dL Hct (39.0-53.0) % MCHC (31.0-37.0) g/dL RDW (11.5-15.5) % Plt Count (150-450) k/uL Sodium (137-145) mmol/L Carbon Dioxide (22-30) mmol/L BUN (9-20) mg/dL Creatinine (0.66-1.25) mg/dL Glucose (74-99) mg/dL POC Glucose (mg/dL) 138 H 129 H (70-110) mg/dL Calcium (8.4-10.2) mg/dL Free [place] LC, Quant 10.30 H (0.33-1.94) mg/dL Free Lambda LC, Quant 7.27 H (0.57-2.63) mg/dL 06/12/24 06/13/24 06/13/24 Range/Units 23:31 02:53 05:34 WBC 60.3 H* (3.8-10.6) k/uL RBC 3.83 L (4.30-5.90) m/uL Hgb 9.6 L (13.0-17.5) gm/dL Hct 32.2 L (39.0-53.0) % MCHC 29.9 L (31.0-37.0) g/dL RDW 20.8 H (11.5-15.5) % Plt Count 47 L (150-450) k/uL Sodium (137-145) mmol/L Carbon Dioxide (22-30) mmol/L BUN (9-20) mg/dL Creatinine (0.66-1.25) mg/dL Glucose (74-99) mg/dL POC Glucose (mg/dL) 145 H 138 H (70-110) mg/dL Calcium (8.4-10.2) mg/dL Free [place] LC, Quant (0.33-1.94) mg/dL Free Lambda LC, Quant (0.57-2.63) mg/dL 06/13/24 06/13/24 06/13/24 Range/Units 05:34 06:24 07:51 WBC (3.8-10.6) k/uL RBC (4.30-5.90) m/uL Hgb (13.0-17.5) gm/dL Hct (39.0-53.0) % MCHC (31.0-37.0) g/dL RDW (11.5-15.5) % Plt Count (150-450) k/uL Sodium 132 L (137-145) mmol/L Carbon Dioxide 15 L (22-30) mmol/L BUN 80 H (9-20) mg/dL Creatinine 5.80 H (0.66-1.25) mg/dL Glucose 110 H (74-99) mg/dL POC Glucose (mg/dL) 136 H 122 H (70-110) mg/dL Calcium 7.5 L (8.4-10.2) mg/dL Free [place] LC, Quant (0.33-1.94) mg/dL Free Lambda LC, Quant (0.57-2.63) mg/dL Microbiology - Last 24 Hours (Table) 06/09/24 23:36 Stool Culture - Final Stool 06/07/24 17:02 Blood Culture - Final Blood 06/07/24 17:12 Blood Culture - Final Blood Assessment and Plan Assessment: Abdominal pain and distention. CT of the abdomen pelvis showed evidence of hepatic cirrhosis, minimal ascites, possible SBP being followed by surgical services and ID service Leukocytosis secondary to above Altered mental status secondary to sepsis Acute hypoxic respiratory failure secondary to fluid volume overload Acute kidney injury secondary to acute tubular necrosis from suspected cardiorenal syndrome. Initiated on hemodialysis 06/12/2024 History of liver cirrhosis Metabolic acidosis secondary to ADDI Diabetes mellitus Hematuria Plan: The patient was seen and evaluated Chest x-ray, labs and medications reviewed Titrate the FiO2 as tolerated Continue bronchodilators Continue Zosyn Currently receiving hemodialysis Prognosis is guarded He is a DNR CODE STATUS We will continue to follow I have personally seen and examined the patient, performed the documentation and the assessment and plan as written. Number of minutes spent on the visit: 10 Dictation was produced using [employer] dictation software. Please excuse any grammatical, word or spelling errors.
--- NOTE | 2024-06-13 12:05 | P.PN ---
Subjective Progress Note Date: 06/13/24 Principal diagnosis: Liver cirrhosis This is a pleasant 88-year-old male who presented to the emergency department with complaints of shortness of breath and abdominal distention on 06/07/2024. He stated symptoms began about 2 days prior to admission. He had a CT of the abdomen pelvis as well as a chest CTA. Abdominal CT reported hepatic cirrhosis with small volume ascites. Nonspecific enlarged gastrohepatic ligament lymph node with additional mildly prominent gastrohepatic lymph node and periaortic lymph nodes. May be reactive to #1. Cholelithiasis. Chest CTA negative for pulmonary embolism. Moderate COPD changes. 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 Patient denies any known history of cirrhosis of the liver or any liver disease. Denies any history of ascites. Past medical history includes coronary artery disease status post stent and pacemaker, diabetes mellitus and prostate disorder. Does have a history of heavy alcohol use for at least 20 years states that he quit in 1984. He denies any abdominal pain, chest pain, nausea or vomiting. Shortness of breath improved. Has lower extremity edema. He was admitted with elevated significant leukocytosis and lactic acidosis. Oncology consulted for abnormal CBC. Labs WBC 39.7 hemoglobin 11.0 platelet count 30,000 sed rate 27 INR 1.5 sodium 131 potassium 4.5 BUN 78 creatinine 4.7 iron 50 saturation 15 ferritin 709 total bilirubin 0.9 AST 91 ALT 28 alkaline phosphatase 68 CRP 5.2 06/12/2024 Patient seen and examined today as a follow-up. He was transferred to the ICU for increased confusion and oxygen demands. Patient is having hematuria with clots nursing is stating that he is pulling at his Dewey catheter causing that. He is only oriented x 1. He is currently sitting in his room with no clothes on. His is at the bedside. He is denying any abdominal pain. Kidney functioning is worsening. Yesterday he had abdominal ultrasound to evaluate again for ascites. Ultrasound shows no fluid at all. WBC 57.3 hemoglobin 10.6 platelet count 43,000 sodium 131 potassium 4.6 BUN 85 creatinine 5.33 ammonia less than 9. Hepatitis panel nonreactive. 06/13/2024 Patient seen and examined today as a follow-up. He remains in the ICU. He remains confused. He was started on hemodialysis yesterday. White blood cell count continues to increase. Today's labs WBC 16.3 hemoglobin 9.6 platelet count 47,000. Hepatitis panel nonreactive and liver serologies negative to date. Patient is now a DO NOT RESUSCITATE. Objective - Vital Signs Vital signs: Vital Signs Temp 97.8 F 06/13/24 08:00 Pulse 82 06/13/24 08:30 Resp 14 06/13/24 08:30 BP 121/74 06/13/24 08:30 Pulse Ox 93 L 06/13/24 08:00 FiO2 Intake & Output 06/12/24 06/13/24 06/13/24 18:59 06:59 18:59 Intake Total 475 100 0 Output Total 4457 10 0 Balance -3982 90 0 Weight 120.7 kg 128.5 kg Intake: IV 75 100 Piperacillin-Tazobactam 3 75 100 .375 gm In Sodium Chloride 0.9% 100 ml @ 25 mls/hr IVPB Q12H [facility] Rx# :[id number] Oral 0 0 0 Hemodialysis 400 Output: Urine 57 10 0 Hemodialysis 2400 Hemodialysis Net Amount 2000 Other: Voiding Method Indwelling Catheter Indwelling Catheter - Exam General appearance: The patient is alert, oriented to self only, appears in no acute distress. HET: Head is normocephalic and atraumatic. Conjunctiva pink. Sclera anicteric. Neck: Supple without lymphadenopathy. Abdomen: Soft, nontender, distended, tympanic. No guarding or rigidity. Extremities: Normal skin color and turgor. Lower extremity pitting edema. Skin: No rashes, no jaundice Neurological: No focal deficits. Alert and oriented to self only. - Labs CBC & Chem 7: 06/13/24 05:34 06/13/24 05:34 Labs: Abnormal Lab Results - Last 24 Hours (Table) 06/09/24 06/12/24 06/12/24 Range/Units 02:32 12:15 19:49 WBC (3.8-10.6) k/uL RBC (4.30-5.90) m/uL Hgb (13.0-17.5) gm/dL Hct (39.0-53.0) % MCHC (31.0-37.0) g/dL RDW (11.5-15.5) % Plt Count (150-450) k/uL Sodium (137-145) mmol/L Carbon Dioxide (22-30) mmol/L BUN (9-20) mg/dL Creatinine (0.66-1.25) mg/dL Glucose (74-99) mg/dL POC Glucose (mg/dL) 138 H 129 H (70-110) mg/dL Calcium (8.4-10.2) mg/dL Free [place] LC, Quant 10.30 H (0.33-1.94) mg/dL Free Lambda LC, Quant 7.27 H (0.57-2.63) mg/dL 06/12/24 06/13/24 06/13/24 Range/Units 23:31 02:53 05:34 WBC 60.3 H* (3.8-10.6) k/uL RBC 3.83 L (4.30-5.90) m/uL Hgb 9.6 L (13.0-17.5) gm/dL Hct 32.2 L (39.0-53.0) % MCHC 29.9 L (31.0-37.0) g/dL RDW 20.8 H (11.5-15.5) % Plt Count 47 L (150-450) k/uL Sodium (137-145) mmol/L Carbon Dioxide (22-30) mmol/L BUN (9-20) mg/dL Creatinine (0.66-1.25) mg/dL Glucose (74-99) mg/dL POC Glucose (mg/dL) 145 H 138 H (70-110) mg/dL Calcium (8.4-10.2) mg/dL Free [place] LC, Quant (0.33-1.94) mg/dL Free Lambda LC, Quant (0.57-2.63) mg/dL 06/13/24 06/13/24 06/13/24 Range/Units 05:34 06:24 07:51 WBC (3.8-10.6) k/uL RBC (4.30-5.90) m/uL Hgb (13.0-17.5) gm/dL Hct (39.0-53.0) % MCHC (31.0-37.0) g/dL RDW (11.5-15.5) % Plt Count (150-450) k/uL Sodium 132 L (137-145) mmol/L Carbon Dioxide 15 L (22-30) mmol/L BUN 80 H (9-20) mg/dL Creatinine 5.80 H (0.66-1.25) mg/dL Glucose 110 H (74-99) mg/dL POC Glucose (mg/dL) 136 H 122 H (70-110) mg/dL Calcium 7.5 L (8.4-10.2) mg/dL Free [place] LC, Quant (0.33-1.94) mg/dL Free Lambda LC, Quant (0.57-2.63) mg/dL Microbiology - Last 24 Hours (Table) 06/09/24 23:36 Stool Culture - Final Stool 06/07/24 17:02 Blood Culture - Final Blood 06/07/24 17:12 Blood Culture - Final Blood Assessment and Plan (1) Cirrhosis Narrative/Plan: 88-year-old male presented for shortness of breath and abdominal distention with out any complaints of abdominal pain. Noted to have hepatic cirrhosis and ascites on CT of abdomen and pelvis which is newly diagnosed. Patient does have history of extensive alcohol use however he no longer drinking states that he quit over 30 years ago. He is a 25 year diabetic, likely etiology secondary to diabetes mellitus and fatty liver disease. Patient also noted to have leukocytosis with white count in the 30s and 40s. Ascites initially seen on CAT scan however not enough fluid for paracentesis. Leukocytosis cannot rule out secondary to SBP. Abdominal ultrasound was performed there is no abdominal ascites. Current Visit: Yes Status: Acute Code(s): K74.60 - UNSPECIFIED CIRRHOSIS OF LIVER SNOMED Code(s): 95036110 (2) COPD (chronic obstructive pulmonary disease) Current Visit: Yes Status: Acute Code(s): J44.9 - CHRONIC OBSTRUCTIVE PULMONARY DISEASE, UNSPECIFIED SNOMED Code(s): 13755117 (3) Leukocytosis Narrative/Plan: Unclear etiology, cannot rule out SBP although abdominal ultrasound shows no ascites. Current Visit: Yes Status: Acute Priority: Medium Code(s): D72.829 - ELEVATED WHITE BLOOD CELL COUNT, UNSPECIFIED SNOMED Code(s): 385035741 (4) Thrombocytopenia Current Visit: Yes Status: Acute Priority: Medium Code(s): D69.6 - THROMBOCYTOPENIA, UNSPECIFIED SNOMED Code(s): 406843487 (5) Altered mental status Current Visit: Yes Status: Acute Code(s): R41.82 - ALTERED MENTAL STATUS, UNSPECIFIED SNOMED Code(s): 549304491 (6) Acute kidney injury Current Visit: Yes Status: Acute Code(s): N17.9 - ACUTE KIDNEY FAILURE, UNSPECIFIED SNOMED Code(s): 92643574 Plan: 1. Continue symptomatic and supportive care 2. Low-sodium diet 3. Liver serologies negative to date 4. There is no evidence of ascites, SBP low suspicion 5. Continue with recommendations from multiple consultants 6. There is no further workup indicated from gastroenterology. Recommend outpatient follow-up with gastroenterology. Thank you for this consultation, we will sign off at this time. Dr. Omid Middleton I agree with the dictator's note, documented as a scribe by Paula Collazo.
[2024-06-13 16:27] LABS: Glucose,Whole Blood 126 mg/dL (70-110)
--- NOTE | 2024-06-13 17:11 | CA ---
Transthoracic Echo Report Name: Lalo Forman Age: 88 Gender: M : 1935 Exam Date: 06/12/2024 10:41 Exam Location: [facility] Ht (in): 66 Wt (lb): 266 Ordering Physician: Alberto Orozco DO Attending/Referring Phys: [facility] Attendant Shira Calderon RDCS Procedure CPT: Indications: Evauluate EF Cardiac Hx: pacemaker Technical Quality: Technically difficult study Contrast 1: Definity Total Dose (mL): 2 Contrast 2: Total Dose (mL): MEASUREMENTS (Male / Female) Normal Values 2D ECHO LV Diastolic Diameter PLAX 4.7 cm 4.2 - 5.9 / 3.9 - 5.3 cm LV Systolic Diameter PLAX 3.8 cm IVS Diastolic Thickness 1.4 cm 0.6 - 1.0 / 0.6 - 0.9 cm LVPW Diastolic Thickness 1.4 cm 0.6 - 1.0 / 0.6 - 0.9 cm LV Relative Wall Thickness 0.6 RV Internal Dim ED PLAX 3.4 cm LVOT Diameter 2.4 cm LA Systolic Diameter LX 4.3 cm 3.0 - 4.0 / 2.7 - 3.8 cm LV Diastolic Volume MOD BP 79.1 cm??? 67 - 155 / 56 - 104 cm??? LV Systolic Volume MOD BP 29.4 cm??? 22 - 58 / 19 - 49 cm??? LV Ejection Fraction MOD BP 62.8 % >= 55 % LV Cardiac Index MOD BP 1429.7 cm???/min???m??? LV Diastolic Volume MOD 4C 90.0 cm??? LV Systolic Volume MOD 4C 23.7 cm??? LV Ejection Fraction MOD 4C 73.7 % LV Cardiac Index MOD 4C 1906.5 cm???/min???m??? LV Diastolic Length 4C 8.7 cm LV Systolic Length 4C 7.8 cm LV Diastolic Volume MOD 2C 63.9 cm??? LV Systolic Volume MOD 2C 34.9 cm??? LV Ejection Fraction MOD 2C 45.4 % LV Cardiac Index MOD 2C 834.4 cm???/min???m??? LV Diastolic Length 2C 7.9 cm LV Systolic Length 2C 6.9 cm DOPPLER AV Peak Velocity 181.4 cm/s AV Peak Gradient 13.2 mmHg AV Mean Velocity 126.0 cm/s AV Mean Gradient 7.9 mmHg AV Velocity Time Integral 58.1 cm LVOT Peak Velocity 127.3 cm/s LVOT Peak Gradient 6.5 mmHg LVOT Velocity Time Integral 32.1 cm LVOT Stroke Volume 140.7 cm??? LVOT Stroke Volume Index 62.3 ml/m??? LVOT Cardiac Index 4047.4 cm???/min???m??? AV Area Cont Eq vti 2.4 cm??? AV Area Cont Eq pk 3.1 cm??? Mitral E Point Velocity 83.0 cm/s Mitral A Point Velocity 111.6 cm/s Mitral E to A Ratio 0.7 MV Deceleration Time 367.5 ms TR Peak Velocity 205.5 cm/s TR Peak Gradient 16.9 mmHg Right Ventricular Systolic Press 26.9 mmHg FINDINGS Left Ventricle Left ventricular ejection fraction is estimated at 50-55 %. Left ventricular cavity size normal. Moderate concentric left ventricular hypertrophy. Paradoxical septal motion Right Ventricle Mild right ventricular dilatation. Right ventricular systolic pressure within normal limits. Right Atrium Right atrium not well visualized. Left Atrium Mildly increased left atrial diameter. Mitral Valve Mitral valve thickened. Mild mitral annular calcification. Aortic Valve Trileaflet aortic valve. No aortic valve stenosis or regurgitation. Aortic valve sclerosis. Tricuspid Valve Tricuspid valve not well visualized. [id number] tricuspid regurgitation. Pulmonic Valve Pulmonic valve not well visualized. Pericardium No pericardial effusion. Aorta Normal size aortic root and proximal ascending aorta. CONCLUSIONS Technically difficult study. LVEF 50% Paradoxical septal motion. Moderate tricuspid regurgitation Polyvalvular calcification with aortic valve sclerosis and mitral annular calcification Previewed by: Dr Dieter Lewis (Electronically Signed) Final Date: 13 June 2024 17:09
[2024-06-13 20:14] LABS: Glucose,Whole Blood 124 mg/dL (70-110)
[2024-06-13 23:44] LABS: Glucose,Whole Blood 133 mg/dL (70-110)
[2024-06-14 03:41] LABS: Glucose,Whole Blood 90 mg/dL (70-110)
[2024-06-14] MEDS ORDERED: DEXTROSE 50% SYRINGE 50 ML IVP PRN ×2 (03:42)
[2024-06-14 06:04] LABS: Glucose,Whole Blood 38 mg/dL (70-110)
[2024-06-14] MEDS: DEXTROSE 50% SYRINGE 50 ML IVP PRN (06:10)
[2024-06-14 06:28] LABS: Glucose,Whole Blood 103 mg/dL (70-110)
[2024-06-14 07:33] LABS: Anisocytosis Moderate; HCT 35.5 % (39.0-53.0); HGB 10.5 gm/dL (13.0-17.5); Hypochromasia Marked; MCH 25.8 pg (25.0-35.0); MCHC 29.5 g/dL (31.0-37.0); MCV 87.3 fL (80.0-100.0); Mean Platelet Volume 18.3; Microcytosis Slight; Poikilocytosis Slight; RBC 4.07 m/uL (4.30-5.90); RDW 20.6 % (11.5-15.5)
[2024-06-14 07:37] LABS: WBC 73.4 k/uL (3.8-10.6)
[2024-06-14 07:38] LABS: Platelet Count 80 k/uL (150-450)
[2024-06-14 08:08] LABS: African American GFR (CKD) 8 (>60 ml/min/1.73 sqM); Anion Gap 28 mmol/L; Blood Urea Nitrogen 67 mg/dL (9-20); Calcium 7.6 mg/dL (8.4-10.2); Chloride 100 mmol/L (98-107); Glucose 95 mg/dL (74-99); Non-African American GFR(CKD) 7 (>60 ml/min/1.73 sqM); Potassium 5.5 mmol/L (3.5-5.1); Sodium 137 mmol/L (137-145)
[2024-06-14 08:11] LABS: Carbon Dioxide 9 mmol/L (22-30)
[2024-06-14 08:22] LABS: Glucose,Whole Blood 72 mg/dL (70-110)
--- NOTE | 2024-06-14 08:28 | P.PN ---
Subjective Progress Note Date: 06/13/24 Principal diagnosis: Reason for follow-up is possible SBP and leukocytosis Patient is a 88-year-old male with a past medical history significant for diabetes mellitus gout and prostate disorder cirrhosis of the liver from alcoholism presenting to the hospital for evaluation of bloating increased abdominal distention and shortness of breath, patient did have CT abdominal pelvis with evidence of hepatic cirrhosis ascites did have elevated white count with concern for possible SBP prompting this consultation. On today's evaluation that is 06/13/2024, patient has been afebrile, patient is requiring high flow nasal cannula oxygen but denies any chest pain or cough no vomiting diarrhea any change reported by the nursing staff undergoing dialysis this being his second episode. Patient white count is up to 60,000 creatinine is 5.80 culture have been negative so far Objective - Vital Signs Vital signs: Vital Signs Temp 97.6 F 06/13/24 12:22 Pulse 85 06/13/24 15:00 Resp 14 06/13/24 15:00 BP 94/42 06/13/24 15:00 Pulse Ox 96 06/13/24 15:00 FiO2 Intake & Output 06/12/24 06/13/24 06/13/24 18:59 06:59 18:59 Intake Total 475 100 400 Output Total 4457 10 6310 Balance -3982 90 -5910 Weight 120.7 kg 128.5 kg 128.5 kg Intake: IV 75 100 100 Piperacillin-Tazobactam 3 75 100 100 .375 gm In Sodium Chloride 0.9% 100 ml @ 25 mls/hr IVPB Q12H [facility] Rx# :[id number] Oral 0 0 0 Hemodialysis 400 300 Output: Urine 57 10 10 Hemodialysis 2400 3300 Hemodialysis Net Amount 2000 3000 Other: Voiding Method Indwelling Catheter Indwelling Catheter Indwelling Catheter - Exam GENERAL DESCRIPTION: An elderly male up in the chair in no distress RESPIRATORY SYSTEM: Unlabored breathing , decreased breath sounds at bases HEART: S1 S2 regular rate and rhythm , ABDOMEN: Soft did have distention but no tenderness EXTREMITIES: No edema feet - Labs CBC & Chem 7: 06/14/24 06:27 06/14/24 06:27 Labs: Abnormal Lab Results - Last 24 Hours (Table) 06/12/24 06/12/24 06/13/24 Range/Units 19:49 23:31 02:53 WBC (3.8-10.6) k/uL RBC (4.30-5.90) m/uL Hgb (13.0-17.5) gm/dL Hct (39.0-53.0) % MCHC (31.0-37.0) g/dL RDW (11.5-15.5) % Plt Count (150-450) k/uL Sodium (137-145) mmol/L Carbon Dioxide (22-30) mmol/L BUN (9-20) mg/dL Creatinine (0.66-1.25) mg/dL Glucose (74-99) mg/dL POC Glucose (mg/dL) 129 H 145 H 138 H (70-110) mg/dL Calcium (8.4-10.2) mg/dL 06/13/24 06/13/24 06/13/24 Range/Units 05:34 05:34 06:24 WBC 60.3 H* (3.8-10.6) k/uL RBC 3.83 L (4.30-5.90) m/uL Hgb 9.6 L (13.0-17.5) gm/dL Hct 32.2 L (39.0-53.0) % MCHC 29.9 L (31.0-37.0) g/dL RDW 20.8 H (11.5-15.5) % Plt Count 47 L (150-450) k/uL Sodium 132 L (137-145) mmol/L Carbon Dioxide 15 L (22-30) mmol/L BUN 80 H (9-20) mg/dL Creatinine 5.80 H (0.66-1.25) mg/dL Glucose 110 H (74-99) mg/dL POC Glucose (mg/dL) 136 H (70-110) mg/dL Calcium 7.5 L (8.4-10.2) mg/dL 06/13/24 06/13/24 Range/Units 07:51 11:43 WBC (3.8-10.6) k/uL RBC (4.30-5.90) m/uL Hgb (13.0-17.5) gm/dL Hct (39.0-53.0) % MCHC (31.0-37.0) g/dL RDW (11.5-15.5) % Plt Count (150-450) k/uL Sodium (137-145) mmol/L Carbon Dioxide (22-30) mmol/L BUN (9-20) mg/dL Creatinine (0.66-1.25) mg/dL Glucose (74-99) mg/dL POC Glucose (mg/dL) 122 H 112 H (70-110) mg/dL Calcium (8.4-10.2) mg/dL Microbiology - Last 24 Hours (Table) 06/09/24 23:36 Stool Culture - Final Stool 06/07/24 17:02 Blood Culture - Final Blood 06/07/24 17:12 Blood Culture - Final Blood Assessment and Plan (1) Abdominal pain Current Visit: Yes Status: Acute Code(s): R10.9 - UNSPECIFIED ABDOMINAL PAIN SNOMED Code(s): 39820116 (2) Leukocytosis Current Visit: Yes Status: Acute Priority: Medium Code(s): D72.829 - ELEVATED WHITE BLOOD CELL COUNT, UNSPECIFIED SNOMED Code(s): 130424538 (3) Diarrhea Current Visit: Yes Status: Acute Code(s): R19.7 - DIARRHEA, UNSPECIFIED SNOMED Code(s): 35361846 Plan: 1patient presented to hospital with abdominal bloating distention some discomfort nausea and also complaining of diarrhea patient did have a CT of abdominal pelvis which did shows features of cirrhosis and small volume ascites with a question of possible SBP less likely but not excluded patient currently do not have any abdominal tenderness no fever patient did have significant evaded white count but with more imaging from underlying myeloproliferative disorder likely and hematology oncology is currently following the patient. 2apparently IR was unable to do paracentesis as per discussion with the surgical TOUR GUIDE. 3patient did have diarrhea, stool for C. difficile negative stool culture are so far negative 4 patient did have worsening of his respiratory status possible fluid related is also noticed to have worsening of his kidney function and hematuria and the patient will be started on dialysis 5worsening the white count high clinical suspicion of possible hematological malignancy, hematology following the patient closely on empiric Zosyn Dictation was produced using [employer] dictation software. please excuse any grammatical, word or spelling errors. Time with Patient: Less than 30
--- NOTE | 2024-06-14 08:30 | XR ---
EXAMINATION TYPE: XR chest 1V portable DATE OF EXAM: 06/14/2024 5:42 AM COMPARISON: Chest radiographs from 06/13/2024 CLINICAL INDICATION: Male, 88 years old with history of increase O2 needs; H TECHNIQUE: XR chest 1V portable Frontal view of the chest. FINDINGS: Lungs/Pleura: Right pleural effusion appears larger on today's exam. The patient is rotated. There is no evidence of pleural effusion, focal consolidation, or pneumothorax. Pulmonary vascularity: Unremarkable. Heart/mediastinum: Cardiomediastinal silhouette is enlarged. Two lead cardiac conduction device overl shankar the left hemithorax with lead tips projecting over the right ventricle and right atrium. Musculoskeletal: No acute osseous pathology. IMPRESSION: 1. Enlarging right pleural effusion with associated atelectasis. 2. Cardiomegaly. [facility], , 06/14/2024 8:28 AM
[2024-06-14 08:35] VITALS: TEMP 97.4
[2024-06-14 08:48] LABS: Glucose,Whole Blood 65 mg/dL (70-110)
[2024-06-14 09:16] LABS: Glucose,Whole Blood 117 mg/dL (70-110)
[2024-06-14] MEDS ORDERED: MORPHINE SULFATE 2 MG/ML SYRINGE IV PRN (09:27)
[2024-06-14] MEDS ORDERED: ATROPINE OPHTH SOLN 1% 5ML BTL SUBLINGUAL PRN (09:27)
[2024-06-14] MEDS ORDERED: LORazepam 2 MG/ML INJ IV PRN (09:27)
[2024-06-14] MEDS ORDERED: MORPHINE SULFATE (100 MG/2 ML) 100 MG in SODIUM CHLORIDE 0.9% 100 ML IV SCH (09:30)
[2024-06-14] MEDS: MORPHINE SULFATE 4 MG/ML SYRINGE IVP ONE (09:35)
--- NOTE | 2024-06-14 10:02 | P.PN ---
Progress Note - Text Progress Note Date: 06/14/24 Patient was made comfort care only this morning. is at bedside. Dr. Omid Middleton I agree with the dictator's note, documented as a scribe by Paula Collazo.
[2024-06-14 10:29] VITALS: BP 76/30; PULSE 90; RESP 23
--- NOTE | 2024-06-14 12:45 | P.PN ---
Subjective Progress Note Date: 06/14/24 This is an 88-year-old male patient with a known history of diabetes mellitus, coronary artery disease with previous stent placement, permanent pacemaker implantation, gout, hyperlipidemia, hypertension, former smoker. He presented here to the emergency room back on June 07, 2024 with abdominal pain and distention. He had been seen and evaluated by surgical services. There was some concern for possible spontaneous bacterial peritonitis. There is evidence of liver cirrhosis and asymptomatic gallstones. No plans for surgical intervention. A rapid response team was called on the patient earlier this morning as he had decreasing blood pressure and increasing oxygen requirements and increasing scrotal and lower extremity edema. He had also developed hematuria. He is seen today in consultation in the intensive care unit. He is currently sitting up in the bed. He is restless. He is confused. His is at the bedside. He is currently maintaining O2 saturations in the 90s on 4 L/mi n per nasal cannula. Chest x-ray reveals evidence of pulmonary vascular congestion/congestive heart failure. Blood and stool cultures are pending. White count 57.3. Hemoglobin 10.6. Platelets 43,000. Sodium 131. Potassium 4.6. Bicarb 12. BUN 85. Creatinine 5.33. Glucose 114. Ammonia level less than 9. Hepatitis screen was negative. Previous C. difficile screen was negative. He is being followed closely by nephrology. He received IV diuretics and sodium bicarbonate. The plan is for dialysis catheter placement and initiate on hemodialysis today. The patient is seen today June 13, 2024 in follow-up in the intensive care unit. He is currently sitting up in bed. Awake, confused, maintaining O2 saturations in the 90s on 5 L/min per nasal cannula. He does seem less agitated today compared to yesterday. He is receiving Dilaudid as needed. Xanax was discontinued. He did undergo hemodialysis catheter placement and hemodialysis yesterday with 2 L of fluid removed. He is currently receiving hemodialysis today with a goal of 3 L to be removed. He remains on Zosyn. Procalcitonin was 2.34. Blood cultures are showing no growth. Chest x-ray reveals cardiomegaly with mild pulmonary vascular congestion. 1 is 60.3. Hemoglobin 9.6. Platelets 47,000. Sodium 132. Potassium 4.8. Bicarb 15. BUN 80. Creatinine 5.80. Glucose 110. The patient is seen today June 14, 2024 in follow-up in the intensive care unit. Early this morning he had developed increasing oxygen requirements up to 10 L high flow nasal cannula. His blood pressure was decreasing. He was on norepinephrine at 0.16 mcg/kg/min. Normal saline at 20 mL/h. His white count is up to 73.4. Hemoglobin 10.5. Platelets 80,000. Sodium 137. Potassium 5.5. Bicarb 9. BUN 67. Creatinine 6.80. Glucose 103. He is continued on bronchodilators. His is at the bedside. She is considering comfort care Objective - Vital Signs Vital signs: Vital Signs Temp 97.4 F L 06/14/24 08:00 Pulse 90 06/14/24 09:00 Resp 23 06/14/24 09:00 BP 76/30 06/14/24 09:00 Pulse Ox 73 L 06/14/24 09:00 FiO2 Intake & Output 06/13/24 06/14/24 06/14/24 18:59 06:59 18:59 Intake Total 400 169.057 151.054 Output Total 6314 5 0 Balance -5914 164.057 151.054 Weight 128.5 kg 124.4 kg Intake: IV 100 100 60 Piperacillin-Tazobactam 3 100 100 .375 gm In Sodium Chloride 0.9% 100 ml @ 25 mls/hr IVPB Q12H [facility] Rx# :[id number] normal saline 60 Intake, IV Titration 69.057 91.054 Amount Norepinephrine 4 mg In 69.057 91.054 Sodium Chloride 0.9% 250 ml @ 0.03 MCG/KG/MIN 13. 796 mls/hr IV .[id number] [facility] Rx#:[id number] Oral 0 0 Hemodialysis 300 Output: Urine 14 5 0 Hemodialysis 3300 Hemodialysis Net Amount 3000 Other: Voiding Method Indwelling Catheter Indwelling Catheter Indwelling Catheter - Exam GENERAL EXAM: Obtunded, minimally responsive, 88-year-old obese male on 11 L nasal cannula. HEAD: Normocephalic. EYES: Normal reaction of pupils, equal size. NOSE: Clear with pink turbinates. THROAT: No erythema or exudates. NECK: No masses, no JVD. CHEST: No chest wall deformity. LUNGS: Equal air entry with bilateral scattered rhonchi, crackles in the bases. CVS: S1 and S2 normal with no audible murmur, regular rhythm. ABDOMEN: No hepatosplenomegaly, normal bowel sounds, no guarding or rigidity. SPINE: No scoliosis or deformity SKIN: No rashes CENTRAL NERVOUS SYSTEM: Obtunded, tone is normal in all 4 extremities. EXTREMITIES: There is 2+ peripheral edema. Scrotal edema. No clubbing, no cyanosis. Peripheral pulses are intact. - Labs CBC & Chem 7: 06/14/24 06:27 06/14/24 06:27 Labs: Abnormal Lab Results - Last 24 Hours (Table) 06/13/24 06/13/24 06/13/24 Range/Units 16:26 20:13 23:43 WBC (3.8-10.6) k/uL RBC (4.30-5.90) m/uL Hgb (13.0-17.5) gm/dL Hct (39.0-53.0) % MCHC (31.0-37.0) g/dL RDW (11.5-15.5) % Plt Count (150-450) k/uL Potassium (3.5-5.1) mmol/L Carbon Dioxide (22-30) mmol/L BUN (9-20) mg/dL Creatinine (0.66-1.25) mg/dL POC Glucose (mg/dL) 126 H 124 H 133 H (70-110) mg/dL Calcium (8.4-10.2) mg/dL 06/14/24 06/14/24 06/14/24 Range/Units 06:02 06:27 06:27 WBC 73.4 H* (3.8-10.6) k/uL RBC 4.07 L (4.30-5.90) m/uL Hgb 10.5 L (13.0-17.5) gm/dL Hct 35.5 L (39.0-53.0) % MCHC 29.5 L (31.0-37.0) g/dL RDW 20.6 H (11.5-15.5) % Plt Count 80 L D (150-450) k/uL Potassium 5.5 H (3.5-5.1) mmol/L Carbon Dioxide 9 L* (22-30) mmol/L BUN 67 H (9-20) mg/dL Creatinine 6.80 H (0.66-1.25) mg/dL POC Glucose (mg/dL) 38 L* (70-110) mg/dL Calcium 7.6 L (8.4-10.2) mg/dL 06/14/24 06/14/24 Range/Units 08:46 09:15 WBC (3.8-10.6) k/uL RBC (4.30-5.90) m/uL Hgb (13.0-17.5) gm/dL Hct (39.0-53.0) % MCHC (31.0-37.0) g/dL RDW (11.5-15.5) % Plt Count (150-450) k/uL Potassium (3.5-5.1) mmol/L Carbon Dioxide (22-30) mmol/L BUN (9-20) mg/dL Creatinine (0.66-1.25) mg/dL POC Glucose (mg/dL) 65 L 117 H (70-110) mg/dL Calcium (8.4-10.2) mg/dL Microbiology - Last 24 Hours (Table) 06/09/24 23:36 Stool Culture - Final Stool Assessment and Plan Assessment: Abdominal pain and distention. CT of the abdomen pelvis showed evidence of hepatic cirrhosis, minimal ascites, possible SBP being followed by surgical services and ID service Leukocytosis secondary to above Altered mental status secondary to sepsis Acute hypoxic respiratory failure secondary to fluid volume overload Acute kidney injury secondary to acute tubular necrosis from suspected cardiorenal syndrome. Initiated on hemodialysis 06/12/2024 History of liver cirrhosis Metabolic acidosis secondary to ADDI Diabetes mellitus Hematuria Plan: The patient was seen and evaluated Chest x-ray, labs and medications reviewed The patient is doing poorly today His is at the bedside She is requesting to place him in comfort care We will initiate the process I have personally seen and examined the patient, performed the documentation and the assessment and plan as written. Number of minutes spent on the visit: 10 Dictation was produced using [employer] dictation software. Please excuse any grammatical, word or spelling errors.
--- NOTE | 2024-06-14 13:03 | CDI ---
Documentation Clarification Form Date: 06/14/2024 12:32:25 PM From: Kayla Mckeon RN CCDS Phone: [phone] Admit Date: 06/07/2024 03:40:00 PM Patient Name: Lalo Forman Visit Number: [id number] Discharge Date: 06/14/2024 11:53:00 AM ATTENTION: The Clinical Documentation Specialists (CDI) and [facility] Coding Staff appreciate your assistance in clarifying documentation. Please respond to the clarification below the line at the bottom and electronically sign. The CDI & [facility] Coding staff will review the response and follow-up if needed. Please note: Queries are made part of the Legal Health Record. If you have any questions, please contact the author of this message via ITS. Doctor: Jacobo Orr Sepsis, etiology unclear is documented 06/08 HP through 06/12, Medicine note which may lack sufficient clinical evidence/support in the medical record. Additional clarification is requested. History/Risk Factors: 88 year old male presents to the ED for significant flatus, bloating increased abdominal distention accompanied by dyspnea began 2 to 3 days prior to admission. Clinical Indicators: 06/07 VSS: B/P 156/75; HR 114; Temp 98.7F Oral: RR 20; SpO2 90% ra LABS: Wbc 33.1, Neutrophils 23.80; Plasma Lactic Acid 7.1 BUN 21, Cr 1.05, glucose 217, Total Bilirubin 1.8, BNP 5390 06/07 CT ABD: Hepatic cirrhosis with small volume ascites. Nonspecific enlarged gastrohepatic ligament lymph node. Mildly prominent gastrohepatic lymph nodes and periaortic lymph nodes. Cholelithiasis 06/07 CT Angio Chest: Trace bilateral pleural effusions. Stable left lower lobe 1.1cm pulmonary nodule. Moderate COPD changes. 06/07 US Gallbladder: Hepatomegaly, Small amount of free fluid adjacent to the liver. 06/08, SX Consult: Abdominal distention with liver cirrhosis and small amount of ascites and significant leukocytosis. Initial concerns for possible spontaneous bacterial peritonitis. But patient has no pain. Antibiotics were initiated and a paracentesis ordered.IR reporting that there is not enough fluid to proceed with paracentesis 06/08, Heme Onc Consult: The patient is noted to have a significant leukocytosis with left shift.This is a new finding, compared to previous CBCs done, most recently in 02/14.At that time total WBC was normal, with a minimal monocytosis and no other abnormality seen. -Possible etiologies were discussed in detail with the patient and his family. They were advised that in this situation an underlying myeloproliferative condition is a concern.Another possibility could be a transient reactive phenomena due to acute illness affecting a bone marrow that has some chronic dysfunction related to age and/or prior alcohol related damage. Treatment: 06/07 06/08 Ceftriaxone IVPB Q24H; 06/08 06/10 Zosyn IVPB Q8H; IV Fluids: 06/08 0.9ns 500cc IV Bolus;06/08 06/09 0.9NS IV 100CC/HR; 06/10 06/14 Zosyn IVPB Q12H; After work up and study, please clarify which diagnosis is most appropriate? [ ] Sepsis ruled out [X ] Sepsis treated prophylactically [ ] Sepsis is a valid diagnosis as evidence by the following: (Please add rationale): [ ] Non-Infectious SIRS due to (please specify) [ ] Non-infectious SIRS due to with organ dysfunction as evidenced by [list organ dysfunction] [ ] Other, please specify [ ] Unable to determine (Template Last Reviewed: July 2023) MTDD
--- NOTE | 2024-06-14 19:55 | P.PN ---
Subjective Progress Note Date: 06/13/24 Patient is seen in the ICU he is currently undergoing hemodialysis 2 L of fluid were already taken off patient with another liter expected. Patient is nonverbal noncommunicating at this time he does awake and says a few things and seemingly recognizes me but is not orientated to person place or time. He is apparently suffering from sepsis etiology is somewhat unclear with not enough fluid to undergo any type of diagnostic paracentesis from the ascites fluid there does not seem to be any dominant masses apparent on CT scan. He seems to be undergoing cardiorenal and multiorgan failure at this point Objective - Vital Signs Vital signs: Vital Signs Temp 97.9 F 06/13/24 20:00 Pulse 82 06/13/24 22:00 Resp 11 L 06/13/24 22:00 BP 125/50 06/13/24 22:00 Pulse Ox 94 L 06/13/24 22:00 FiO2 Intake & Output 06/13/24 06/13/24 06/14/24 06:59 18:59 06:59 Intake Total 100 400 117.858 Output Total 10 6314 0 Balance 90 -5914 117.858 Weight 128.5 kg 128.5 kg Intake: IV 100 100 100 Piperacillin-Tazobactam 3 100 100 100 .375 gm In Sodium Chloride 0.9% 100 ml @ 25 mls/hr IVPB Q12H [facility] Rx# :[id number] Intake, IV Titration 17.858 Amount Norepinephrine 4 mg In 17.858 Sodium Chloride 0.9% 250 ml @ 0.03 MCG/KG/MIN 13. 796 mls/hr IV .[id number] [facility] Rx#:[id number] Oral 0 0 0 Hemodialysis 300 Output: Urine 10 14 0 Hemodialysis 3300 Hemodialysis Net Amount 3000 Other: Voiding Method Indwelling Catheter Indwelling Catheter - Exam VITAL SIGNS: [Reviewed] GENERAL: Well-nourished, fatigued, restless, sitting up in bed, confused HEENT: Normocephalic, atraumatic conjunctivae normal. eyes normal. Sclera anicteric NECK: Supple, unable to assess for JVD. CARDIOVASCULAR: S1, S2 regular.No murmur RESPIRATION: Unlabored, equal air entry, scattered rhonchi with bibasilar crackles ABDOMEN: Soft, obese, distended, nontender, no guarding. no masses palpable. +BS. Positive scrotal edema. LEGS: Positive bilateral lower extremity edema, no calf tenderness. NERVOUS SYSTEM: Limited eval, confused, Skin: Warm and dry, no rash. - Labs CBC & Chem 7: 06/14/24 06:27 06/14/24 06:27 Labs: Abnormal Lab Results - Last 24 Hours (Table) 06/12/24 06/13/24 06/13/24 Range/Units 23:31 02:53 05:34 WBC 60.3 H* (3.8-10.6) k/uL RBC 3.83 L (4.30-5.90) m/uL Hgb 9.6 L (13.0-17.5) gm/dL Hct 32.2 L (39.0-53.0) % MCHC 29.9 L (31.0-37.0) g/dL RDW 20.8 H (11.5-15.5) % Plt Count 47 L (150-450) k/uL Sodium (137-145) mmol/L Carbon Dioxide (22-30) mmol/L BUN (9-20) mg/dL Creatinine (0.66-1.25) mg/dL Glucose (74-99) mg/dL POC Glucose (mg/dL) 145 H 138 H (70-110) mg/dL Calcium (8.4-10.2) mg/dL 06/13/24 06/13/24 06/13/24 Range/Units 05:34 06:24 07:51 WBC (3.8-10.6) k/uL RBC (4.30-5.90) m/uL Hgb (13.0-17.5) gm/dL Hct (39.0-53.0) % MCHC (31.0-37.0) g/dL RDW (11.5-15.5) % Plt Count (150-450) k/uL Sodium 132 L (137-145) mmol/L Carbon Dioxide 15 L (22-30) mmol/L BUN 80 H (9-20) mg/dL Creatinine 5.80 H (0.66-1.25) mg/dL Glucose 110 H (74-99) mg/dL POC Glucose (mg/dL) 136 H 122 H (70-110) mg/dL Calcium 7.5 L (8.4-10.2) mg/dL 06/13/24 06/13/24 06/13/24 Range/Units 11:43 16:26 20:13 WBC (3.8-10.6) k/uL RBC (4.30-5.90) m/uL Hgb (13.0-17.5) gm/dL Hct (39.0-53.0) % MCHC (31.0-37.0) g/dL RDW (11.5-15.5) % Plt Count (150-450) k/uL Sodium (137-145) mmol/L Carbon Dioxide (22-30) mmol/L BUN (9-20) mg/dL Creatinine (0.66-1.25) mg/dL Glucose (74-99) mg/dL POC Glucose (mg/dL) 112 H 126 H 124 H (70-110) mg/dL Calcium (8.4-10.2) mg/dL Microbiology - Last 24 Hours (Table) 06/09/24 23:36 Stool Culture - Final Stool 06/07/24 17:02 Blood Culture - Final Blood 06/07/24 17:12 Blood Culture - Final Blood Assessment and Plan (1) Sepsis with multi-organ dysfunction Status: Acute Code(s): A41.9 - SEPSIS, UNSPECIFIED ORGANISM; R65.20 - SEVERE SEPSIS WITHOUT SEPTIC SHOCK SNOMED Code(s): 51485872 (2) Abdominal pain Status: Acute Code(s): R10.9 - UNSPECIFIED ABDOMINAL PAIN SNOMED Code(s): 23051096 (3) Acute kidney injury Status: Acute Code(s): N17.9 - ACUTE KIDNEY FAILURE, UNSPECIFIED SNOMED Code(s): 24659206 (4) Altered mental status Status: Acute Code(s): R41.82 - ALTERED MENTAL STATUS, UNSPECIFIED SNOMED Code(s): 749806350 (5) Cirrhosis Status: Acute Code(s): K74.60 - UNSPECIFIED CIRRHOSIS OF LIVER SNOMED Code(s): 66171754 Plan: Patient is undergoing renal dialysis today he is in multi organ failure his family knows the severity of the illness and has wished to make him no code no CPR we will continue to follow patient's overall poor prognosis source of his sepsis is clearly not identified as there was not enough ascites fluid to do a diagnostic paracentesis. Time with Patient: Greater than 30
--- NOTE | 2024-06-14 20:02 | P.PN ---
Subjective Progress Note Date: 06/14/24 Patient is seen in the ICU he is currently undergoing hemodialysis 2 L of fluid were already taken off patient with another liter expected. Patient is nonverbal noncommunicating at this time he does awake and says a few things and seemingly recognizes me but is not orientated to person place or time. He is apparently suffering from sepsis etiology is somewhat unclear with not enough fluid to undergo any type of diagnostic paracentesis from the ascites fluid there does not seem to be any dominant masses apparent on CT scan. He seems to be undergoing cardiorenal and multiorgan failure at this point Objective - Vital Signs Vital signs: Vital Signs Temp 97.4 F L 06/14/24 08:00 Pulse 90 06/14/24 09:00 Resp 23 06/14/24 09:00 BP 76/30 06/14/24 09:00 Pulse Ox 73 L 06/14/24 09:00 FiO2 Intake & Output 06/14/24 06/14/24 06/15/24 06:59 18:59 06:59 Intake Total 169.057 151.054 Output Total 5 0 Balance 164.057 151.054 Weight 124.4 kg Intake: IV 100 60 Piperacillin-Tazobactam 3 100 .375 gm In Sodium Chloride 0.9% 100 ml @ 25 mls/hr IVPB Q12H [facility] Rx# :[id number] normal saline 60 Intake, IV Titration 69.057 91.054 Amount Norepinephrine 4 mg In 69.057 91.054 Sodium Chloride 0.9% 250 ml @ 0.03 MCG/KG/MIN 13. 796 mls/hr IV .[id number] [facility] Rx#:[id number] Oral 0 Output: Urine 5 0 Other: Voiding Method Indwelling Catheter Indwelling Catheter - Exam VITAL SIGNS: [Reviewed] GENERAL: Well-nourished, fatigued, restless, sitting up in bed, confused HEENT: Normocephalic, atraumatic conjunctivae normal. eyes normal. Sclera an icteric NECK: Supple, unable to assess for JVD. CARDIOVASCULAR: S1, S2 regular.No murmur RESPIRATION: Unlabored, equal air entry, scattered rhonchi with bibasilar crackles ABDOMEN: Soft, obese, distended, nontender, no guarding. no masses palpable. +BS. Positive scrotal edema. LEGS: Positive bilateral lower extremity edema, no calf tenderness. NERVOUS SYSTEM: Limited eval, confused, Skin: Warm and dry, no rash. - Labs CBC & Chem 7: 06/14/24 06:27 06/14/24 06:27 Labs: Abnormal Lab Results - Last 24 Hours (Table) 06/13/24 06/13/24 06/14/24 Range/Units 20:13 23:43 06:02 WBC (3.8-10.6) k/uL RBC (4.30-5.90) m/uL Hgb (13.0-17.5) gm/dL Hct (39.0-53.0) % MCHC (31.0-37.0) g/dL RDW (11.5-15.5) % Plt Count (150-450) k/uL Potassium (3.5-5.1) mmol/L Carbon Dioxide (22-30) mmol/L BUN (9-20) mg/dL Creatinine (0.66-1.25) mg/dL POC Glucose (mg/dL) 124 H 133 H 38 L* (70-110) mg/dL Calcium (8.4-10.2) mg/dL 06/14/24 06/14/24 06/14/24 Range/Units 06:27 06:27 08:46 WBC 73.4 H* (3.8-10.6) k/uL RBC 4.07 L (4.30-5.90) m/uL Hgb 10.5 L (13.0-17.5) gm/dL Hct 35.5 L (39.0-53.0) % MCHC 29.5 L (31.0-37.0) g/dL RDW 20.6 H (11.5-15.5) % Plt Count 80 L D (150-450) k/uL Potassium 5.5 H (3.5-5.1) mmol/L Carbon Dioxide 9 L* (22-30) mmol/L BUN 67 H (9-20) mg/dL Creatinine 6.80 H (0.66-1.25) mg/dL POC Glucose (mg/dL) 65 L (70-110) mg/dL Calcium 7.6 L (8.4-10.2) mg/dL 06/14/24 Range/Units 09:15 WBC (3.8-10.6) k/uL RBC (4.30-5.90) m/uL Hgb (13.0-17.5) gm/dL Hct (39.0-53.0) % MCHC (31.0-37.0) g/dL RDW (11.5-15.5) % Plt Count (150-450) k/uL Potassium (3.5-5.1) mmol/L Carbon Dioxide (22-30) mmol/L BUN (9-20) mg/dL Creatinine (0.66-1.25) mg/dL POC Glucose (mg/dL) 117 H (70-110) mg/dL Calcium (8.4-10.2) mg/dL Microbiology - Last 24 Hours (Table) 06/09/24 23:36 Stool Culture - Final Stool Assessment and Plan (1) Sepsis with multi-organ dysfunction Status: Acute Code(s): A41.9 - SEPSIS, UNSPECIFIED ORGANISM; R65.20 - SEVERE SEPSIS WITHOUT SEPTIC SHOCK SNOMED Code(s): 57062010 (2) Abdominal pain Status: Acute Code(s): R10.9 - UNSPECIFIED ABDOMINAL PAIN SNOMED Code(s): 74698836 (3) Acute kidney injury Status: Acute Code(s): N17.9 - ACUTE KIDNEY FAILURE, UNSPECIFIED SNOMED Code(s): 23419021 (4) Altered mental status Status: Acute Code(s): R41.82 - ALTERED MENTAL STATUS, UNSPECIFIED SNOMED Code(s): 350248629 (5) Cirrhosis Status: Acute Code(s): K74.60 - UNSPECIFIED CIRRHOSIS OF LIVER SNOMED Code(s): 96189677 Plan: Patient was seen and doing poorly in active phase of dying we have discussed w ith family that current situation. Patient's and son agreed to make patient comfortable patient shortly after. Cause of was sepsis of unknown etiology with multiorgan failure. acute cirrhosis, Acute kidney injury.
--- NOTE | 2024-06-22 15:52 | CDI ---
Documentation Clarification Form Date: 06/22/2024 03:28:42 PM From: Adamaris Briones Phone: Admit Date: 06/07/2024 03:40:00 PM Patient Name: Lalo Forman Visit Number: [id number] Discharge Date: 06/14/2024 11:53:00 AM ATTENTION: The Clinical Documentation Specialists (CDI) and [facility] Coding Staff appreciate your assistance in clarifying documentation. Please respond to the clarification below the line at the bottom and electronically sign. The CDI & [facility] Coding staff will review the response and follow-up if needed. Please note: Queries are made part of the Legal Health Record. If you have any questions, please contact the author of this message via ITS. Doctor/Provider: Jacobo Orr Your patient has the documented diagnosis of unspecified CHF per Consult Note 06/12 and following Progress Notes. Additional information regarding the type and acuity of CHF is requested. History/Risk Factors: 88yo M, Sepsis,ETOH cirrhosis wascites,cholelithiasis,enlarged prostate, possible SBP/myeloproliferative disorder, anemia, thrombocytopenia, hypercoagulopathy, hyperbilirubinemia, DMII wgastroparesis hyperglycemia and CKD, LLL nodule, COPD, NICKIE, CAD, AHB w PPM, PHTN, HTN, HLD, henry ROSEBUD, former smoker and alcoholic, morbid obesity Clinical Indicators: VS/Pulse OX: 90-93 BNP: 5390 Echo: Technically difficultstudy. LVEF 50%. Paradoxical septal motion. ModerateTR. Polyvalvularcalcificationwithaortic valve sclerosisandmitral annular calcification. Chest X Ray: Findings compatible withcongestivefailure. Infiltratesof other etiology are not excluded. Clinical correlation and progressstudiesarerecommended. Treatment: Agree holdingIVF, started on IV Lasix forfluid overload. Discontinue Losartan. Monitor Strict I/O's, daily labs In your professional opinion, can you please clarify the acuity and type of CHF if known? [ ] Acute Systolic Heart Failure (reduced EF) [ ] Acute on Chronic Systolic Heart Failure (reduced EF) [ X] Acute Diastolic Heart Failure (preserved EF) [ ] Acute on Chronic Diastolic Heart Failure (preserved EF) [ ] Acute Systolic & Diastolic Heart Failure [ ] Acute on Chronic Heart Failure Systolic & Diastolic Heart Failure [ ] Other, please specify [ ] Unable to determine (Template Last Revised: August 2020) MTDD
--- NOTE | 2024-06-22 16:11 | CDI ---
Documentation Clarification Form Date: 06/22/2024 03:56:38 PM From: Adamaris Briones Phone: Admit Date: 06/07/2024 03:40:00 PM Patient Name: Lalo Forman Visit Number: [id number] Discharge Date: 06/14/2024 11:53:00 AM ATTENTION: The Clinical Documentation Specialists (CDI) and [facility] Coding Staff appreciate your assistance in clarifying documentation. Please respond to the clarification below the line at the bottom and electronically sign. The CDI & [facility] Coding staff will review the response and follow-up if needed. Please note: Queries are made part of the Legal Health Record. If you have any questions, please contact the author of this message via ITS. Doctor/Provider: Jess Barahona There is documentation of question of possible SBP less likely but not excluded patient currently do not have any abdominal tenderness no fever patient did have significant evaded white count but with more imaging from underlyingmyeloproliferative disorderlikely and. Additional clarification is requested. History/Risk Factors: 88yo M, Sepsis, ETOH cirrhosis w ascites, cholelithiasis, enlarged prostate, possible SBP/myeloproliferative disorder, anemia, thrombocytopenia, hypercoagulopathy, hyperbilirubinemia, DMII w gastroparesis hyperglycemia and CKD, LLL nodule, COPD, NICKIE, CAD, AHB w PPM, PHTN, HTN, HLD, henry [place], former smoker and alcoholic, morbid obesity Clinical Indicators: Abdominal pain, T 98.7, AMS, ETOH cirrhosis w ascites Treatment: hematology oncology is currently following the patient. Started on Zosyn, however therewas notmuch ascitesto betapped. We checked Protonix Calcitonin and it was significantly elevated2.3. In your professional opinion, can you please clarify what diagnosis you are treating with Zosyn and attempted paracentesis? [ ] Myeloproliferative disorder [ ] Spontaneous bacterial peritonitis [ x ] Other, please specify --SBP was suspected even was documented by GI as well unfortunately cannot be ruled out as no paracentesis was done patient also have significant elevated white count however oncology was reporting it to be reactive and not related to any myeloproliferative disorder with the last progress note on 06/11/2024, keeping in in mind his overall critical condition antibiotics were continued [ ] Unable to determine (Template Last Revised: September 2020) MTDD
--- NOTE | 2024-06-22 16:59 | CDI ---
CKD 3a Documentation Clarification Form Date: 06/22/2024 04:17:15 PM From: Adamaris Briones Phone: Admit Date: 06/07/2024 03:40:00 PM Patient Name: Lalo Forman Visit Number: [id number] Discharge Date: 06/14/2024 11:53:00 AM ATTENTION: The Clinical Documentation Specialists (CDI) and [facility] Coding Staff appreciate your assistance in clarifying documentation. Please respond to the clarification below the line at the bottom and electronically sign. The CDI & [facility] Coding staff will review the response and follow-up if needed. Please note: Queries are made part of the Legal Health Record. If you have any questions, please contact the author of this message via ITS. Doctor/Provider: Severo Vigil Differing stages of CKD are documented. Additional clarification regarding the stage of CKD is requested. Acute kidney injuryonchronic kidney disease stage III per Progress Note 06/09 and 06/10 Chronic kidney disease stage II H&P and Progress Note 06/11 History/Risk Factors: 88yo M, Sepsis, ETOH cirrhosis w ascites, cholelithiasis, enlarged prostate, possible SBP/MPD, anemia, thrombocytopenia, hypercoagulopathy, hyperbilirubinemia, DMII w gastroparesis, hyperglycemia and CKD, LLL nodule, COPD, NICKIE, CAD, CHB w PPM, PHTN, HTN, HLD, henry [place], former smoker and alcoholic, morbid obesity BUN 21, creatinine 1.05-appearscloseto baseline. Clinical Indicators: Current BUN: 21-85 CR: 1.05- 5.33 GFR: 64-74 Treatment: Initiated [id number]/2024 Please clarify the stage of the CKD, if known: [ ] CKD Stage 2 [ ] CKD Stage 3a [ ] CKD Stage 3b [ ] Other, please specify [ ] Unable to determine Reference: [employer] Stage 1 eGFR = 90 and kidney damage for =3 months Stage 2 eGFR 60-89 and kidney damage for =3 months Stage 3a eGFR 45-59 and kidney damage for =3 months Stage 3b eGFR 30-44 and kidney damage for =3 months Stage 4 eGFR 15-29 r and kidney damage for =3 months Stage 5 eGFR <15 and kidney damage for =3 months (Template last revised: July 2023) MTDD
== END 2024-06-14 11:53 | disposition expired | DRG 840 ==
LOC: EC 12:04 → 4SSUR 15:40 → 3SCARD 18:53 → 2SICU 06-12 06:04
PROVIDERS: ADMIT Family Medicine; ATTEND Family Medicine
PROC: 06HY33Z Insertion of Infusion Device into Lower Vein, Percutaneous Approach (ICD-10-PCS; principal; 2024-06-12)
PROC: 5A1D70Z Performance of Urinary Filtration, Intermittent, Less than 6 Hours Per Day (ICD-10-PCS; 2024-06-12)
PROC: 3E033XZ Introduction of Vasopressor into Peripheral Vein, Percutaneous Approach (ICD-10-PCS; 2024-06-12)
DX: D47.1 Chronic myeloproliferative disease (principal); G93.41 Metabolic encephalopathy; J96.01 Acute respiratory failure with hypoxia; N17.0 Acute kidney failure with tubular necrosis; K65.2 Spontaneous bacterial peritonitis; I50.31 Acute diastolic (congestive) heart failure; T82.838A Hemorrhage due to vascular prosthetic devices, implants and grafts, initial encounter; I44.2 Atrioventricular block, complete; C96.9 Malignant neoplasm of lymphoid, hematopoietic and related tissue, unspecified; F05 Delirium due to known physiological condition; D68.59 Other primary thrombophilia; I13.0 Hypertensive heart and chronic kidney disease with heart failure and stage 1 through stage 4 chronic kidney disease, or unspecified chronic kidney disease; E87.1 Hypo-osmolality and hyponatremia; E87.20 Acidosis, unspecified; N17.8 Other acute kidney failure; K70.31 Alcoholic cirrhosis of liver with ascites; Z66 Do not resuscitate; Z51.5 Encounter for palliative care; I27.20 Pulmonary hypertension, unspecified; D72.10 Eosinophilia, unspecified; E83.39 Other disorders of phosphorus metabolism; D63.1 Anemia in chronic kidney disease; D69.6 Thrombocytopenia, unspecified; Z79.4 Long term (current) use of insulin; F10.21 Alcohol dependence, in remission; E11.22 Type 2 diabetes mellitus with diabetic chronic kidney disease; J44.9 Chronic obstructive pulmonary disease, unspecified; E11.43 Type 2 diabetes mellitus with diabetic autonomic (poly)neuropathy; E11.65 Type 2 diabetes mellitus with hyperglycemia; N18.31 Chronic kidney disease, stage 3a; E66.01 Morbid (severe) obesity due to excess calories; N14.11 Contrast-induced nephropathy; T50.8X5A Adverse effect of diagnostic agents, initial encounter; K76.0 Fatty (change of) liver, not elsewhere classified; Z68.39 Body mass index [BMI] 39.0-39.9, adult; K80.20 Calculus of gallbladder without cholecystitis without obstruction; G47.33 Obstructive sleep apnea (adult) (pediatric); R91.1 Solitary pulmonary nodule; N40.0 Benign prostatic hyperplasia without lower urinary tract symptoms; I25.10 Atherosclerotic heart disease of native coronary artery without angina pectoris; R31.0 Gross hematuria; H91.93 Unspecified hearing loss, bilateral; K31.84 Gastroparesis; R19.7 Diarrhea, unspecified; E78.5 Hyperlipidemia, unspecified; R59.0 Localized enlarged lymph nodes; Y73.1 Therapeutic (nonsurgical) and rehabilitative gastroenterology and urology devices associated with adverse incidents; Z79.02 Long term (current) use of antithrombotics/antiplatelets; Z79.899 Other long term (current) drug therapy; Z95.5 Presence of coronary angioplasty implant and graft; Z87.891 Personal history of nicotine dependence; Z97.4 Presence of external hearing-aid; Z95.0 Presence of cardiac pacemaker
CPT/HCPCS: 36410; 36415; 71045; 71275; 74177; 76705; 76937; 80048; 80053; 80074; 81001; 81206; 81207; 82103; 82105; 82140; 82150; 82390; 82550; 82607; 82728; 82747; 83036; 83516; 83540; 83550; 83605; 83690; 83735; 83880; 83883; 83921; 84100; 84145; 84153; 84154; 84165; 85025; 85027; 85379; 85610; 85652; 85730; 86038; 86140; 86334; 86431; 86704; 86706; 87040; 87045; 87046; 87324; 87636; 90935; 93005; 93306; 94640; 94760; 96365; 96366; 96375; 99285